=== PATIENT | male | born 1940 | race Caucasian/White ===

== ENCOUNTER → 2019-09-07 | Outpatient (CLI) | payer MEDICARE, MEDICAID ==
[~2019-09-07] MED LIST: ACET-683 PO; ACET1TAB55 PO; ALBU83IN INH; BISA10SU27 PR; COLA100C5 PO; ENEMENE PR; EUCECRE8 TOP; FAMO20TA4 PO; FEVE650S3 PR; HEPARIN 1,000 UNITS/ML 10ML VIAL (FOR RADIOLOGY& DIALYSIS ONLY)(J1644-10) As Ordered ONE; ISOVUE-300 61% 50ML VIAL (Q9967) As Ordered ONE; LIDO3CRE14 TOP; LIDOCAINE 1% MDV 20ML VIAL As Ordered ONE; MIDAZOLAM INJ 2 MG/2 ML VIAL (J2250) As Ordered ONE; MILKSUS3 PO; MIRA1POW3 PO; MORP20SO3 SL; NITROGLYCERIN IN D5W 25MG/250ML (100MCG/ML) As Ordered ONE; PLAV1TAB2 PO; SENN-23 PO; SERT-138 PO; SERT50TA29 PO; TRAZ-186 PO; VICKCRE2 TOP; diphenhydrAMINE INJ 50MG/ML VIAL (J1200) As Ordered ONE; fentaNYL 100 MCG/2 ML INJECTION (J3010) As Ordered ONE
--- NOTE | 2019-09-07 15:59 | REP ---
Brachial peak systole: --Hg Dorsalis pedis peak systole : -- mmHg TELEMETRY MONITOR peak systole: Occluded VIOLETTA peak systole -- Velocity Phasicity MAILING JOGGER 45 triphasic Profunda 34 triphasic SFA prox 44 triphasic SFA mid 22 triphasic SFA dist 11/occluded monophasic Pop occluded -- TOM prox 2 monophasic Tib/P tr occluded -- TELEMETRY MONITOR pr occluded -- TELEMETRY MONITOR dst occluded -- TOM dst for monophasic Impression: There is a severe atheromatous plaque from the distal SFA to the foot. Occluded are the distal SFA, popliteal, tibial/peroneal trunk and proximal and distal TELEMETRY MONITOR. The proximal and distal AT A demonstrate non pulsatile monophasic wave forms. Electronically Signed by Xavier Pennington MD 09/07/2019 03:50 P
== END ==
LOC: M RAD 14:17
PROVIDERS: ATTEND Internal Medicine
DX: I70.90 Unspecified atherosclerosis (principal)

== ENCOUNTER 2019-09-08 11:19 | Inpatient (IN) | payer MEDICARE, MEDICAID ==
[~2019-09-08] VITALS: Ht 177.8 cm; Wt 79.5 kg
[2019-09-08] VITALS (10 sets, daily range): BP systolic 116–192; BP diastolic 57–87
[2019-09-08] MEDS ORDERED: MIRA1POW3 PO (11:57)
[2019-09-08] MEDS ORDERED: EUCECRE8 TOP (11:57)
[2019-09-08] MEDS ORDERED: FEVE650S3 PR (11:57)
[2019-09-08] MEDS ORDERED: LIDO3CRE14 TOP (11:57)
[2019-09-08] MEDS ORDERED: BISA10SU27 PR (11:57)
[2019-09-08] MEDS ORDERED: ALBU83IN INH (11:57)
[2019-09-08] MEDS ORDERED: MORP20SO3 SL (11:57)
[2019-09-08] MEDS ORDERED: MILKSUS3 PO (11:57)
[2019-09-08] MEDS ORDERED: ACET-683 PO (11:57)
[2019-09-08] MEDS ORDERED: COLA100C5 PO (11:57)
[2019-09-08] MEDS ORDERED: TRAZ-186 PO (11:57)
[2019-09-08] MEDS ORDERED: SENN-23 PO (11:57)
[2019-09-08] MEDS ORDERED: PLAV1TAB2 PO (11:57)
[2019-09-08] MEDS ORDERED: ACET1TAB55 PO (11:57)
[2019-09-08] MEDS ORDERED: FAMO20TA4 PO (11:57)
[2019-09-08] MEDS ORDERED: ENEMENE PR (11:57)
[2019-09-08] MEDS ORDERED: SERT-138 PO (11:57)
[2019-09-08] MEDS ORDERED: SERT50TA29 PO (11:57)
[2019-09-08] MEDS ORDERED: VICKCRE2 TOP (11:59)
[2019-09-08 12:14] LABS: BASO # 0.1 10^3/uL (0.0-0.2); BASO % 0.7 % (0.0-1.0); EOS # 0.1 10^3/uL (0.0-0.5); EOS % 0.7 % (0.0-3.0); HEMATOCRIT 54.5 % (42.0-52.0); HEMOGLOBIN 17.4 g/dl (13.5-17.5); LYMPH # 1.1 10^3/uL (1.5-5.0); LYMPH % 10.2 % (24.0-44.0); MEAN CORPUSCULAR HEMOGLOBIN 27.9 pg (27.0-33.0); MEAN CORPUSCULAR HGB CONC 31.9 g/dl (32.0-36.5); MEAN CORPUSCULAR VOLUME 87.3 fl (80.0-96.0); NEUTROPHILS # 8.7 10^3/uL (1.5-8.5); NEUTROPHILS % 78.7 % (36.0-66.0); PLATELET COUNT, AUTOMATED 346 10^3/uL (150-450); RED BLOOD COUNT 6.24 10^6/uL (4.30-6.10); WHITE BLOOD COUNT 11.1 10^3/uL (4.0-10.0)
[2019-09-08 12:31] LABS: INR 1.13; PROTHROMBIN TIME 14.2 SECONDS (11.8-14.0)
[2019-09-08 12:32] LABS: PARTIAL THROMBOPLASTIN TIME 35.4 SECONDS (25.0-38.4)
[2019-09-08 12:33] LABS: BLOOD UREA NITROGEN 22 MG/DL (7-18); CALCIUM LEVEL 9.7 MG/DL (8.8-10.2); CARBON DIOXIDE LEVEL 27 MEQ/L (21-32); CHLORIDE LEVEL 108 MEQ/L (98-107); CREATININE FOR GFR 1.24 MG/DL (0.70-1.30); GLOMERULAR FILTRATION RATE > 60.0 (>42); GLUCOSE, FASTING 125 MG/DL (70-100); POTASSIUM SERUM 4.6 MEQ/L (3.5-5.1); SODIUM LEVEL 142 MEQ/L (136-145)
[2019-09-08] MEDS ORDERED: MORPHINE 2 MG/ML 1ML VIAL (J2270) IV ONE (12:45)
[2019-09-08] MEDS ORDERED: HEPARIN DRIP 25,000 UNITS in IV 1 EA IV SCH (12:59)
[2019-09-08] MEDS ORDERED: HEPARIN SOD (PORCINE) 5000 UNITS/ML VIAL (J1644 PER 1000UNITS) IV PRN (13:30)
[2019-09-08] MEDS ORDERED: hydrALAZINE INJ 20 MG/ML VIAL IV PRN (13:45)
[2019-09-08] MEDS ORDERED: BISACODYL 10 MG SUPP PR PRN (13:45)
[2019-09-08] MEDS ORDERED: MOM 30ML SUSPENSION UDC PO PRN (13:45)
[2019-09-08] MEDS ORDERED: ALBUTEROL SULFATE 2.5 MG/0.5 ML INH NEB SOLN INH PRN (13:45)
[2019-09-08] MEDS ORDERED: ACETAMINOPHEN TAB 650MG DOSE (2X325MG) PO PRN (13:45)
[2019-09-08] MEDS ORDERED: FLEET ENEMA PR PRN (13:45)
[2019-09-08] MEDS: HEPARIN DRIP 25,000 UNITS in IV 1 EA IV SCH (14:00)
[2019-09-08 14:41] LABS: HEMOGLOBIN A1c 5.4 %
[2019-09-08 14:59] LABS: CHOLESTEROL RISK RATIO 6.4 (<5)
[2019-09-08] MEDS ORDERED: MIDAZOLAM INJ 2 MG/2 ML VIAL (J2250) As Ordered ONE (15:04)
[2019-09-08] MEDS ORDERED: fentaNYL 100 MCG/2 ML INJECTION (J3010) As Ordered ONE (15:04)
[2019-09-08] MEDS ORDERED: diphenhydrAMINE INJ 50MG/ML VIAL (J1200) As Ordered ONE (15:04)
[2019-09-08] MEDS ORDERED: LIDOCAINE 1% MDV 20ML VIAL As Ordered ONE (15:05)
[2019-09-08] MEDS ORDERED: ISOVUE-300 61% 50ML VIAL (Q9967) As Ordered ONE (15:05)
--- NOTE | 2019-09-08 15:08 | IRCOV ---
[facility] IR Consult Office Visit IR Consult Office Visit DATE: Sep 08, 2019 REASON FOR CONSULTATION/CHIEF COMPLAINT: Right lower some pain. HISTORY OF PRESENT ILLNESS: 79-year-old male presents from [facility] with right lower extremity pain from last night. He intermittently gets pain in bilateral lower extremities and what sounds like rest pain. He is not ambulatory and denies intermittent claudication. No prior history of cold leg. No prior history of gangrene, lower extremity ulcers or amputations. He is an ex-smoker. Prior stroke greater than 2 years ago. No recent major surgery, trauma or bleed. No prior history of intracranial hemorrhage, aneurysm or AVM. Denies chest pain, shortness of breath, orthopnea or paroxysmal nocturnal dyspnea. ALLERGIES: Please see below. HOME MEDICATIONS: Please see below. PAST MEDICAL HISTORY: Prior stroke PAST SURGICAL HISTORY: No prior arterial intervention in the right leg FAMILY HISTORY: Noncontributory. SOCIAL HISTORY: Ex-smoker. No alcohol or drugs. REVIEW OF SYSTEMS: Otherwise negative PHYSICAL EXAMINATION: VITAL SIGNS: Please see below. GENERAL APPEARANCE: Left-sided weakness from prior stroke. Patient's leans to the left. HEENT: No scleral icterus. RESPIRATORY: Normal breathing at rest. CARDIOVASCULAR: Normal rate. ABDOMEN: Non-distended. EXTREMITIES: Left lower extremity: weak from prior stroke. Patchy sensory loss. Femoral pulse 2+ popliteal pulse 2+ DP PT nonpalpable. warm compared to right leg. Patchy sensory loss. Right lower extremity bluish discoloration. Cool to touch. Femoral pulse 2+ popliteal pulse nonpalpable DP PT nonpalpable. Motor 4 out of 5. Sensation intact. No ulcers. No gangrenous changes. NEUROLOGICAL: Alert and oriented. PSYCHIATRIC: Appropriate to circumstance. LABORATORY DATA: 09/08/2019 hemoglobin 17.4 hematocrit 54.5 WBC 11.1 platelets 346 sodium 142 potassium 4.6 BUN 22 creatinine 1.24 Imaging: I personally reviewed the arterial ultrasound performed 09/07/2019. There is occlusion of the distal SFA and popliteal artery. ASSESSMENT/PLAN: 79-year-old male with acute on chronic right leg critical limb ischemia. Patient has indication for right leg angiogram and intervention. We discussed the risks and benefits of the procedure. Patient would like to proceed. We will proceed with right leg angiogram and intervention. I spent 30 minutes in consultation with the patient. Thank you for this referral. Allergies Coded Allergies: No Known Allergies (Unverified , 09/08/19) Home Medications Scheduled Acetaminophen (Acetaminophen), 1,000 MG PO QHS, (Reported) Clopidogrel Bisulfate (Plavix), 75 MG PO QPM, (Reported) Docusate Sodium (Colace), 200 MG PO DAILY, (Reported) Euc Oil/Aloe/Lav,Rosem Oils/Wp (Vicks Babyrub Soothing Oint), 1 DOSE TOP BID, (Reported) Famotidine (Famotidine), 20 MG PO QHS, (Reported) Lanolin Alcohol/Mo/W.pet/Lee (Eucerin Creme), 1 DOSE TOP QHS, (Reported) Lidocaine HCl (Lidocaine HCl), 1 APLCT TOP BID, (Reported) Polyethylene Glycol 3350 (Miralax), 17 GM PO DAILY, (Reported) Sennosides/Docusate Sodium (Senna-S Tablet), 2 TAB PO QHS, (Reported) Sertraline HCl (Sertraline HCl), 100 MG PO QHS, (Reported) Sertraline HCl (Sertraline HCl), 50 MG PO QHS, (Reported) Trazodone HCl (Trazodone HCl), 50 MG PO QHS, (Reported) Scheduled PRN Acetaminophen (Acetaminophen), 650 MG PO Q4H PRN for PAIN OR FEVER, (Reported) Acetaminophen (Feverall), 650 MG MD Q4H PRN for PAIN OR FEVER, (Reported) Albuterol Sulf (Albuterol Sulfate), 1 UNIT INH Q4H PRN for SHORTNESS OF BREATH, (Reported) Bisacodyl (Bisacodyl), 10 MG MD DAILY PRN for CONSTIPATION, (Reported) Magnesium Hydroxide (Milk of Magnesia), 30 ML PO DAILY PRN for CONSTIPATION, (Reported) Morphine Sulfate (Morphine Sulfate), 0.25 ML SL Q1H PRN for PAIN, (Reported) Sodium Phosphate,[place]-Dibasic (Enema), 1 LARRY MD DAILY PRN for CONSTIPATION, (Reported) VS, I&O, 24H, Fishbone Vital Signs/I&O Vital Signs Date Time Temp Pulse Resp B/P (MAP) Pulse Ox O2 Delivery O2 Flow Rate FiO2 09/08/19 14:15 122/66 (84) 09/08/19 14:15 97.5 98 17 97 Room Air Laboratory Data 24H LABS Laboratory Tests 2 09/08/19 11:54: Immature Granulocyte % (Auto) 0.7, Neutrophils (%) (Auto) 78.7H, Lymphocytes (%) (Auto) 10.2L, Monocytes (%) (Auto) 9.0H, Eosinophils (%) (Auto) 0.7, Basophils (%) (Auto) 0.7, Neutrophils # (Auto) 8.7H, Lymphocytes # (Auto) 1.1L, Monocytes # (Auto) 1.0H, Eosinophils # (Auto) 0.1, Basophils # (Auto) 0.1, Nucleated Red Blood Cells % (auto) 0.0, Prothrombin Time 14.2H, Prothromb Time International Ratio 1.13, Activated Partial Thromboplast Time 35.4, Anion Gap 7L, Glomerular Filtration Rate > 60.0, Calcium Level 9.7 09/08/19 14:04: Activated Partial Thromboplast Time 36.4, Estimated Mean Plasma Glucose 108, Hemoglobin A1c 5.4 CBC/BMP Laboratory Tests 09/08/19 11:54 KAILA URBINA MD Sep 08, 2019 15:08
[2019-09-08] MEDS ORDERED: HEPARIN 1,000 UNITS/ML 10ML VIAL (FOR RADIOLOGY& DIALYSIS ONLY)(J1644-10) As Ordered ONE (15:34)
[2019-09-08] MEDS ORDERED: HEPARIN 25,000 UNITS/250 ML D5W BAG (100 UNITS/ML) (J1644 PER 1000UNITS) As Ordered ONE (15:58)
[2019-09-08] MEDS ORDERED: ALTEPLASE 2 MG/2 ML VIAL (J2997 PER 1MG) As Ordered ONE (16:10)
--- NOTE | 2019-09-08 16:32 | POST-OPPD ---
Postoperative Procedure Note Date Of Procedure: Sep 08, 2019 Time Of Procedure: 16:30 PREOPERATIVE DIAGNOSIS: ALI POSTOPERATIVE DIAGNOSIS: same FINDINGS: right SFA and poplitea artery thrombosis. One vessel run off to the foot. PROCEDURE: right SFA and popliteal artery infusion catheter placement for 24 hours thrombolysis. SURGEON: nolberto ANESTHESIA: mod sed ESTIMATED BLOOD LOSS: < 5 ml COMPLICATIONS: none POSTOPERATIVE CONDITION: stable KAILA URBINA MD Sep 08, 2019 16:32
[2019-09-08] MEDS: HEPARIN DRIP 25,000 UNITS in IV 1 EA XX SCH (17:00)
[2019-09-08] MEDS: ALTEPLASE RECOMBINANT 10 MG in NS 1,000 ML XX SCH (17:30)
[2019-09-08] MEDS: D5W/LR 1,000 ML IV SCH (19:09)
[2019-09-08] MEDS: MIRALAX *UNIT DOSE* 17GM PACKET PO SCH (19:10)
[2019-09-08] MEDS: MORPHINE 10MG/0.5ML ORAL CONCENTRATE SOLUTION U/D SL PRN ×2 (19:17→23:25)
[2019-09-08 19:20] LABS: HEMATOCRIT 55.8 % (42.0-52.0); HEMOGLOBIN 18.2 g/dl (13.5-17.5)
[2019-09-08 19:33] LABS: INR 1.21
[2019-09-08] MEDS: SERTRALINE 100 MG TAB PO SCH (20:18)
[2019-09-08] MEDS: CLOPIDOGREL 75 MG TAB PO SCH ×2 (20:18→21:00)
[2019-09-08] MEDS: traZODone 50 MG TAB PO SCH (20:18)
[2019-09-08] MEDS: SERTRALINE HCL 50 MG TAB PO SCH (20:19)
[2019-09-08] MEDS: FAMOTIDINE 20 MG TAB PO SCH (20:19)
[2019-09-08] MEDS: SENOKOT S TAB PO SCH (20:19)
--- NOTE | 2019-09-08 22:03 | HPE ---
DATE OF ADMISSION: 09/08/2019 TIME: 1:00 p.m. CHIEF COMPLAINT: Right leg pain. HISTORY OF PRESENT ILLNESS: Mr. Cavazos is a 79-year-old gentleman who has multiple medical comorbidities, which include an acute stroke in 2018, which left him with left sided hemiplegia. He has a history of paroxysmal atrial fibrillation, chronic diastolic congestive heart failure (CHF). He is an ex smoker with a history of chronic obstructive pulmonary disease (COPD), along with hypertension, hyperlipidemia, and diet controlled diabetes. The patient had recently been interned at [facility]. Yesterday, he started complaining of pain in his right leg. A right lower extremity arterial Doppler was obtained, which showed that he had SFA popliteal tibial/perineal and proximal and distal CAREER LAW CLERK arterial occlusion. He was subsequently sent to the emergency room for evaluation. In the emergency department, he was started on heparin drip. Interventional radiology has been consulted and he is in the process of going for a lower extremity angiogram. At this point, the patient is able to dorsiflex his right lower extremity. He has no evidence of any gangrene or any pallor of his limb. Sensation is intact. He is resting otherwise quite comfortably. His laboratories are essentially stable. Based on his Medical Orders for Life Sustaining Treatment (MOLST) form, he would care to address his pain. ALLERGIES: No known drug allergies. HOME MEDICATIONS: - Tylenol 1000 mg at bedtime - acetaminophen 650 mg every four hours as needed for fever - albuterol nebulizer - bisacodyl 10 mg daily - Plavix 75 mg in the evening - Pepcid 20 mg at bedtime - Lidoderm cream applied to left wrist, elbow and shoulders - morphine sulfate every 1 hour as needed for pain - MiraLAX 17 grams daily - Senna S tablet two tablets at bedtime - sertraline 150 mg at bedtime - trazodone 50 mg at bedtime PAST MEDICAL HISTORY: Notable for: 1. CVA in 2018 with residual left sided hemiplegia. 2. History of diet controlled diabetes. 3. Hypertension. 4. Hyperlipidemia. 5. Paroxysmal atrial fibrillation. He is currently not on anticoagulation aside from Plavix. 6. History of non oxygen or steroid dependent chronic obstructive pulmonary disease (COPD). 7. History of kidney stones. 8. Chronic diastolic congestive heart failure (CHF). 9. Coronary artery disease without any percutaneous intervention. 10. History of chronic low back pain. 11. History of severe constipation, as well as depression. SURGICAL HISTORY: Notable for: 1. Bilateral inguinal hernia repair. 2. Left total hip arthroplasty. 3. Right knee arthroplasty. 4. Tonsillectomy. 5. Kidney stone removed. SOCIAL HISTORY: The patient is a resident of [facility]. His daughter, Adenike, is his surrogate medical decision maker. Per his MOLST form, the patient is DO NOT RESUSCITATE, DO NOT INTUBATE. He does not drink alcohol. He quit tobacco 2 years ago. FAMILY HISTORY: Asked but noncontributory. REVIEW OF SYSTEMS: 12-system was reviewed with the patient and otherwise negative. PHYSICAL EXAMINATION: VITAL SIGNS: The patient's temperature is 98.4, pulse 104 and regular, respirations 19, blood pressure 173/115, oxygen saturation 96% on room air. GENERAL: The patient is alert and oriented times three. He is an elderly gentleman who appears to be chronically ill. He has left sided hemiplegia. His speech appears to be fluent. HEENT: Head is atraumatic. Pupils are symmetric and reactive to light. He has no scleral icterus, conjunctival pallor. Oropharynx is clear. Oral mucosa is dry. Neck is supple. No palpable lymphadenopathy. Trachea is midline. LUNGS: Lung sounds are heard bilaterally without rales, wheezes or rhonchi. Lung sounds are distant. HEART: S1, S2. No murmurs, rubs or gallops. ABDOMEN: Soft, nontender, nondistended. EXTREMITIES: Without any significant cyanosis, clubbing or edema. His right lower extremity has no palpable pulses, not discolored. He is able to dorsiflex his right foot. NEUROLOGIC: Cranial nerves II through XII are grossly intact without any focal neurologic deficits with the exception of the patient's chronic left sided hemiplegia with contractures of his left upper extremity. LABORATORIES: Relevant laboratories: White blood cell count is 11.1, hemoglobin 17.4, hematocrit 54.5, platelet count 346,000. PT is 14.2, INR 1.13. Sodium 142, potassium 4.6, chloride 108, bicarbonate 27, anion gap 7, BUN 22, creatinine 1.2, glucose 125, calcium 9.7. PTT is 35.4. Arterial study of the right lower extremity -- please reference report, but this shows severe plaque from the distal SFA to the popliteal, tibial, peroneal, proximal and distal CAREER LAW CLERK, proximal and distal TOM demonstrated nonpulsatile monophasic waveforms. IMPRESSION: 1. Right lower extremity pain with abnormal arterial Doppler suggesting severe peripheral arterial disease. The patient will be admitted to the hospitalist service as an inpatient. Dr. Thurman of interventional radiology has been consulted and the patient will be started on heparin drip for now, although this does not appear to be acute. We will check a fasting lipid profile. He will be continued on his Plavix. Further recommendations to follow based on the results of the arteriogram. 2. Accelerated hypertension. The patient will be started on Norvasc, as well as intravenous hydralazine for any accelerated blood pressure in excess of 170 mmHg. 3. Diet controlled diabetes mellitus type 2. We will check a hemoglobin A1/c. When the blood sugars are consistently over 200, then we can start him on a sliding scale. 4. Chronic constipation. He will be resumed on his home medication. 5. Paroxysmal atrial fibrillation with history of CVA with left hemiplegia. The patient is currently on Plavix, but he does have a [id number] score of 7. I will review his halfway documentation to parse out why he is not on an anticoagulant, but it appears that he might just be comfort measures only at this time. 6. Chronic diastolic congestive heart failure (CHF), which is compensated. We will control his blood pressure to further enhance control of this. 7. Chronic obstructive pulmonary disease (COPD). He will be continued on his nebulizer. This is otherwise stable. 8. Chronic pain syndrome. The patient will be continued on his Roxanol as needed. The patient will be a DO NOT RESUSCITATE, DO NOT INTUBATE. He is on heparin drip for deep vein thrombosis (DVT) prophylaxis.
[2019-09-09] VITALS (17 sets, daily range): BP systolic 97–199; BP diastolic 55–77
[2019-09-09 00:24] LABS: HEMATOCRIT 51.3 % (42.0-52.0); HEMOGLOBIN 16.7 g/dl (13.5-17.5)
[2019-09-09 00:38] LABS: INR 1.18; PROTHROMBIN TIME 14.8 SECONDS (11.8-14.0)
[2019-09-09 00:40] LABS: PARTIAL THROMBOPLASTIN TIME 97.9 SECONDS (25.0-38.4)
[2019-09-09] MEDS: MORPHINE 10MG/0.5ML ORAL CONCENTRATE SOLUTION U/D SL PRN ×5 (01:57→23:39)
[2019-09-09] MEDS: D5W/LR 1,000 ML IV SCH ×2 (02:50→08:07)
[2019-09-09 06:32] LABS: HEMATOCRIT 50.7 % (42.0-52.0); MEAN CORPUSCULAR HEMOGLOBIN 27.7 pg (27.0-33.0); MEAN CORPUSCULAR HGB CONC 31.6 g/dl (32.0-36.5); MEAN CORPUSCULAR VOLUME 87.7 fl (80.0-96.0); PLATELET COUNT, AUTOMATED 284 10^3/uL (150-450); RED BLOOD COUNT 5.78 10^6/uL (4.30-6.10); WHITE BLOOD COUNT 9.4 10^3/uL (4.0-10.0)
[2019-09-09 06:36] LABS: INR 1.22; PROTHROMBIN TIME 15.2 SECONDS (11.8-14.0)
[2019-09-09 07:01] LABS: PARTIAL THROMBOPLASTIN TIME 136.8 SECONDS (25.0-38.4)
[2019-09-09 07:04] LABS: ALBUMIN 2.9 GM/DL (3.2-5.2); ALT/SGPT 12 U/L (12-78); BILIRUBIN,TOTAL 0.7 MG/DL (0.2-1.0); BLOOD UREA NITROGEN 19 MG/DL (7-18); CALCIUM LEVEL 9.5 MG/DL (8.8-10.2); CARBON DIOXIDE LEVEL 25 MEQ/L (21-32); CHLORIDE LEVEL 108 MEQ/L (98-107); CREATININE FOR GFR 1.05 MG/DL (0.70-1.30); GLOMERULAR FILTRATION RATE > 60.0 (>42); GLUCOSE, FASTING 114 MG/DL (70-100); POTASSIUM SERUM 4.2 MEQ/L (3.5-5.1); SODIUM LEVEL 140 MEQ/L (136-145)
[2019-09-09] MEDS: DOCUSATE SODIUM 100 MG CAP PO SCH (09:48)
[2019-09-09] MEDS: MIRALAX *UNIT DOSE* 17GM PACKET PO SCH (09:48)
[2019-09-09] MEDS: IBUPROFEN 600 MG TAB PO PRN (09:49)
--- NOTE | 2019-09-09 11:53 | IPNPDOC ---
Subjective Date Seen The patient was seen on 09/09/19. Subjective Chief Complaint/HPI Doing well this am, no reports of bleeding with heparin gtt and TPA. PTT high this morning, hep gtt being held per protocol. BP controlled. Not c/o right leg pain. Objective Physical Examination General Exam: Positive: Alert, No Acute Distress Eye Exam: Negative: Sclera icteric ENT Exam: Positive: Mucous membr. moist/pink Neck Exam: Positive: Supple Chest Exam: Positive: Clear to auscultation Heart Exam: Positive: Rate Normal, Normal S1, Normal S2 Abdomen Exam: Positive: Normal bowel sounds Extremity Exam: Positive: Normal pulses (right foot with PT pulse by doppler ), Other (capillary refill clinically improved with TPA c/w yesterday exam (< 5 sec), able to dorsiflex foot); Negative: Clubbing, Cyanosis, Edema Skin Exam: Positive: Nl turgor and temperature Neuro Exam: Positive: Normal Speech Psych Exam: Positive: Mental status NL, Mood NL; Negative: Anxiety Assessment /Plan Assessment # Acute Right SFA + Popliteal thrombosis - s/p angiogram 09/08 - tolerating TPA + hep gtt - back to IR this evening for reimaging - will transition to [facility] prior to discharge - transfer out of ICU when off TPA # HTN - controlled with home meds # Hx of Stroke - holding plavix, will stop indefinitely once OAC started # Chronic Constipation - on home meds # Chronic diastolic CHF - compensated, HTN controlled Dispo: Back to SNF on wednesday/wednesday - Plan/VTE VTE Prophylaxis Ordered?: No (receiving hep gtt and TPA) VS, I&O, 24H, Fishbone Vital Signs/I&O Vital Signs Date Time Temp Pulse Resp B/P (MAP) Pulse Ox O2 Delivery O2 Flow Rate FiO2 09/09/19 10:00 66 16 102/55 (71) 99 Room Air 09/09/19 08:00 97.7 09/08/19 15:40 3 I&O- Last 24 Hours up to 6 AM 09/09/19 06:00 Intake Total 2301 ml Output Total 100 ml Balance 2201 ml Laboratory Data 24H LABS Laboratory Tests 2 09/08/19 11:54: Immature Granulocyte % (Auto) 0.7, Neutrophils (%) (Auto) 78.7H, Lymphocytes (%) (Auto) 10.2L, Monocytes (%) (Auto) 9.0H, Eosinophils (%) (Auto) 0.7, Basophils (%) (Auto) 0.7, Neutrophils # (Auto) 8.7H, Lymphocytes # (Auto) 1.1L, Monocytes # (Auto) 1.0H, Eosinophils # (Auto) 0.1, Basophils # (Auto) 0.1, Nucleated Red Blood Cells % (auto) 0.0, Prothrombin Time 14.2H, Prothromb Time International Ratio 1.13, Activated Partial Thromboplast Time 35.4, Anion Gap 7L, Glomerular Filtration Rate > 60.0, Calcium Level 9.7 09/08/19 14:04: Activated Partial Thromboplast Time 36.4, Estimated Mean Plasma Glucose 108, He moglobin A1c 5.4, Triglycerides Level 212H, Total Cholesterol 160, LDL Cholesterol 93, Non-HDL Cholesterol (LDL + VLDL) 135, Total HDL Cholesterol 25L, Cholesterol/HDL Ratio 6.400H 09/08/19 19:10: Prothrombin Time 15.0H, Prothromb Time International Ratio 1.21, Activated Partial Thromboplast Time 62.8H, Fibrinogen 362 09/08/19 20:28: Bedside Glucose (Misc Panel) 135H 09/09/19 00:09: Prothrombin Time 14.8H, Prothromb Time International Ratio 1.18, Activated Partial Thromboplast Time 97.9H, Fibrinogen 315 09/09/19 06:11: Prothrombin Time 15.2H, Prothromb Time International Ratio 1.22, Activated Partial Thromboplast Time 136.8*H, Fibrinogen 317, Nucleated Red Blood Cells % (auto) 0.0, Anion Gap 7L, Glomerular Filtration Rate > 60.0, Calcium Level 9.5, Total Bilirubin 0.7, Aspartate Amino Transf (AST/SGOT) 23, Alanine Aminotransferase (ALT/SGPT) 12, Alkaline Phosphatase 87, Total Protein 6.0L, Albumin 2.9L, Albumin/Globulin Ratio 0.94L CBC/BMP Laboratory Tests 09/08/19 11:54 09/08/19 19:10 09/09/19 00:09 09/09/19 06:11 JACQUELINE STEIN MD Sep 09, 2019 11:53
[2019-09-09 12:02] LABS: HEMATOCRIT 49.4 % (42.0-52.0); HEMOGLOBIN 15.8 g/dl (13.5-17.5)
[2019-09-09] MEDS: ALTEPLASE RECOMBINANT 10 MG in NS 1,000 ML XX SCH (12:13)
[2019-09-09 12:14] LABS: INR 1.2
[2019-09-09] MEDS: HEPARIN DRIP 25,000 UNITS in IV 1 EA IV SCH (14:00)
[2019-09-09] MEDS: HEPARIN DRIP 25,000 UNITS in IV 1 EA XX SCH (17:00)
--- NOTE | 2019-09-09 17:50 | ECGEPIP ---
[facility] - ED Test Date: 2019-09-08 Pat Name: FABI DUMONT Department: Room: [place] [address] Gender: Male [place]: ERIC : [id number] Requested By: NIK Katz PA-C Order Number: [id number] Reading MD: Betzy Dinh Measurements Intervals [place] Rate: 97 P: 234 [place]: 274 QRS: -37 QRSD: 83 T: 46 QT: 341 QTc: 433 Interpretive Statements ECTOPIC ATRIAL RHYTHM WITH FIRST DEGREE AV BLOCK LOW QRS VOLTAGE ANTERIOR MYOCARDIAL INFARCTION, OF INDETERMINATE AGE INFERIOR MYOCARDIAL INFARCTION, OF INDETERMINATE AGE NO PRIOR Electronically Signed on 09-09-2019 17:50:37 EST by Betzy Dinh
[2019-09-09 17:53] LABS: HEMATOCRIT 49.3 % (42.0-52.0); HEMOGLOBIN 15.7 g/dl (13.5-17.5)
[2019-09-09 18:11] LABS: INR 1.21
[2019-09-09] MEDS ORDERED: ALTEPLASE 2 MG/2 ML VIAL (J2997 PER 1MG) As Ordered ONE ×2 (20:29→21:58)
[2019-09-09] MEDS ORDERED: HEPARIN 25,000 UNITS/250 ML D5W BAG (100 UNITS/ML) (J1644 PER 1000UNITS) As Ordered ONE (22:03)
[2019-09-09] MEDS: FAMOTIDINE 20 MG TAB PO SCH (23:38)
[2019-09-09] MEDS: SENOKOT S TAB PO SCH (23:38)
[2019-09-09] MEDS: SERTRALINE 100 MG TAB PO SCH (23:38)
[2019-09-09] MEDS: traZODone 50 MG TAB PO SCH (23:38)
[2019-09-09] MEDS: SERTRALINE HCL 50 MG TAB PO SCH (23:38)
[2019-09-10] VITALS (36 sets, daily range): BP systolic 81–174; BP diastolic 50–100
[2019-09-10] MEDS: CLOPIDOGREL 75 MG TAB PO SCH (00:43)
[2019-09-10 01:18] LABS: HEMATOCRIT 49.3 % (42.0-52.0); HEMOGLOBIN 15.4 g/dl (13.5-17.5); MEAN CORPUSCULAR HEMOGLOBIN 27.6 pg (27.0-33.0); MEAN CORPUSCULAR HGB CONC 31.2 g/dl (32.0-36.5); MEAN CORPUSCULAR VOLUME 88.4 fl (80.0-96.0); PLATELET COUNT, AUTOMATED 272 10^3/uL (150-450); RED BLOOD COUNT 5.58 10^6/uL (4.30-6.10); WHITE BLOOD COUNT 10.7 10^3/uL (4.0-10.0)
[2019-09-10 01:28] LABS: INR 1.23; PROTHROMBIN TIME 15.2 SECONDS (11.8-14.0)
[2019-09-10 01:29] LABS: PARTIAL THROMBOPLASTIN TIME 60.7 SECONDS (25.0-38.4)
[2019-09-10] MEDS: MORPHINE 10MG/0.5ML ORAL CONCENTRATE SOLUTION U/D SL PRN ×3 (01:38→16:25)
[2019-09-10] MEDS: HEPARIN DRIP 25,000 UNITS in IV 1 EA IV SCH (01:48)
[2019-09-10] MEDS: ALTEPLASE RECOMBINANT 10 MG in NS 1,000 ML XX SCH ×2 (04:49→18:00)
[2019-09-10] MEDS: IBUPROFEN 600 MG TAB PO PRN (04:49)
[2019-09-10] MEDS: D5W/LR 1,000 ML IV SCH (04:52)
[2019-09-10] MEDS ORDERED: IBUPROFEN 600 MG TAB PO SCH (06:00)
[2019-09-10 06:57] LABS: HEMATOCRIT 40.7 % (42.0-52.0); MEAN CORPUSCULAR HEMOGLOBIN 28.5 pg (27.0-33.0); MEAN CORPUSCULAR HGB CONC 32.2 g/dl (32.0-36.5); MEAN CORPUSCULAR VOLUME 88.5 fl (80.0-96.0); PLATELET COUNT, AUTOMATED 227 10^3/uL (150-450)
[2019-09-10 07:13] LABS: HEMOGLOBIN 13.1 g/dl (13.5-17.5)
[2019-09-10 07:14] LABS: INR 1.3
[2019-09-10 07:36] LABS: BLOOD UREA NITROGEN 14 MG/DL (7-18); CALCIUM LEVEL 7.7 MG/DL (8.8-10.2); CARBON DIOXIDE LEVEL 23 MEQ/L (21-32); CHLORIDE LEVEL 115 MEQ/L (98-107); GLOMERULAR FILTRATION RATE > 60.0 (>42); GLUCOSE, FASTING 102 MG/DL (70-100); POTASSIUM SERUM 4.3 MEQ/L (3.5-5.1); SODIUM LEVEL 143 MEQ/L (136-145)
[2019-09-10 07:48] LABS: PARTIAL THROMBOPLASTIN TIME 201.3 SECONDS (25.0-38.4)
[2019-09-10] MEDS: DOCUSATE SODIUM 100 MG CAP PO SCH (09:00)
[2019-09-10] MEDS: MIRALAX *UNIT DOSE* 17GM PACKET PO SCH (09:00)
--- NOTE | 2019-09-10 11:52 | IPNPDOC ---
Subjective Date Seen The patient was seen on 09/10/19. Subjective Chief Complaint/HPI Keene is c/o back and left arm soreness this am. He continues on TPA and Heparin gtt. Hep gtt presently held due to supertherapeutic PTT. Objective Physical Examination General Exam: Positive: Alert, Cooperative, No Acute Distress Eye Exam: Positive: Conjunctiva & lids normal; Negative: Sclera icteric ENT Exam: Positive: Atraumatic, Mucous membr. moist/pink Neck Exam: Positive: Supple Chest Exam: Positive: Clear to auscultation Heart Exam: Positive: Rate Normal, Normal S1, Normal S2 Abdomen Exam: Positive: Normal bowel sounds Extremity Exam: Positive: Normal pulses (right foot with PT pulse by doppler ), Other (Right foot pink in color with normal cap refil. ); Negative: Clubbing, Cyanosis, Edema Skin Exam: Positive: Nl turgor and temperature, Other skin issue (no bruising); Negative: Rash, Lesion Neuro Exam: Positive: Normal Speech Psych Exam: Positive: Mental status NL, Mood NL; Negative: Anxiety Assessment /Plan Assessment # Acute Right SFA + Popliteal thrombosis - s/p angiogram 09/08, - tolerating TPA + hep gtt - back to IR today - will transition to [facility] prior to discharge - transfer out of ICU when off TPA - stop IVFs # Mild anemia - h/h q6 # HTN - controlled with home meds # Hx of Stroke - holding plavix, will stop indefinitely once OAC started # Chronic Constipation - on home meds # Chronic diastolic CHF - compensated, HTN controlled Dispo: Back to SNF once cleared by IR - Plan/VTE VTE Prophylaxis Ordered?: No (receiving hep gtt and TPA) VS, I&O, 24H, Fishbone Vital Signs/I&O Vital Signs Date Time Temp Pulse Resp B/P (MAP) Pulse Ox O2 Delivery O2 Flow Rate FiO2 09/10/19 11:00 67 16 102/53 (69) 99 Room Air 09/10/19 08:00 97.7 09/09/19 22:15 2 I&O- Last 24 Hours up to 6 AM 09/10/19 06:00 Intake Total 3417.2 ml Output Total 100 ml Balance 3317.2 ml Laboratory Data 24H LABS Laboratory Tests 2 09/09/19 11:48: Prothrombin Time 15.0H, Prothromb Time International Ratio 1.20, Activated Partial Thromboplast Time 76.0H, Fibrinogen 315 09/09/19 17:42: Prothrombin Time 15.0H, Prothromb Time International Ratio 1.21, Activated Partial Thromboplast Time 78.3H, Fibrinogen 353 09/10/19 01:02: Prothrombin Time 15.2H, Prothromb Time International Ratio 1.23, Activated Partial Thromboplast Time 60.7H, Fibrinogen 313, Nucleated Red Blood Cells % (auto) 0.0 09/10/19 06:47: Prothrombin Time 16.0H, Prothromb Time International Ratio 1.30, Activated Partial Thromboplast Time 201.3*H, Fibrinogen 271, Nucleated Red Blood Cells % (auto) 0.0, Anion Gap 5L, Glomerular Filtration Rate > 60.0, Calcium Level 7.7#L CBC/BMP Laboratory Tests 09/09/19 11:48 09/09/19 17:42 09/10/19 01:02 09/10/19 06:47 JACQUELINE STEIN MD Sep 10, 2019 11:52
[2019-09-10 14:11] LABS: HEMOGLOBIN 13.6 g/dl (13.5-17.5)
[2019-09-10] MEDS: HEPARIN DRIP 25,000 UNITS in IV 1 EA XX SCH (17:00)
[2019-09-10 19:33] LABS: HEMATOCRIT 38.8 % (42.0-52.0); HEMOGLOBIN 12.1 g/dl (13.5-17.5)
--- NOTE | 2019-09-10 19:55 | IRMSE ---
[facility] IR Moderate Sedation Eval. Date and Time Date: Sep 10, 2019 Time: 17:27 ASA Classification ASA Classification: III-Severe systemic dis. Mallampati Score: II NPO: Yes Obstructive Sleep Apnea: No Interval Plan: moderate sedation KAILA URBINA MD Sep 10, 2019 19:55
--- NOTE | 2019-09-10 19:57 | POST-OPPD ---
Postoperative Procedure Note Date Of Procedure: Sep 10, 2019 Time Of Procedure: 19:55 PREOPERATIVE DIAGNOSIS: ALI POSTOPERATIVE DIAGNOSIS: same FINDINGS: successful thrombolysis. patent SFA, popliteal artery and patent one vessel run off to foot. PROCEDURE: angiogram. SURGEON: nolberto ANESTHESIA: mod sed ESTIMATED BLOOD LOSS: < 5 ml COMPLICATIONS: none POSTOPERATIVE CONDITION: stable KAILA URBINA MD Sep 10, 2019 19:57
[2019-09-10] MEDS: FAMOTIDINE 20 MG TAB PO SCH (22:07)
[2019-09-10] MEDS: SERTRALINE 100 MG TAB PO SCH (22:07)
[2019-09-10] MEDS: SERTRALINE HCL 50 MG TAB PO SCH (22:07)
[2019-09-10] MEDS: traZODone 50 MG TAB PO SCH (22:07)
[2019-09-10] MEDS: SENOKOT S TAB PO SCH (22:07)
[2019-09-10] MEDS: PERCOCET 5MG/325MG TAB PO PRN (22:09)
[2019-09-10 23:09] LABS: HEMATOCRIT 33.8 % (42.0-52.0); HEMOGLOBIN 10.5 g/dl (13.5-17.5); MEAN CORPUSCULAR HEMOGLOBIN 28.1 pg (27.0-33.0); MEAN CORPUSCULAR HGB CONC 31.1 g/dl (32.0-36.5); MEAN CORPUSCULAR VOLUME 90.4 fl (80.0-96.0); RED BLOOD COUNT 3.74 10^6/uL (4.30-6.10); WHITE BLOOD COUNT 26.5 10^3/uL (4.0-10.0)
[2019-09-10 23:18] LABS: PLATELET COUNT, AUTOMATED 476 10^3/uL (150-450)
[2019-09-11] VITALS (37 sets, daily range): BP systolic 73–145; BP diastolic 45–81
[2019-09-11] MEDS: PERCOCET 5MG/325MG TAB PO PRN ×3 (04:26→16:19)
[2019-09-11] MEDS: D5W/LR 1,000 ML IV SCH ×4 (04:26→16:18)
[2019-09-11 07:45] LABS: HEMATOCRIT 30.7 % (42.0-52.0); HEMOGLOBIN 9.8 g/dl (13.5-17.5); MEAN CORPUSCULAR HEMOGLOBIN 28.9 pg (27.0-33.0); MEAN CORPUSCULAR HGB CONC 31.9 g/dl (32.0-36.5); MEAN CORPUSCULAR VOLUME 90.6 fl (80.0-96.0); RED BLOOD COUNT 3.39 10^6/uL (4.30-6.10)
[2019-09-11 07:56] LABS: PLATELET COUNT, AUTOMATED 239 10^3/uL (150-450)
[2019-09-11] MEDS ORDERED: ONDANSETRON 4MG/2ML VIAL (J2405) IV PRN (08:00)
[2019-09-11 08:11] LABS: ALBUMIN 1.7 GM/DL (3.2-5.2); ALT/SGPT 9 U/L (12-78); BILIRUBIN,TOTAL 0.6 MG/DL (0.2-1.0); BLOOD UREA NITROGEN 14 MG/DL (7-18); CALCIUM LEVEL 7.9 MG/DL (8.8-10.2); CARBON DIOXIDE LEVEL 21 MEQ/L (21-32); CHLORIDE LEVEL 116 MEQ/L (98-107); CREATININE FOR GFR 1.04 MG/DL (0.70-1.30); GLOMERULAR FILTRATION RATE > 60.0 (>42); GLUCOSE, FASTING 198 MG/DL (70-100); POTASSIUM SERUM 4.2 MEQ/L (3.5-5.1); SODIUM LEVEL 141 MEQ/L (136-145); TOTAL PROTEIN 3.9 GM/DL (6.4-8.2)
[2019-09-11 08:15] LABS: INR 1.41
[2019-09-11 08:16] LABS: PARTIAL THROMBOPLASTIN TIME 38.7 SECONDS (25.0-38.4)
--- NOTE | 2019-09-11 08:24 | IRPN ---
[facility] IR Progress Note IR Progress Note DATE: Sep 11, 2019 FOLLOW-UP: Day 4 status post right lower extremity thrombolysis for acute limb ischemia, complicated by right groin hematoma yesterday. Patient laying in bed. Right groin site now soft to palpation. No bruising over the right flank. No tenderness in the right flank. Medial thigh and testicular bruising appears stable. ON EXAMINATION: Blood pressure ranging 90-105/60-70 heart rate 96 alert and oriented. Right lower extremity: : Improved color. Warm to touch. Popliteal pulse 2+ dorsalis pedis present. mild right lower extremity edema secondary to reperfusion. Motor 3 out of 5 unchanged. No gangrene. IMPRESSION: 1. Status post right lower extremity limb reperfusion with complete thrombolysis of right SFA and popliteal clot. Patient's baseline arterial runoff to the right lower extremity is poor. 2. Right groin hematoma status post intervention and TPA treatment. Transfuse 2 units PRBC and 1 unit of FFP. If hematocrit continues to fall and/or blood pressure falls, will do CTA, angiogram and embolization if required. Hold off on blood thinners. Keep pelvic binder in place. Allergies Coded Allergies: No Known Allergies (Unverified , 09/08/19) Current Medications Current Medications Medications (Trade) Dose Ordered Sig/Alyse Route PRN Reason Start Time Stop Time Status Last Admin Dose Admin Acetaminophen (Tylenol Tab) 650 mg Q4H PRN PO PAIN OR FEVER 09/08/19 13:45 Albuterol Sulfate (Proventil Neb) 2.5 mg RQ4H PRN INH SHORTNESS OF BREATH 09/08/19 13:45 Alteplase, Recombinant 10 mg/ Sodium Chloride 1,010 ml @ 50 mls/hr [id number] XX 09/08/19 17:30 09/09/19 12:13 Bisacodyl (Dulcolax Suppository) 10 mg DAILY PRN [place] CONSTIPATION 09/08/19 13:45 Clopidogrel Bisulfate (PLAVix) 75 mg QPM PO 09/08/19 21:00 09/10/19 11:54 DC Dextrose/Lactated Ringer's 1,000 ml @ 75 mls/hr [id number] IV 09/08/19 13:30 09/10/19 11:52 DC 09/10/19 04:52 Dextrose/Lactated Ringer's 1,000 ml @ 200 mls/hr Q5H IV 09/11/19 01:00 09/11/19 04:26 Docusate Sodium (Colace) 200 mg DAILY PO 09/09/19 09:00 09/09/19 09:48 Famotidine (Pepcid) 20 mg QHS PO 09/08/19 21:00 09/10/19 22:07 Heparin Sodium (Porcine) (Heparin) ASDIRECTED PRN IV SEE LABEL COMMENTS 09/08/19 13:30 09/10/19 01:49 Heparin Sodium (Porcine) 06193 units/IV Miscellaneous Supplies 250 ml @ 8.2 mls/hr Q24H IV 09/08/19 12:59 09/08/19 16:19 DC 09/08/19 13:32 Heparin Sodium (Porcine) 12822 units/IV Miscellaneous Supplies 250 ml @ 1 mls/hr Q24H IV 09/08/19 14:00 09/10/19 01:48 Heparin Sodium (Porcine) 15616 units/IV Miscellaneous Supplies 250 ml @ 4 mls/hr Q24H XX 09/08/19 17:00 Home Med (Med Rec Complete!) ASDIRECTED XX 09/08/19 12:15 09/08/19 12:17 DC Hydralazine HCl (Apresoline) 10 mg Q6HP PRN IV for SBP > 170 mm Hg 09/08/19 13:45 09/08/19 20:18 Ibuprofen (Advil) 600 mg Q6H PO 09/10/19 06:00 Cancel Ibuprofen (Advil) 600 mg Q6HP PRN PO MODERATE PAIN (PS 5-7) 09/09/19 09:15 09/10/19 21:10 DC 09/10/19 04:49 Magnesium Hydroxide (Milk Of Magnesia) 30 ml DAILY PRN PO CONSTIPATION 09/08/19 13:45 Morphine Sulfate (Roxanol) 5 mg Q1H PRN SL PAIN 09/08/19 13:45 09/10/19 16:25 Non-Formulary Medication (Heparin Iv Rate Change Documentation ml/ Hr) ASDIRECTED XX 09/08/19 13:30 09/13/19 13:29 09/10/19 08:50 Ondansetron HCl (ZOFRAN INJection) 4 mg Q8HP PRN IV NAUSEA OR VOMITING 09/11/19 08:00 Oxycodone/ Acetaminophen (Percocet 5mg/ 325mg Tablet) 1 tab Q4HP PRN PO MILD/MODERATE PAIN (PS 1-7) 09/10/19 21:15 09/11/19 04:26 Polyethylene Glycol (Miralax) 1 pkt DAILY PO 09/08/19 09:00 09/09/19 09:48 Senna/Docusate Sodium (Senokot S) 2 tab QHS PO 09/08/19 21:00 09/10/19 22:07 Sertraline HCl (Zoloft) 50 mg QHS PO 09/08/19 21:00 09/10/19 22:07 Sertraline HCl (Zoloft) 100 mg QHS PO 09/08/19 21:00 09/10/19 22:07 Sodium Biphosphate/ Sodium Phosphate (Fleet Enema) 1 ea DAILY PRN [place] CONSTIPATION 09/08/19 13:45 Trazodone HCl (Desyrel) 50 mg QHS PO 09/08/19 21:00 09/10/19 22:07 VS,Fishbone, I+O VS, Fishbone, I+O Laboratory Tests 09/10/19 13:59 09/10/19 19:26 09/10/19 23:03 09/11/19 07:17 Vital Signs Date Time Temp Pulse Resp B/P (MAP) Pulse Ox O2 Delivery O2 Flow Rate FiO2 09/11/19 05:00 81 18 104/57 (73) 96 Room Air 09/11/19 04:00 98.2 09/10/19 19:50 2 I&O- Last 24 Hours up to 6 AM 09/11/19 05:59 Intake Total 2680 ml Output Total 100 ml Balance 2580 ml KAILA URBINA MD Sep 11, 2019 08:24
--- NOTE | 2019-09-11 09:02 | REP ---
IR right leg angiogram. IR catheter directed thrombolysis check. IR moderate sedation. Clinical Information: Acute right lower extremity ischemia. New right groin hematoma. Reportedly started during transfer of the patient for this session. Physician: Dr Thurman.Procedure: The patient was advised of the benefits, risks, and alternatives of the procedure and informed consent was obtained.A time out was performed with verification of the patient's name, MRN, site of procedure, and type of procedure to be performed. The patient was positioned in the supine position on the angiographic table. The site was prepped and draped in the usual sterile fashion.Moderate sedation was performed by the physician including the presence of an independent trained observer who assisted in monitoring the patient's level of consciousness and physiological status. Following the administration of Fentanyl and Versed, the physician spent 60 minutes of continuous [id number] time with the patient. A accreditation coordinator radiograph reveals infusion catheter in expected location. The inner stylet of the infusion catheter was removed. An 035 wire was advanced through the catheter under fluoroscopy guidance into the peroneal artery. The catheter was removed over the wire. A right lower extremity angiogram was performed and this demonstrates there is now flow through the superficial femoral artery and popliteal artery. There is flow in the proximal, mid and distal popliteal artery. Patent proximal third of the anterior tibial artery with collateral filling of the mid peroneal artery. Occluded posterior tibial artery. Runoff angiogram to the right foot demonstrates anterior tibial and peroneal artery runoff to the foot but poor baseline right foot vascularity. No pedal loop. Extensive right lower extremity runoff angioplasty including anterior tibial, peroneal and posterior tibial artery was performed yesterday. Wire and sheath were removed, pressure held and hemostasis achieved. A pressure dressing was applied to the right groin. A pelvic binder was applied. Heparin and t-PA was stopped. Patient tolerated the procedure well and was transferred to PRU in stable condition. Complications: Right groin hematoma status post catheter directed t-PA thrombolysis. Estimated blood loss: Less than 15 ml. Impression: 1. Right leg angiogram demonstrates successful thrombolysis of right SFA and popliteal occlusions. Patent proximal third right anterior tibial artery with collateral filling of distal two third of the peroneal artery. 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 Poor baseline right foot vascularity with one dedicated runoff vessel into the foot. 2. Right groin hematoma status post intervention and thrombolysis. Keep pressure dressing and pelvic binder on. Will monitor blood pressure, H+ H and re intervene if necessary. Electronically Signed by Luzma Thurman MD 09/11/2019 09:01 A
--- NOTE | 2019-09-11 09:41 | REP ---
IR right leg angiogram. IR right superficial femoral artery catheterization and angioplasty. IR right popliteal artery catheterization and angioplasty. IR selective right anterior tibial artery catheterization. IR right anterior tibial artery angioplasty. IR selective right posterior tibial artery catheterization. IR right posterior tibial artery angioplasty. IR selective below-knee infusion catheter placement. IR moderate sedation. Clinical Information: Right lower extremity acute limb ischemia. Physician: Dr Thurman.Procedure: The patient was advised of the benefits, risks, and alternatives of the procedure and informed consent was obtained.A time out was performed with verification of the patient's name, MRN, site of procedure, and type of procedure to be performed. The patient was positioned in the supine position on the angiographic table. The site was prepped and draped in the usual sterile fashion.Moderate sedation was performed by the physician including the presence of an independent trained observer who assisted in monitoring the patient's level of consciousness and physiological status. Following the administration of Fentanyl and Versed, the physician spent 240 minutes of continuous cgkl-az-[id number] time with the patient. A out patient therapist radiograph reveals an infusion catheter in the thigh. The patient remained systemically heparinized throughout the procedure. The inner stylet of the infusion catheter was removed. An 035 wire was advanced through the catheter under fluoroscopy guidance into the peroneal artery. Right lower extremity angiogram was performed and this demonstrates flow within the superficial femoral artery with irregularity of the hansen. Angiogram further down the leg demonstrates flow in the proximal mid and distal popliteal artery with some irregularity of the hansen. There is filling of geniculate collaterals. Runoff angiogram to the right foot demonstrates proximal anterior tibial artery occlusion. Occluded posterior tibial artery and proximal peroneal artery. Collateral reconstitution of the mid peroneal artery. A run off arteriogram to the right foot demonstrates mid and distal anterior tibial artery occlusion with distal reconstitution of flow into the right foot. Occluded posterior tibial artery. Peroneal artery collateralization and flow into the right foot. A 6 x 200 mm [place] balloon was advanced over the wire into the right SFA and right superficial femoral artery angioplasty was performed. The balloon was deflated and repositioned over the distal superficial femoral artery and popliteal artery. Angioplasty of the popliteal artery was then performed. The balloon was deflated and removed over the wire. A Glidewire in conjunction with a glide catheter was advanced under fluoroscopy guidance and used to catheterize the anterior tibial artery. An arteriogram was performed and this demonstrates multilevel occlusive disease in the right anterior tibial artery. A runoff to the right foot was performed and this demonstrates majority of the supply, from the anterior tibial artery branches coursing into the foot supplying dorsalis pedis. The catheter was retracted and in conjunction with a wire was used to catheterize the posterior tibial artery. After successful catheterization of the distal right posterior tibial artery, an arteriogram was performed and this demonstrates complete posterior tibial artery occlusion. A 3 x 200 mm [place] balloon was advanced over the wire into the proximal and mid right posterior tibial artery. Prolonged angioplasty of the proximal and mid posterior tibial artery was performed. The balloon was deflated and repositioned to the distal right posterior tibial artery. Prolonged angioplasty of the distal posterior tibial artery was performed. The balloon was retracted. In conjunction with a wire the catheter was used to catheterize the anterior tibial artery. The balloon was advanced into the proximal right anterior tibial artery. Angioplasty of the proximal and mid right anterior tibial artery was performed. The balloon was deflated and repositioned over the wire into the distal right anterior tibial artery. Angioplasty of the distal right anterior tibial artery was performed. The balloon was deflated. A follow-up arteriogram was performed and this demonstrates persistent occlusion of the posterior tibial artery. No improved flow in the anterior tibial artery and preserved distal reconstitution of the peroneal artery. The wire and catheter were re-advanced and used under fluoroscopy guidance to catheterize the distal right anterior tibial artery. A 2 x 120 mm angioplasty balloon was advanced over the wire under fluoroscopy guidance and used to angioplasty the dorsalis pedis. Balloon was deflated and repositioned in the distal anterior tibial artery. Further angioplasty of the distal right anterior tibial artery was performed. The 2 x 120 mm angioplasty balloon was deflated and repositioned in the proximal and mid anterior tibial artery. Further right anterior tibial artery angioplasty was performed. The catheter and wire was then used to catheterize the right posterior tibial artery. Repeat angioplasty of the right posterior tibial artery was performed. Proximal mid and distal posterior tibial artery angioplasty was again performed. The balloon was removed over the wire. A follow-up arteriogram was performed and this demonstrates ongoing occlusion of the posterior tibial artery. Poor flow in the proximal anterior tibial artery. Preserved reconstitution of the peroneal artery at the mid tibia. 250 mcg of nitroglycerin was administered at the trifurcation. 1 mg of TPA was then administered at the trifurcation. After 10 minutes, a follow-up arteriogram to the right foot was performed and this demonstrates anterior tibial and peroneal artery runoff to the right foot. However, there is persistent proximal peroneal artery occlusion and anterior tibial artery cutoff. Poor runoff to the right foot. The catheter was removed over the wire. The glide cath was advanced over the wire into the popliteal artery. The catheter was removed over the wire. An infusion catheter was advanced over the wire into the popliteal artery and peroneal artery for further thrombolysis. Patient tolerated the procedure well and was transferred to ICU in stable condition. Complications: None. Estimated blood loss: Less than 5 ml. Impression: 1. Right leg angiogram demonstrates flow in the right superficial femoral artery and popliteal artery with atherosclerotic disease and wall irregularity. 2. Poor vascularity below the knee with proximal cutoff of the anterior tibial artery. Occluded proximal peroneal artery with distal reconstitution. Occluded posterior tibial artery. 3. Successful superficial femoral artery and popliteal artery angioplasty. 4. Poor result status post right anterior tibial artery and posterior tibial artery angioplasty. 5. Successful popliteal and below-knee infusion catheter placement for further thrombolysis. Electronically Signed by Luzma Thurman MD 09/11/2019 09:40 A
[2019-09-11] MEDS: MIRALAX *UNIT DOSE* 17GM PACKET PO SCH (09:55)
[2019-09-11] MEDS: DOCUSATE SODIUM 100 MG CAP PO SCH (09:56)
--- NOTE | 2019-09-11 10:23 | REP ---
IR right leg angiogram. IR selective right superficial femoral artery catheterization. IR selective right popliteal artery catheterization. IR selective right peroneal artery catheterization. IR moderate sedation. Clinical Information: Acute right lower extremity ischemia. Physician: Dr Thurman.Procedure: The patient was advised of the benefits, risks, and alternatives of the procedure and informed consent was obtained.A time out was performed with verification of the patient's name, MRN, site of procedure, and type of procedure to be performed. The patient was positioned in the supine position on the angiographic table. The site was prepped and draped in the usual sterile fashion.Moderate sedation was performed by the physician including the presence of an independent trained observer who assisted in monitoring the patient's level of consciousness and physiological status. Following the administration of Fentanyl and Versed, the physician spent 60 minutes of continuous fayt-[id number] time with the patient. A automation software engineer radiograph reveals no gross abnormality. The right femoral artery was accessed antegrade with a micropuncture kit. A [employer] wire was advanced into the superficial femoral artery. The micropuncture sheath was exchanged over the wire for a a 6-[place] vascular sheath. The wire was advanced under fluoroscopy guidance into the popliteal artery and below the knee without difficulty. A right leg angiogram was performed and this demonstrates complete occlusion of the right superficial femoral artery. Angiography further down the leg was performed and this demonstrates complete occlusion of the mid and distal superficial femoral artery and popliteal artery. A below-knee runoff was performed and this demonstrates occluded anterior tibial artery. Patent peroneal artery. Runoff arteriography to the right foot was performed and this demonstrates reconstitution of the distal anterior tibial artery and dorsalis pedis from the peroneal artery. Calcaneal branches arising from the peroneal artery. Occluded posterior tibial artery. No pedal loop. An infusion catheter was advanced over the wire under fluoroscopy guidance and positioned in the thigh for overnight thrombolysis. The wire was removed and the inner stylet was secured in place. The sheath and catheter was secured to the groin. Infusion catheter was connected to TPA to run at 0.5 mg per hour. The side arm of the groin sheath was connected to heparin at 400 units per hour. Patient tolerated the procedure well and was transferred to ICU in stable condition. Complications: None. Estimated blood loss: Less than 5 ml. Impression: 1. Right leg angiogram demonstrates complete occlusion of the right superficial femoral artery and popliteal artery. 2. Occluded proximal anterior tibial artery and complete occlusion of the posterior tibial artery. Peroneal artery runoff to the right foot with distal reconstitution of the dorsalis pedis. 3. Successful infusion catheter placement for overnight thrombolysis. Electronically Signed by Luzma Thurman MD 09/11/2019 10:21 A
[2019-09-11 12:08] LABS: HEMATOCRIT 30.1 % (42.0-52.0); HEMOGLOBIN 9.9 g/dl (13.5-17.5); MEAN CORPUSCULAR HEMOGLOBIN 29.4 pg (27.0-33.0); MEAN CORPUSCULAR HGB CONC 32.9 g/dl (32.0-36.5); MEAN CORPUSCULAR VOLUME 89.3 fl (80.0-96.0); PLATELET COUNT, AUTOMATED 264 10^3/uL (150-450); RED BLOOD COUNT 3.37 10^6/uL (4.30-6.10)
--- NOTE | 2019-09-11 13:54 | IPNPDOC ---
Subjective Date Seen The patient was seen on 09/11/19. Subjective Chief Complaint/HPI Developed right groin pain due to hematoma during transport to IR lab yesterday. Hypotensive overnight. Tx 2 units of PRBC and 1 unit FFP. TPA and Hep gtt stopped. Objective Physical Examination General Exam: Positive: Alert, Cooperative, No Acute Distress Eye Exam: Positive: Conjunctiva & lids normal; Negative: Sclera icteric ENT Exam: Positive: Atraumatic, Mucous membr. moist/pink Neck Exam: Positive: Supple Chest Exam: Positive: Clear to auscultation Heart Exam: Positive: Rate Normal, Normal S1, Normal S2 Abdomen Exam: Positive: Normal bowel sounds Extremity Exam: Positive: Normal pulses (right foot with PT pulse by doppler ), Other (Right foot pink in color with normal cap refil. Large right groin hematoma, unchanged from yesterday evening); Negative: Clubbing, Cyanosis, Edema Skin Exam: Positive: Nl turgor and temperature, Other skin issue (no bruising); Negative: Rash, Lesion Neuro Exam: Positive: Normal Speech Psych Exam: Positive: Mental status NL, Mood NL; Negative: Anxiety Assessment /Plan Assessment # Acute Right SFA + Popliteal thrombosis complicated by hemorrhagic shock - s/p angiogram 09/08, , and 09/09 - discontinued TPA + hep gtt on 09/09, due to large right groin hematoma - s/p 2 units PRBC, and FFP - hoping to transition to [facility] prior to discharge for arterial thrombosis therapy - transfer out of ICU when hgb and SBP stable - decrease LR to 100 ml/hr - D/w Dr. Thurman, will consider embolization if hgb continues to drop # Acute blood loss anemia due to soft tissue hematoma - CBC q6 x 24-48 hours # Poor venous access - PICC line requested # HTN - not on any meds as outpatient # Hx of Stroke - holding plavix, will stop indefinitely once OAC started # Chronic Constipation - on home meds # Chronic diastolic CHF - compensated Dispo: Back to SNF once hgb stable Plan/VTE VTE Prophylaxis Ordered?: No (s/p hep gtt and TPA now with hematoma) VS, I&O, 24H, Fishbone Vital Signs/I&O Vital Signs Date Time Temp Pulse Resp B/P (MAP) Pulse Ox O2 Delivery O2 Flow Rate FiO2 09/11/19 12:38 98.0 77 16 119/63 97 Room Air 09/10/19 19:50 2 I&O- Last 24 Hours up to 6 AM 09/11/19 06:00 Intake Total 3764 ml Output Total 400 ml Balance 3364 ml Laboratory Data 24H LABS Laboratory Tests 2 09/10/19 13:59: Activated Partial Thromboplast Time 91.6H 09/10/19 23:03: Nucleated Red Blood Cells % (auto) 0.0 09/11/19 07:17: Activated Partial Thromboplast Time 38.7H, Nucleated Red Blood Cells % (auto) 0.0, Prothrombin Time 17.0H, Prothromb Time International Ratio 1.41, Anion Gap 4L, Glomerular Filtration Rate > 60.0, Calcium Level 7.9L, Total Bilirubin 0.6, Aspartate Amino Transf (AST/SGOT) 20, Alanine Aminotransferase (ALT/SGPT) 9L, Alkaline Phosphatase 51, Total Protein 3.9#L, Albumin 1.7#L, Albumin/Globulin Ratio 0.77L 09/11/19 11:56: Nucleated Red Blood Cells % (auto) 0.0 CBC/BMP Laboratory Tests 09/10/19 13:59 09/10/19 19:26 09/10/19 23:03 09/11/19 07:17 09/11/19 11:56 JACQUELINE STEIN MD Sep 11, 2019 13:54
[2019-09-11] MEDS ORDERED: LIDOCAINE 1% MDV 20ML VIAL As Ordered ONE ×2 (15:10→16:54)
[2019-09-11] MEDS ORDERED: ceFAZolin 1GM INJ (J0690 PER 500MG) As Ordered ONE (16:48)
[2019-09-11] MEDS ORDERED: ceFAZolin 2 GM/D5W 50 ML IV BAG (J0690 PER 500MG) As Ordered ONE (16:50)
[2019-09-11] MEDS ORDERED: fentaNYL 100 MCG/2 ML INJECTION (J3010) As Ordered ONE (17:05)
[2019-09-11] MEDS ORDERED: SODIUM CHLORIDE 0.9% INJ 10 ML SYR IV PRN (18:30)
[2019-09-11] MEDS: SODIUM CHLORIDE 0.9% INJ 10 ML SYR IV SCH (18:39)
[2019-09-11] MEDS: SENOKOT S TAB PO SCH (21:00)
[2019-09-11] MEDS: SERTRALINE HCL 50 MG TAB PO SCH (21:38)
[2019-09-11] MEDS: SERTRALINE 100 MG TAB PO SCH (21:38)
[2019-09-11] MEDS: FAMOTIDINE 20 MG TAB PO SCH (21:38)
[2019-09-11] MEDS: traZODone 50 MG TAB PO SCH (21:38)
[2019-09-11 23:16] LABS: HEMATOCRIT 24.9 % (42.0-52.0); HEMOGLOBIN 8.2 g/dl (13.5-17.5); MEAN CORPUSCULAR HGB CONC 32.9 g/dl (32.0-36.5); PLATELET COUNT, AUTOMATED 223 10^3/uL (150-450); RED BLOOD COUNT 2.83 10^6/uL (4.30-6.10)
[2019-09-12] VITALS (25 sets, daily range): BP systolic 97–146; BP diastolic 53–77
[2019-09-12] MEDS: PERCOCET 5MG/325MG TAB PO PRN ×3 (04:22→19:19)
[2019-09-12] MEDS: D5W/LR 1,000 ML IV SCH (04:26)
[2019-09-12 05:15] LABS: HEMATOCRIT 24.1 % (42.0-52.0); MEAN CORPUSCULAR HEMOGLOBIN 29.3 pg (27.0-33.0); MEAN CORPUSCULAR HGB CONC 33.2 g/dl (32.0-36.5); MEAN CORPUSCULAR VOLUME 88.3 fl (80.0-96.0); PLATELET COUNT, AUTOMATED 205 10^3/uL (150-450); RED BLOOD COUNT 2.73 10^6/uL (4.30-6.10); WHITE BLOOD COUNT 5.6 10^3/uL (4.0-10.0)
[2019-09-12 05:44] LABS: BLOOD UREA NITROGEN 10 MG/DL (7-18); CALCIUM LEVEL 7.4 MG/DL (8.8-10.2); CARBON DIOXIDE LEVEL 24 MEQ/L (21-32); CHLORIDE LEVEL 117 MEQ/L (98-107); CREATININE FOR GFR 0.82 MG/DL (0.70-1.30); GLOMERULAR FILTRATION RATE > 60.0 (>42); GLUCOSE, FASTING 116 MG/DL (70-100); POTASSIUM SERUM 3.8 MEQ/L (3.5-5.1); SODIUM LEVEL 145 MEQ/L (136-145)
[2019-09-12] MEDS: DOCUSATE SODIUM 100 MG CAP PO SCH (10:00)
[2019-09-12] MEDS: MIRALAX *UNIT DOSE* 17GM PACKET PO SCH (10:00)
[2019-09-12] MEDS: SODIUM CHLORIDE 0.9% INJ 10 ML SYR IV SCH (10:01)
[2019-09-12 11:16] LABS: HEMATOCRIT 26.3 % (42.0-52.0); HEMOGLOBIN 8.7 g/dl (13.5-17.5); MEAN CORPUSCULAR HEMOGLOBIN 29.2 pg (27.0-33.0); MEAN CORPUSCULAR HGB CONC 33.1 g/dl (32.0-36.5); MEAN CORPUSCULAR VOLUME 88.3 fl (80.0-96.0); PLATELET COUNT, AUTOMATED 213 10^3/uL (150-450); RED BLOOD COUNT 2.98 10^6/uL (4.30-6.10); WHITE BLOOD COUNT 6.2 10^3/uL (4.0-10.0)
[2019-09-12] MEDS ORDERED: FUROSEMIDE 20 MG/2 ML VIAL (J1940) IV ONE ×3 (12:00→19:30)
--- NOTE | 2019-09-12 14:10 | REP ---
IR Weldon catheter insertion under fluoroscopy and ultrasound guidance. Ultrasound of the right neck. Clinical information: Poor peripheral vein access. Failed PICC line. Multiple medical issues. PAD. Physician: Dr. Thurman. Procedure: The patient was advised of the benefits, risks and alternatives of the procedure and informed consent was obtained. The time-out was performed with verification of the patient's name, MRN, site of procedure and type of procedure to be performed. The patient was positioned in the supine position on the angiographic table. The site was prepped and draped in the usual sterile fashion. Moderate sedation was not performed but Fentanyl was administered for analgesia. The physician spent 45 minutes of continuous face to face time with the patient. Ultrasound of the neck reveals a patent and compressible right internal jugular vein. A copy camera operator radiograph reveals no significant abnormality. The neck and anterior chest wall were anesthetized with lidocaine. The right internal jugular vein was accessed using a micro introducer needle under ultrasound guidance, via a lateral approach. The 018 cope wire was advanced into the superior vena cava. The needle was removed and a micro introducer sheath was placed. An Amplatz wire was then passed into the inferior vena cava. Incision at the internal jugular access site and anterior chest wall were made using a scalpel. A dual-lumen Weldon catheter was inserted through the subcutaneous tissues of the chest wall with a tunneling device. The micro introducer sheath was removed and internal jugular puncture site was upsized with dilator. A peel-away sheath was placed over the wire and into the superior vena cava. The wire and stiffener were removed. The catheter was passed through the internal jugular vein via the sheath. The peel-away sheath was then removed. The catheter tip was positioned in the cavo atrial junction. The puncture site was closed. The catheter was secured in place using 2-0 Prolene. Both sites were cleansed and sterile dressing was applied. At the conclusion of the procedure, the ports of the catheter aspirate and flush freely. The patient tolerated the procedure well and was returned to PRU in stable condition. EBL: Less than 5 ml. Complications: None. Conclusion: Successful placement of a dual-lumen Weldon catheter. The catheter is ready for immediate use. Thank you this referral. Electronically Signed by Luzma Thurman MD 09/12/2019 02:09 P
[2019-09-12] MEDS: MORPHINE 10MG/0.5ML ORAL CONCENTRATE SOLUTION U/D SL PRN ×2 (14:35→21:16)
--- NOTE | 2019-09-12 15:55 | IPN ---
DATE: 09/12/2019 SUBJECTIVE: The patient complains of 9 out of 10 point scale on the right lower extremity and the back this morning. Hemoglobin and hematocrit remain stable at 8 and hematocrit of 24. Blood pressure is well maintained with a MAP greater than 70 with a blood pressure of 104/53 at bedside. Per nursing, the patient has been asking a lot of questions. The patient has had no other issues overnight. Temperature 98.9, pulse 89, respiratory rate 18, blood pressure 104/53, 97% on room air. GENERAL: The patient is awake, alert, oriented times three. Answering questions appropriately. Face is symmetric. Tongue is midline. The patient has significant ecchymoses on the right lower extremity covering the entire right groin and anterior thigh. Diminished pulses in the right foot. Dorsalis pedis and posterior tibialis. SKIN: Warm, dry, pink in color, well perfused. ABDOMEN: Soft, nontender, nondistended. Positive bowel sounds. HEART: S1, S2. Sinus rhythm. LUNGS: Clear to auscultation. No wheezing, rales or rhonchi. SKIN: Hematoma in the right groin and right anterior thigh. LABORATORY DATA: White count 5.6, hemoglobin 8, hematocrit 24, platelet count 205. Sodium 145, potassium 3.8, chloride 117, bicarbonate 24, BUN 6, creatinine 0.82, glucose 116. ASSESSMENT AND PLAN: This is a 79-year-old male status post blood loss anemia due to hemorrhagic shock and is status post anticoagulation for acute SFA and popliteal thrombosis. CURRENT ISSUES: 1. Acute blood loss anemia with hemorrhagic shock, status post 2 units of red blood cell transfusion and fresh frozen plasma. The patient's heparin drip has been discontinued. 2. Right SFA and popliteal thrombosis, status post angiogram on 09/08/2019, managed by interventional radiology, Dr. Thurman. The patient's heparin drip was discontinued on 09/10/2019 due to acute blood loss leading to a right groin hematoma. Dr. Thurman currently following. 3. Poor IV access. Currently with a peripherally inserted central catheter (PICC) line requested. 4. Hypertension. On no medications. 5. History of stroke. Holding Plavix and all anticoagulants and antiplatelet therapy due to acute hemorrhagic shock requiring 2 units of red blood cell transfusion. 6. Chronic diastolic congestive heart failure (CHF). Appears to be euvolemic. Strict input and output, daily weights. 7. Constipation. On no bowel regimen. 8. Deep vein thrombosis (DVT) prophylaxis. Currently off of anticoagulation due to hemorrhagic shock. 9. Insomnia. On chronic Desyrel. 10. Depression. On Zoloft. 11. Pain control. Currently on Tylenol. DISPOSITION: Transfer to progressive care unit (PCU). [facility]
[2019-09-12 20:48] LABS: HEMATOCRIT 33.1 % (42.0-52.0); MEAN CORPUSCULAR HEMOGLOBIN 29.3 pg (27.0-33.0); MEAN CORPUSCULAR HGB CONC 33.5 g/dl (32.0-36.5); MEAN CORPUSCULAR VOLUME 87.3 fl (80.0-96.0); PLATELET COUNT, AUTOMATED 235 10^3/uL (150-450); RED BLOOD COUNT 3.79 10^6/uL (4.30-6.10); WHITE BLOOD COUNT 7.3 10^3/uL (4.0-10.0)
[2019-09-12 21:05] LABS: HEMOGLOBIN 11.1 g/dl (13.5-17.5)
[2019-09-12] MEDS: SENOKOT S TAB PO SCH (21:17)
[2019-09-12] MEDS: traZODone 50 MG TAB PO SCH (21:17)
[2019-09-12] MEDS: FAMOTIDINE 20 MG TAB PO SCH (21:17)
[2019-09-12] MEDS: SERTRALINE HCL 50 MG TAB PO SCH (21:17)
[2019-09-12] MEDS: SERTRALINE 100 MG TAB PO SCH (21:17)
[2019-09-13] MEDS: MORPHINE 10MG/0.5ML ORAL CONCENTRATE SOLUTION U/D SL PRN ×4 (02:03→21:44)
[2019-09-13 04:00] VITALS: BP 121/73
[2019-09-13 06:13] LABS: BLOOD UREA NITROGEN 10 MG/DL (7-18); CARBON DIOXIDE LEVEL 28 MEQ/L (21-32); CHLORIDE LEVEL 108 MEQ/L (98-107); GLOMERULAR FILTRATION RATE > 60.0 (>42); GLUCOSE, FASTING 88 MG/DL (70-100); POTASSIUM SERUM 3.3 MEQ/L (3.5-5.1); SODIUM LEVEL 139 MEQ/L (136-145)
[2019-09-13] MEDS ORDERED: POTASSIUM CHLORIDE 10 MEQ SR TABLET PO ONE ×2 (07:45→08:00)
[2019-09-13 08:00] VITALS: BP 118/63
[2019-09-13] MEDS ORDERED: PERCOCET 5MG/325MG TAB PO ONE (08:15)
[2019-09-13] MEDS: DOCUSATE SODIUM 100 MG CAP PO SCH (08:20)
[2019-09-13] MEDS: SODIUM CHLORIDE 0.9% INJ 10 ML SYR IV SCH (08:22)
[2019-09-13] MEDS: MIRALAX *UNIT DOSE* 17GM PACKET PO SCH (08:26)
--- NOTE | 2019-09-13 09:30 | REP ---
CHEST, SINGLE VIEW: Single view of the chest is performed. There are no comparison studies. There appears to be consolidative atelectasis/infiltrate in the left lung base. There are mild atelectatic changes of the right lung base. There is left ventricular prominence. There is calcification and tortuosity of the thoracic aorta. There is a right central venous catheter with the tip in the superior vena cava. Electronically Signed by Xavier Hill MD 09/13/2019 03:54 P
--- NOTE | 2019-09-13 09:32 | REP ---
KUB ABDOMEN AND PELVIS: Two portable KUB films of the abdomen and pelvis performed. There is no evidence of small bowel obstruction. Air is scattered throughout the GI tracts without significant small bowel distention. Scattered vascular calcifications are present. There is a right ureteral stent, which appears to be in good position. There is an oval calculus in the region of the right renal pelvis, which has a maximum diameter, 1.7 cm. An oval calcification is seen overlying the distal end of the stent measuring 3.1 cm in maximum diameter. There are degenerative changes of the spine. There are metallic screws in the region of the left acetabulum. There are a couple of metallic clips in the right inferior pelvis. Electronically Signed by Xavier Hill MD 09/13/2019 03:54 P
--- NOTE | 2019-09-13 11:40 | IRPN ---
[facility] IR Progress Note IR Progress Note DATE: Sep 13, 2019 FOLLOW-UP: 6 days status post right lower extremity arterial thrombolysis for acute cold leg. ON EXAMINATION: No longer hypotensive. Right lower extremity warm to touch. Sensation and motor intact. Dorsalis pedis present on Doppler. No ulcers or gangrene. Right groin hematoma improving. Right groin soft and less tender. No pulsatile mass. Labs: Hemoglobin now up to 11.1 hematocrit 33.1 IMPRESSION: Resolved acute right lower extremity ischemia status post catheter directed thrombolysis. Improving right groin hematoma. Rest of management per primary. Patient to restart Plavix in 5 days. Thank you for this referral Allergies Coded Allergies: No Known Allergies (Unverified , 09/08/19) Current Medications Current Medications Medications (Trade) Dose Ordered Sig/Alyse Route PRN Reason Start Time Stop Time Status Last Admin Dose Admin Acetaminophen (Tylenol Tab) 650 mg Q4H PRN PO PAIN OR FEVER 09/08/19 13:45 Albuterol Sulfate (Proventil Neb) 2.5 mg RQ4H PRN INH SHORTNESS OF BREATH 09/08/19 13:45 Alteplase, Recombinant 10 mg/ Sodium Chloride 1,010 ml @ 50 mls/hr [id number] XX 09/08/19 17:30 09/11/19 11:28 DC 09/09/19 12:13 Bisacodyl (Dulcolax Suppository) 10 mg DAILY PRN MO CONSTIPATION 09/08/19 13:45 Clopidogrel Bisulfate (PLAVix) 75 mg QPM PO 09/08/19 21:00 09/10/19 11:54 DC Dextrose/Lactated Ringer's 1,000 ml @ 75 mls/hr [id number] IV 09/08/19 13:30 09/10/19 11:52 DC 09/10/19 04:52 Dextrose/Lactated Ringer's 1,000 ml @ 100 mls/hr Q10H IV 09/11/19 01:00 09/12/19 15:25 DC 09/12/19 04:26 Docusate Sodium (Colace) 200 mg DAILY PO 09/09/19 09:00 09/13/19 08:20 Famotidine (Pepcid) 20 mg QHS PO 09/08/19 21:00 09/12/19 21:17 Heparin Sodium (Heparin Lock Flush 10units/ml) 30 units ASDIRECTED PRN IV SEE LABEL COMMENTS 09/11/19 18:30 Heparin Sodium (Heparin Lock Flush 10units/ml) 30 units DAILY IV 09/11/19 09:00 09/13/19 08:21 Heparin Sodium (Porcine) (Heparin) ASDIRECTED PRN IV SEE LABEL COMMENTS 09/08/19 13:30 09/11/19 11:29 DC 09/10/19 01:49 Heparin Sodium (Porcine) 20913 units/IV Miscellaneous Supplies 250 ml @ 8.2 mls/hr Q24H IV 09/08/19 12:59 09/08/19 16:19 DC 09/08/19 13:32 Heparin Sodium (Porcine) 21789 units/IV Miscellaneous Supplies 250 ml @ 1 mls/hr Q24H IV 09/08/19 14:00 09/11/19 11:28 DC 09/10/19 01:48 Heparin Sodium (Porcine) 11131 units/IV Miscellaneous Supplies 250 ml @ 4 mls/hr Q24H XX 09/08/19 17:00 09/11/19 11:28 DC Home Med (Med Rec Complete!) ASDIRECTED XX 09/08/19 12:15 09/08/19 12:17 DC Hydralazine HCl (Apresoline) 10 mg Q6HP PRN IV for SBP > 170 mm Hg 09/08/19 13:45 09/08/19 20:18 Ibuprofen (Advil) 600 mg Q6H PO 09/10/19 06:00 Cancel Ibuprofen (Advil) 600 mg Q6HP PRN PO MODERATE PAIN (PS 5-7) 09/09/19 09:15 09/10/19 21:10 DC 09/10/19 04:49 Magnesium Hydroxide (Milk Of Magnesia) 30 ml DAILY PRN PO CONSTIPATION 09/08/19 13:45 Morphine Sulfate (Roxanol) 5 mg Q1H PRN SL PAIN 09/08/19 13:45 09/13/19 03:41 Non-Formulary Medication (Heparin Iv Rate Change Documentation ml/ Hr) ASDIRECTED XX 09/08/19 13:30 09/11/19 11:29 DC 09/10/19 08:50 Ondansetron HCl (ZOFRAN INJection) 4 mg Q8HP PRN IV NAUSEA OR VOMITING 09/11/19 08:00 Oxycodone/ Acetaminophen (Percocet 5mg/ 325mg Tablet) 1 tab Q4HP PRN PO MILD/MODERATE PAIN (PS 1-7) 09/10/19 21:15 09/12/19 19:19 Polyethylene Glycol (Miralax) 1 pkt DAILY PO 09/08/19 09:00 09/13/19 08:26 Senna/Docusate Sodium (Senokot S) 2 tab QHS PO 09/08/19 21:00 09/12/19 21:17 Sertraline HCl (Zoloft) 50 mg QHS PO 09/08/19 21:00 09/12/19 21:17 Sertraline HCl (Zoloft) 100 mg QHS PO 09/08/19 21:00 09/12/19 21:17 Sodium Biphosphate/ Sodium Phosphate (Fleet Enema) 1 ea DAILY PRN MO CONSTIPATION 09/08/19 13:45 Sodium Chloride (Saline Lock Flush) 10 ml ASDIRECTED PRN IV SEE LABEL COMMENTS 09/11/19 18:30 Sodium Chloride (Saline Lock Flush) 10 ml DAILY IV 09/11/19 09:00 09/13/19 08:22 Trazodone HCl (Desyrel) 50 mg QHS PO 09/08/19 21:00 09/12/19 21:17 VS,Fishbone, I+O VS, Fishbone, I+O Laboratory Tests 09/12/19 20:22 09/13/19 05:19 Vital Signs Date Time Temp Pulse Resp B/P (MAP) Pulse Ox O2 Delivery O2 Flow Rate FiO2 09/13/19 08:21 20 Room Air 09/13/19 08:00 97.4 88 118/63 (81) 99 09/11/19 17:47 2 I&O- Last 24 Hours up to 6 AM 09/13/19 05:59 Intake Total 3300 ml Output Total 1850 ml Balance 1450 ml KAILA URBINA MD Sep 13, 2019 11:40
[2019-09-13 12:00] VITALS: BP 104/60
[2019-09-13] MEDS: NS 1,000 ML IV SCH ×2 (12:10→22:00)
[2019-09-13] MEDS: PERCOCET 5MG/325MG TAB PO PRN ×2 (15:09→20:17)
[2019-09-13] MEDS: LevoFLOXacin 750 MG TABLET PO SCH (15:12)
[2019-09-13 16:00] VITALS: BP 129/70
[2019-09-13 17:56] VITALS: BP 126/88
--- NOTE | 2019-09-13 19:07 | IPN ---
DATE: 09/13/2019 Complains of back pain, rated 8/10, abdominal pain, and right groin pain, rated at 9/10, worse when he tries to move. He has been on bedrest per Dr. Thurman. Afebrile. No chills. Still with a slight cough. Some shortness of breath. Hemoglobin and hematocrit improved after 2 units packed red blood cells (PRBC) and one fresh frozen plasma (FFP). PHYSICAL EXAMINATION: Temperature 97.4, pulse 88, respiratory rate 18, blood pressure 118/63, 99% on room air. GENERAL: Awake, alert, oriented to person. Answering questions appropriately. No jugular venous distention (JVD). No thyromegaly. LUNGS: Diminished but clear to auscultation. No wheezing or rales. HEART: S1, S2, sinus rhythm. ABDOMEN: Obese, soft, tender, in an abdominal binder. Significant hematoma, bilateral lower quadrants, as well as a right groin covering as well as the anterior thigh. Positive pitting edema, bilateral lower extremities. LABORATORY DATA: White count 7.3, hemoglobin 11, hematocrit 33, platelet count 235. Sodium 139, potassium 3.3, chloride 108, bicarbonate 28, BUN 10, creatinine 0.9, glucose 88. IMAGING STUDY: Left lung base atelectasis or infiltrate. Right central venous catheter with tip in the superior vena cava. Abdominal film: No bowel obstruction. Right ureteral stent in good position. Metallic screws in the left acetabulum and right inferior pelvis. ASSESSMENT AND PLAN: A 29-year-old male, status post acute blood loss anemia due to hemorrhagic shock, for thrombolytic therapy and anticoagulation for acute superficial femoral artery (SFA) and popliteal thrombosis. ACUTE ISSUES: 1. Acute blood loss anemia with hemorrhagic shock status post 4 units red blood cell (RBC) transfusion and FFP. Patient's heparin drip and tPA were discontinued. Patient has been transfused a total of 4 units RBC and 2 units of FFP since admission. Patient has significant hematoma and severe pain. 2. Right groin hematoma, anterior thigh and bilateral lower abdominal hematoma. Currently off anticoagulation. Monitoring for worsening hemoglobin and hematocrit. Bedrest per Dr. Thurman. 3. Vital signs appear to be stable. 4. Right SFA and popliteal thrombosis, status post angiogram September 08. Heparin drip discontinued on September 09 due to acute blood loss leading to hemorrhagic shock and right groin and abdominal hematoma. Poor intravenous (IV) access. Patient has a central line currently. 5. History of cerebrovascular accident (CVA), holding Plavix and all anticoagulants due to acute blood loss and hemorrhagic shock, requiring 4 units RBC transfusion. 6. Hypertension. Currently on IV hydrazine as needed. 7. Chronic diastolic heart failure. Appears to be euvolemic. 8. Constipation, on bowel regimen. 9. Deep vein thrombosis (DVT) prophylaxis. Compression stockings. Off anticoagulation due to recent acute hemorrhagic shock. 10. Insomnia, on chronic Desyrel. 11. Depression, on Zoloft. 12. Pain control, on Tylenol.
[2019-09-13] MEDS: SENOKOT S TAB PO SCH (20:17)
[2019-09-13] MEDS: FAMOTIDINE 20 MG TAB PO SCH (20:17)
[2019-09-13] MEDS: SERTRALINE 100 MG TAB PO SCH (20:17)
[2019-09-13] MEDS: SERTRALINE HCL 50 MG TAB PO SCH (20:17)
[2019-09-13 22:00] VITALS: BP 155/95
[2019-09-14] MEDS: LevoFLOXacin 750 MG TABLET PO SCH (05:07)
[2019-09-14] MEDS: PERCOCET 5MG/325MG TAB PO PRN ×2 (05:07→09:35)
[2019-09-14 05:13] VITALS: BP 145/91
[2019-09-14] MEDS ORDERED: PERCOCET PO (07:00)
[2019-09-14 07:51] LABS: HEMATOCRIT 37.4 % (42.0-52.0); HEMOGLOBIN 12.1 g/dl (13.5-17.5); MEAN CORPUSCULAR HEMOGLOBIN 29.1 pg (27.0-33.0); MEAN CORPUSCULAR HGB CONC 32.4 g/dl (32.0-36.5); MEAN CORPUSCULAR VOLUME 89.9 fl (80.0-96.0); PLATELET COUNT, AUTOMATED 226 10^3/uL (150-450); RED BLOOD COUNT 4.16 10^6/uL (4.30-6.10)
[2019-09-14 08:16] LABS: BLOOD UREA NITROGEN 11 MG/DL (7-18); CALCIUM LEVEL 8.3 MG/DL (8.8-10.2); CARBON DIOXIDE LEVEL 28 MEQ/L (21-32); CHLORIDE LEVEL 108 MEQ/L (98-107); CREATININE FOR GFR 0.89 MG/DL (0.70-1.30); GLOMERULAR FILTRATION RATE > 60.0 (>42); GLUCOSE, FASTING 70 MG/DL (70-100); POTASSIUM SERUM 4.1 MEQ/L (3.5-5.1); SODIUM LEVEL 140 MEQ/L (136-145)
[2019-09-14] MEDS: NS 1,000 ML IV SCH (09:33)
[2019-09-14] MEDS: DOCUSATE SODIUM 100 MG CAP PO SCH (09:34)
[2019-09-14] MEDS: MIRALAX *UNIT DOSE* 17GM PACKET PO SCH (09:34)
[2019-09-14] MEDS: SODIUM CHLORIDE 0.9% INJ 10 ML SYR IV SCH (09:35)
[2019-09-14] MEDS ORDERED: LEVA750T7 PO (10:09)
--- NOTE | 2019-09-15 20:34 | DSES ---
DATE OF ADMISSION: 09/08/2019 DATE OF DISCHARGE: 09/14/2019 The patient is discharged to [facility]. CONSULTANTS: Interventional radiologist, Dr. Thurman. PROCEDURES DURING ADMISSION: Right SFA and popliteal artery infusion catheter placement for thrombolysis on 09/08/2019, angiogram of the lower extremity of the right leg on 09/09/2019, angiogram of the lower extremity and thrombolysis on 09/10/2019, angiogram of the lower extremity with thrombolysis on 09/11/2019, central venous catheter placement. PRIMARY DISCHARGE DIAGNOSES: 1. Chronic right leg critical limb ischemia with occlusion of the distal SFA and popliteal artery, status post right SFA and popliteal artery infusion catheter placement and thrombolysis with successful thrombolysis on 09/10/2019 with a patent SFA and popliteal artery and patent one vessel run off of the foot. 2. Hemorrhagic shock secondary to thrombolysis and heparinization with systolic pressure dropping to 77, status post 4 units of red blood cell transfusion and 2 fresh frozen plasma. 3. Acute blood loss anemia due to soft tissue hematoma. 4. Right groin and abdominal hematoma. 5. Poor venous access, status post central line placement. 6. Hypertension. 7. History of stroke, off of Plavix due to recent acute blood loss and hematoma. 8. Chronic diastolic heart failure. 9. Urinary tract infection (UTI). 10. Electrolyte abnormalities -- hypokalemia. DISCHARGE MEDICATIONS: - Levaquin 750 mg daily for 6 days - Percocet one tablet every 4 hours as needed for pain - acetaminophen 1 gram at night, 650 every 4 hours as needed - albuterol one puff every 4 hours as needed - Bisacodyl 10 mg per rectum daily as needed - Colace 200 mg daily - Vicks Vapo Rub topically twice a day - famotidine 20 mg at night - Eucerin cream topically at night - Lidocaine topically twice a day - milk of magnesia 30 mL daily - morphine 0.25 mL every 1 hour as needed for pain - MiraLAX 17 grams daily - Senokot two tablets at night - sertraline 150 mg at night - trazodone 50 mg at night The patient's Plavix has been discontinued. Per Dr. Thurman, Plavix may be resumed on 09/18/2019. DISCHARGE INSTRUCTIONS: Return to the emergency room with recurrent bleeding. Followup with Dr. Cuca within 7 days of hospital discharge. No Plavix for a total of 4 days as an outpatient, 5 days post transfusion. HOSPITAL COURSE: This is a 79-year-old male with chronic lower extremity ischemia, history of CVA in 2018 with chronic left sided hemiplegia, Fiorella lift at baseline, lives at [facility], paroxysmal atrial fibrillation, congestive heart failure (CHF), ex smoker with chronic obstructive pulmonary disease (COPD), hypertension, hyperlipidemia, diet controlled diabetes. The patient was evaluated in the emergency room due to complaints of a right lower extremity pain. Arterial Doppler showed SFA and popliteal, tibial, peroneal, proximal and distal [employer] arterial occlusion. Started on intravenous heparin drip and interventional radiology consulted for thrombolysis. Central catheter was placed for thrombolysis. The patient underwent thrombolytic therapy and was admitted to intensive care unit (ICU) under the hospitalist service. He subsequently became hypotensive with ongoing bleeding causing a right groin hematoma, systolic pressure dropping to 73/55 on 09/11/2019, at which point all antiplatelet and anticoagulation were discontinued. Right groin hematoma was found on interventional radiology fluoro guidance on 09/10/2019. There was successful thrombolysis of the right SFA and popliteal occlusions and patent proximal third right anterior tibial artery with collateral filling of the distal two-thirds of peroneal artery. There remains chronically occlusive calcified posterior tibial artery despite extensive catheterization and angioplasty with poor baseline right foot vascularity with one dedicated run off going to the foot. The patient had a right groin hematoma, status post intervention and thrombolysis. Pressure dressing and pelvic binder were placed on 09/10/2019. He was resuscitated with fresh frozen plasma and 2 units of red blood cell transfusion with subsequent increased hemoglobin from 8 to 11. The patient received a total of 5 liters of intravenous fluids on 09/11/2019, another 3 liters on 09/12/2019. The patient remained in the intensive care unit (ICU) and monitored for ongoing bleeding after heparin drip had been discontinued. On 09/12/2019 he remained with hemoglobin of 8.7, hematocrit of 26, and was transfused another 2 units of red blood cell and 1 fresh frozen plasma with subsequent increase to 12 and 37, hemoglobin and hematocrit, INR was 1.4 on 09/11/2019. The patient complained of pain with urination. UA on 09/13/2019 had 3+ leukocyte esterase, too numerous to count WBC, and 1+ bacteria, sent for culture and sensitivity. He was afebrile with no white count. He was given Levaquin to continue as an outpatient for a complete course. Due to persistent complaints of abdominal pain, cough, chest x-ray and abdominal film were obtained. Abdominal film shows right ureteral stent, no evidence of bowel obstruction, degenerative disease of the spine, calculus in the right renal pelvis diameter of 1.7 cm. Chest x-ray on 09/13/2019 shows atelectasis or infiltrate in left lung base, mild atelectasis of the right base. Right central venous catheter in the tip of the superior vena cava. PHYSICAL EXAMINATION: On discharge: Temperature 98.7, pulse 78, respiratory rate 16, blood pressure 145/91, 95% on room air. GENERAL: The patient is awake, alert, oriented to person and place. Disoriented to date. No jugular venous distention (JVD). No thyromegaly. Poor dentition. Dry mucous membranes. LUNGS: Clear to auscultation. HEART: S1, S2. Sinus rhythm. ABDOMEN: Significant ecchymoses in bilateral lower quadrants, hematoma noticed in the right groin and extending into the right thigh and lower extremity. LABORATORY DATA: White count 7, hemoglobin 12, hematocrit 37, platelet count 226. Sodium 140, potassium 4.0, chloride 108, bicarbonate 28, BUN 11, creatinine 0.89, glucose of 70, calcium of 8.3. Sputum culture on 09/13/2019 showed many gram-positive cocci in pairs and chains. Many WBCs. Urine culture pending. Urinalysis -- cloudy, 2+ blood, 3+ leukocyte esterase, too numerous to count WBCs, 9 RBCs, 1+ bacteria. IMAGING STUDIES: 09/08/2019 arterial Doppler showed complete occlusion of right superficial femoral artery and popliteal artery, occluded proximal anterior superficial artery and complete occlusion of the posterior tibial artery, peroneal artery run off to the right foot with distal reconstitution of the dorsalis pedis, successful infusion catheter placement for overnight thrombolysis. Time spent on discharge: 30 minutes. [facility]
== END 2019-09-14 13:15 | DRG 252 ==
LOC: M ED 11:19 → EDBD 11:19 → M ED INP 13:25 → ENRESERV 15:56 → M ICU 17:17 → M PCU 09-12 23:25 → M MS5PR 09-13 17:50
PROVIDERS: ADMIT Internal Medicine; ATTEND General Practice
PROC: 3E05317 Introduction of Other Thrombolytic into Peripheral Artery, Percutaneous Approach (ICD-10-PCS; 2019-09-08)
PROC: 047P3ZZ Dilation of Right Anterior Tibial Artery, Percutaneous Approach (ICD-10-PCS; 2019-09-09)
PROC: 047R3ZZ Dilation of Right Posterior Tibial Artery, Percutaneous Approach (ICD-10-PCS; 2019-09-09)
PROC: 047V3ZZ Dilation of Right Foot Artery, Percutaneous Approach (ICD-10-PCS; 2019-09-09)
PROC: B41F1ZZ Fluoroscopy of Right Lower Extremity Arteries using Low Osmolar Contrast (ICD-10-PCS; 2019-09-09)
PROC: 3E05317 Introduction of Other Thrombolytic into Peripheral Artery, Percutaneous Approach (ICD-10-PCS; 2019-09-09)
PROC: 047M3ZZ Dilation of Right Popliteal Artery, Percutaneous Approach (ICD-10-PCS; principal; 2019-09-09 16:58)
PROC: B41F1ZZ Fluoroscopy of Right Lower Extremity Arteries using Low Osmolar Contrast (ICD-10-PCS; 2019-09-10)
PROC: 30233N1 Transfusion of Nonautologous Red Blood Cells into Peripheral Vein, Percutaneous Approach (ICD-10-PCS; 2019-09-11)
PROC: 30233K1 Transfusion of Nonautologous Frozen Plasma into Peripheral Vein, Percutaneous Approach (ICD-10-PCS; 2019-09-11)
PROC: 02HV33Z Insertion of Infusion Device into Superior Vena Cava, Percutaneous Approach (ICD-10-PCS; 2019-09-11)
PROC: B5181ZA Fluoroscopy of Superior Vena Cava using Low Osmolar Contrast, Guidance (ICD-10-PCS; 2019-09-11)
DX: I77.1 Stricture of artery (principal); T81.19XA Other postprocedural shock, initial encounter; I50.32 Chronic diastolic (congestive) heart failure; I97.638 Postprocedural hematoma of a circulatory system organ or structure following other circulatory system procedure; D62 Acute posthemorrhagic anemia; N39.0 Urinary tract infection, site not specified; I69.354 Hemiplegia and hemiparesis following cerebral infarction affecting left non-dominant side; J98.11 Atelectasis; I74.3 Embolism and thrombosis of arteries of the lower extremities; I11.0 Hypertensive heart disease with heart failure; E87.6 Hypokalemia; Z79.899 Other long term (current) drug therapy; I48.0 Paroxysmal atrial fibrillation; J44.9 Chronic obstructive pulmonary disease, unspecified; Z87.891 Personal history of nicotine dependence; E78.5 Hyperlipidemia, unspecified; E11.9 Type 2 diabetes mellitus without complications; N20.0 Calculus of kidney; I25.10 Atherosclerotic heart disease of native coronary artery without angina pectoris; M54.5 Low back pain; Z96.642 Presence of left artificial hip joint; Z96.651 Presence of right artificial knee joint; Z66 Do not resuscitate; G89.29 Other chronic pain; K59.00 Constipation, unspecified; G47.00 Insomnia, unspecified; F32.9 Major depressive disorder, single episode, unspecified; I70.92 Chronic total occlusion of artery of the extremities

== ENCOUNTER → 2019-09-18 | Outpatient (REF) ==
[~2019-09-18] MED LIST changes: -HEPARIN 1,000 UNITS/ML 10ML VIAL (FOR RADIOLOGY& DIALYSIS ONLY)(J1644-10) As Ordered ONE; -ISOVUE-300 61% 50ML VIAL (Q9967) As Ordered ONE; +LEVA750T7 PO; -LIDOCAINE 1% MDV 20ML VIAL As Ordered ONE; -MIDAZOLAM INJ 2 MG/2 ML VIAL (J2250) As Ordered ONE; -NITROGLYCERIN IN D5W 25MG/250ML (100MCG/ML) As Ordered ONE; +PERCOCET PO; -diphenhydrAMINE INJ 50MG/ML VIAL (J1200) As Ordered ONE; -fentaNYL 100 MCG/2 ML INJECTION (J3010) As Ordered ONE
[2019-09-18 10:58] LABS: HEMATOCRIT 41.9 % (42.0-52.0); HEMOGLOBIN 13.2 g/dl (13.5-17.5); MEAN CORPUSCULAR HEMOGLOBIN 28.8 pg (27.0-33.0); MEAN CORPUSCULAR HGB CONC 31.5 g/dl (32.0-36.5); MEAN CORPUSCULAR VOLUME 91.5 fl (80.0-96.0); PLATELET COUNT, AUTOMATED 191 10^3/uL (150-450); RED BLOOD COUNT 4.58 10^6/uL (4.30-6.10); WHITE BLOOD COUNT 8.4 10^3/uL (4.0-10.0)
[2019-09-18 11:29] LABS: BLOOD UREA NITROGEN 20 MG/DL (7-18); CALCIUM LEVEL 8.9 MG/DL (8.8-10.2); CARBON DIOXIDE LEVEL 25 MEQ/L (21-32); CHLORIDE LEVEL 108 MEQ/L (98-107); CREATININE FOR GFR 1.05 MG/DL (0.70-1.30); GLOMERULAR FILTRATION RATE > 60.0 (>42); GLUCOSE, FASTING 109 MG/DL (70-100); POTASSIUM SERUM 3.8 MEQ/L (3.5-5.1); SODIUM LEVEL 140 MEQ/L (136-145)
== END ==
PROVIDERS: ATTEND Internal Medicine
DX: I10 Essential (primary) hypertension (principal)

== ENCOUNTER → 2019-11-07 | Outpatient (POV) | payer MEDICARE, MEDICAID ==
--- NOTE | 2019-11-08 13:40 | IRPN ---
[facility] IR Progress Note IR Progress Note DATE: Nov 07, 2019 Teleconsult with nurses in shelter FOLLOW-UP: 79 male with HTN, HF, prior stroke, HL and DM, presents for right leg rest pain. He had prior cold right leg end of August, treated with thrombolysis and angioplasty by myself. No ulcers or gangrene. Nurses report he complains of intermittent pain or numbness in his right leg for several weeks. However, they have not noticed any dusky changes or cold leg as previously in August. Patient is not very active. No video available on patient end. Imaging: I personally reviewed the angiogram from aug 2019. There is atherosclerotic disease in the SFA and popliteal artery with slow flow. There is one vessel run off to the foot. IMPRESSION: 79 male with known chronic critical limb ischemia complaining of rest pain. He would benefit from right leg angiogram and attempt to improve below knee run off. We will schedule him for the procedure. Patient should start aspirin and continue plavix. Thank you for this referral Allergies Coded Allergies: No Known Allergies (Unverified , 09/08/19) KAILA URBINA MD Nov 08, 2019 13:40
== END ==
LOC: M TMIRPOV 07:54
PROVIDERS: ATTEND Radiology Diagnostic Radiology
DX: I70.221 Atherosclerosis of native arteries of extremities with rest pain, right leg (principal); I11.9 Hypertensive heart disease without heart failure; I50.9 Heart failure, unspecified; E78.5 Hyperlipidemia, unspecified; E11.9 Type 2 diabetes mellitus without complications; Z86.73 Personal history of transient ischemic attack (TIA), and cerebral infarction without residual deficits

== ENCOUNTER → 2019-11-15 | Outpatient (REF) | PROVIDERS: ATTEND Internal Medicine | DX: Z11.59 Encounter for screening for other viral diseases (principal) ==

== ENCOUNTER → 2019-11-16 | Outpatient (CLI) | payer MEDICARE, MEDICAID ==
[~2019-11-16] MED LIST changes: +ISOVUE-300 61% 50ML VIAL As Ordered ONE; +LIDOCAINE 1% MDV 20ML VIAL As Ordered ONE; +MIDAZOLAM INJ 2MG/2ML VIAL (J2250 PER 1MG) As Ordered ONE; +PROMETHAZINE INJ 25 MG/ML VIAL (J2550) As Ordered ONE; +diphenhydrAMINE 50MG/ML VIAL (J1200) As Ordered ONE; +fentaNYL 100 MCG/2 ML INJECTION (J3010) As Ordered ONE
[2019-11-16 08:31] LABS: HEMATOCRIT 47.9 % (42.0-52.0); HEMOGLOBIN 15.5 g/dl (13.5-17.5); MEAN CORPUSCULAR HEMOGLOBIN 28.5 pg (27.0-33.0); MEAN CORPUSCULAR HGB CONC 32.4 g/dl (32.0-36.5); MEAN CORPUSCULAR VOLUME 88.2 fl (80.0-96.0); PLATELET COUNT, AUTOMATED 474 10^3/uL (150-450); RED BLOOD COUNT 5.43 10^6/uL (4.30-6.10); WHITE BLOOD COUNT 11.4 10^3/uL (4.0-10.0)
[2019-11-16 08:43] LABS: INR 1.15; PROTHROMBIN TIME 14.5 SECONDS (11.8-14.0)
[2019-11-16 08:48] LABS: BLOOD UREA NITROGEN 36 MG/DL (7-18); CALCIUM LEVEL 9.2 MG/DL (8.8-10.2); CARBON DIOXIDE LEVEL 27 MEQ/L (21-32); CHLORIDE LEVEL 103 MEQ/L (98-107); CREATININE FOR GFR 1.08 MG/DL (0.70-1.30); GLOMERULAR FILTRATION RATE > 60.0 (>42); GLUCOSE, FASTING 111 MG/DL (70-100); POTASSIUM SERUM 4.6 MEQ/L (3.5-5.1); SODIUM LEVEL 136 MEQ/L (136-145)
--- NOTE | 2019-11-16 11:42 | POST-OPPD ---
Postoperative Procedure Note Date Of Procedure: November 16, 2019 Time Of Procedure: 11:39 PREOPERATIVE DIAGNOSIS: right leg critical limb ischemia POSTOPERATIVE DIAGNOSIS: same FINDINGS: complete distal SFA dn apolitelal occlusion. Poor below knee run off PROCEDURE: distal SFA and popliteal angioplasty. Posterior tibial and anterior tibial artery angioplasty. Marginally improved flow through the sfa and popliteal and slow flow in posterior tibial and anterior tibial arteries. Patient remains at high probability for amputaion. SURGEON: Cuca ANESTHESIA: mod sed ESTIMATED BLOOD LOSS: < 5 ml COMPLICATIONS: none POSTOPERATIVE CONDITION: stable KAILA URBINA MD November 16, 2019 11:42
[2019-11-16 15:10] VITALS: BP 126/83
--- NOTE | 2019-11-20 13:55 | REP ---
IR Right leg angiogram. IR Selective right iliac artery catheterization. IR Selective right common femoral artery catheterization. IR moderate sedation. Clinical Information: Right lower extremity rest pain. Chronic critical limb ischemia. Physician: Dr Thurman.Procedure: The patient was advised of the benefits, risks, and alternatives of the procedure and informed consent was obtained.A time out was performed with verification of the patient's name, MRN, site of procedure, and type of procedure to be performed. The patient was positioned in the supine position on the angiographic table. The site was prepped and draped in the usual sterile fashion.Moderate sedation was performed by the physician including the presence of an independent trained observer who assisted in monitoring the patient's level of consciousness and physiological status. Following the administration of Fentanyl and Versed, the physician spent 120 minutes of continuous [id number] time with the patient. A drive in theater attendant radiograph reveals hardware in the left tyron pelvis. The left femoral artery was accessed with a micropuncture kit. A SeeToo wire was advanced into the aorta. The micropuncture sheath was exchanged over the wire for a a 6-[place] vascular sheath. A flush catheter was advanced over the wire and used to catheterize the abdominal aorta. A pelvic arteriogram was performed. This demonstrates patent right common iliac, external iliac, internal iliac and common femoral artery. A Glidewire was advanced through the flush catheter and under fluoroscopy guidance was used to gain up and over access into the right common iliac artery. The flush catheter was exchanged over the wire for a glide cath. The glide cath in conjunction with a Glidewire was used to catheterize the right common femoral artery. A right leg angiogram was performed. This demonstrates patent right proximal and mid superficial femoral artery and profunda femoris. Angiogram further down the leg was performed and this demonstrates occlusion of the distal SFA and complete occlusion of the proximal, mid and distal popliteal artery with filling of geniculate collaterals. A below-knee runoff arteriogram was performed and this demonstrates complete occlusion of the anterior tibial, peroneal and posterior tibial artery. There are collaterals with faint reconstitution of a distal tibial artery. A glide cath and glide wire were used under fluoroscopy guidance to catheterize the distal popliteal artery. Contrast injected injection confirmed intraluminal location. A 6 x 200 mm [place] balloon was then advanced over the wire under fluoroscopy guidance and used to angioplasty the popliteal artery. Heparin was administered. After prolonged angioplasty, the balloon was deflated and used to angioplasty the proximal popliteal artery and distal superficial femoral artery. The balloon was deflated. A post angioplasty arteriogram was performed and this demonstrates there is now flow in the distal SFA and in the popliteal artery although, it remains. irregular. The 6 x 200 mm [place] balloon was used to reangioplasty the distal SFA and popliteal artery. After prolonged angioplasty, the balloon was deflated. A follow-up arteriogram was performed and this demonstrates improved flow in the distal SFA and popliteal artery. Still no below-knee runoff. The balloon was removed over the wire. A Alma catheter was advanced over the wire under fluoroscopy guidance and used to sub selectively catheterize the proximal posterior tibial artery. Injection of contrast confirmed intraluminal location. The catheter in conjunction with a wire was then used to sub selectively catheterize the distal posterior tibial artery. Injection of contrast confirmed intraluminal location. An arteriogram of the right foot was performed from this location and this demonstrates vascularity in the right foot including calcaneal and plantar branches. There are collaterals filling the anterior tibial artery and dorsalis pedis. Focal severe stenosis in the dorsalis pedis. There is early venous filling from the posterior tibial artery. Faint appearance of peroneal artery terminating at the ankle. A 3 x 200 mm [place] balloon was advanced over the wire under fluoroscopy guidance and used to angioplasty the proximal, mid and distal posterior tibial artery. The balloon was deflated. A pullback arteriogram of the right lower extremity was performed and this demonstrates below-knee flow in the posterior tibial artery, proximal and distal. A final arteriogram of the right lower extremity was performed and this demonstrates there is now flow in the distal SFA, proximal, mid and distal popliteal artery and one vessel runoff to the right foot. The catheter was removed. A 6-[place] Mynx device was used to close the groin arteriotomy and the sheath was removed. Hemostasis achieved. A sterile dressing was applied to the site. Patient tolerated the procedure well and was transferred to PRU in stable condition. Complications: None. Estimated blood loss: Less than 5 ml. Impression: 1. Right leg angiogram demonstrates complete occlusion of the distal SFA, proximal mid and distal popliteal artery with no runoff below the knee. 2. Successful angioplasty of distal SFA and popliteal artery with muslim of flow. 3. Successful catheterization and angioplasty of the posterior tibial artery with one vessel runoff below the knee to the foot. The patient remains at risk of toe amputation. The patient will start aspirin and continue Plavix. Patient to follow up in IR and with podiatry. Thank you for this referral Cc Dr. Samuel . Electronically Signed by Luzma Thurman MD 11/20/2019 01:54 P
== END ==
LOC: M IRPRO 07:31
PROVIDERS: ATTEND Radiology Diagnostic Radiology
DX: I70.212 Atherosclerosis of native arteries of extremities with intermittent claudication, left leg (principal); I70.92 Chronic total occlusion of artery of the extremities
CPT/HCPCS: 37224; 37228; 75710; 75774; 80048; 85027; 85610; 99152; 99153; C1725; C1760; C1769; C1887; C1894; J1200; J1644; J2250; J3010; Q9967

== ENCOUNTER → 2019-11-21 | Outpatient (POV) | payer MEDICARE, MEDICAID ==
[~2019-11-21] MED LIST changes: -ISOVUE-300 61% 50ML VIAL As Ordered ONE; -LIDOCAINE 1% MDV 20ML VIAL As Ordered ONE; -MIDAZOLAM INJ 2MG/2ML VIAL (J2250 PER 1MG) As Ordered ONE; -PROMETHAZINE INJ 25 MG/ML VIAL (J2550) As Ordered ONE; -diphenhydrAMINE 50MG/ML VIAL (J1200) As Ordered ONE; -fentaNYL 100 MCG/2 ML INJECTION (J3010) As Ordered ONE
--- NOTE | 2019-11-22 09:30 | IRPN ---
[facility] IR Progress Note IR Progress Note DATE: November 21, 2019 Telemedicine FOLLOW-UP: 79 male with history of prior cold leg, and chronic popliteal occlusion with zero dedicated below knee run off. Now 1 weeks status post popliteal angioplasty and posterior tibial artery recanalization and angioplasty. Patient's prognosis remains grave given area of occlusion is not suitable for stenting and tenuous 1 vessel run off to the foot. No fevers or chills. ON EXAMINATION: Video conference: right foot: Dry gangrene 3rd toe. Discolored adjacent toes. Left groin access site. No swelling, appears soft on palpation demonstrated by nurse. IMPRESSION: 79 male with popliteal occlusion and poor run off right lower extremity dependent solely on intermittent angioplasty and collateral vasculature . Prognosis for limb salvage remains grave. Patient has follow up appointment with podiatry regarding gangrenous toe. May need future above knee amputation. Continue aspirin and plavix. Patient is bed bound. Thank you for this referral CC Dr. Samuel Allergies Coded Allergies: No Known Allergies (Unverified , 09/08/19) KAILA URBINA MD November 22, 2019 09:30
== END ==
LOC: M TMIRPOV 08:48
PROVIDERS: ATTEND Radiology Diagnostic Radiology
DX: I70.92 Chronic total occlusion of artery of the extremities (principal); I96 Gangrene, not elsewhere classified; Z79.01 Long term (current) use of anticoagulants; Z79.82 Long term (current) use of aspirin

== ENCOUNTER → 2019-11-28 | Outpatient (REF) | PROVIDERS: ATTEND Internal Medicine | DX: Z03.818 Encounter for observation for suspected exposure to other biological agents ruled out (principal) ==

== ENCOUNTER → 2019-12-12 | Outpatient (REF) | payer MEDICARE, MEDICAID ==
[~2019-12-12] MED LIST changes: +ASPI81TA85 PO; +CAPS0.022 TOP; +CAPS42.53 EX; +CYMB1CAP5 PO; +DIOV40TA PO; +OXYC-1 PO; +THERTAB52 PO
== END ==
PROVIDERS: ATTEND Internal Medicine
DX: Z03.818 Encounter for observation for suspected exposure to other biological agents ruled out (principal)

== ENCOUNTER → 2019-12-13 | Outpatient (REF) | payer MEDICARE, MEDICAID ==
[~2019-12-13] MED LIST changes: +LEVO500T3 PO
[2019-12-13 17:42] LABS: HEMATOCRIT 43.2 % (42.0-52.0); HEMOGLOBIN 13.7 g/dl (13.5-17.5); MEAN CORPUSCULAR HEMOGLOBIN 27.9 pg (27.0-33.0); MEAN CORPUSCULAR HGB CONC 31.7 g/dl (32.0-36.5); PLATELET COUNT, AUTOMATED 404 10^3/uL (150-450); RED BLOOD COUNT 4.91 10^6/uL (4.30-6.10); WHITE BLOOD COUNT 11.7 10^3/uL (4.0-10.0)
[2019-12-13 17:52] LABS: BLOOD UREA NITROGEN 31 MG/DL (7-18); CALCIUM LEVEL 9.2 MG/DL (8.8-10.2); CARBON DIOXIDE LEVEL 26 MEQ/L (21-32); CHLORIDE LEVEL 102 MEQ/L (98-107); CREATININE FOR GFR 0.98 MG/DL (0.70-1.30); GLOMERULAR FILTRATION RATE > 60.0 (>42); GLUCOSE, FASTING 112 MG/DL (70-100); POTASSIUM SERUM 4.6 MEQ/L (3.5-5.1); SODIUM LEVEL 137 MEQ/L (136-145)
== END ==
PROVIDERS: ATTEND Internal Medicine
DX: Z01.818 Encounter for other preprocedural examination (principal); Z79.899 Other long term (current) drug therapy

== ENCOUNTER → 2019-12-14 | Outpatient (REF) | payer MEDICARE, MEDICAID ==
[2019-12-14 13:05] LABS: APPEARANCE, URINE CLOUDY (CLEAR); BACTERIA, URINE AUTO 1+ (NEGATIVE); BILIRUBIN, URINE AUTO NEGATIVE (NEGATIVE); BLOOD, URINE BLOOD 2+ (NEGATIVE); COLOR, URINE YELLOW (YELLOW); GLUCOSE, URINE (UA) AUTO NEGATIVE (NEGATIVE); KETONE, URINE AUTO NEGATIVE (NEGATIVE); LEUKOCYTE ESTERASE, URINE AUTO 3+ (NEGATIVE); MUCUS, URINE SMALL (NEGATIVE); NITRITE, URINE AUTO POSITIVE (NEGATIVE); PROTEIN, URINE AUTO 1+ mg/dL (NEGATIVE); RBC, URINE AUTO 33 /HPF (0-3); SPECIFIC GRAVITY URINE AUTO 1.016 (1.002-1.035); SQUAMOUS EPITHELIAL CELL UR AU 2 /HPF (0-6); UROBILINOGEN, URINE AUTO 0.2 mg/dL (0.0-2.0); WBC, URINE AUTO TNTC /HPF (0-3)
== END ==
PROVIDERS: ATTEND Internal Medicine
DX: Z01.818 Encounter for other preprocedural examination (principal)

== ENCOUNTER 2019-12-15 06:32 | Inpatient (IN) | payer MEDICARE, MEDICAID ==
--- NOTE | 2019-12-14 11:00 | CR ---
PREOPERATIVE CLEARANCE Date of Service: 12/13/2019 I was notified today on 12/13/2019 that this patient was going to be undergoing a total amputation above the knee on the right leg on Wednesday, that would be 12/15/2019, by Dr. Leonardo and asked to see him for a preoperative clearance. The patient was seeing the [employer] nurse practitioner and is aware that the patient would be undergoing this surgery. He was seen in consultation by Dr. Henderson for gangrene of the 3rd, 4th and 5th toes for amputation but the patient underwent angiogram on 11/16/2019 which revealed complete occlusion of the distal SFA, proximal mid and distal popliteal artery and no runoff below the knee. Angioplasty was completed on the distal SFA and popliteal artery with sikhism of flow. However, he has since then developed severe gangrene of the first, part of the great toe, medial aspect of the great toe, the 2nd toe, 3rd toe, 4th toe and 5th toe, all involved with the gangrene. Because of that, he is a very high risk for continued gangrene, also loss of his foot. The recommendation is to undergo complete above-knee amputation of the right leg and I am in agreement with that. The patient is a high risk for this surgery because he has had a prior myocardial infarction seen on EKG in the anterior wall of the heart and also inferior wall of the heart seen on EKG. There is no records from [facility] indicating that patient ever had a cardiac catheterization performed for this. He was seeing Dr. Josie Tompkins over there at the [facility], has been here since just the end of August 2019. He was initially here as comfort measures only and then that was reversed and now he is DO NOT RESUSCITATE, DO NOT INTUBATE. He is unable to walk. He had not been able to walk for over a year, hence the reason why he has not had any stress test performed. 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 He has chronic hypoxic respiratory failure, which he is on oxygen as needed, chronic pain, generalized anxiety disorder, chronic kidney disease with stent placed in the kidneys, looks like a right stent placed. He also has paroxysmal atrial fibrillation. He had one episode of atrial fibrillation and he has not had any recurrence of that. He is not on any other anticoagulant therapy other than aspirin. He is on Plavix because of the severe PVD. Again, the patient is a very high risk for this surgery, this surgery is indicated and needs to be done despite that. We will do everything we can to keep him at as low risk as possible but he is a very high risk due to his multiple medical problems including his prior myocardial infarction. The patient has not had any chest pain or increasing shortness of breath since his arrival here to [facility] and his last EKG which will suffice for this surgery was in August 2019 which again showed an old anterior wall [place] and old inferior wall [place]. He also had ectopic atrial rhythm with a first-degree AV block. PAST MEDICAL HISTORY: Significant for CVA with left hemiparesis, has not been able walk for a year, chronic respiratory failure, not on oxygen chronically, chronic pain, generalized anxiety, chronic kidney disease stage III, episode of paroxysmal atrial fibrillation, COPD, coronary artery disease without any stent placement, bypass surgery, history of old anterior and inferior wall [place] seen on EKG. Angioplasty in 11/2019 to the right leg with sikhism of blood flow but since then development of gangrene of the first toe, part of the great toe, medial aspect of the great toe, the 2nd toe, 3rd toe, 4th toe and 5th toe, all involved with the gangrene. SOCIAL HISTORY: Was living at [facility], just came here in 09/06/2019, prior to that he was at [facility] attended by Josie Tompkins MD. MEDICATIONS: - Diovan 40 mg once a day - lidocaine for pain, lidocaine cream - multivitamin a day - trazodone 50 mg at bedtime - famotidine 20 mg a day - senna one tablet once a day for constipation - sertraline 100 mg daily - Cymbalta 30 mg twice a day - oxycodone 15 mg every 6 hours - aspirin 81 mg a day - Plavix 75 mg a day - albuterol nebulizer treatments as needed - Tylenol 325 two tablets as needed for pain or fever and that is every 4 hours ALLERGIES: No known drug allergies. REVIEW OF SYSTEMS: The patient is able to answer questions appropriately for me. He said his right foot is very painful, his right leg is very painful from the knee down. He denies any chest pain, chest pressure, palpitations. He has not had any increased shortness of breath or productive cough. He has not noticed any fever or chills but has had some burning with urination. He has not noticed any dizziness or lightheadedness and has not had any increased numbness of the upper or lower extremities from his baseline. PHYSICAL EXAMINATION: Reveals a 79-year-old male. Vital signs I will indicate afterwards. Head is normocephalic, atraumatic. Sclerae is nonicteric. Extraocular muscle movements are intact. Throat is without any erythema or exudate. Uvula elevates midline. Neck is without any jugular venous distension, adenopathy or carotid bruits. Heart S1, S2, I do not appreciate any irregularity, no heaves or thrills or rubs or gallops. Lungs sounds are diminished at the bases but no adventitious sounds noted. No dullness to percussion. No use of accessory muscles. Abdomen is soft, nontender. Bowel sounds present in all four quadrants. Femoral pulses are 1+ bilaterally. I can feel a popliteal pulse behind the right knee. There is no dorsalis pedis or posterior tibialis pulse present and he has gangrene of the 1st, 2nd, 3rd, 4th and 5th toe on the right foot. The left is without any abnormality. The left arm is contracted, left hand is contracted, he is unable to extend his left arm and unable to open his left hand. 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 He is unable to lift his left leg or move his left foot. Neurologic: He is alert and oriented to person, place and time. He is able to answer questions appropriately. Again, he has got hemiparesis of the left side. No resting tremor noted. IMPRESSION: This patient is a 79-year-old male with severe peripheral vascular disease with complete occlusion angioplasty 11/16/2019 on the right leg. The patient however has developed gangrene of the 1st, 2nd, 3rd, 4th, and 5th toes. The patient will undergo completes above-knee amputation of the right leg. The patient is at increased surgical risk, moderate surgical risk, due to previous history of myocardial infarction in the anterior and inferior wall seen on EKG. The patient denies any chest pain but he is not ambulating, he does not get up and ambulate and has not done so for over a year. So stress on the heart is not able to be determined due to that. He will continue on his aspirin. He needs to stop his Plavix 3 days prior to his surgery, severe peripheral vascular disease. CVA with left hemiplegia. Anxiety disorder on sertraline. All his medications that he takes he takes in the evening. He can take his sertraline the evening before his surgery. He will not take his valsartan the morning of his surgery for his hypertension. He can take his trazodone the night before for his insomnia. He is on Cymbalta twice a day for chronic pain. He can take his evening dose of Cymbalta, hold his morning dose. Take his oxycodone as prescribed for his chronic pain. Nebulizer treatments as needed for shortness of breath or wheezing. He has been symptom free with that and he has not had any recent COPD exacerbations or been on any oral steroids. Again, the patient is at moderate risk for this surgery. The patient is not a candidate for a stress test or cardiac catheterization due to his coronary artery disease and evidence of anterior and inferior wall [place], age undetermined on EKG August 2019. He is having a stat nasal swab for Coronavirus prior to surgery. He will have a BMP, CBC and UA with C and S. He has had some dysuria. I believe there is no evidence of any infection.
[~2019-12-15] VITALS: Ht 182.9 cm; Wt 68.3 kg
[~2019-12-15 06:32] MED LIST changes: -LEVO500T3 PO
[2019-12-15] MEDS ORDERED: ceFAZolin SOD 2 GM in IV 1 EA IV ONE (07:00)
[2019-12-15] MEDS ORDERED: LR 1,000 ML IV ONE (07:00)
[2019-12-15] MEDS ORDERED: ONDANSETRON 4MG/2ML VIAL As Ordered ONE (07:05)
[2019-12-15] MEDS ORDERED: LIDOCAINE 2% 100MG/5ML SDV (FOR ANES.) As Ordered ONE (07:05)
[2019-12-15] MEDS ORDERED: propofoL 200 MG/20 ML VIAL As Ordered ONE (07:05)
[2019-12-15] MEDS ORDERED: ROCURONIUM BROMIDE 50 MG/5 ML VIAL As Ordered ONE (07:05)
[2019-12-15] MEDS ORDERED: MIDAZOLAM INJ 2MG/2ML VIAL (J2250 PER 1MG) As Ordered ONE (07:06)
[2019-12-15] MEDS ORDERED: fentaNYL 250 MCG/5 ML INJECTION (J3010) As Ordered ONE (07:06)
[2019-12-15 07:31] LABS: MEAN CORPUSCULAR HEMOGLOBIN 27.9 pg (27.0-33.0); MEAN CORPUSCULAR HGB CONC 31.8 g/dl (32.0-36.5); MEAN CORPUSCULAR VOLUME 87.6 fl (80.0-96.0); PLATELET COUNT, AUTOMATED 377 10^3/uL (150-450); RED BLOOD COUNT 5.02 10^6/uL (4.30-6.10); WHITE BLOOD COUNT 10.8 10^3/uL (4.0-10.0)
[2019-12-15] MEDS ORDERED: BUPIVACAINE/EPIN 0.5% 30 ML VIAL As Ordered ONE (07:37)
[2019-12-15 07:41] LABS: INR 1.14; PROTHROMBIN TIME 14.3 SECONDS (11.8-14.0)
[2019-12-15 07:42] LABS: BLOOD UREA NITROGEN 28 MG/DL (7-18); CALCIUM LEVEL 9.4 MG/DL (8.8-10.2); CARBON DIOXIDE LEVEL 26 MEQ/L (21-32); CHLORIDE LEVEL 104 MEQ/L (98-107); GLOMERULAR FILTRATION RATE > 60.0 (>42); GLUCOSE, FASTING 89 MG/DL (70-100); PARTIAL THROMBOPLASTIN TIME 40.9 SECONDS (25.0-38.4); POTASSIUM SERUM 4.4 MEQ/L (3.5-5.1); SODIUM LEVEL 134 MEQ/L (136-145)
[2019-12-15] MEDS ORDERED: PHENYLephrine HCL 500 MCG/5 ML (100MCG/ML) SYRINGE (J2370) As Ordered ONE ×2 (07:48→08:59)
[2019-12-15] MEDS ORDERED: VASOPRESSIN INJ 20 UNITS/ML VIAL As Ordered ONE (08:02)
[2019-12-15] MEDS ORDERED: ACETAMINOPHEN 1000MG 100ML IV BTL (OFIRMEV) (J0131 PER 10MG) As Ordered ONE (08:05)
[2019-12-15] MEDS ORDERED: ESMOLOL INJ 100MG/10ML VIAL As Ordered ONE (08:28)
[2019-12-15] MEDS ORDERED: SUGAMMADEX SODIUM 500 MG/5 ML VIAL (BRIDION) As Ordered ONE (08:29)
[2019-12-15] MEDS ORDERED: PHENYLEPHRINE 10MG/ML 1ML VIAL (J2370 PER 1) As Ordered ONE (08:54)
--- NOTE | 2019-12-15 09:59 | ROOPDOC ---
[facility] Report Of Operation Report of Operation DATE OF PROCEDURE: 12/15/19 PREPROCEDURE DIAGNOSES: Atherosclerosis of the [place] arteries with gangrene right 1-5th toes and severe pain POSTPROCEDURE DIAGNOSES: Same PROCEDURE: Right above knee amputation SURGEON: Juan Miguel Leonardo MD ANESTHESIA: General anesthesia and local anesthesia INDICATION FOR PROCEDURE: This is a very pleasant 79yo gentleman with severe PVD and new onset right foot gangrene and severe foot pain in the last 2 weeks. He does not ambulate due to past history of CVA with left sided weakness, and he was referred to our team to discuss amputation. The patient has limited right lower extremity perfusion despite attempts at revascularization with Dr Thurman recently. He has faint monophasic DP/PT signals, and faint popliteal artery signal. I do not think he has enough flow for a below knee amputation, and since he does not ambulate, we recommend above knee amputation. Risks benefits and alternatives were explained and the patient is agreeable to proceed. Informed consent was obtained. I also spoke at length with the patient's daughter and and they are also in agreement. REPORT OF OPERATION: The patient was brought to the operating room in stable condition and placed supine on the OR table. General anesthesia and antibiotics were administered without complication. His right lower extremity was prepped and draped in a sterile fashion. A timeout was performed. An Esmarch was used to exsanguinate the leg and a tourniquet was inflated on the upper thigh at 300 mmHg. A fishmouth incision was fashioned on the distal right lower extremity at the knee with a longer posterior flap. This was carried down to the subcutaneous tissues with Bovie cautery. Dissection continued through the fascia and the muscle circumferentially. The femur was skeletonized proximally to allow for high transection in a tension-free closure. The popliteal artery and vein were identified suture ligated and divided. There was no flow noted in the popliteal artery. The popliteal vein was patent with flow. The sciatic nerve was high ligated and divided and the perineural tissues were injected with local anesthesia. The femur was transected high with a slight anterior bevel. The rest of the posterior muscle and soft tissue was transected and the leg/foot were sent for pathology. Visible vessels were suture ligated. The tourniquet was released. Bovie cautery was used for hemostasis. The stump was thoroughly irrigated. Soft tissue was closed over the high ligated nerve to prevent neuroma. The deep tissues were approximated with [id number] Vicryl sutures. The posterior flap skin edge was cut for a tension-free closure. The fascia was closed with [id number] Vicryl sutures across the entire incision leaving no gaps. We irrigated again, and local anesthesia was administered to the skin and subcutaneous tissue around the distal incision. Nylon mattress sutures were used to approximate the skin edge. Reginald were used to close the skin between the sutures. The incision was cleaned and dried and Xeroform, fluffs, 4 x 4's, Kerlix and Coban were used as a final dressing. The patient was allowed to awaken from anesthesia and was taken to recovery in stable condition. He tolerated the procedure and anesthesia well. ESTIMATED BLOOD LOSS: Approximately 40 mL. SPECIMEN: Right leg and foot sent for pathology COMPLICATIONS: None. PLAN: Admit to hospitalist for medical management and we will continue to provide postop care and analgesia. Patient had a urinalysis at his long term that was positive for urinary tract infection, so we will continue treatment for that during admission. PT/OT as tolerated, although chronic left upper extremity contracture and non-functional left lower extremity due to past history of CVA may limit the amount of activity that the patient can participate in with therapy. We anticipate he may be ready for discharge back to the long term in 2-3 days. We appreciate the opportunity to participate in the care of this patient. JUAN MIGUEL LEONARDO MD Dec 15, 2019 09:59
[2019-12-15] MEDS ORDERED: fentaNYL 100 MCG/2 ML INJECTION (J3010) IV PRN (10:15)
[2019-12-15] MEDS ORDERED: ONDANSETRON 4MG/2ML VIAL IV PRN ×2 (10:15→11:45)
[2019-12-15] MEDS ORDERED: LR 1,000 ML IV SCH (10:15)
[2019-12-15] MEDS ORDERED: oxyCODONE 5MG TAB PO PRN (10:15)
[2019-12-15 11:05] VITALS: BP 101/59
[2019-12-15 11:35] VITALS: BP 100/59
[2019-12-15] MEDS ORDERED: LevoFLOXacin 250 MG TABLET PO SCH (12:00)
[2019-12-15] MEDS ORDERED: LEVO500T3 PO (12:30)
[2019-12-15 12:35] VITALS: BP 130/60
[2019-12-15] MEDS: cefTRIAXone SOD 1 GM in D5W MINI-BAG PLUS 50 ML IV SCH (13:16)
--- NOTE | 2019-12-15 13:40 | HPEPDOC ---
[facility] Medical History & Physical Date of Admission Dec 15, 2019 Date of Service: Dec 15, 2019 Attending Physician: SOFY UNDERWOOD MD History and Physical CHIEF COMPLAINT: Acute on Chronic Limb Ischemia Requiring Right Above the Knee Amputation HISTORY OF PRESENT ILLNESS: Patient is a 79 year old male with a past medical history significant for CVA with left hemiparesis, chronic hypoxic respiratory failure, CKD, paroxysmal atrial fibrillation, COPD, ASCVD, and peripheral vascular disease with history of limb ischemia and gangrene requiring angioplasty and amputation of 2nd, 3rd, 4th, and 5th toe on the right. The patient had an arteriogram completed on 7019 which revealed complete occlusion of his distal SFA and proximal mid and distal popliteal artery. Additionally, he was found to have no runoff below the knee. He recently had angioplasty completed on his distal SFA Artery with [employer] Flow. However, despite these efforts, the patient had developed severe gangrene of the medial aspect of the great toe, second toe, third toe, fourth toe and fifth toe on the right. Recommendations were made for a below the knee amputation. The patient taken this morning for a right above the knee amputation with Vascular Surgery. There were no adverse events during the procedure. Patient was noted to be on high doses of narcotic pain medications as an outpatient. Hospitalist service was consulted for further medical management of the patient during his hospital course Patient is seen this morning following his surgery. He is currently tired likely secondary to anesthesia. He is arousable. He states that at this time he has no pain. He does state that he has some burning with urination. It appears the patient was diagnosed with a UTI as and outpatient and started on Levaquin. There is no culture data available currently. Patient otherwise denies any shortness of breath or chest pain. PAST MEDICAL HISTORY: 1. CVA with left hemiparesis 2. Chronic hypoxic Respiratory failure with history of COPD 3. CKD Stage III 4. Paroxysmal Atrial Fibrillation 5. CAD 6. History of Anterior and Inferior Wall LA 7. Peripheral Vascular Disease with history of angioplasty and multiple amputations 8. Generalized Anxiety PAST SURGICAL HISTORY: 1. Bilateral Inguinal Hernia Repair 2. Left Total Hip Arthroplasty 3. Right Knee Arthroplasty 4. Tonsillectomy 5. Kidney Stone Removal 6. Multiple Toe Amputations 2/2 gangrene from limb ischemia SOCIAL HISTORY: Patient is a resident at [facility] ALLERGIES: Please see below. REVIEW OF SYSTEMS: CONSTITUTIONAL: Denies fevers or chills. Denies night sweats HEENT: Denies dysphagia. Denies pain on swallowing or sore throat CARDIOVASCULAR: Denies chest pain RESPIRATORY: Denies shortness of breath worse then his baseline. Denies wheezing. Denies cough GASTROINTESTINAL: Denies abdominal pain. Denies diarrhea or constipation GENITOURINARY: Admits to discomfort with urination. SKIN: Denies rashes or lesions NEUROLOGICAL: Denies changes in speech or gait from his baseline PSYCHIATRIC: Admits to anxiety ENDOCRINE: Denies heat intolerance or cold intolerance HEMATOLOGIC/LYMPHATIC: Denies easy bruising or bleeding HOME MEDICATIONS: Please see below. PHYSICAL EXAMINATION: VITAL SIGNS: Temperature 98.3, pulse 91, respiratory rate 18, blood pressure 111/58, pulse oximetry 99% on 3L NC GENERAL APPEARANCE: Patient is tired appearing. He is arousable and alert. He is oriented. He does not appear in any acute distress HEENT: Atraumatic, normocephalic. Eyes are nonicteric. Trachea is midline CARDIOVASCULAR: Irregularly irregular rhythm. Normal rate. No clicks, rubs, or murmurs LUNGS: Clear vesicular breath sounds bilaterally. No wheezes, rhonchi, or rales. Diminished breath sounds throughout ABDOMEN: Soft. Nondistended. Nontender. Normoactive bowel sounds. No rebound tenderness or guarding EXTREMITIES: No edema. Right above the knee amputation. Right stump is bandaged. Left lower extremity in plantar flexion. Palpable left DP and PT pulses NEUROLOGICAL: No focal neurological deficits PSYCHIATRIC: Mood and affect appear appropriate LABORATORY DATA: See below. IMAGING: NONE MICROBIOLOGY: Please see below. ASSESSMENT: Patient is a 79 year old male with multiple comorbidities including vascular disease who is s/p right above the knee amputation. . PLAN: 1. Peripheral Vascular Disease resulting in above the knee amputation -Patient is s/p above the knee amputation per vascular surgery today. There were no adverse events during the patient procedure. -Patient was on high doses of Narcotic Medications as an outpatient. He will likely not need such high doses now that he has had an amputation for his gangrenous areas. Will continue patients pain medications and titrate down as needed -Patient will resume Plavix on 12/17/2019 as recommended by Vascular Surgery -Faridafran for Nausea 2. Chronic Obstructive Pulmonary Disease -Currently stable and not in exacerbation -Patient has received anesthesia. He has a history of chronic hypoxic respiratory failure. Will place patient on MALATHI protocol. -Continue Albuterol Neb prn shortness of breath -Oxygen therapy orders for O2 sat 88-92% 3. Urinary Tract Infection -Patient presented from outside facility with UTI. -Will give Rocephin 1g q24h -Will transition once culture data is available 4. Hypertension -Currently normotensive. Likely 2/2 to anesthesia. Will hold patients Losartan. If he becomes hypertensive will resume his home dose of PO losartan 5. Paroxysmal Atrial Fibrillation -Patient is currently rate controlled. He is not on any anticoagulation at home. Will ascertain reason as to why patient is not anticoagulated 6. DVT Prophylaxis -Mechanical for now. Will start Heparin SQ tomorrow Attending attestation: I evaluated and examined the patient in person; I discussed the care with Resident in detail and agree with the plan above. Vital Signs Vital Signs Date Time Temp Pulse Resp B/P (MAP) Pulse Ox O2 Delivery O2 Flow Rate FiO2 12/15/19 11:30 3.0 12/15/19 10:50 107 18 111/58 (75) 99 Nasal Cannula 12/15/19 10:33 98.3 Laboratory Data Labs 24H Laboratory Tests 2 12/15/19 07:09: Prothrombin Time 14.3H, Prothromb Time International Ratio 1.14, Activated Parti al Thromboplast Time 40.9H, Anion Gap 4L, Glomerular Filtration Rate > 60.0, Calcium Level 9.4 12/15/19 07:10: Nucleated Red Blood Cells % (auto) 0.0 CBC/BMP Laboratory Tests 12/15/19 07:09 12/15/19 07:10 Home Medications Scheduled Aspirin (Aspir 81) 81 Mg Tablet.dr, 81 MG PO DAILY Capsaicin (Capsaicin) 0.025% Cream..g., 1 APLCT TOP BID APPLY TO BILATERAL FEET Clopidogrel Bisulfate (Plavix) 75 Mg Tablet, 75 MG PO QPM Duloxetine Hcl (Cymbalta) 30 Mg Capsule.dr, 30 MG PO BID Famotidine (Famotidine) 20 Mg Tablet, 20 MG PO QHS Lanolin Alcohol/Mo/W.pet/Early (Eucerin Creme) 454 Gm Cream..g., 1 APLCT TOP QPM Levofloxacin (Levofloxacin) 500 Mg Tablet, 500 MG PO ONCE Lidocaine HCl (Lidocaine HCl) 28.35 Gm Cream..g., 1 APLCT TOP BID APPLY TO LEFT WRIST, ELBOW AND SHOULDER Multivitamin,Therapeutic (Thera-Tabs) 1 Each Tablet, 1 TAB PO DAILY Oxycodone Hcl (Oxycodone HCl) 15 Mg Tablet, 15 MG PO Q6H Polyethylene Glycol 3350 (Miralax) 17 Gm Powd.pack, 17 GM PO DAILY Sennosides/Docusate Sodium (Senna-S Tablet) 1 Each Tablet, 1 TAB PO DAILY Sertraline HCl (Sertraline HCl) 100 Mg Tablet, 100 MG PO QHS Trazodone HCl (Trazodone HCl) 50 Mg Tablet, 50 MG PO QHS Valsartan (Diovan) 40 Mg Tablet, 40 MG PO DAILY Scheduled PRN Acetaminophen (Acetaminophen) 325 Mg Tablet, 650 MG PO Q4H PRN for PAIN OR FEVER Albuterol Sulf (Albuterol Sulfate) 2.5 Mg/3 Ml Vial.neb, 1 VIAL INH Q4H PRN for SHORTNESS OF BREATH Bisacodyl (Bisacodyl) 10 Mg Supp.rect, 10 MG [place] DAILY PRN for CONSTIPATION Magnesium Hydroxide (Milk of Magnesia) 400 Mg/5 Ml Oral.susp, 30 ML PO DAILY PRN for CONSTIPATION Sodium Phosphate,Inyo-Dibasic (Enema) 133 Ml Enema, 1 LARRY [place] DAILY PRN for CONSTIPATION Allergies Coded Allergies: No Known Allergies (Unverified , 09/08/19) A-FIB/CHADSVASC A-FIB History Current/History of A-Fib/PAF?: Yes Current PO Anticoag Therapy: No (Patient not on anticoag from outpatient setting ) BETO MCBRIDE DO Dec 15, 2019 12:13 SOFY UNDERWOOD MD Dec 18, 2019 08:16
[2019-12-15] MEDS ORDERED: BISACODYL 10 MG SUPP PR PRN (13:45)
[2019-12-15] MEDS ORDERED: MOM 30ML SUSPENSION UDC PO PRN (13:45)
[2019-12-15] MEDS ORDERED: ALBUTEROL SULFATE 2.5 MG/0.5 ML INH NEB SOLN NEB PRN (13:45)
[2019-12-15] MEDS ORDERED: ACETAMINOPHEN 325 MG TAB PO PRN (13:45)
[2019-12-15] MEDS: DULoxetine 30 MG CAP (CYMBALTA) PO SCH ×2 (13:53→21:18)
[2019-12-15] MEDS: SENOKOT S TAB PO SCH (13:53)
[2019-12-15] MEDS: oxyCODONE 5MG TAB PO SCH ×2 (13:54→21:19)
[2019-12-15] MEDS: SERTRALINE 100 MG TAB PO SCH (21:18)
[2019-12-15] MEDS: traZODone 50 MG TAB PO SCH (21:18)
[2019-12-15] MEDS: FAMOTIDINE 20 MG TAB PO SCH (21:18)
[2019-12-15 22:00] VITALS: BP 129/74
[2019-12-15 22:06] VITALS: O2SAT 98
[2019-12-16] MEDS: oxyCODONE 5MG TAB PO PRN ×2 (00:05→10:01)
[2019-12-16 02:00] VITALS: BP 106/70
[2019-12-16] MEDS: oxyCODONE 5MG TAB PO SCH ×3 (05:52→22:00)
[2019-12-16 06:00] VITALS: BP 110/70
[2019-12-16 07:07] LABS: HEMATOCRIT 41.8 % (42.0-52.0); HEMOGLOBIN 13.2 g/dl (13.5-17.5); MEAN CORPUSCULAR HGB CONC 31.6 g/dl (32.0-36.5); MEAN CORPUSCULAR VOLUME 88.7 fl (80.0-96.0); PLATELET COUNT, AUTOMATED 392 10^3/uL (150-450); RED BLOOD COUNT 4.71 10^6/uL (4.30-6.10); WHITE BLOOD COUNT 10.5 10^3/uL (4.0-10.0)
[2019-12-16 07:30] LABS: BLOOD UREA NITROGEN 23 MG/DL (7-18); CARBON DIOXIDE LEVEL 26 MEQ/L (21-32); CHLORIDE LEVEL 105 MEQ/L (98-107); CREATININE FOR GFR 0.87 MG/DL (0.70-1.30); GLOMERULAR FILTRATION RATE > 60.0 (>42); GLUCOSE, FASTING 116 MG/DL (70-100); SODIUM LEVEL 138 MEQ/L (136-145)
[2019-12-16] MEDS: SENOKOT S TAB PO SCH (08:56)
[2019-12-16] MEDS: DULoxetine 30 MG CAP (CYMBALTA) PO SCH ×2 (08:56→22:01)
[2019-12-16 10:00] VITALS: BP 119/74
--- NOTE | 2019-12-16 12:30 | IPNPDOC ---
Date Seen The patient was seen on 12/16/19. Progress Note SUBJECTIVE: Patient was seen and examined this morning. He currently has no new complaints. He states that he has continued pain in his left foot. Additionally, he does state that he has some pain in his right stump. He does mention that his pain is controlled with the pain medications. He denies any nausea or vomiting. He denies any shortness of breath. Denies any chest pain. Denies any diarrhea or constipation. There have been no adverse respiratory overnight OBJECTIVE PHYSICAL EXAMINATION: VITAL SIGNS: Please see below. GENERAL: Awake Alert, oriented, does not appear in any acute distress lying comfortably in bed HEENT: Atraumatic normocephalic. Eyes are nonicteric. Trachea is midline CARDIOVASCULAR: Irregularly irregular rhythm, normal rate. No clicks, rubs or murmurs. RESPIRATORY:. Clear vesicular breath sounds bilaterally. Good respiratory effort. No wheezes, rhonchi or rales. There are somewhat diminished breath sounds throughout., No significant change from previous examination ABDOMINAL:. Soft, nondistended, nontender, normoactive bowel sounds, no rebound tenderness or guarding EXTREMITIES: No edema. Right [id number] amputation stump is bandaged on the right. Left lower extremity and plantar flexion. There is palpable left DP and PT pulses. NEUROLOGICAL: No focal neurological deficits PSYCHOLOGICAL:. Mood and Affect appear appropriate for situation LABORATORY DATA, IMAGING STUDIES, MICROBIOLOGY: Please see below. ASSESSMENT AND PLAN: Patient is a 79 year old male with multiple comorbidities including vascular disease who is s/p right above the knee amputation. . PLAN: 1. Peripheral Vascular Disease resulting in above the knee amputation -Patient is s/p above the knee amputation per vascular surgery yesterday. -Patient reports pain, however, states that his control with his current regimen of pain medications -Patient will resume Plavix on 12/17/2019 as recommended by Vascular Surgery -Faridafran for Nausea 2. Chronic Obstructive Pulmonary Disease -Currently stable and not in exacerbation -Patient has received anesthesia. He has a history of chronic hypoxic respiratory failure. Continue MALATHI protocol -Continue Albuterol Neb prn shortness of breath -Oxygen therapy orders for O2 sat 88-92% 3. Urinary Tract Infection -Patient presented from outside facility with UTI. Cultures are currently pending. Review of the patient's medical records show that he had a urinary tract infection on 09/13/2019 which resulted in 2 different organisms, Klebsiella, which was pansensitive and Morganella morganii which had resistance to several antibiotics including Levofloxacin. His Morganella species is likely a communal however, it did have resistance to levofloxacin which he was started on outpatient. Given the patient's current continued urinary symptoms and previous culture data I will continue on Rocephin 1 g every 24 hours. Once urine culture data from 12/14/2019 results I will taper antibiotic therapy as appropriate. -Will continue Rocephin 1g q24h -Will transition once culture data is available 4. Hypertension -Continues to be normotensive. Will hold Antihypertensives 5. Paroxysmal Atrial Fibrillation -Patient is currently rate controlled. He is not on any anticoagulation at home. Will ascertain reason as to why patient is not anticoagulated 6. DVT Prophylaxis -Heparin subcutaneous Attending attestation: I evaluated and examined the patient in person; I discussed the care with Resident in detail and agree with the plan above. VS, I&O, 24H, Fishbone Vital Signs/I&O Vital Signs Date Time Temp Pulse Resp B/P (MAP) Pulse Ox O2 Delivery O2 Flow Rate FiO2 12/16/19 10:40 16 12/16/19 10:00 98.0 94 119/74 (89) 94 Nasal Cannula 2.0 I&O- Last 24 Hours up to 6 AM 12/16/19 06:00 Intake Total 2470 ml Output Total 40 ml Balance 2430 ml Laboratory Data 24H LABS Laboratory Tests 2 12/16/19 06:41: Nucleated Red Blood Cells % (auto) 0.0, Anion Gap 7L, Glomerular Filtration Rate > 60.0, Calcium Level 9.0 CBC/BMP Laboratory Tests 12/16/19 06:41 BETO MCBRIDE DO Dec 16, 2019 12:30 SOFY UNDERWOOD MD Dec 18, 2019 08:26
[2019-12-16] MEDS: cefTRIAXone SOD 1 GM in D5W MINI-BAG PLUS 50 ML IV SCH (13:36)
[2019-12-16 14:00] VITALS: BP 119/74
[2019-12-16] MEDS: ACETAMINOPHEN TAB 650MG DOSE (2X325MG) PO PRN (16:05)
[2019-12-16 18:00] VITALS: BP 119/75
[2019-12-16 19:49] VITALS: BP 113/75
--- NOTE | 2019-12-16 21:02 | IPNPDOC ---
Date Seen The patient was seen on 12/16/19. Progress Note Patient seen and examined. Doing well POD #1 s/p R AKA. Pain controlled. Tolerating diet. On exam, R AKA incision is c/d/i with scant serosanguinous drainage, no erythema, no induration. Reginald and sutures intact. Incision cleaned, redressed with xeroform, fluffs, kerlex, mu wrap. Patient tolerated dressing change well. Continue to encourage high protein diet to help with healing. Analgesia prn. Likely will be ready for discharge back to [place] in a day or two. We appreciate hospitalist management of this patient. VS, I&O, 24H, Fishbone Vital Signs/I&O Vital Signs Date Time Temp Pulse Resp B/P (MAP) Pulse Ox O2 Delivery O2 Flow Rate FiO2 12/16/19 19:49 98.6 113 18 113/75 (88) 98 Nasal Cannula 2.0 I&O- Last 24 Hours up to 6 AM 12/16/19 09:00 Intake Total 2470 ml Output Total 40 ml Balance 2430 ml Laboratory Data 24H LABS Laboratory Tests 2 12/16/19 06:41: Nucleated Red Blood Cells % (auto) 0.0, Anion Gap 7L, Glomerular Filtration Rate > 60.0, Calcium Level 9.0 CBC/BMP Laboratory Tests 12/16/19 06:41 JUAN MIGUEL MURILLO MD Dec 16, 2019 21:02
[2019-12-16] MEDS: FAMOTIDINE 20 MG TAB PO SCH (22:00)
[2019-12-16] MEDS: SERTRALINE 100 MG TAB PO SCH (22:01)
[2019-12-16] MEDS: traZODone 50 MG TAB PO SCH (22:01)
[2019-12-16] MEDS: HEPARIN SOD (PORCINE) 5000UNITS/ML VIAL (J1644 PER 1000UNITS) SQ SCH (22:02)
[2019-12-17] MEDS: ACETAMINOPHEN TAB 650MG DOSE (2X325MG) PO PRN ×2 (03:32→07:40)
[2019-12-17] MEDS: HEPARIN SOD (PORCINE) 5000UNITS/ML VIAL (J1644 PER 1000UNITS) SQ SCH ×3 (05:53→23:04)
[2019-12-17] MEDS: oxyCODONE 5MG TAB PO SCH ×3 (05:54→23:04)
[2019-12-17 06:00] VITALS: BP 113/73
[2019-12-17 06:59] LABS: HEMATOCRIT 42.6 % (42.0-52.0); HEMOGLOBIN 13.5 g/dl (13.5-17.5); MEAN CORPUSCULAR HGB CONC 31.7 g/dl (32.0-36.5); MEAN CORPUSCULAR VOLUME 88.2 fl (80.0-96.0); PLATELET COUNT, AUTOMATED 392 10^3/uL (150-450); RED BLOOD COUNT 4.83 10^6/uL (4.30-6.10); WHITE BLOOD COUNT 9.9 10^3/uL (4.0-10.0)
[2019-12-17 07:26] LABS: BLOOD UREA NITROGEN 18 MG/DL (7-18); CALCIUM LEVEL 9.3 MG/DL (8.8-10.2); CARBON DIOXIDE LEVEL 25 MEQ/L (21-32); CHLORIDE LEVEL 104 MEQ/L (98-107); CREATININE FOR GFR 0.75 MG/DL (0.70-1.30); GLOMERULAR FILTRATION RATE > 60.0 (>42); GLUCOSE, FASTING 135 MG/DL (70-100); POTASSIUM SERUM 4.3 MEQ/L (3.5-5.1); SODIUM LEVEL 134 MEQ/L (136-145)
[2019-12-17] MEDS: DULoxetine 30 MG CAP (CYMBALTA) PO SCH ×2 (08:12→23:05)
[2019-12-17] MEDS: SENOKOT S TAB PO SCH (08:12)
[2019-12-17] MEDS: CLOPIDOGREL 75 MG TAB PO SCH (08:12)
--- NOTE | 2019-12-17 09:13 | IPNPDOC ---
Date Seen The patient was seen on 12/17/19. Progress Note SUBJECTIVE: 79-year-old male with past medical history of severe peripheral vascular disease and COPD, was admitted after right above-knee amputation. Patient has been doing well postop, continues to have pain at the stump today, well-controlled, no other complaints. He denies any shortness of breath, chest pain, nausea, vomiting, diarrhea or constipation. 10 point review of systems negative except for above PHYSICAL EXAMINATION: VITAL SIGNS: Please see below. GENERAL: No distress HEENT: Normocephalic, atraumatic, moist mucous membranes NECK: Supple CARDIOVASCULAR EXAMINATION: S1, S2, no murmurs RESPIRATORY EXAMINATION: Scattered rhonchi, no wheezing ABDOMINAL EXAMINATION: Soft, nontender, nondistended, positive bowel sounds EXTREMITIES: Status post right AKA, dressing clean, dry and intact SKIN: No rash NEUROLOGICAL EXAMINATION: Alert and oriented 3, no focal deficits PSYCHIATRIC EXAMINATION: Calm and cooperative LABORATORY DATA, IMAGING STUDIES, MICROBIOLOGY: Please see below. ASSESSMENT AND PLAN: 79-year-old male with past medical history of peripheral artery disease and COPD is admitted after right above-knee amputation. PROBLEMS: 1. Status post right above-knee amputation: Doing well postop, pain well- controlled, further management as per vascular surgery.. 2. Peripheral artery disease: Continue aspirin, Plavix and statin. 3. COPD: Stable, continue when necessary inhalers. 4. UTI: Continue ceftriaxone DVT prophylaxis: Heparin subcutaneous GI prophylaxis: Pepcid Disposition: Plan for discharge back to [facility] tomorrow. VS, I&O, 24H, Fishbone Vital Signs/I&O Vital Signs Date Time Temp Pulse Resp B/P (MAP) Pulse Ox O2 Delivery O2 Flow Rate FiO2 12/17/19 06:24 16 12/17/19 06:00 98.8 97 113/73 (86) 95 Nasal Cannula 2.0 I&O- Last 24 Hours up to 6 AM 12/17/19 05:59 Intake Total 600 ml Output Total 0 ml Balance 600 ml Laboratory Data 24H LABS Laboratory Tests 2 12/17/19 06:24: Nucleated Red Blood Cells % (auto) 0.0, Anion Gap 5L, Glomerular Filtration Rate > 60.0, Calcium Level 9.3 CBC/BMP Laboratory Tests 12/17/19 06:24 SOFY UNDERWOOD MD Dec 17, 2019 09:13
[2019-12-17] MEDS: cefTRIAXone SOD 1 GM in D5W MINI-BAG PLUS 50 ML IV SCH (13:29)
[2019-12-17 14:00] VITALS: BP 118/70
[2019-12-17] MEDS: oxyCODONE 5MG TAB PO PRN (17:29)
--- NOTE | 2019-12-17 17:32 | IPNPDOC ---
Date Seen The patient was seen on 12/17/19. Progress Note Patient seen and examined. Doing well POD #2 s/p R AKA. Pain controlled. Appetite poor. On exam, R AKA incision is c/d/i with scant serosanguinous drainage, no erythema, no induration. Mild bruising noticed along mid inferior incision. Viola and sutures intact. Incision cleaned, redressed with xeroform, fluffs, kerlex, mu wrap. Patient tolerated dressing change well. Continue to encourage high protein diet to help with healing. Analgesia prn. Likely will be ready for discharge back to [place] tomorrow. We appreciate hospitalist management of this patient. VS, I&O, 24H, Fishbone Vital Signs/I&O Vital Signs Date Time Temp Pulse Resp B/P (MAP) Pulse Ox O2 Delivery O2 Flow Rate FiO2 12/17/19 17:29 16 12/17/19 14:00 98.6 62 118/70 (86) 95 Room Air 12/17/19 06:00 2.0 I&O- Last 24 Hours up to 6 AM 12/17/19 05:59 Intake Total 600 ml Output Total 0 ml Balance 600 ml Laboratory Data 24H LABS Laboratory Tests 2 12/17/19 06:24: Nucleated Red Blood Cells % (auto) 0.0, Anion Gap 5L, Glomerular Filtration Rate > 60.0, Calcium Level 9.3 CBC/BMP Laboratory Tests 12/17/19 06:24 JUAN MIGUEL MURILLO MD Dec 17, 2019 17:32
[2019-12-17 20:20] VITALS: BP 112/73
[2019-12-17] MEDS: FAMOTIDINE 20 MG TAB PO SCH (23:04)
[2019-12-17] MEDS: traZODone 50 MG TAB PO SCH (23:05)
[2019-12-17] MEDS: SERTRALINE 100 MG TAB PO SCH (23:05)
[2019-12-18 05:56] VITALS: BP 114/94
[2019-12-18] MEDS: HEPARIN SOD (PORCINE) 5000UNITS/ML VIAL (J1644 PER 1000UNITS) SQ SCH (06:03)
[2019-12-18] MEDS: oxyCODONE 5MG TAB PO SCH ×2 (06:03→14:01)
[2019-12-18 06:28] LABS: HEMOGLOBIN 13.2 g/dl (13.5-17.5); MEAN CORPUSCULAR HEMOGLOBIN 28.1 pg (27.0-33.0); MEAN CORPUSCULAR HGB CONC 31.4 g/dl (32.0-36.5); MEAN CORPUSCULAR VOLUME 89.4 fl (80.0-96.0); PLATELET COUNT, AUTOMATED 430 10^3/uL (150-450); WHITE BLOOD COUNT 9.2 10^3/uL (4.0-10.0)
[2019-12-18 06:57] LABS: BLOOD UREA NITROGEN 20 MG/DL (7-18); CALCIUM LEVEL 9.1 MG/DL (8.8-10.2); CARBON DIOXIDE LEVEL 27 MEQ/L (21-32); CHLORIDE LEVEL 104 MEQ/L (98-107); CREATININE FOR GFR 0.89 MG/DL (0.70-1.30); GLOMERULAR FILTRATION RATE > 60.0 (>42); GLUCOSE, FASTING 146 MG/DL (70-100); POTASSIUM SERUM 4.3 MEQ/L (3.5-5.1); SODIUM LEVEL 136 MEQ/L (136-145)
[2019-12-18] MEDS: SENOKOT S TAB PO SCH (08:52)
[2019-12-18] MEDS: DULoxetine 30 MG CAP (CYMBALTA) PO SCH (08:52)
[2019-12-18] MEDS: CLOPIDOGREL 75 MG TAB PO SCH (08:52)
[2019-12-18] MEDS: ACETAMINOPHEN TAB 650MG DOSE (2X325MG) PO PRN (08:55)
--- NOTE | 2019-12-18 09:06 | IPNPDOC ---
Date Seen The patient was seen on 12/18/19. Progress Note Patient seen and examined postoperative day #3 status post right above-knee amputation. Seems to be in a much better mood today, and joking around with me, pain much better. He still has a pretty poor appetite, but we continue to encourage high-protein diet and ensure. Patient needs nutrition to help with healing of his amputation incision. We appreciate the hospitalist management of this patient. On exam, the incision is clean dry and intact with jesus and sutures intact. There is minimal bruising along the inferior edge, but this is not unexpected in a patient on Plavix. No skin necrosis or dehiscence noted. The incision was thoroughly cleaned, dressed with Xeroform fluffs kerlix and an Joe wrap. Okay for discharge to detention today from vascular standpoint. We would like to see the patient back in 2 weeks for staple removal, 3 weeks for suture removal. Right AKA incision care: Clean incision daily, dressed with 4 x 4, Kerlix, Joe wrap or Coban daily. Try to make sure dressing is not too tight. We appreciate the opportunity to participate in the care of this patient. VS, I&O, 24H, Fishbone Vital Signs/I&O Vital Signs Date Time Temp Pulse Resp B/P (MAP) Pulse Ox O2 Delivery O2 Flow Rate FiO2 12/18/19 06:33 16 12/18/19 05:56 98.9 93 114/94 (101) 96 Room Air 12/17/19 06:00 2.0 I&O- Last 24 Hours up to 6 AM 12/18/19 05:59 Intake Total 1360 ml Output Total 0 ml Balance 1360 ml Laboratory Data 24H LABS Laboratory Tests 2 12/18/19 05:59: Nucleated Red Blood Cells % (auto) 0.0, Anion Gap 5L, Glomerular Filtration Rate > 60.0, Calcium Level 9.1 CBC/BMP Laboratory Tests 12/18/19 05:59 JUAN MIGUEL MURILLO MD Dec 18, 2019 09:05
[2019-12-18] MEDS: oxyCODONE 5MG TAB PO PRN (11:20)
[2019-12-18] MEDS ORDERED: OXYC-517 PO ×3 (11:40→11:46)
[2019-12-18] MEDS ORDERED: CLOP75TA2 PO (11:40)
[2019-12-18] MEDS ORDERED: BACT800T5 PO (11:53)
--- NOTE | 2019-12-18 15:39 | DS.PDOC ---
Discharge Summary General Date of Admission Dec 15, 2019 at 06:32 Date of Discharge 12/18/19 Attending Physician: SOFY UNDERWOOD MD Specialist/Consultants Involve: JUAN MIGUEL MURILLO MD Discharge Summary PROCEDURES PERFORMED DURING STAY: Right lfyoc-buy-gyrc amputation ADMITTING DIAGNOSES: 1. Peripheral vascular disease resulting in chronic limb ischemia requiring ytbuq-gua-gryi amputation 2. Chronic obstructive pulmonary disease 3. Urinary tract infection present at outside facility 4. Hypertension 5. Paroxysmal atrial fibrillation DISCHARGE DIAGNOSES: 1. Peripheral vascular disease resulting in chronic limb ischemia requiring jfzce-log-irbb amputation 2. Chronic obstructive pulmonary disease 3. Urinary tract infection present at outside facility 4. Hypertension 5. Paroxysmal atrial fibrillation COMPLICATIONS/CHIEF COMPLAINT: Gangrene Right Foot, Non Ambulatory. HISTORY OF PRESENT ILLNESS: Patient is a 79 year old male with a past medical h istory significant for CVA with left hemiparesis, chronic hypoxic respiratory failure, CKD, paroxysmal atrial fibrillation, COPD, ASCVD, and peripheral vascular disease with history of limb ischemia and gangrene requiring angioplasty and amputation of 2nd, 3rd, 4th, and 5th toe on the right. The pat ient had an arteriogram completed on 11/16/2019 which revealed complete occlusion of his distal SFA and proximal mid and distal popliteal artery. Additionally, he was found to have no runoff below the knee. He recently had angioplasty completed on his distal SFA Artery with [employer]. However, despite these efforts, the patient had developed severe gangrene of the medial aspect of the great toe, second toe, third toe, fourth toe and fifth toe on the right. Recommendations were made for a below the knee amputation. The patient was taken for a right above the knee amputation with Vascular Surgery. There were no adverse events during the procedure. Patient was noted to be on high doses of narcotic pain medications as an outpatient. Hospitalist service was consulted for further medical management of the patient during his hospital course Patient's hospital course was rather uneventful. His narcotics were decreased. His pain was tolerable. He did present from outside facility with a urinary tract infection. Culture data obtained demonstrated Staphylococcus simulans with oxacillin resistance. Patient did complain of urinary discomfort. He had previously received levofloxacin outpatient and Rocephin inpatient. Given patient's dysuria and culture data he was discharged on Bactrim. DISCHARGE MEDICATIONS: Please see below. ALLERGIES: Please see below. PHYSICAL EXAMINATION ON DISCHARGE: VITAL SIGNS: Please see below. GENERAL: Awake Alert, oriented, does not appear in any acute distress lying comfortably in bed. Pleasant and conversive HEENT: Atraumatic normocephalic. Eyes are nonicteric. Trachea is midline CARDIOVASCULAR: Irregularly irregular rhythm, normal rate. No clicks, rubs or murmurs. RESPIRATORY:. Clear vesicular breath sounds bilaterally. Good respiratory eff ort. No wheezes, rhonchi or rales. There are somewhat diminished breath sounds throughout. ABDOMINAL:. Soft, nondistended, nontender, normoactive bowel sounds, no rebound tenderness or guarding EXTREMITIES: No edema. Right tvsoq-lzy-xurp amputation stump is bandaged on the right. Left lower extremity and plantar flexion. There is palpable left DP and PT pulses. NEUROLOGICAL: No focal neurological deficits PSYCHOLOGICAL:. Mood and Affect appear appropriate for situation LABORATORY DATA: Please see below. PROGNOSIS: Fair ACTIVITY: [As tolerated]. DIET: As tolerated. Ensure Supplements DISCHARGE PLAN: Patient is be discharged back to [facility]. He is to follow with vascular surgery in 2 weeks. He is to follow wound care instructions per vascular surgery. For pain management, he is to continue oxycodone 50 mg by mouth every 8 hours with oxycodone 50 mg by mouth every 4 ho urs when necessary for breakthrough pain. He is to stop his aspirin and take Plavix 75 mg by mouth daily. He is to take Bactrim double strength 1 tab by mouth twice a day for 10 days for urinary tract infection. Patient is to follow- up with primary care physician in 7-10 days for management of his chronic medical conditions. DISPOSITION: [facility]. DISCHARGE CONDITION: [Stable]. TIME SPENT ON DISCHARGE: Greater than 40 minutes. Vital Signs/I&Os Vital Signs Date Time Temp Pulse Resp B/P (MAP) Pulse Ox O2 Delivery O2 Flow Rate FiO2 12/18/19 14:01 20 Room Air 12/18/19 05:56 98.9 93 114/94 (101) 96 12/17/19 06:00 2.0 I&O- Last 24 Hours up to 6 AM 12/18/19 05:59 Intake Total 1360 ml Output Total 0 ml Balance 1360 ml Laboratory Data Labs 24H Laboratory Tests 2 12/18/19 05:59: Nucleated Red Blood Cells % (auto) 0.0, Anion Gap 5L, Glomerular Filtration Rate > 60.0, Calcium Level 9.1 CBC/BMP Laboratory Tests 12/18/19 05:59 Microbiology Microbiology 12/18/19 Respiratory Virus Panel (PCR) (ANNE) - Final, Complete Discharge Medications Scheduled Capsaicin (Capsaicin) 0.025% Cream..g., 1 APLCT TOP BID, (Reported) APPLY TO BILATERAL FEET Clopidogrel Bisulfate (Clopidogrel) 75 Mg Tablet, 75 MG PO DAILY Duloxetine Hcl (Cymbalta) 30 Mg Capsule.dr, 30 MG PO BID, (Reported) Famotidine (Famotidine) 20 Mg Tablet, 20 MG PO QHS, (Reported) Lanolin Alcohol/Mo/W.pet/[place] (Eucerin Creme) 454 Gm Cream..g., 1 APLCT TOP QPM, (Reported) Lidocaine HCl (Lidocaine HCl) 28.35 Gm Cream..g., 1 APLCT TOP BID, (Reported) APPLY TO LEFT WRIST, ELBOW AND SHOULDER Multivitamin,Therapeutic (Thera-Tabs) 1 Each Tablet, 1 TAB PO DAILY, (Reported) Oxycodone HCl (Oxycodone HCl) 5 Mg Tablet, 15 MG PO Q8H Polyethylene Glycol 3350 (Miralax) 17 Gm Powd.pack, 17 GM PO DAILY, (Reported) Sennosides/Docusate Sodium (Senna-S Tablet) 1 Each Tablet, 1 TAB PO DAILY, (Reported) Sertraline HCl (Sertraline HCl) 100 Mg Tablet, 100 MG PO QHS, (Reported) Sulfamethoxazole/Trimethoprim (Bactrim Ds Tablet) 1 Each Tablet, 1 TAB PO BID for urinary tract infection Trazodone HCl (Trazodone HCl) 50 Mg Tablet, 50 MG PO QHS, (Reported) Valsartan (Diovan) 40 Mg Tablet, 40 MG PO DAILY, (Reported) Scheduled PRN Acetaminophen (Acetaminophen) 325 Mg Tablet, 650 MG PO Q4H PRN for PAIN OR FEVER, (Reported) Albuterol Sulf (Albuterol Sulfate) 2.5 Mg/3 Ml Vial.neb, 1 VIAL INH Q4H PRN for SHORTNESS OF BREATH, (Reported) Bisacodyl (Bisacodyl) 10 Mg Supp.rect, 10 MG FL DAILY PRN for CONSTIPATION, (Reported) Magnesium Hydroxide (Milk of Magnesia) 400 Mg/5 Ml Oral.susp, 30 ML PO DAILY PRN for CONSTIPATION, (Reported) Oxycodone HCl (Oxycodone HCl) 5 Mg Tablet, 15 MG PO Q4HP PRN for SEVERE PAIN (PS 8-10) Sodium Phosphate,[place]-Dibasic (Enema) 133 Ml Enema, 1 LARRY FL DAILY PRN for C ONSTIPATION, (Reported) Allergies Coded Allergies: No Known Allergies (Unverified , 09/08/19) BETO MCBRIDE DO Dec 18, 2019 15:39
== END 2019-12-18 14:25 | DRG 240 ==
LOC: M OR 06:32 → M MS5PR 11:00
PROVIDERS: ADMIT Surgery Vascular Surgery; ATTEND Internal Medicine
PROC: 0Y6C0Z2 Detachment at Right Upper Leg, Mid, Open Approach (ICD-10-PCS; principal; 2019-12-15 07:30)
DX: I70.261 Atherosclerosis of native arteries of extremities with gangrene, right leg (principal); I69.354 Hemiplegia and hemiparesis following cerebral infarction affecting left non-dominant side; J96.11 Chronic respiratory failure with hypoxia; N39.0 Urinary tract infection, site not specified; I12.9 Hypertensive chronic kidney disease with stage 1 through stage 4 chronic kidney disease, or unspecified chronic kidney disease; N18.3 Chronic kidney disease, stage 3 (moderate); J44.9 Chronic obstructive pulmonary disease, unspecified; I48.0 Paroxysmal atrial fibrillation; Z79.899 Other long term (current) drug therapy; I25.10 Atherosclerotic heart disease of native coronary artery without angina pectoris; I25.2 Old myocardial infarction; F41.1 Generalized anxiety disorder; Z96.642 Presence of left artificial hip joint; Z96.651 Presence of right artificial knee joint; Z87.442 Personal history of urinary calculi

== ENCOUNTER → 2019-12-26 | Outpatient (REF) | payer MEDICARE, MEDICAID ==
[~2019-12-26] MED LIST changes: +BACT800T5 PO; +CLOP75TA2 PO; +LEVO500T3 PO; +OXYC-517 PO
[2019-12-26 13:10] LABS: BLOOD UREA NITROGEN 32 MG/DL (7-18); CALCIUM LEVEL 9.8 MG/DL (8.8-10.2); CARBON DIOXIDE LEVEL 25 MEQ/L (21-32); CHLORIDE LEVEL 101 MEQ/L (98-107); CREATININE FOR GFR 1.19 MG/DL (0.70-1.30); GLOMERULAR FILTRATION RATE > 60.0 (>42); GLUCOSE, FASTING 134 MG/DL (70-100); POTASSIUM SERUM 5.3 MEQ/L (3.5-5.1); SODIUM LEVEL 132 MEQ/L (136-145)
== END ==
PROVIDERS: ATTEND Nurse Practitioner Adult Health
DX: I50.9 Heart failure, unspecified (principal); I11.0 Hypertensive heart disease with heart failure

== ENCOUNTER → 2020-01-03 | Outpatient (REF) | payer MEDICARE, MEDICAID ==
[~2020-01-03] MED LIST changes: -ASPI81TA85 PO; +ASPI81TA86 PO; +ATIV1TAB10 PO; -CAPS42.53 EX; +CAPS42.54 EX; +CEFD300CAP PO; +DICL1GEL3 TOP; +ELIQ5TAB PO; +ENSU1LIQ36 PO; +HYOS125TA PO; +JUVEPOW4 PO; +KETO0.02 OU; +MIRA3350 PO; +MORP20SO3 PO; +SENN1TAB41 PO; +VENTAER INH; +VICKOIN5 TOP; +VOLT1GEL15 TOP
[2020-01-03 14:05] LABS: BLOOD UREA NITROGEN 26 MG/DL (7-18); CALCIUM LEVEL 9.6 MG/DL (8.8-10.2); CARBON DIOXIDE LEVEL 20 MEQ/L (21-32); CHLORIDE LEVEL 104 MEQ/L (98-107); CREATININE FOR GFR 0.91 MG/DL (0.70-1.30); GLOMERULAR FILTRATION RATE > 60.0 (>42); GLUCOSE, FASTING 136 MG/DL (70-100); POTASSIUM SERUM 4.8 MEQ/L (3.5-5.1); SODIUM LEVEL 135 MEQ/L (136-145)
== END ==
PROVIDERS: ATTEND Nurse Practitioner Adult Health
DX: I25.10 Atherosclerotic heart disease of native coronary artery without angina pectoris (principal)

== ENCOUNTER → 2020-01-23 | Outpatient (CLI) | payer MEDICARE, MEDICAID ==
[~2020-01-23] MED LIST changes: +ACETAMINOPHEN 325 MG TAB As Ordered ONE; +ACETAMINOPHEN TAB 650MG DOSE (2X325MG) PO PRN; +ASPI81TA85 PO; -ASPI81TA86 PO; -ATIV1TAB10 PO; +CAPS42.53 EX; -CAPS42.54 EX; -CEFD300CAP PO; +CLOPIDOGREL 75 MG TAB As Ordered ONE; +CLOPIDOGREL 75 MG TAB PO ONE; -DICL1GEL3 TOP; -ELIQ5TAB PO; -ENSU1LIQ36 PO; -HYOS125TA PO; +ISOVUE-300 61% 50ML VIAL As Ordered ONE; -JUVEPOW4 PO; -KETO0.02 OU; +LIDOCAINE 1% MDV 20ML VIAL As Ordered ONE; +MIDAZOLAM INJ 2MG/2ML VIAL (J2250 PER 1MG) As Ordered ONE; -MORP20SO3 PO; +NS 1,000 ML IV SCH; -SENN1TAB41 PO; -VENTAER INH; -VICKOIN5 TOP; -VOLT1GEL15 TOP; +fentaNYL 100 MCG/2 ML INJECTION (J3010) As Ordered ONE
[2020-01-23 09:27] LABS: HEMATOCRIT 48.9 % (42.0-52.0); HEMOGLOBIN 15.2 g/dl (13.5-17.5); MEAN CORPUSCULAR HEMOGLOBIN 28.3 pg (27.0-33.0); MEAN CORPUSCULAR HGB CONC 31.1 g/dl (32.0-36.5); MEAN CORPUSCULAR VOLUME 91.1 fl (80.0-96.0); PLATELET COUNT, AUTOMATED 380 10^3/uL (150-450); RED BLOOD COUNT 5.37 10^6/uL (4.30-6.10); WHITE BLOOD COUNT 10.2 10^3/uL (4.0-10.0)
[2020-01-23 09:49] LABS: BLOOD UREA NITROGEN 23 MG/DL (7-18); CALCIUM LEVEL 9.8 MG/DL (8.8-10.2); CARBON DIOXIDE LEVEL 26 MEQ/L (21-32); CHLORIDE LEVEL 104 MEQ/L (98-107); CREATININE FOR GFR 0.84 MG/DL (0.70-1.30); GLOMERULAR FILTRATION RATE > 60.0 (>42); GLUCOSE, FASTING 93 MG/DL (70-100); POTASSIUM SERUM 5.5 MEQ/L (3.5-5.1); SODIUM LEVEL 135 MEQ/L (136-145)
--- NOTE | 2020-01-23 12:25 | ROOPDOC ---
[facility] Report Of Operation Report of Operation DATE OF PROCEDURE: 01/23/20 PREPROCEDURE DIAGNOSES: Atherosclerosis in the [place] arteries with nonhealing wound left first and second toe POSTPROCEDURE DIAGNOSES: Same PROCEDURE: 1. Ultrasound-guided access right common femoral artery 2. Aortoiliofemoral arteriogram 3. Selection left common femoral artery and superficial femoral artery with left lower extremity runoff 4. Cross chronic total occlusion left tibioperoneal trunk and peroneal artery was selective distal peroneal artery arteriogram 5. Angioplasty left tibioperoneal trunk and peroneal artery with 2.5 x 220 Ye balloon 6. Cross chronic total occlusion left anterior tibial artery and selective arteriogram distal anterior tibial artery and dorsal pedis artery 7. Angioplasty left anterior tibial artery with 2.5 x 220 Ye balloon 8. Attempt to cross chronic total occlusion left posterior tibial artery, aborted 9. Angioplasty left popliteal artery and tibioperoneal trunk with 4 x 100 Ye balloon 10. Completion arteriograms 11. Mynx closure right common femoral artery SURGEON: Juan Miguel Leonardo MD ANESTHESIA: Local anesthesia 7 mL lidocaine. Moderate intravenous conscious sedation was supervised by Dr. Leonardo. The patient was independently monitored by registered nurse assigned to the Department of radiology using automated blood pressure, EKG, and pulse oximetry. The detail sedation record is permanently stored in the hospital information system. The following is a brief sedation record: Start time 10:32, stop time 11:44, Versed 2 mg IV, fentanyl 100 g IV, heparin 5000 units IV. CONTRAST: 58 mL Isovue-300 INDICATION FOR PROCEDURE: This is a very pleasant 79-year-old gentleman who underwent extensive right lower extremity procedures with a different provider and subsequently due to embolization to the foot and eventual gangrene of the foot, underwent a right above-knee amputation. The patient return to clinic for follow-up, and at that time reported a wound on his left second toe and what he believes is a nonviable left first toenail. He is concerned the toenail will need to come off, but that it will not heal. This is a valid concern. The patient has poor perfusion due to severe tibial disease with barely audible monophasic flow at the posterior tibial and anterior tibial artery. We do not have any arterial duplex images or arteriogram images of the left lower extremity, but based on exam, I suspect the patient has severe calcified left lower extremity tibial disease similar to what he had on the right. Risks benefits and alternatives to an arteriogram and intervention were explained to the patient and his family. They were all agreeable to proceed. Informed consent was obtained. INTERPRETATION: 1. The aortoiliofemoral segments are widely patent. Mild calcified plaque and ectasia is noted, but no flow-limiting stenoses are present. 2. The left common femoral artery has some mild plaque, but is widely patent overall. There is good flow into the profunda and the SFA. The SFA is heavily calcified, and appears mildly aneurysmal in the proximal to mid thigh, but not severely so. Despite heavy calcified plaque, no flow-limiting stenoses are noted. There is also good flow through the popliteal artery but distally heavier plaque is noted towards the origin of the anterior tibial artery and then extending into the tibioperoneal trunk. The tibioperoneal trunk has heavy calcified plaque and several areas of near occlusion. It is difficult to identify the origin of the posterior tibial or peroneal artery, and both have very ready noncontinuous flow to the foot. The anterior tibial artery also has an almost obscured origin due to heavy stenosis and limited inflow, and seems to occlude near its origin. There is some intermittent reconstitution through collaterals of all the tibial vessels in the calf. Limited outflow to the foot is noted, mostly through collaterals. 3. After crossing the occlusion in the peroneal artery and tibioperoneal trunk, arteriogram confirmed we were in the true lumen in the distal vessel. After angioplasty along the length of the vessel, there was a much improved flow with some residual stenosis in the tibioperoneal trunk that we addressed later with a different balloon. No extravasation dissection or embolization were noted post angioplasty. 4. After crossing the chronic total occlusion in the left anterior tibial artery, a distal arteriogram at the dorsal pedis artery confirmed we are in the true lumen. After angioplasty for three-minute inflations along the length of the vessel multiple times, we had widely patent flow through the anterior tibial artery as well. No dissection embolization or extravasation were noted after angioplasty. 5. After angioplasty of the distal popliteal artery and the tibioperoneal trunk with a 4 x 100 Ye balloon, we still had some residual stenosis in the second three-minute inflation was performed. Following this, there is widely patent flow through the distal popliteal artery into the anterior tibial artery with rapid flow to the dorsal pedis artery, and excellent flow through the tibioperoneal trunk into the peroneal artery which flowed freely to the distal ankle. There is still thready flow through the posterior tibial artery, but we were not able to revascularize this vessel. No dissection embolization or extravasation are noted after angioplasty. Final images show excellent two- vessel runoff. REPORT OF OPERATION: Patient was brought to the angiographic suite in stable condition. His bilateral groins were prepped and draped in a sterile fashion. I could palpate a swollen area in the inferior right groin. Under ultrasound I was able to save some images of what I think is a hematoma at the groin crease. On color duplex I did not see any color flow within the area, so I assume this is a resolving hematoma. The patient has had multiple procedures by another provider in the right lower extremity and this could be residual from those previous interventions. Please see ultrasound images. A timeout was performed. Sedation was administered without complication. Local anesthesia was a scout leaser to the skin and subcutaneous tissue in the right groin and a microneedle was used to access the common femoral artery under ultrasound guidance proximal to the hematoma, and we confirmed our access site was over the femoral head with fluoroscopy. A wire was advanced into the iliac system under fluoroscopic drew nce and the needle was exchanged for a 4 [place] sheath and flushed with saline. We then advanced a Glidewire and flushing catheter into the distal aorta and in aortoiliofemoral arteriogram was performed. Please see interpretation above. Next, we went up and over the bifurcation with the Glidewire and catheter and selected the left common femoral artery and superficial femoral artery. Left lower extremity arteriograms were performed. Please see interpretation above. We then advanced a Glidewire under fluoroscopic guidance into the distal popliteal artery and exchanged the sheath for 90 cm 6 [place] destination sheath. Sheath was flushed with saline. Additional tibial arteriograms were performed from this popliteal selection. We then exchange the wire for an O when a Glidewire advantage and navigated this into the tibioperoneal trunk. With the help of an O18 [place] catheter, we were eventually able to cross through the chronic total occlusion and the distal tibioperoneal trunk and access the left peroneal arter y. It took some time to cross through to the distal peroneal artery, but eventually we were successful and quick arteriogram confirmed we were in the true lumen. Next, we angioplasty the length of the left peroneal artery in the tibioperoneal trunk with a 2.5 x 220 Ey balloon for multiple three-minute inflations. Following this, there was widely patent flow through the vessel but still some residual stenosis in the tibioperoneal trunk which we will address later with a larger balloon. We then attempted for quite some time to access the left posterior tibial artery, but could not get into the origin. It is very thready and has only intermittent flow it was difficult to see the origin. After considerable efforts, we aborted that aspect of the case. Contrast confirmed there was no extravasation or dissection from our attempts to enter and cross the left posterior tibial artery. We then spent quite a bit of time trying to access the origin of the anterior tibial artery. After extensive efforts, we eventually were able to cross into the vessel. Then, it took a bit of time to cross through to the distal anterior tibial artery, but a quick contrast injection confirmed we were in the true lumen in the dorsal pedis artery is patent. We then angioplasty along the length of the vessel with 2.5 x 220 Ye balloon for multiple three-minute inflations. Following this there was two-vessel run off to the foot. We then exchange the balloon for a 4 x 100 Ye balloon and two three-minute inflations of the distal popliteal artery and the tibioperoneal trunk were performed. Arteriogram after angioplasty confirmed there was widely patent flow through the distal popliteal artery internal widely patent tibioperoneal trunk and two-vessel runoff to the foot that was very rapid. We're pleased with the outcome as the patient had no in- line flow to the foot to start. No extravasation embolization or dissections were noted. We then exchange the wire for an O35 Glidewire and exchange the sheath for short 6 [place] sheath and flushed the sheath with saline. A Mynx closure device was deployed in the right common femoral artery with good hemostasis. Pressure was held for 5 minutes and sterile dressings were applied. The patient was then taken to recovery in stable condition. He tolerated the procedure and the sedation well. ESTIMATED BLOOD LOSS: Approximately 5 mL. COMPLICATIONS: None PLAN: It is okay to resume the patient's home diet and medications. We will give him a dose of Plavix and recovery prior to discharge. We will see him back in a week to check his right groin access site. The patient has a residual hematoma, chronic, several centimeters inferior to our access site today in the right groin from a previous procedure with a different provider. This does not show any active flow and appears stable. Continue local wound care left foot per podiatry recommendations. We appreciate the opportunity to participate in the care of this patient. JUAN MIGUEL LEONARDO MD Jan 23, 2020 12:25
[2020-01-23 15:45] VITALS: BP 115/64
== END ==
LOC: M IRPRO 08:30
PROVIDERS: ATTEND Surgery Vascular Surgery
DX: I70.245 Atherosclerosis of native arteries of left leg with ulceration of other part of foot (principal); I70.92 Chronic total occlusion of artery of the extremities; L97.529 Non-pressure chronic ulcer of other part of left foot with unspecified severity; I10 Essential (primary) hypertension; Z89.611 Acquired absence of right leg above knee
CPT/HCPCS: 37224; 37228; 37232; 75710; 75774; 80048; 85027; 99152; 99153; C1725; C1760; C1769; C1887; C1894; J1644; J2250; J3010; Q9967

== ENCOUNTER → 2020-02-29 | Outpatient (CLI) | payer MEDICARE, MEDICAID ==
[~2020-02-29] MED LIST changes: -ACETAMINOPHEN 325 MG TAB As Ordered ONE; -ACETAMINOPHEN TAB 650MG DOSE (2X325MG) PO PRN; -ASPI81TA85 PO; +ASPI81TA86 PO; -CAPS42.53 EX; +CAPS42.54 EX; +CEFD300CAP PO; -CLOPIDOGREL 75 MG TAB As Ordered ONE; -CLOPIDOGREL 75 MG TAB PO ONE; +ELIQ5TAB PO; +ENSU1LIQ36 PO; -ISOVUE-300 61% 50ML VIAL As Ordered ONE; +KETO0.02 OU; -LIDOCAINE 1% MDV 20ML VIAL As Ordered ONE; -MIDAZOLAM INJ 2MG/2ML VIAL (J2250 PER 1MG) As Ordered ONE; -NS 1,000 ML IV SCH; +SENN1TAB41 PO; +VICKOIN5 TOP; +VOLT1GEL15 TOP; -fentaNYL 100 MCG/2 ML INJECTION (J3010) As Ordered ONE
--- NOTE | 2020-04-05 11:09 | REP ---
UNILATERAL LEFT LOWER EXTREMITY ARTERIAL DOPPLER ULTRASOUND HISTORY: Atherosclerosis. On 01/23/2020, the patient underwent angioplasty of the left tibioperoneal trunk and peroneal artery. Also angioplasty left anterior tibial artery and left popliteal artery. SONOGRAPHIC FINDINGS: Ankle brachial index on the left is normal at 1.1. Biphasic waveforms are noted throughout the left lower extremity. Moderate plaquing is seen. Reverse flow is seen in the distal posterior tibial artery on the left. No other finding. LEFT LOWER EXTREMITY ARTERIES VELOCITY PSV LEFT(cm/s) EMAIL MARKETING COORDINATOR 26 Profunda 24 Proximal SFA 71 Mid-SFA 28 Distal SFA 36 Popliteal 27 Proximal TOM 35 Tibioperoneal trunk 24 Proximal PMP PROJECT MANAGER 34 Distal PMP PROJECT MANAGER 30 reversed Distal TOM 31 MTDD
== END ==
LOC: M RAD 08:31
PROVIDERS: ATTEND Internal Medicine
DX: I70.245 Atherosclerosis of native arteries of left leg with ulceration of other part of foot (principal)

== ENCOUNTER → 2020-04-03 | Outpatient (REF) | payer MEDICARE, MEDICAID ==
[2020-04-03 12:07] LABS: HEMATOCRIT 51.8 % (42.0-52.0); HEMOGLOBIN 16.2 g/dl (13.5-17.5); MEAN CORPUSCULAR HEMOGLOBIN 28.7 pg (27.0-33.0); MEAN CORPUSCULAR HGB CONC 31.3 g/dl (32.0-36.5); MEAN CORPUSCULAR VOLUME 91.7 fl (80.0-96.0); PLATELET COUNT, AUTOMATED 350 10^3/uL (150-450); RED BLOOD COUNT 5.65 10^6/uL (4.30-6.10); WHITE BLOOD COUNT 7.4 10^3/uL (4.0-10.0)
[2020-04-03 12:33] LABS: BLOOD UREA NITROGEN 19 MG/DL (7-18); CALCIUM LEVEL 9.4 MG/DL (8.8-10.2); CARBON DIOXIDE LEVEL 27 MEQ/L (21-32); CHLORIDE LEVEL 104 MEQ/L (98-107); CREATININE FOR GFR 0.84 MG/DL (0.70-1.30); GLOMERULAR FILTRATION RATE > 60.0 (>42); GLUCOSE, FASTING 123 MG/DL (70-100); POTASSIUM SERUM 4.2 MEQ/L (3.5-5.1); SODIUM LEVEL 137 MEQ/L (136-145)
== END ==
PROVIDERS: ATTEND Nurse Practitioner Adult Health
DX: I73.9 Peripheral vascular disease, unspecified (principal); I10 Essential (primary) hypertension

== ENCOUNTER 2020-05-03 10:20 | Inpatient (IN) | payer MEDICARE, MEDICAID ==
[2020-05-03] VITALS (10 sets, daily range): BP systolic 97–161; BP diastolic 58–87
[~2020-05-03] VITALS: Ht 177.8 cm; Wt 64.2 kg
[~2020-05-03 10:20] MED LIST changes: -CEFD300CAP PO; -ELIQ5TAB PO; -ENSU1LIQ36 PO; -KETO0.02 OU; -SENN1TAB41 PO; -VICKOIN5 TOP; -VOLT1GEL15 TOP
[2020-05-03] MEDS ORDERED: fentaNYL 100 MCG/2 ML INJECTION (J3010) As Ordered ONE (10:42)
[2020-05-03] MEDS ORDERED: LIDOCAINE 1% MDV 20ML VIAL As Ordered ONE (10:42)
[2020-05-03] MEDS ORDERED: ISOVUE-300 61% 50ML VIAL As Ordered ONE (10:42)
--- NOTE | 2020-05-03 11:48 | REP ---
INDICATION: LET LEG PAIN/ PVD CLAUDICBACK BY CT COMPARISON: 02/29/2020 TECHNIQUE: Real time hill scale and Duplex Doppler evaluation of the bilateral lower extremity arterial vasculature using linear high frequency transducer. FINDINGS: Hill scale and duplex doppler images demonstrate triphasic flow in the right common femoral artery, which is patent. There is low velocity in the right profundus with monophasic waveform. There is trickle flow in the proximal right superficial femoral artery which is then occluded. There is no flow distal to that in the right lower extremity arterial system. Triphasic flow is seen in the left common femoral artery and performed a. minimal flow is seen in the proximal left superficial femoral artery which is then occluded. There is no flow in the more distal left lower extremity arterial structures, except for trickle flow in the mid to distal anterior tibial artery. 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 This is a new finding compared to the 02/29/2028 exam. No flow distally with duplex Doppler evaluation except for trickle flow in the left distal anterior tibial artery. Critical Findings: Bilateral occlusion of proximal superficial femoral arteries, with no flow distally bilaterally, except for trickle flow in the left distal anterior tibial artery. The critical information above was relayed directly by me by telephone to Josephine Sears on 05/03/2020 at approximately 11:40 am with readback verification. <Electronically signed by Xavier Hill > 05/03/20 [id number]
[2020-05-03] MEDS ORDERED: HEPARIN 25,000 UNITS/250 ML D5W BAG (100 UNITS/ML) (J1644 PER 1000UNITS) As Ordered ONE (12:11)
[2020-05-03] MEDS ORDERED: ALTEPLASE 2MG/2ML VIAL As Ordered ONE (12:12)
[2020-05-03] MEDS ORDERED: ONDANSETRON 4MG/2ML VIAL IV PRN (13:15)
[2020-05-03] MEDS ORDERED: PERCOCET 5MG/325MG TAB PO PRN ×2 (13:15)
--- NOTE | 2020-05-03 13:44 | ROOPDOC ---
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 Ultrasound-guided access right common femoral artery 2. Selection of the left common iliac artery and left iliac arteriogram 3. Selection of the left profunda artery with left lower extremity runoff 4. Selection of the popliteal artery with runoff 5. Selection of the peroneal artery with runoff 6. Placement of a 50 cm infusion length TPA catheter from the distal left common femoral artery to the distal popliteal artery SURGEON: Juan Miguel Leonardo MD ANESTHESIA: Local anesthesia 9 mL lidocaine. The patient 84 hours prior to procedure, dB sedation was not utilized. The patient did have analgesia only, 25 g of fentanyl IV for the procedure. He tolerated the procedure well without sedation. 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 Per the nursing staff, the patient's foot has been: The were not able to get pulses, it is unclear how long this has been going on but we estimate based on her description that it is been at least a few days to a week. There is a small dry ulcer on the dorsum of the left second toe, but otherwise no gangrene or wounds are noted. An arterial duplex was obtained and no flow was noted distal to the superficial femoral artery except for a small amount of trickle flow in the distal anterior tibial artery. Risks benefits and alternatives to an arteriogram, possible intervention, possible TPA thrombolysis catheter placement were explained to the patient and his daughter who is his power of summer clerk. They're both agreeable to proceed. We discussed with the kevin bush, his daughter, and the nursing staff whether the patient had any recent history of falls or head injury, brain aneurysms, strokes recently, surgeries recently, other traumas recently, hematuria, hemoptysis, hematemesis, hematochezia, nosebleeds, or other bleeding episodes and they deny any known history of bleeding recently within the last few months. Informed consent was obtained. INTERPRETATION: 1. The left common iliac artery, hypogastric, and external iliac artery are tortuous but patent. 2. The left common femoral artery is patent with runoff only through a thready profunda, but there is a flush occlusion at the origin of the superficial femoral artery and it does not reconstitute, nor does the popliteal artery reconstitute. However, there are collaterals from the distal profunda artery below the knee with the ready intermittent runoff through the anterior tibial artery and peroneal artery. Very limited flow is noted and no significant flow is noted in the foot. 3. After crossing through the popliteal artery, contrast injection confirmed we were in the true lumen. After crossing into the tibial vessels, we confirmed we were in the true lumen of the peroneal artery. 4. Successful placement of a 50 cm infusion length catheter, with the infusion placed from the distal left common femoral artery to the distal left popliteal artery. TPA infusion initiated. REPORT OF OPERATION: The patient was brought in stable condition and placed supine on the fluoroscopy table. His bilateral groins were prepped and draped in a sterile fashion. A timeout was performed. IV analgesia was administered without complication. Local anesthesia was administered to the skin and subcutaneous tissue over the right groin. A microneedle was used to access the right common femoral artery under ultrasound guidance and a wire was passed through this access and the needle was removed. A 4 Cook Islander sheath was placed and flushed with saline. A Glidewire and flushing catheter were advanced into the distal aorta. We went up and over the bifurcation with the wire in the catheter and selected the proximal left common iliac artery. Left iliac arteriogram was performed. Please interpretation above. We then selected the left profunda and a runoff was performed. Please interpretation above. We then navigated the catheter and the Glidewire towards the origin of the left superficial femoral artery. It was challenging, but we were able to access the left superficial femoral artery despite proximal flush occlusion. We then were able to traverse the thrombosed vessel to the popliteal artery below the knee. A glide cath was advanced over the wire and a quick arteriogram confirmed we were in the true lumen. We then advanced a Glidewire down through the peroneal artery infirmary were in the true lumen. We then removed the glide cath, and exchange the sheath for a 7 [place] Islander 45 cm destination sheath over the wire and flushed the sheath wit h saline. Through this new access, we advanced a 50 cm infusion length TPA infusion catheter. The proximal end of the infusion aspect of the catheter was placed at the distal left common femoral artery, and the distal end extended to the distal popliteal artery. 8 mg of TPA was given through the catheter, and then an infusion of 1 mg an hour was started through the catheter. A heparin drip was started through the sheath at 400 units an hour. The heparin drip will not be titrated based on PTT. Sterile dressings were applied. The patient was then taken to recovery in stable condition. He will be admitted to the ICU for TPA thrombolysis with the plan for return imaging tomorrow, possibly Wednesday as well. ESTIMATED BLOOD LOSS: Approximately 2 mL. COMPLICATIONS: None. PLAN: Admit to the hospitalist service, ICU, TPA thrombolysis left lower extremity for subacute thrombosis. Plan to return for arteriogram and potential discontinuation versus continuation of TPA thrombolysis, possible intervention tomorrow and then again if necessary on Wednesday. Bedrest with legs straight, logroll only, reverse Trendelenburg is okay. Full liquid diet until TPA thrombolysis is discontinued. Analgesia and anxiolytics when necessary. Hold Plavix. Follow fibrinogen and CBCs and parameters are in orders. Monitor closely for neurologic changes and for bleeding. Monitor neurovascular status of left lower extremity, which may wax and wane during thrombolysis treatment. We appreciate the opportunity to participate in care of this patient. JUAN MIGUEL LEONARDO MD May 03, 2020 13:44
[2020-05-03 14:42] LABS: HEMATOCRIT 45.4 % (42.0-52.0); HEMOGLOBIN 14.2 g/dl (13.5-17.5); MEAN CORPUSCULAR HEMOGLOBIN 27.7 pg (27.0-33.0); MEAN CORPUSCULAR HGB CONC 31.3 g/dl (32.0-36.5); MEAN CORPUSCULAR VOLUME 88.5 fl (80.0-96.0); PLATELET COUNT, AUTOMATED 413 10^3/uL (150-450); RED BLOOD COUNT 5.13 10^6/uL (4.30-6.10); WHITE BLOOD COUNT 9.8 10^3/uL (4.0-10.0)
[2020-05-03] MEDS: NS 1,000 ML IV SCH ×2 (14:44→22:34)
[2020-05-03] MEDS ORDERED: GLUCOSE 4GM CHEW TABLET PO PRN (15:00)
[2020-05-03] MEDS ORDERED: DEXTROSE 50% 50 ML SYRINGE IV PRN (15:00)
[2020-05-03] MEDS ORDERED: GLUCAGON INJ 1MG VIAL SC PRN (15:00)
[2020-05-03] MEDS ORDERED: MOM 30ML SUSPENSION UDC PO PRN (15:00)
[2020-05-03] MEDS ORDERED: IPRATROPIUM 0.5MG/ALBUTEROL 2.5MG INH SOL UD 3ML (DUONEB) NEB PRN (15:00)
[2020-05-03] MEDS ORDERED: diazePAM 5 MG TAB PO PRN (15:30)
[2020-05-03] MEDS ORDERED: MORPHINE 10MG/0.5ML ORAL CONCENTRATE SOLUTION U/D PO PRN (15:30)
[2020-05-03 16:03] LABS: ALBUMIN 2.7 GM/DL (3.2-5.2); ALT/SGPT 18 U/L (12-78); BILIRUBIN,TOTAL 0.6 MG/DL (0.2-1.0); BLOOD UREA NITROGEN 21 MG/DL (7-18); CALCIUM LEVEL 9.1 MG/DL (8.8-10.2); CARBON DIOXIDE LEVEL 23 MEQ/L (21-32); CHLORIDE LEVEL 109 MEQ/L (98-107); GLOMERULAR FILTRATION RATE > 60.0 (>42); GLUCOSE, FASTING 144 MG/DL (70-100); POTASSIUM SERUM 3.7 MEQ/L (3.5-5.1); SODIUM LEVEL 137 MEQ/L (136-145); TOTAL PROTEIN 6.5 GM/DL (6.4-8.2)
[2020-05-03] MEDS ORDERED: VOLT1GEL15 TOP (16:17)
[2020-05-03] MEDS ORDERED: OXYC-1 PO (16:17)
[2020-05-03] MEDS ORDERED: KETO0.02 OU (16:17)
[2020-05-03] MEDS ORDERED: ENSU1LIQ36 PO (16:17)
[2020-05-03] MEDS ORDERED: PLAV1TAB2 PO (16:17)
[2020-05-03] MEDS ORDERED: SENN1TAB41 PO (16:17)
[2020-05-03] MEDS ORDERED: SERT50TA29 PO (16:17)
[2020-05-03] MEDS ORDERED: VICKOIN5 TOP (16:17)
--- NOTE | 2020-05-03 16:17 | HPEPDOC ---
[facility] Medical History & Physical Date of Admission May 03, 2020 Date of Service: May 03, 2020 History and Physical CHIEF COMPLAINT: Leg pain HISTORY OF PRESENT ILLNESS: Alex bang is a 79 yr. old male who presents with lef t leg pain. This pain started 2 weeks ago. He was recently told by his doctor to go to the ED due to brown spots seen on his left foot. The pain is located on his left leg up to his left knee. He describes the pain as a pain similar to "if you bend your finger backward too far." He does not feel any warmth on the leg. He states there is swelling of the leg, numbness and tingling. Moving in his bed makes the pain worse, but nothing makes the pain better. He states the pain is a 10/10. PAST MEDICAL HISTORY: 1. CVA with L upper extremity weakness 2. Hypercholesterolemia 3. Hypertension 4. Peripheral vascular disease with R AKA 5. Atrial fibrillation 6. Respiratory disorders 7. COPD 8. GERD 9. CKD 10. Kidney Stone Extraction 11. Arthritis 12. Anxiety 13. Depression PAST SURGICAL HISTORY: 1. Hernia Surgery - 12/15/19 2. Hernia Repair - 05/03/20 3. Kidney Stent - 05/03/20 4. Left HECTOR, Right TKA, Shoulder Repair - 05/03/20 5. Right AKA - December 2019 SOCIAL HISTORY: Resides in: [place], [place] in [facility] Tobacco use: Previously smoked cigarettes for 30+ years 2 packs/day, quit 1.5 years ago ETOH: None Illicit drug use: None IV drug use: None FAMILY HISTORY: Reviewed and noncontributory ALLERGIES: Please see below. REVIEW OF SYSTEMS: CONSTITUTIONAL: Positive for night sweats, weakness, denies fever, chills HEENT: Denies lightheadedness, headaches, vision changes CARDIOVASCULAR: Positive for leg swelling,denies chest pain, palpitations RESPIRATORY: Positive for cough with green sputum, denies shortness of breath, wheezing GASTROINTESTINAL: Denies abdominal pain, nausea, vomiting, diarrhea, constipation GENITOURINARY: Positive for dysuria, denies hematuria, polyuria MUSCULOSKELETAL: Positive for numbness and tingling in lower left leg HOME MEDICATIONS: Please see below. PHYSICAL EXAMINATION: VITAL SIGNS: Temperature 97.6, pulse 85, respiratory rate 18, blood pressure 118/58 pulse oximetry 98% on room air. GENERAL APPEARANCE: Patient in mild acute distress, alert but is not oriented CARDIOVASCULAR: Distant hear sounds, RRR, no murmurs or gallops LUNGS: Lungs clear to auscultation bilaterally, no wheezing or crackles ABDOMEN: Soft, nontender, nondistended, normal bowel sounds x4, no hepatomegaly MUSCULOSKELETAL: Muscle strength 5/5 on right upper extremity, 0/5 on left upper extremity EXTREMITIES: Gangrenous, cold left foot with pain to light palptation extended up to left knee, right AKA, No pedal pulses heard on left leg, +1/4 popliteal pulse in left leg NEUROLOGICAL: Cranial nerves 2-12 intact, immobile left shoulder, arm, and hand, arm is in decorticate position LABORATORY DATA: See below. IMAGING: Duplex Doppler Ultrasound read by Dr. Hill reported bilateral occlusion of superficial femoral arteries proximally, no flow distally except for trickle flow in left distal anterior tibial artery MICROBIOLOGY: Please see below. ASSESSMENT: Alex Bang is a 79 yr old male w/ PMH of CVA, Hypercholesterolemia, Hypertension, Peripheral vascular disease, Atrial fibrillation, Respiratory disorders, COPD, GERD, CKD, Kidney Stone Extraction, Arthritis, Anxiety, Depression who presents with leg pain. Patient was found on Doppler Ultrasound to have bilateral occlusion of superficial femoral arteries proximally concerning for acute on chronic limb ischemia. . PLAN: 1. Acute on chronic limb ischemia of LLE -Patient was administered TPA -Ordered heparin -Ordered serial fibrinogen, UA, CBC, CMP, PT/INR -Will order echo -Discussed possibility of leg amputation with patient - Vascular surgery on consultation 2. Hypertension: -BP slightly elevated while in the room; likely 2/2 pain -Will control pain 3. Diabetes: -Administer insulin sliding scale CVA with L upper extremity weakness - Patient is not on statin therapy - Will likely resume Plavix within 24 hours (re: Currently on Heparin drip / tPA) DLP - Patient is not on statin therapy Peripheral vascular disease with R AKA - Will likely resume Plavix within 24 hours (re: Currently on Heparin drip / tPA) Atrial fibrillation - Will check EKG / ECHO - c/w Telemetry - Currently not on full anticoagulation COPD - No evidence of exacerbation - Continue with inhaled therapy as ordered Kidney Stone Extraction Arthritis - c/w adjusted pain control Anxiety / Depression - c/w Sertraline DVT prophylaxis - c/w full anticoagulation Code Status: - DNR / DNI - Patient had indicated DOCTOR OF CHIROPRACTIC on his MOLST form Dispo: - Patient will need blood cultures and Doppler confirms ischemic leg, will reevaluate leg after TPA administration Vital Signs Vital Signs Date Time Temp Pulse Resp B/P (MAP) Pulse Ox O2 Delivery O2 Flow Rate FiO2 05/03/20 14:44 18 05/03/20 14:30 85 118/58 98 Room Air 05/03/20 13:30 97.6 05/03/20 12:50 2 Laboratory Data Labs 24H Laboratory Tests 2 05/03/20 14:09: Nucleated Red Blood Cells % (auto) 0.0 CBC/BMP Laboratory Tests 05/03/20 14:09 Home Medications Scheduled Clopidogrel Bisulfate (Plavix) 75 Mg Tablet, 75 MG PO QPM @ 1900 Duloxetine Hcl (Cymbalta) 30 Mg Capsule.dr, 30 MG PO BID Eucalyptus Oil/Menthol/Camphor (Vicks Vaporub Ointment) 50 Gm Oint...g., 1 APPLIC TOP BID APPLY TOT LEFT FOOT Ketotifen Fumarate (Ketotifen Fumarate) 5 Ml Drops, 1 DROP OU BID Lactose-Reduced Food (Ensure Enlive) 237 Ml Liquid, 237 ML PO BID Lanolin Alcohol/Mo/W.pet/Jackson (Eucerin Creme) 454 Gm Cream..g., 1 APLCT TOP QPM Lidocaine HCl (Lidocaine HCl) 28.35 Gm Cream..g., 1 APLCT TOP BID APPLY TO LEFT WRIST, ELBOW AND SHOULDER Multivitamin,Therapeutic (Thera-Tabs) 1 Each Tablet, 1 TAB PO DAILY Oxycodone Hcl (Oxycodone HCl) 15 Mg Tablet, 15 MG PO TID Polyethylene Glycol 3350 (Miralax) 17 Gm Powd.pack, 17 GM PO BID Sennosides/Docusate Sodium (Senna-S Tablet) 1 Each Tablet, 1 TAB PO DAILY Sertraline HCl (Sertraline HCl) 50 Mg Tablet, 75 MG PO QHS Trazodone HCl (Trazodone HCl) 50 Mg Tablet, 50 MG PO QHS Scheduled PRN Acetaminophen (Acetaminophen) 325 Mg Tablet, 650 MG PO Q4H PRN for PAIN OR FEVER Albuterol Sulf (Albuterol Sulfate) 2.5 Mg/3 Ml Vial.neb, 1 VIAL INH Q4H PRN for SHORTNESS OF BREATH Diclofenac Sodium (Voltaren) 100 Gm Gel..gram., 1 APPLIC TOP TID PRN for PAIN APPLY TO AFFECTED AREAS Sodium Phosphate,[place]-Dibasic (Enema) 133 Ml Enema, 1 LARRY MI DAILY PRN for CONSTIPATION Allergies Coded Allergies: No Known Allergies (Unverified , 09/08/19) A-FIB/CHADSVASC A-FIB History Current/History of A-Fib/PAF?: No GME ATTESTATION GME ATTESTATION My faculty preceptor for this patient encounter was physically present during the encounter and was fully available. All aspects of the patient interview, examination, medical decision making process, and medical care plan development were reviewed and approved by the faculty preceptor. The faculty preceptor is aware and concurs with the plan as stated in the body of this note and will attest to such by his/her cosignature. ATTENDING NOTE I, Ava Laguerre, have independently examined this patient and performed my own physical exam, as well as reviewed the documentation and edited where necessary. I have discussed in detail with the resident / student the findings and plan of treatment as documented by the resident / student and edited their note. I agree with their findings and treatment plan and have edited their documentation. I will continue to follow the patient during this hospital stay. EMILY GRACE OMS-IV May 03, 2020 16:17 AVA LAGUERRE MD May 03, 2020 18:17
[2020-05-03] MEDS ORDERED: MORPHINE 2 MG/ML 1ML VIAL (J2270) IV PRN (16:30)
[2020-05-03] MEDS: HumaLOG INSULIN (NovoLOG) PER UNIT SC SCH ×2 (17:30→20:59)
[2020-05-03] MEDS ORDERED: cefTRIAXone SOD 1 GM in D5W MINI-BAG PLUS 50 ML IV ONE (18:00)
[2020-05-03] MEDS: ALTEPLASE RECOMBINANT 25 MG in NS 225 ML IV SCH (18:05)
[2020-05-03] MEDS: HEPARIN DRIP 25,000 UNITS in IV 1 EA IV SCH (18:06)
[2020-05-03] MEDS ORDERED: FLEET ENEMA PR PRN (18:15)
[2020-05-03] MEDS: MORPHINE 4 MG/ML 1ML VIAL/SYRINGE (J2270) IV PRN ×2 (19:01→22:33)
--- NOTE | 2020-05-03 19:04 | REP ---
INDICATION: Evaluate for cardiomegaly COMPARISON: None. TECHNIQUE: Portable semi upright AP view of the chest FINDINGS: The mediastinum and cardiac silhouette are stable and within normal limits for portable technique. There is no evidence for cardiomegaly. The lung olguin demonstrate chronic appearing changes without acute consolidation, effusion, or pneumothorax. Mild left basilar atelectasis cannot be excluded. Skeletal structures are intact. IMPRESSION: No cardiomegaly. Chronic appearing interstitial changes. <Electronically signed by Gaudencio Ansari > 05/03/20 [id number]
[2020-05-03] MEDS: IPRATROPIUM 0.5MG/ALBUTEROL 2.5MG INH SOL UD 3ML (DUONEB) NEB SCH (19:39)
[2020-05-03] MEDS: diazePAM 5 MG TAB PO PRN (19:51)
[2020-05-03 20:34] LABS: HEMATOCRIT 45.2 % (42.0-52.0); HEMOGLOBIN 14.2 g/dl (13.5-17.5); MEAN CORPUSCULAR HEMOGLOBIN 27.7 pg (27.0-33.0); MEAN CORPUSCULAR HGB CONC 31.4 g/dl (32.0-36.5); MEAN CORPUSCULAR VOLUME 88.3 fl (80.0-96.0); PLATELET COUNT, AUTOMATED 371 10^3/uL (150-450); RED BLOOD COUNT 5.12 10^6/uL (4.30-6.10); WHITE BLOOD COUNT 11.4 10^3/uL (4.0-10.0)
[2020-05-03] MEDS: DOCUSATE SODIUM 100 MG CAP PO SCH (20:59)
[2020-05-03] MEDS: SERTRALINE HCL 25 MG TABLET PO SCH (20:59)
[2020-05-03] MEDS: DULoxetine 30 MG CAP (CYMBALTA) PO SCH (20:59)
[2020-05-03] MEDS: MIRALAX *UNIT DOSE* 17GM PACKET PO SCH (20:59)
[2020-05-03] MEDS: traZODone 50 MG TAB PO SCH (20:59)
[2020-05-04] VITALS (17 sets, daily range): BP systolic 75–122; BP diastolic 48–75
[2020-05-04 01:06] LABS: MEAN CORPUSCULAR HEMOGLOBIN 28.2 pg (27.0-33.0); MEAN CORPUSCULAR HGB CONC 31.8 g/dl (32.0-36.5); MEAN CORPUSCULAR VOLUME 88.5 fl (80.0-96.0); PLATELET COUNT, AUTOMATED 365 10^3/uL (150-450); RED BLOOD COUNT 4.97 10^6/uL (4.30-6.10); WHITE BLOOD COUNT 10.4 10^3/uL (4.0-10.0)
[2020-05-04] MEDS: IPRATROPIUM 0.5MG/ALBUTEROL 2.5MG INH SOL UD 3ML (DUONEB) NEB SCH ×4 (01:59→20:27)
[2020-05-04] MEDS: MORPHINE 4 MG/ML 1ML VIAL/SYRINGE (J2270) IV PRN ×2 (05:30→12:25)
[2020-05-04] MEDS: diazePAM 5 MG TAB PO PRN (05:30)
[2020-05-04 06:19] LABS: HEMATOCRIT 42.2 % (42.0-52.0); HEMOGLOBIN 13.4 g/dl (13.5-17.5); MEAN CORPUSCULAR HEMOGLOBIN 28.2 pg (27.0-33.0); MEAN CORPUSCULAR HGB CONC 31.8 g/dl (32.0-36.5); MEAN CORPUSCULAR VOLUME 88.8 fl (80.0-96.0); PLATELET COUNT, AUTOMATED 362 10^3/uL (150-450); RED BLOOD COUNT 4.75 10^6/uL (4.30-6.10)
[2020-05-04 06:42] LABS: BLOOD UREA NITROGEN 18 MG/DL (7-18); CALCIUM LEVEL 8.4 MG/DL (8.8-10.2); CARBON DIOXIDE LEVEL 23 MEQ/L (21-32); CHLORIDE LEVEL 109 MEQ/L (98-107); CREATININE FOR GFR 0.75 MG/DL (0.70-1.30); GLOMERULAR FILTRATION RATE > 60.0 (>42); GLUCOSE, FASTING 114 MG/DL (70-100); MAGNESIUM LEVEL 1.8 MG/DL (1.8-2.4); SODIUM LEVEL 138 MEQ/L (136-145)
[2020-05-04] MEDS: HumaLOG INSULIN (NovoLOG) PER UNIT SC SCH ×4 (07:30→21:00)
[2020-05-04] MEDS: DULoxetine 30 MG CAP (CYMBALTA) PO SCH ×2 (08:14→19:57)
[2020-05-04] MEDS: SENOKOT S TAB PO SCH (08:14)
[2020-05-04] MEDS: MULTIVITAMINS/MINERALS THERAP 1 TAB PO SCH (08:14)
[2020-05-04] MEDS: ALTEPLASE RECOMBINANT 25 MG in NS 225 ML IV SCH (08:14)
[2020-05-04] MEDS: MIRALAX *UNIT DOSE* 17GM PACKET PO SCH ×2 (08:14→20:10)
[2020-05-04] MEDS: DOCUSATE SODIUM 100 MG CAP PO SCH ×2 (08:14→19:58)
--- NOTE | 2020-05-04 11:59 | ECGEPIP ---
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
[2020-05-04] MEDS: cefTRIAXone SOD 1 GM in D5W MINI-BAG PLUS 50 ML IV SCH (12:24)
[2020-05-04 12:27] LABS: HEMATOCRIT 42.9 % (42.0-52.0); HEMOGLOBIN 13.6 g/dl (13.5-17.5); MEAN CORPUSCULAR HEMOGLOBIN 28.2 pg (27.0-33.0); MEAN CORPUSCULAR HGB CONC 31.7 g/dl (32.0-36.5); MEAN CORPUSCULAR VOLUME 88.8 fl (80.0-96.0); PLATELET COUNT, AUTOMATED 349 10^3/uL (150-450); RED BLOOD COUNT 4.83 10^6/uL (4.30-6.10); WHITE BLOOD COUNT 9.7 10^3/uL (4.0-10.0)
--- NOTE | 2020-05-04 13:37 | IPNPDOC ---
Date Seen The patient was seen on 05/04/20. Progress Note Patient seen and examined. Doing well s/p LLE arteriogram and initiation of tPa thrombolysis due to subacute thrombosis LLE prox SFA to tibials, in addition to chronic severe PVD, s/p prev h/o R AKA. LLE is warmer, with <1 sec capillary refill today. I can get a decent doppler signal at the left popliteal artery, but not much in the DP or PT. No bleeding at sheath site or elsewhere. No new me ntal status changes. Patient tolerating well. His fibrinogen, Hgb and platelets are stable, so I discussed with the patient and his daughter that I recommend continuing tPa overnight to get the maximal benefit before a planned repeat arteriogram tomorrow, with possible continuation vs discontinuation of tPa thrombolysis and possible angioplasty/stenting. Risks, benefits and alternatives explained and they are agreeable to proceed; informed consent obtained. Plan for IR tomorrow tentatively 8am. VS, I&O, 24H, Fishbone Vital Signs/I&O Vital Signs Date Time Temp Pulse Resp B/P (MAP) Pulse Ox O2 Delivery O2 Flow Rate FiO2 05/04/20 12:25 20 122/60 98 Room Air 05/04/20 06:00 96 05/04/20 04:00 98.6 05/03/20 12:50 2 I&O- Last 24 Hours up to 6 AM 05/04/20 06:00 Intake Total 1280 ml Output Total 105 ml Balance 1175 ml Laboratory Data 24H LABS Laboratory Tests 2 05/03/20 14:08: Fibrinogen 453H 05/03/20 14:09: Nucleated Red Blood Cells % (auto) 0.0 05/03/20 15:26: Anion Gap 5L, Glomerular Filtration Rate > 60.0, Calcium Level 9.1, Total Bilirubin 0.6, Aspartate Amino Transf (AST/SGOT) 17, Alanine Aminotransferase (ALT/SGPT) 18, Alkaline Phosphatase 104, Total Protein 6.5, Albumin 2.7L, Albumin/Globulin Ratio 0.7 05/03/20 16:32: Urine Color YENI, Urine Appearance TURBIDH, Urine pH 5.0, Urine Specific [place] 1.035, Urine Protein 2+H, Urine Glucose (UA) NEGATIVE, Urine Ketones NEGATIVE, Urine Blood 2+H, Urine Nitrite POSITIVEH, Urine Bilirubin NEGATIVE, Urine Urobilinogen 0.2, Urine Leukocyte Esterase 3+H, Urine WBC (Auto) TNTCH, U rine RBC (Auto) 58H, Urine Hyaline Casts (Auto) 0, Urine Bacteria (Auto) 1+H, Urine Squamous Epithelial Cells 2, Urine Calcium Oxalate Cryst (Auto) SMALL, Urine Amorphous Sediment SMALLH, Urine Sperm (Auto) 05/03/20 17:12: Bedside Glucose (Misc Panel) 114H 05/03/20 19:32: Nucleated Red Blood Cells % (auto) 0.0, Fibrinogen 367 05/03/20 20:43: Bedside Glucose (Misc Panel) 144H 05/04/20 00:49: Nucleated Red Blood Cells % (auto) 0.0, Fibrinogen 312 05/04/20 06:00: Nucleated Red Blood Cells % (auto) 0.0, Fibrinogen 291, Anion Gap 6L, Glomerular Filtration Rate > 60.0, Calcium Level 8.4L, Magnesium Level 1.8 05/04/20 12:00: Nucleated Red Blood Cells % (auto) 0.0, Fibrinogen 350 05/04/20 12:12: Bedside Glucose (Misc Panel) 114H CBC/BMP Laboratory Tests 05/03/20 14:09 05/03/20 15:26 05/03/20 19:32 05/04/20 00:49 05/04/20 06:00 05/04/20 12:00 Microbiology Microbiology 05/03/20 Urine Culture, Received Pending JUAN MIGUEL MURILLO MD May 04, 2020 13:37
--- NOTE | 2020-05-04 13:43 | IPNPDOC ---
Text Note Date of Service The patient was seen on 05/04/20. NOTE Subjective: Patient seen at bedside on 05/04/2020. He denies having any overnight acute events. He reports his pain in his left leg is same as yesterday. On touching the leg he wasn't as tender as yesterday. His leg is warm and noted good capillary refill. Bedside Doppler was done but couldn't appreciate flow. He was still complaining of burning urination sensation. Objective: General: Patient is awake, alert, oriented times three, laying in bed, no apparent distress. Cardiovascular: S1, S2, normal rhythm, no murmur, rub, or gallop. Pulses: posterior tibialis and left legs was appreciated but, not the pedal pulses. Respiratory: Chest is clear to auscultation bilaterally, No rhonchi, wheezes or rubs appreciated. Abdomen: Soft, bowel sounds positive, no bruits. No tenderness on palpation. Liver edge, spleen, kidney not felt, no masses. Extremities: Above-knee amputation of the right leg, warm left foot with tenderness on palpation. No pedal pulses on left leg, but popliteal pulses positive. Capillary refill was noted throughout the left leg. Noted a small ulcer on the dorsum of the left second toe. 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 Motor: Strength normal, noted in right upper extremity, left upper extremity is flaccid from his stroke and patient holds it in decorticate position. He reports having some pain when tried to extend his left arm. Assessment: Mr. Cavazos is a 79-year-old male is in Located [facility] patient with past medical history of CVA complicated with paralysis on the left upper extremity, dyslipidemia, PVD, atrial fibrillation, COPD, GERD, CKD, osteoarthritis, anxiety/depression who presented to the IR clinic with pain in his left leg. He has a small ulcer on the dorsum of the 2nd toe. He was admitted to the ICU, TPA thrombolysis catheter placed and had TPA heparin. Plan: 1. Acute limb ischemia (left lower extremity): Patient was started on tPA and heparin. His leg today is warm and able to palpate popliteal pulses, also noted capillary refill. Vascular surgeon Dr. Meadows is on board, and will be monitoring closely. He will be getting angiogram today. Will continue morphine and Valium and for his pain. 2. UTI: Patient reports having burning urination sensation, so UA was done yesterday. UA showed leukocyte esterase and nitrates positive. Also has urine RBC and TNTC WBC. Will continue ceftriaxone 1 g (Day #2) 3. Diabetes: He is on insulin sliding scale. Will monitor fingersticks, 4. CVA conjugated with left upper extremity weakness: Will resume Plavix after heparin drip/TPA. 5. COPD: Continue duoneb 6. Atrial fibrillation: Continue on full anticoagulation 7. Anxiety/depression: Continue sertraline, Trazodone. 8. DVT prophylaxis: Patient is on full anticoagulation. 9. GI prophylaxis: Protonix 40 MG IV. VS,Fishbone, I+O VS, Fishbone, I+O Laboratory Tests 05/03/20 14:09 05/03/20 15:26 05/03/20 19:32 05/04/20 00:49 05/04/20 06:00 Vital Signs Date Time Temp Pulse Resp B/P (MAP) Pulse Ox O2 Delivery O2 Flow Rate FiO2 05/04/20 06:00 96 96/56 (69) 95 Room Air 05/04/20 05:46 16 05/04/20 04:00 98.6 05/03/20 12:50 2 I&O- Last 24 Hours up to 6 AM 05/04/20 06:00 Intake Total 1280 ml Output Total 105 ml Balance 1175 ml GME ATTESTATION GME ATTESTATION My faculty preceptor for this patient encounter was physically present during the encounter and was fully available. All aspects of the patient interview, examination, medical decision making process, and medical care plan development were reviewed and approved by the faculty preceptor. The faculty preceptor is aware and concurs with the plan as stated in the body of this note and will attest to such by his/her cosignature. ATTENDING NOTE I, Ava Laguerre, have independently examined this patient and performed my own physical exam, as well as reviewed the documentation and edited where necessary. I have discussed in detail with the resident / student the findings and plan of treatment as documented by the resident / student and edited their note. I agree with their findings and treatment plan and have edited their documentation. I will continue to follow the patient during this hospital stay. Ofelia Murphy MD May 04, 2020 13:43 AVA LAGUERRE MD May 04, 2020 14:13
[2020-05-04] MEDS: PANTOPRAZOLE 40MG VIAL (C9113 PER 1) IV SCH (15:09)
[2020-05-04] MEDS: HEPARIN DRIP 25,000 UNITS in IV 1 EA IV SCH (15:22)
[2020-05-04] MEDS ORDERED: MORPHINE 2 MG/ML 1ML VIAL (J2270) IV PRN (15:30)
[2020-05-04] MEDS: PERCOCET 5MG/325MG TAB PO PRN ×2 (15:38→20:00)
[2020-05-04] MEDS: traZODone 50 MG TAB PO SCH (19:57)
[2020-05-04] MEDS: SERTRALINE HCL 25 MG TABLET PO SCH (19:58)
[2020-05-04] MEDS: NS 1,000 ML IV SCH (20:22)
[2020-05-04 20:40] LABS: HEMATOCRIT 40.2 % (42.0-52.0); HEMOGLOBIN 12.6 g/dl (13.5-17.5); MEAN CORPUSCULAR HEMOGLOBIN 27.9 pg (27.0-33.0); MEAN CORPUSCULAR HGB CONC 31.3 g/dl (32.0-36.5); MEAN CORPUSCULAR VOLUME 88.9 fl (80.0-96.0); PLATELET COUNT, AUTOMATED 327 10^3/uL (150-450); RED BLOOD COUNT 4.52 10^6/uL (4.30-6.10); WHITE BLOOD COUNT 9.7 10^3/uL (4.0-10.0)
[2020-05-05] VITALS (7 sets, daily range): BP systolic 94–142; BP diastolic 47–80
[2020-05-05] MEDS: PERCOCET 5MG/325MG TAB PO PRN ×4 (00:06→19:28)
[2020-05-05 01:21] LABS: HEMATOCRIT 38.3 % (42.0-52.0); MEAN CORPUSCULAR HEMOGLOBIN 27.9 pg (27.0-33.0); MEAN CORPUSCULAR HGB CONC 31.3 g/dl (32.0-36.5); MEAN CORPUSCULAR VOLUME 89.1 fl (80.0-96.0); PLATELET COUNT, AUTOMATED 320 10^3/uL (150-450); WHITE BLOOD COUNT 8.5 10^3/uL (4.0-10.0)
[2020-05-05] MEDS: IPRATROPIUM 0.5MG/ALBUTEROL 2.5MG INH SOL UD 3ML (DUONEB) NEB SCH ×4 (01:21→20:00)
[2020-05-05 05:45] LABS: HEMATOCRIT 39.6 % (42.0-52.0); HEMOGLOBIN 12.3 g/dl (13.5-17.5); MEAN CORPUSCULAR HEMOGLOBIN 27.6 pg (27.0-33.0); MEAN CORPUSCULAR HGB CONC 31.1 g/dl (32.0-36.5); PLATELET COUNT, AUTOMATED 315 10^3/uL (150-450); RED BLOOD COUNT 4.45 10^6/uL (4.30-6.10); WHITE BLOOD COUNT 8.4 10^3/uL (4.0-10.0)
[2020-05-05 06:17] LABS: BLOOD UREA NITROGEN 14 MG/DL (7-18); CALCIUM LEVEL 8.4 MG/DL (8.8-10.2); CARBON DIOXIDE LEVEL 22 MEQ/L (21-32); CHLORIDE LEVEL 112 MEQ/L (98-107); CREATININE FOR GFR 0.55 MG/DL (0.70-1.30); GLOMERULAR FILTRATION RATE > 60.0 (>42); GLUCOSE, FASTING 89 MG/DL (70-100); MAGNESIUM LEVEL 1.8 MG/DL (1.8-2.4); POTASSIUM SERUM 3.8 MEQ/L (3.5-5.1); SODIUM LEVEL 138 MEQ/L (136-145)
[2020-05-05] MEDS: HumaLOG INSULIN (NovoLOG) PER UNIT SC SCH ×4 (07:30→20:28)
[2020-05-05 07:41] LABS: HEMATOCRIT 35.6 % (42.0-52.0); HEMOGLOBIN 11.1 g/dl (13.5-17.5); MEAN CORPUSCULAR HGB CONC 31.2 g/dl (32.0-36.5); MEAN CORPUSCULAR VOLUME 89.9 fl (80.0-96.0); PLATELET COUNT, AUTOMATED 279 10^3/uL (150-450); RED BLOOD COUNT 3.96 10^6/uL (4.30-6.10); WHITE BLOOD COUNT 7.4 10^3/uL (4.0-10.0)
[2020-05-05] MEDS ORDERED: LIDOCAINE 1% MDV 20ML VIAL As Ordered ONE (07:50)
[2020-05-05] MEDS ORDERED: ISOVUE-300 61% 50ML VIAL As Ordered ONE ×2 (07:50→10:14)
[2020-05-05] MEDS: ALTEPLASE RECOMBINANT 25 MG in NS 225 ML IV SCH (07:52)
--- NOTE | 2020-05-05 08:33 | IPNPDOC ---
Text Note Date of Service The patient was seen on 05/05/20. NOTE Subjective: Patient is a 79 year old male with a PMHx of PVD (s/p R AKA), CVA (w/ L sided weakness), HTN, DLP, COPD, CKD3, Anxiety / Depression, Arthritis, GERD who presented to the ER with a cold and blue left foot. Patient was taken to IR with Dr. Leonardo for catheter directed tPA. Hospitalist service was contacted for medical management. Patient was seen and examined at the bedside. Currently he still reports some left leg pain, although there has been a notable improvement in circulation. He denies any CP, SOB, palpitations, cough, abdominal pain, C/D. Reports improvement of dysuria. Objective: Vitals (See below) General: Lying in bed, comfortable, AAOx3 HEENT: NC, AT CVS: RRR, +S1S2 Lungs: Fair air entry b/l, -w/r/r Abdomen: Soft, ND, NT Extremities: R AKA, Left extremity with trace edema, improvement in blood flow noted - Doppler pulses were noted this morning, - Calf tenderness Assessment and plan: Acute left foot ischemia - likely 2/2 PVD Clinically doing better; improvement of blood flow noted - c/w Heparin drip / tPA infusion - Will be taken for angiography today - Dr. Leonardo on consultation - c/w Morphine / Percocet / Valium for pain control UTI - UA with evidence of infectin; Cultures negative - c/w Ceftriaxone (Day #3) DM2 - c/w ISS PVD - s/p R AKA - Will resume Plavix post-heparin drip CVA - w/ L sided weakness - Will resume Plavix post-heparin drip HTN - BP well controlled - Currently not on any BP medications DLP - Currently not on medications COPD - No evidence of exacerbation - c/w inhaled therapy as ordered Anxiety / Depression - c/w Sertraline and Trazodone Arthritis GI prophylaxis - c/w Protonix DVT prophylaxis - c/w Heparin drip Disposition: - Awaiting clinical improvement VS,Don, I+O VS, Brisae, I+O Laboratory Tests 05/04/20 12:00 05/04/20 20:22 05/05/20 01:05 05/05/20 05:26 05/05/20 07:13 Vital Signs Date Time Temp Pulse Resp B/P (MAP) Pulse Ox O2 Delivery O2 Flow Rate FiO2 05/05/20 04:16 21 Room Air 05/05/20 04:00 98.7 78 115/66 (82) 97 05/03/20 12:50 2 I&O- Last 24 Hours up to 6 AM 05/05/20 05:59 Intake Total 2152.8 ml Output Total 425 ml Balance 1727.8 ml SAMIA RING MD May 05, 2020 08:33
[2020-05-05] MEDS ORDERED: fentaNYL 100 MCG/2 ML INJECTION (J3010) As Ordered ONE (08:47)
--- NOTE | 2020-05-05 11:24 | ROOPDOC ---
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 Planned repeat arteriogram left lower extremity from existing sheath 2. Selection distal anterior tibial artery and arteriogram 3. Selection distal peroneal artery and arteriogram 4. Selection distal posterior tibial artery and arteriogram 5. Angioplasty chronic total occlusion left anterior tibial artery with 2.5 x 220 Ye balloon 6. Angioplasty chronic total occlusion left peroneal artery with 2.5 x 220 Ye balloon 7. Angioplasty chronic total occlusion left posterior tibial artery with 2.5 x 220 Ye balloon 8. Angioplasty left superficial femoral artery with 6 x 200 [place] balloon 9. Stent proximal left superficial femoral artery with 7 x 100 Innova stent and post-dilation with 6 x 200 [place] balloon 10. Completion arteriogram left lower extremity 11. Mynx closure right common femoral artery SURGEON: Juan Miguel Leonardo MD ANESTHESIA: Local anesthesia 20 mL lidocaine. Since the patient had an existing sheath, pulse sedation was not necessary for this procedure and it was done with analgesia as needed only. He was given 75 g of fentanyl IV total for the procedure. He tolerated the procedure well without sedation. He also received 3000 units of heparin IV through the sheath, and 5 mg of TPA in the tibial vessels. 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 Per the nursing staff, the patient's foot has been called and they were not able to find pulses, it is unclear how long this has been going on but we estimate based on her description that it is been at least a few days to a week. There is a small dry ulcer on the dorsum of the left second toe, but otherwise no gangrene or wounds are noted. An arterial duplex was obtained and no flow was noted distal to the superficial femoral artery except for a small amount of trickle flow in the distal anterior tibial artery. 2 days ago he underwent a left lower extremity TPA thrombolysis catheter placement with a rteriogram. We now return to the angiography suite for a planned repeat arteriogram left lower extremity, possible removal versus reposition and continuation of TPA thrombolysis catheter, with potential angioplasty and stenting. Risks benefits and alternatives to an arteriogram, possible intervention, possible TPA thrombolysis catheter removal or reposition were explained to the patient and his daughter who is his power of real estate attorney. They're both agreeable to proceed. Informed consent was obtained. INTERPRETATION: 1. The left common femoral artery is widely patent with good runoff into the profunda and the superficial femoral artery which is now patent after TPA. There is stenosis in the proximal third of the vessel with bulky plaque near the origin, I estimate 50% stenosis in this area and 20-40% throughout the proximal third, with mild ectasia and dilation of the mid SFA and distal SFA, widely patent inflow through the popliteal artery. The tibial outflow is abysmal. There is thready flow noted through the peroneal artery, no flow through the anterior tibial or posterior tibial arteries except for maybe a centimeter at their origins and he do not reconstituted. There is very little collateral flow through the calf. 2. After crossing the chronic total occlusion in the peroneal artery, contrast confirmed we were in the jackson vessel. After angioplasty of the peroneal artery, there is good flow through the vessel to the ankle. No extravasation embolization or dissection noted, but it did take multiple angioplasties to improve flow. 3. After crossing the chronic total occlusion and anterior tibial artery, quit contrast injection confirmed we're in the true lumen. After multiple extensive angioplasty, we did have rapid widely patent flow through the anterior tibial artery to the foot. No extravasation embolization or dissection were noted. However, we did note there was sluggish flow through the peroneal artery after this, and we suspected either restenosis versus partial thrombosis. Additional angioplasty was performed and TPA was administered and flow improved, however the flow is not great through the peroneal artery despite all of her efforts. 4. 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 After extensive angioplasty, the vessel is patent to the ankle, some collateral circulation to the foot, but still multiple areas of stenosis noted. Repeat angioplasty was performed a few times, with some improvement. 5. After hours of work in the tibial vessels, there is flow through all 3 tibials, the best through the anterior tibial second best through the posterior tibial and thready flow through the peroneal. No embolization extravasation or dissections were noted. 6. After angioplasty the proximal superficial femoral artery there was still some residual stenosis in a flow-limiting dissection at the area of heavy plaque proximally, and a 7 x 100 Innova stent was placed and post dilated with a 6 x 200 [place] balloon with widely patent flow through the origin and no residual stenosis, no extravasation, no embolization. 7. Completion arteriogram after treatment of the superficial femoral artery on the left revealed that there was widely patent flow through the tibials to the foot, but still heavy tibial disease is noted although it is significantly and dramatically improved. REPORT OF OPERATION: The patient was brought in stable condition and placed supine on the fluoroscopy table. His bilateral groins including the right 7 [place] femoral sheath and the TPA thrombolysis catheter were prepped and draped in a sterile fashion. A timeout was performed. IV analgesia was administered through the sheath without complication. Local anesthesia was administered to the skin and subcutaneous tissue over the right groin around the sheath. A left lower extremity arteriogram and runoff were performed through the existing sheath, please see interpretation above. We advanced an O18 Glidewire through the sheath into the peroneal artery. We were able to cross through to the distal artery and a 2.5 x 220 Ye balloon was advanced over the wire to quit contrast injection confirmed we're in the true lumen. Multiple angioplasties were performed, along with completion arteriograms, please see interpretation above. We then spent quite a bit of time trying to access the anterior tibial artery origin. We utilized and angled a 18 catheter over the wire and eventually were able to navigate into the anterior tibial artery and a quit contrast injection after crossing through the artery towards the dorsal pedis artery was performed to ensure we were in the true lumen, and then extensive repeat angioplasties were performed, please see interpretation above. We then re-placed R wire in the peroneal artery and several repeated angioplasties were performed, and we also injected 5 mg of TPA into the vessel as well to make sure any small amount of residual thrombus was resolved. This definitely improved flow and we then had 2 vessel runoff, although the anterior tibial was much better than the peroneal. We then spent quite a bit of time trying to access the occluded left posterior tibial artery. This was extremely challenging, and crossing the vessel was also challenging, but eventually we were able to cross to the distal ankle and contrast injection confirmed we are in the true lumen, please see interpretation above. 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 Following this, and we advanced a 6 x 200 [place] balloon to cross the proximal superficial femoral artery to three- minute inflations was performed. We exchange the wire through the balloon for an O35 wire and following angioplasty we noted an improvement in flow, but there was still residual stenosis at the area of heavy is plaque and a repeat angioplasty was performed. When there was still residual stenosis following this, we deployed a 7 x 100 Innova stent from the origin of the SFA through the proximal third, and post dilated this with a 6 x 200 [place] balloon. Following this, there was widely patent flow through the SFA with no flow-limiting stenoses noted. No extravasation embolization or dissections were noted. Completion arteriogram showed good residual runoff through the tibial vessels despite heavy disease burden. So far, the patient has more than adequate outflow to maintain patency of the more proximal vessels. We then exchange the sheath of her wire for a short 7 [place] sheath and deployed a Mynx closure device with go od hemostasis. Pressure was held for 20 minutes and sterile dressings were applied. The patient was then taken to recovery in stable condition. He will return to the ICU for 5 hours of bedrest postprocedure. He tolerated the procedure well. ESTIMATED BLOOD LOSS: Approximately 2 mL. COMPLICATIONS: None. PLAN: Our plan is for the patient to have 5 hours of bedrest postprocedure and we would like to start full anticoagulation. I think his scientologist of blood flow is tenuous. I expressed to his daughter my concern for how long the tibial vessels will remain patent after extensive angioplasty due to history of chronic occlusion in all 3 vessels with heavy plaque and disease burden. Hopefully our efforts will continue to provide perfusion to the left lower extremity, but we will have to monitor closely. At some point, we are likely to hit the point of diminishing returns, and it may be left with no option but amputation. Our hope is to avoid this if possible. Okay to resume normal diet. Keep patient on flat b edrest for 5 hours. Reverse Trendelenburg is okay. 2 pound sandbag right groin to minimize chance of hematoma postprocedure with full anticoagulation. Remove after 5 hours bedrest. Since it is going to be later in the evening when the patient is done with bedrest, would recommend keeping him overnight and discharging him back to the [facility] in the morning. We appreciate the op portunity to participate in care of this patient. JUAN MIGUEL LEONARDO MD May 05, 2020 11:24
[2020-05-05] MEDS ORDERED: CLOPIDOGREL 75 MG TAB PO ONE (12:00)
[2020-05-05] MEDS: cefTRIAXone SOD 1 GM in D5W MINI-BAG PLUS 50 ML IV SCH (13:00)
[2020-05-05] MEDS: DOCUSATE SODIUM 100 MG CAP PO SCH ×2 (13:01→20:26)
[2020-05-05] MEDS: PANTOPRAZOLE 40MG VIAL (C9113 PER 1) IV SCH (13:01)
[2020-05-05] MEDS: DULoxetine 30 MG CAP (CYMBALTA) PO SCH ×2 (13:01→20:26)
[2020-05-05] MEDS: MIRALAX *UNIT DOSE* 17GM PACKET PO SCH ×2 (13:01→20:25)
[2020-05-05] MEDS: MULTIVITAMINS/MINERALS THERAP 1 TAB PO SCH (13:01)
[2020-05-05] MEDS: SENOKOT S TAB PO SCH (13:01)
[2020-05-05] MEDS: MORPHINE 4 MG/ML 1ML VIAL/SYRINGE (J2270) IV PRN ×2 (17:22→21:48)
[2020-05-05] MEDS: traZODone 50 MG TAB PO SCH (20:26)
[2020-05-05] MEDS: APIXABAN 5 MG TAB (ELIQUIS) PO SCH (20:26)
[2020-05-05] MEDS: SERTRALINE HCL 25 MG TABLET PO SCH (20:26)
[2020-05-06] VITALS: BP 96/51
[2020-05-06] MEDS: IPRATROPIUM 0.5MG/ALBUTEROL 2.5MG INH SOL UD 3ML (DUONEB) NEB SCH ×4 (02:00→20:12)
[2020-05-06] MEDS: PERCOCET 5MG/325MG TAB PO PRN ×5 (02:52→22:36)
[2020-05-06 04:00] VITALS: BP 120/64
[2020-05-06] MEDS: MORPHINE 4 MG/ML 1ML VIAL/SYRINGE (J2270) IV PRN (04:49)
[2020-05-06 05:17] LABS: HEMATOCRIT 40.3 % (42.0-52.0); HEMOGLOBIN 12.5 g/dl (13.5-17.5); MEAN CORPUSCULAR HEMOGLOBIN 27.8 pg (27.0-33.0); MEAN CORPUSCULAR VOLUME 89.6 fl (80.0-96.0); PLATELET COUNT, AUTOMATED 332 10^3/uL (150-450); WHITE BLOOD COUNT 9.1 10^3/uL (4.0-10.0)
[2020-05-06] MEDS: HumaLOG INSULIN (NovoLOG) PER UNIT SC SCH ×4 (07:30→20:32)
[2020-05-06 08:00] VITALS: BP 105/52
[2020-05-06] MEDS: DOCUSATE SODIUM 100 MG CAP PO SCH ×2 (09:03→20:24)
[2020-05-06] MEDS: SENOKOT S TAB PO SCH ×2 (09:03→20:24)
[2020-05-06] MEDS: DULoxetine 30 MG CAP (CYMBALTA) PO SCH ×2 (09:03→20:24)
[2020-05-06] MEDS: MULTIVITAMINS/MINERALS THERAP 1 TAB PO SCH (09:03)
[2020-05-06] MEDS: APIXABAN 5 MG TAB (ELIQUIS) PO SCH ×2 (09:03→20:24)
[2020-05-06] MEDS: PANTOPRAZOLE 40MG VIAL (C9113 PER 1) IV SCH (09:03)
[2020-05-06] MEDS: MIRALAX *UNIT DOSE* 17GM PACKET PO SCH ×2 (09:04→20:22)
[2020-05-06] MEDS ORDERED: ELIQ5TAB PO (09:51)
[2020-05-06] MEDS ORDERED: CEFD300CAP PO (09:51)
--- NOTE | 2020-05-06 09:57 | DS.PDOC ---
Discharge Summary General Date of Admission May 03, 2020 at 13:25 Date of Discharge 05/06/2020 Discharge Summary PROCEDURES PERFORMED DURING STAY: On 05/03/[address] Leonardo 1. Ultrasound-guided access right common femoral artery 2. Selection of the left common iliac artery and left iliac arteriogram 3. Selection of the left profunda artery with left lower extremity runoff 4. Selection of the popliteal artery with runoff 5. Selection of the peroneal artery with runoff 6. Placement of a 50 cm infusion length TPA catheter from the distal left common femoral artery to the distal popliteal artery On 05/05/[address] Leonardo 1. Planned repeat arteriogram left lower extremity from existing sheath 2. Selection distal anterior tibial artery and arteriogram 3. Selection distal peroneal artery and arteriogram 4. Selection distal posterior tibial artery and arteriogram 5. Angioplasty chronic total occlusion left anterior tibial artery with 2.5 x 220 Ye balloon 6. Angioplasty chronic total occlusion left peroneal artery with 2.5 x 220 Ye balloon 7. Angioplasty chronic total occlusion left posterior tibial artery with 2.5 x 220 Ye balloon 8. Angioplasty left superficial femoral artery with 6 x 200 [place] balloon 9. Stent proximal left superficial femoral artery with 7 x 100 Innova stent and post-dilation with 6 x 200 [place] balloon 10. Completion arteriogram left lower extremity 11. Mynx closure right common femoral artery ADMITTING DIAGNOSES / DISCHARGE DIAGNOSES: Acute left foot ischemia - likely 2/2 PVD UTI DM2 PVD CVA HTN DLP Chronic COPD Anxiety / Depression Arthritis GI prophylaxis DVT prophylaxis COMPLICATIONS/CHIEF COMPLAINT: Left foot pain / coldness / blue HISTORY OF PRESENT ILLNESS: Patient is a 79 year old male with a PMHx of PVD (s/p R AKA), CVA (w/ L sided weakness), HTN, DLP, COPD, CKD3, Anxiety / Depression, Arthritis, GERD who presented to the ER with a cold and blue left foot. Patient was taken to IR with Dr. Leonardo for catheter directed tPA. Hospitalist service was contacted for medical management. HOSPITAL COURSE: Acute left foot ischemia - likely 2/2 PVD Clinically doing better; improvement of blood flow noted - s/p Heparin drip / tPA infusion - c/w Eliquis and Plavix - Dr. Leonardo on consultation - Will de-escalate pain control to home regimen; s/p Morphine / Percocet / Valium for pain control UTI - UA with evidence of infection; Cultures negative - c/w Ceftriaxone (Day #4); will transition to Cefdinir for remainder of antibiotic course DM2 - c/w ISS PVD - s/p R AKA - c/w Plavix; s/p heparin drip CVA - w/ Reported L sided weakness - c/w Plavix; s/p heparin drip HTN - BP well controlled - Currently not on any BP medications DLP - Currently not on medications Chronic COPD - No evidence of exacerbation - c/w inhaled therapy as ordered Anxiety / Depression - c/w Sertraline and Trazodone Arthritis GI prophylaxis - c/w Protonix DVT prophylaxis - s/p Heparin drip; c/w Eliquis DISCHARGE MEDICATIONS: Please see below. ALLERGIES: Please see below. PHYSICAL EXAMINATION ON DISCHARGE: Vitals (See below) General: Lying in bed, appears comfortable, AAOx3 HEENT: NC, AT CVS: Regular rate and rhythm, +S1S2 Lungs: Fair air entry b/l, no appreciable wheezing, rhonchi or rales Abdomen: Soft, nondistended and nontender Extremities: R AKA, left foot is warm. Mild edema, pulses were noted on Doppler, - Calf tenderness LABORATORY DATA: Please see below. ACTIVITY: [As tolerated]. DISCHARGE PLAN: Follow-up with primary care provider and Dr. Leonardo within the next 7 days Remain compliant with treatment plan and medications Return to the ER if you experience any problems DISPOSITION: [facility] DISCHARGE CONDITION: [Stable]. TIME SPENT ON DISCHARGE: 35 minutes. Vital Signs/I&Os Vital Signs Date Time Temp Pulse Resp B/P (MAP) Pulse Ox O2 Delivery O2 Flow Rate FiO2 05/06/20 09:04 17 05/06/20 04:00 98.5 82 120/64 (82) 97 Room Air 05/05/20 10:45 2 I&O- Last 24 Hours up to 6 AM 05/06/20 05:59 Intake Total 966 ml Output Total 630 ml Balance 336 ml Laboratory Data Labs 24H Laboratory Tests 2 05/05/20 11:47: Bedside Glucose (Misc Panel) 90 05/05/20 13:32: Urine Color YELLOW, Urine Appearance TURBIDH, Urine pH 5.0, Urine Specific [place] 1.038, Urine Protein 1+H, Urine Glucose (UA) NEGATIVE, Urine Ketones TRACEH, Urine Blood 1+H, Urine Nitrite NEGATIVE, Urine Bilirubin NEGATIVE, Urine Urobilinogen 0.2, Urine Leukocyte Esterase 3+H, Urine WBC (Auto) TNTCH, Urine RBC (Auto) 17H, Urine Hyaline Casts (Auto) 0, Urine Bacteria (Auto) 1+H, Urine Squamous Epithelial Cells 1, Urine Mucus (Auto) SMALL, Urine Sperm (Auto) 05/05/20 17:03: Bedside Glucose (Misc Panel) 106 05/05/20 20:28: Bedside Glucose (Misc Panel) 147H 05/06/20 04:46: Nucleated Red Blood Cells % (auto) 0.0, Magnesium Level 1.9 05/06/20 08:13: Bedside Glucose (Misc Panel) 92 CBC/BMP Laboratory Tests 05/06/20 04:46 FSBS Laboratory Tests Test 05/05/20 11:47 05/05/20 17:03 05/05/20 20:28 05/06/20 08:13 Range/Units Bedside Glucose (Misc Panel) 90 106 147 92 83-110 MG/DL Microbiology Microbiology 05/05/20 Urine Culture, Received Pending 05/03/20 Urine Culture - Final, Complete Discharge Medications Scheduled Apixaban (Eliquis) 5 Mg Tablet, 5 MG PO BID Cefdinir (Cefdinir) 300 Mg Capsule, 300 MG PO BID Clopidogrel Bisulfate (Plavix) 75 Mg Tablet, 75 MG PO QPM, (Reported) @ 1900 Duloxetine Hcl (Cymbalta) 30 Mg Capsule.dr, 30 MG PO BID, (Reported) Eucalyptus Oil/Menthol/Camphor (Vicks Vaporub Ointment) 50 Gm Oint...g., 1 APPLIC TOP BID, (Reported) APPLY TOT LEFT FOOT Ketotifen Fumarate (Ketotifen Fumarate) 5 Ml Drops, 1 DROP OU BID, (Reported) Lactose-Reduced Food (Ensure Enlive) 237 Ml Liquid, 237 ML PO BID, (Reported) Lanolin Alcohol/Mo/W.pet/[place]adin (Eucerin Creme) 454 Gm Cream..g., 1 APLCT TOP QPM, (Reported) Lidocaine HCl (Lidocaine HCl) 28.35 Gm Cream..g., 1 APLCT TOP BID, (Reported) APPLY TO LEFT WRIST, ELBOW AND SHOULDER Multivitamin,Therapeutic (Thera-Tabs) 1 Each Tablet, 1 TAB PO DAILY, (Reported) Oxycodone Hcl (Oxycodone HCl) 15 Mg Tablet, 15 MG PO TID, (Reported) Polyethylene Glycol 3350 (Miralax) 17 Gm Powd.pack, 17 GM PO BID, (Reported) Sennosides/Docusate Sodium (Senna-S Tablet) 1 Each Tablet, 1 TAB PO DAILY, (Reported) Sertraline HCl (Sertraline HCl) 50 Mg Tablet, 75 MG PO QHS, (Reported) Trazodone HCl (Trazodone HCl) 50 Mg Tablet, 50 MG PO QHS, (Reported) Scheduled PRN Acetaminophen (Acetaminophen) 325 Mg Tablet, 650 MG PO Q4H PRN for PAIN OR FEVER, (Reported) Albuterol Sulf (Albuterol Sulfate) 2.5 Mg/3 Ml Vial.neb, 1 VIAL INH Q4H PRN for SHORTNESS OF BREATH, (Reported) Diclofenac Sodium (Voltaren) 100 Gm Gel..gram., 1 APPLIC TOP TID PRN for PAIN, (Reported) APPLY TO AFFECTED AREAS Sodium Phosphate,[place]-Dibasic (Enema) 133 Ml Enema, 1 LARRY ND DAILY PRN for CONSTIPATION, (Reported) Allergies Coded Allergies: No Known Allergies (Unverified , 09/08/19) SAMIA RING MD May 06, 2020 09:57
[2020-05-06] MEDS ORDERED: FLEET ENEMA PR ONE (11:00)
[2020-05-06] MEDS ORDERED: FLUBLOK(EGG FREE)(QUAD)INFLUENZA VACC 0.5ML SYRINGE 18YRS & OLDER IM SCH (11:15)
[2020-05-06] MEDS: CEFDINIR 300 MG CAP (OMNICEF) PO SCH ×2 (11:27→20:23)
[2020-05-06] MEDS: MOM 30ML SUSPENSION UDC PO SCH ×2 (11:30→20:22)
--- NOTE | 2020-05-06 12:02 | IPNPDOC ---
Text Note Date of Service The patient was seen on 05/06/20. NOTE Subjective: Patient is a 79 year old male with a PMHx of PVD (s/p R AKA), CVA (w/ L sided weakness), HTN, DLP, COPD, CKD3, Anxiety / Depression, Arthritis, GERD who presented to the ER with a cold and blue left foot. Patient was taken to IR with Dr. Leonardo for catheter directed tPA. Hospitalist service was contacted for medical management. Patient was seen and examined at the bedside. Patient has had an uneventful evening. Still reports some discomfort of his left leg. Denies any nausea, vomiting, chest pain, shortness of breath, palpitations. Patient reports some constipation. Objective: Vitals (See below) General: Lying in bed, appears comfortable, AAOx3 HEENT: NC, AT CVS: Regular rate and rhythm, +S1S2 Lungs: Fair air entry b/l, no appreciable wheezing, rhonchi or rales Abdomen: Soft, nondistended and nontender Extremities: R AKA, left foot is warm. Mild edema, pulses were noted on Doppler, - Calf tenderness Assessment and plan: Acute left foot ischemia - likely 2/2 PVD Clinically doing better; improvement of blood flow noted - s/p Heparin drip / tPA infusion - c/w Eliquis and Plavix - Dr. Leonardo on consultation - Will de-escalate pain control to home regimen; s/p Morphine / Percocet / Valium for pain control Constipation - Will adjust bowel regimen today UTI - UA with evidence of infection; Cultures negative - c/w Ceftriaxone (Day #4); will transition to Cefdinir for remainder of antibiotic course DM2 - c/w ISS PVD - s/p R AKA - c/w Plavix; s/p heparin drip CVA - w/ Reported L sided weakness - c/w Plavix; s/p heparin drip HTN - BP well controlled - Currently not on any BP medications DLP - Currently not on medications Chronic COPD - No evidence of exacerbation - c/w inhaled therapy as ordered Anxiety / Depression - c/w Sertraline and Trazodone Arthritis GI prophylaxis - c/w Protonix DVT prophylaxis - s/p Heparin drip; c/w Eliquis Disposition: - Awaiting clinical improvement VS,Fishbone, I+O VS, Don, I+O Laboratory Tests 05/06/20 04:46 Vital Signs Date Time Temp Pulse Resp B/P (MAP) Pulse Ox O2 Delivery O2 Flow Rate FiO2 05/06/20 09:34 16 05/06/20 08:00 98.7 90 105/52 (69) 96 Room Air 05/05/20 10:45 2 I&O- Last 24 Hours up to 6 AM 05/06/20 06:00 Intake Total 966 ml Output Total 630 ml Balance 336 ml SAMIA RING MD May 06, 2020 12:02
--- NOTE | 2020-05-06 13:18 | IPNPDOC ---
Text Note Date of Service The patient was seen on 05/06/20. NOTE Vascular surgery. Dr. Leonardo Patient seen and examined. Doing well s/p LLE arteriogram and S/P tPa thrombolysis due to subacute thrombosis LLE prox SFA to tibials, in addition to chronic severe PVD, s/p prev h/o R AKA. LLE is warm, with <1 sec capillary refill today. 1+ edema is noted of the left foot and left pretibial area. I am able to doppler signal at the left DP and PT. no bleeding at access site. Hemoglobin 12.5. Plan to continue with Eliquis anticoagulation. Continue Plavix. Plan for outpatient follow-up. Continue to closely monitor. VS,Fishbone, I+O VS, Fishbone, I+O Laboratory Tests 05/06/20 04:46 Vital Signs Date Time Temp Pulse Resp B/P (MAP) Pulse Ox O2 Delivery O2 Flow Rate FiO2 05/06/20 09:34 16 05/06/20 08:00 98.7 90 105/52 (69) 96 Room Air 05/05/20 10:45 2 I&O- Last 24 Hours up to 6 AM 05/06/20 05:59 Intake Total 966 ml Output Total 630 ml Balance 336 ml Josephine Sears May 06, 2020 13:18
[2020-05-06 16:25] VITALS: BP 97/55
[2020-05-06] MEDS: diazePAM 5 MG TAB PO PRN (20:22)
[2020-05-06] MEDS: SERTRALINE HCL 25 MG TABLET PO SCH (20:23)
[2020-05-06] MEDS: traZODone 50 MG TAB PO SCH (20:24)
[2020-05-06 22:00] VITALS: BP 99/58
[2020-05-07] MEDS: PERCOCET 5MG/325MG TAB PO PRN ×5 (02:57→20:46)
[2020-05-07 06:00] VITALS: BP 99/61
[2020-05-07] MEDS: IPRATROPIUM 0.5MG/ALBUTEROL 2.5MG INH SOL UD 3ML (DUONEB) NEB SCH ×3 (06:40→19:45)
[2020-05-07 06:59] LABS: HEMATOCRIT 39.1 % (42.0-52.0); HEMOGLOBIN 12.2 g/dl (13.5-17.5); MEAN CORPUSCULAR HEMOGLOBIN 27.9 pg (27.0-33.0); MEAN CORPUSCULAR HGB CONC 31.2 g/dl (32.0-36.5); MEAN CORPUSCULAR VOLUME 89.5 fl (80.0-96.0); PLATELET COUNT, AUTOMATED 335 10^3/uL (150-450); RED BLOOD COUNT 4.37 10^6/uL (4.30-6.10); WHITE BLOOD COUNT 8.1 10^3/uL (4.0-10.0)
[2020-05-07] MEDS: HumaLOG INSULIN (NovoLOG) PER UNIT SC SCH ×4 (07:30→20:47)
--- NOTE | 2020-05-07 07:38 | IPNPDOC ---
Date Seen The patient was seen on 05/07/20. Progress Note Patient seen and examined status post TPA thrombolysis and extensive lower extremity angioplasty and stenting for left lower extremity thrombosis due to severe atherosclerosis of the [place] arteries with end-stage occlusions in the tibial vessels, now with a hyperemic warm foot and good Doppler signals. The patient has chronic pain, but overall says he is doing very well. He is asking when he will be discharged, and I assume this will be today. We like to see him back for repeat arterial duplex of the left lower extremity in 1 month for surveillance, or sooner if any new left lower extremity deterioration occurs. We appreciate the hospitalist excellent care of this patient. VS, I&O, 24H, Fishbone Vital Signs/I&O Vital Signs Date Time Temp Pulse Resp B/P (MAP) Pulse Ox O2 Delivery O2 Flow Rate FiO2 05/07/20 03:27 14 05/06/20 22:00 98.1 56 99/58 (72) 97 Room Air 05/05/20 10:45 2 I&O- Last 24 Hours up to 6 AM 05/07/20 06:00 Intake Total 1720 ml Output Total 0 ml Balance 1720 ml Laboratory Data 24H LABS Laboratory Tests 2 05/06/20 08:13: Bedside Glucose (Misc Panel) 92 05/06/20 10:01: Coronavirus (COVID-19)(PCR) NEGATIVE 05/06/20 12:00: Bedside Glucose (Misc Panel) 107 05/06/20 18:08: Bedside Glucose (Misc Panel) 117H 05/06/20 20:32: Bedside Glucose (Misc Panel) 126H 05/07/20 06:06: Nucleated Red Blood Cells % (auto) 0.0 05/07/20 06:11: Bedside Glucose (Misc Panel) 89 CBC/BMP Laboratory Tests 05/07/20 06:06 Microbiology Microbiology 05/05/20 Urine Culture - Final, Complete 05/03/20 Urine Culture - Final, Complete JUAN MIGUEL MURILLO MD May 07, 2020 07:38
[2020-05-07 07:44] LABS: MAGNESIUM LEVEL 2.1 MG/DL (1.8-2.4)
[2020-05-07 08:06] LABS: BLOOD UREA NITROGEN 15 MG/DL (7-18); CALCIUM LEVEL 8.5 MG/DL (8.8-10.2); CARBON DIOXIDE LEVEL 23 MEQ/L (21-32); CHLORIDE LEVEL 110 MEQ/L (98-107); CREATININE FOR GFR 0.68 MG/DL (0.70-1.30); GLOMERULAR FILTRATION RATE > 60.0 (>42); GLUCOSE, FASTING 88 MG/DL (70-100); POTASSIUM SERUM 3.9 MEQ/L (3.5-5.1); SODIUM LEVEL 138 MEQ/L (136-145)
[2020-05-07] MEDS: MOM 30ML SUSPENSION UDC PO SCH ×3 (09:17→21:00)
[2020-05-07] MEDS: PANTOPRAZOLE 40MG VIAL (C9113 PER 1) IV SCH (09:17)
[2020-05-07] MEDS: MULTIVITAMINS/MINERALS THERAP 1 TAB PO SCH (09:17)
[2020-05-07] MEDS: DULoxetine 30 MG CAP (CYMBALTA) PO SCH ×2 (09:17→20:46)
[2020-05-07] MEDS: SENOKOT S TAB PO SCH ×2 (09:17→20:46)
[2020-05-07] MEDS: MIRALAX *UNIT DOSE* 17GM PACKET PO SCH ×2 (09:17→20:47)
[2020-05-07] MEDS: APIXABAN 5 MG TAB (ELIQUIS) PO SCH ×2 (09:17→20:47)
[2020-05-07] MEDS: CLOPIDOGREL 75 MG TAB PO SCH (09:17)
[2020-05-07] MEDS: DOCUSATE SODIUM 100 MG CAP PO SCH ×2 (09:17→20:47)
[2020-05-07] MEDS: CEFDINIR 300 MG CAP (OMNICEF) PO SCH ×2 (09:17→20:43)
--- NOTE | 2020-05-07 10:01 | IPNPDOC ---
Text Note Date of Service The patient was seen on 05/07/20. NOTE Subjective: Patient is a 79 year old male with a PMHx of PVD (s/p R AKA), CVA (w/ L sided weakness), HTN, DLP, COPD, CKD3, Anxiety / Depression, Arthritis, GERD who presented to the ER with a cold and blue left foot. Patient was taken to IR with Dr. Leonardo for catheter directed tPA. Hospitalist service was contacted for medical management. Patient was seen and examined at the bedside. Patient was seen sitting up eating breakfast. He denied any nausea, vomiting, chest pain, shortness breath or palpitations. Has not experience any abdominal pain consultation, diarrhea, or urinary discomfort. Reports that his left leg is feeling tender, but better than yesterday. Patient remains in the hospital awaiting transportation to [facility] tomorrow. Objective: Vitals (See below) General: Lying in bed, remains comfortable, AAOx3 HEENT: NC, AT CVS: +S1S2 Lungs: Fair air entry b/l, there does not appear to be any auscultated rhonchi, crackles or wheezing Abdomen: Abdomen is soft without any distention or tenderness Extremities: Right AKA, left leg with capillary refill noted. Trace edema improvement of tenderness, - Calf tenderness Assessment and plan: Acute left foot ischemia - likely 2/2 PVD Clinically doing better; improvement of blood flow noted - s/p Heparin drip / tPA infusion - c/w Eliquis and Plavix - Dr. Leonardo on consultation - c/w Percocet for pain control; s/p Morphine / Valium s/p Constipation - He has a larger bowel movement yesterday UTI - UA with evidence of infection; Cultures negative - c/w Cefdinir; s/p Ceftriaxone (Antibiotic day #5) DM2 - c/w ISS PVD - s/p R AKA - c/w Plavix; s/p heparin drip CVA - w/ Reported L sided weakness - c/w Plavix; s/p heparin drip HTN - BP well controlled - Currently not on any BP medications DLP - Currently not on medications Chronic COPD - No evidence of exacerbation - c/w inhaled therapy as ordered Anxiety / Depression - c/w Sertraline and Trazodone Arthritis GI prophylaxis - c/w Protonix DVT prophylaxis - s/p Heparin drip; c/w Eliquis Disposition: - Patient is medically cleared - Is only waiting for transportation back to [facility] Don LE, I+O Don LE I+O Laboratory Tests 05/07/20 06:06 Vital Signs Date Time Temp Pulse Resp B/P (MAP) Pulse Ox O2 Delivery O2 Flow Rate FiO2 05/07/20 09:23 16 Room Air 05/07/20 06:00 98.2 83 99/61 (74) 95 05/05/20 10:45 2 I&O- Last 24 Hours up to 6 AM 05/07/20 06:00 Intake Total 1720 ml Output Total 0 ml Balance 1720 ml SAMIA RING MD May 07, 2020 10:01
[2020-05-07 14:00] VITALS: BP 98/62
[2020-05-07] MEDS: SERTRALINE HCL 25 MG TABLET PO SCH (20:44)
[2020-05-07] MEDS: traZODone 50 MG TAB PO SCH (20:46)
[2020-05-07 22:00] VITALS: BP 107/74
[2020-05-08] MEDS: PERCOCET 5MG/325MG TAB PO PRN ×3 (00:19→06:11)
[2020-05-08] MEDS: IPRATROPIUM 0.5MG/ALBUTEROL 2.5MG INH SOL UD 3ML (DUONEB) NEB SCH ×2 (02:49→07:57)
[2020-05-08 06:00] VITALS: BP 102/57
[2020-05-08 06:19] LABS: HEMATOCRIT 38.6 % (42.0-52.0); HEMOGLOBIN 12.4 g/dl (13.5-17.5); MEAN CORPUSCULAR HGB CONC 32.1 g/dl (32.0-36.5); MEAN CORPUSCULAR VOLUME 90.2 fl (80.0-96.0); PLATELET COUNT, AUTOMATED 340 10^3/uL (150-450); RED BLOOD COUNT 4.28 10^6/uL (4.30-6.10); WHITE BLOOD COUNT 7.8 10^3/uL (4.0-10.0)
[2020-05-08] MEDS: HumaLOG INSULIN (NovoLOG) PER UNIT SC SCH (07:30)
[2020-05-08] MEDS ORDERED: PANTOPRAZOLE 40MG TAB (PROTONIX) PO SCH (09:00)
--- NOTE | 2020-05-08 09:45 | DS.PDOC ---
Discharge Summary General Date of Admission May 03, 2020 at 13:25 Date of Discharge 05/08/2020 Discharge Summary PROCEDURES PERFORMED DURING STAY: On 05/03/[address] Leonardo 1. Ultrasound-guided access right common femoral artery 2. Selection of the left common iliac artery and left iliac arteriogram 3. Selection of the left profunda artery with left lower extremity runoff 4. Selection of the popliteal artery with runoff 5. Selection of the peroneal artery with runoff 6. Placement of a 50 cm infusion length TPA catheter from the distal left common femoral artery to the distal popliteal artery On 05/05/[address] Leonardo 1. Planned repeat arteriogram left lower extremity from existing sheath 2. Selection distal anterior tibial artery and arteriogram 3. Selection distal peroneal artery and arteriogram 4. Selection distal posterior tibial artery and arteriogram 5. Angioplasty chronic total occlusion left anterior tibial artery with 2.5 x 220 Ye balloon 6. Angioplasty chronic total occlusion left peroneal artery with 2.5 x 220 Ye balloon 7. Angioplasty chronic total occlusion left posterior tibial artery with 2.5 x 220 Ye balloon 8. Angioplasty left superficial femoral artery with 6 x 200 [place] balloon 9. Stent proximal left superficial femoral artery with 7 x 100 Innova stent and post-dilation with 6 x 200 [place] balloon 10. Completion arteriogram left lower extremity 11. Mynx closure right common femoral artery ADMITTING DIAGNOSES / DISCHARGE DIAGNOSES: Acute left foot ischemia - likely 2/2 PVD UTI DM2 PVD CVA HTN DLP Chronic COPD Anxiety / Depression Arthritis GI prophylaxis DVT prophylaxis COMPLICATIONS/CHIEF COMPLAINT: Left foot pain / coldness / blue HISTORY OF PRESENT ILLNESS: Patient is a 79 year old male with a PMHx of PVD (s/p R AKA), CVA (w/ L sided weakness), HTN, DLP, COPD, CKD3, Anxiety / Depression, Arthritis, GERD who presented to the ER with a cold and blue left foot. Patient was taken to IR with Dr. Leonardo for catheter directed tPA. Hospitalist service was contacted for medical management. HOSPITAL COURSE: Acute left foot ischemia - likely 2/2 PVD - s/p Heparin drip / tPA infusion - c/w Eliqujerry and Plavix - Dr. Leonardo on consultation - c/w Percocet for pain control; s/p Morphine / Valium s/p Constipation - Has had bowel movements with bowel regimen UTI - UA with evidence of infection; Cultures negative - c/w Cefdinir; s/p Ceftriaxone - will complete antibiotic course as an ou tpatient DM2 - c/w ISS PVD - s/p R AKA - c/w Plavix; s/p heparin drip CVA - w/ Reported L sided weakness - c/w Plavix; s/p heparin drip HTN - BP well controlled - Currently not on any BP medications DLP - Currently not on medications Chronic COPD - No evidence of exacerbation - c/w inhaled therapy as ordered Anxiety / Depression - c/w Sertraline and Trazodone Arthritis GI prophylaxis - c/w Protonix DVT prophylaxis - s/p Heparin drip; c/w Eliquis DISCHARGE MEDICATIONS: Please see below. ALLERGIES: Please see below. PHYSICAL EXAMINATION ON DISCHARGE: Vitals (See below) General: Lying in bed, appears comfortable, AAOx3 HEENT: NC, AT CVS: Regular rate and rhythm, +S1S2 Lungs: Fair air entry b/l, no appreciable wheezing, rhonchi or rales Abdomen: Soft, nondistended and nontender Extremities: R AKA, left foot is warm / mild edema, capillary refill noted, - Calf tenderness LABORATORY DATA: Please see below. ACTIVITY: [As tolerated]. DISCHARGE PLAN: Follow-up with primary care provider and Dr. Leonardo within the next 7 days Remain compliant with treatment plan and medications Return to the ER if you experience any problems DISPOSITION: [facility] DISCHARGE CONDITION: [Stable]. TIME SPENT ON DISCHARGE: 35 minutes. Vital Signs/I&Os Vital Signs Date Time Temp Pulse Resp B/P (MAP) Pulse Ox O2 Delivery O2 Flow Rate FiO2 05/08/20 06:51 14 05/08/20 06:00 97.9 79 102/57 (72) 94 Room Air 05/05/20 10:45 2 I&O- Last 24 Hours up to 6 AM 05/08/20 06:00 Intake Total 1910 ml Output Total 0 ml Balance 1910 ml Laboratory Data Labs 24H Laboratory Tests 2 05/07/20 11:27: Bedside Glucose (Misc Panel) 129H 05/07/20 16:44: Bedside Glucose (Misc Panel) 141H 05/07/20 20:45: Bedside Glucose (Misc Panel) 137H 05/08/20 05:29: Bedside Glucose (Misc Panel) 100 05/08/20 06:04: Nucleated Red Blood Cells % (auto) 0.0, Magnesium Level 2.1 CBC/BMP Laboratory Tests 05/08/20 06:04 FSBS Laboratory Tests Test 05/07/20 11:27 05/07/20 16:44 05/07/20 20:45 05/08/20 05:29 Range/Units Bedside Glucose (Misc Panel) 129 141 137 100 83-110 MG/DL Microbiology Microbiology 05/05/20 Urine Culture - Final, Complete 05/03/20 Urine Culture - Final, Complete Discharge Medications Scheduled Apixaban (Eliquis) 5 Mg Tablet, 5 MG PO BID Cefdinir (Cefdinir) 300 Mg Capsule, 300 MG PO BID Clopidogrel Bisulfate (Plavix) 75 Mg Tablet, 75 MG PO QPM, (Reported) @ 1900 Duloxetine Hcl (Cymbalta) 30 Mg Capsule.dr, 30 MG PO BID, (Reported) Eucalyptus Oil/Menthol/Camphor (Vicks Vaporub Ointment) 50 Gm Oint...g., 1 APPLIC TOP BID, (Reported) APPLY TOT LEFT FOOT Ketotifen Fumarate (Ketotifen Fumarate) 5 Ml Drops, 1 DROP OU BID, (Reported) Lactose-Reduced Food (Ensure Enlive) 237 Ml Liquid, 237 ML PO BID, (Reported) Lanolin Alcohol/Mo/W.pet/[place] (Eucerin Creme) 454 Gm Cream..g., 1 APLCT TOP QPM, (Reported) Lidocaine HCl (Lidocaine HCl) 28.35 Gm Cream..g., 1 APLCT TOP BID, (Reported) APPLY TO LEFT WRIST, ELBOW AND SHOULDER Multivitamin,Therapeutic (Thera-Tabs) 1 Each Tablet, 1 TAB PO DAILY, (Reported) Oxycodone Hcl (Oxycodone HCl) 15 Mg Tablet, 15 MG PO TID, (Reported) Polyethylene Glycol 3350 (Miralax) 17 Gm Powd.pack, 17 GM PO BID, (Reported) Sennosides/Docusate Sodium (Senna-S Tablet) 1 Each Tablet, 1 TAB PO DAILY, (Reported) Sertraline HCl (Sertraline HCl) 50 Mg Tablet, 75 MG PO QHS, (Reported) Trazodone HCl (Trazodone HCl) 50 Mg Tablet, 50 MG PO QHS, (Reported) Scheduled PRN Acetaminophen (Acetaminophen) 325 Mg Tablet, 650 MG PO Q4H PRN for PAIN OR FEVER, (Reported) Albuterol Sulf (Albuterol Sulfate) 2.5 Mg/3 Ml Vial.neb, 1 VIAL INH Q4H PRN for SHORTNESS OF BREATH, (Reported) Diclofenac Sodium (Voltaren) 100 Gm Gel..gram., 1 APPLIC TOP TID PRN for PAIN, (Reported) APPLY TO AFFECTED AREAS Sodium Phosphate,Bulloch-Dibasic (Enema) 133 Ml Enema, 1 LARRY UT DAILY PRN for CONSTIPATION, (Reported) Allergies Coded Allergies: No Known Allergies (Unverified , 09/08/19) SAMIA RING MD May 08, 2020 09:45
[2020-05-08] MEDS: DULoxetine 30 MG CAP (CYMBALTA) PO SCH (10:21)
[2020-05-08] MEDS: MOM 30ML SUSPENSION UDC PO SCH (10:21)
[2020-05-08] MEDS: APIXABAN 5 MG TAB (ELIQUIS) PO SCH (10:22)
[2020-05-08] MEDS: CLOPIDOGREL 75 MG TAB PO SCH (10:22)
[2020-05-08] MEDS: MULTIVITAMINS/MINERALS THERAP 1 TAB PO SCH (10:22)
[2020-05-08] MEDS: DOCUSATE SODIUM 100 MG CAP PO SCH (10:22)
[2020-05-08] MEDS: CEFDINIR 300 MG CAP (OMNICEF) PO SCH (10:22)
[2020-05-08] MEDS: SENOKOT S TAB PO SCH (10:22)
[2020-05-08] MEDS: MIRALAX *UNIT DOSE* 17GM PACKET PO SCH (10:22)
== END 2020-05-08 11:25 | DRG 253 ==
LOC: M RAD 10:20 → M ICU 13:25 → M MSPAV 05-06 16:15
PROVIDERS: ADMIT Surgery Vascular Surgery; ATTEND Internal Medicine
PROC: B41G1ZZ Fluoroscopy of Left Lower Extremity Arteries using Low Osmolar Contrast (ICD-10-PCS; 2020-05-03)
PROC: 3E05317 Introduction of Other Thrombolytic into Peripheral Artery, Percutaneous Approach (ICD-10-PCS; 2020-05-03)
PROC: 047U3ZZ Dilation of Left Peroneal Artery, Percutaneous Approach (ICD-10-PCS; 2020-05-05)
PROC: 047S3ZZ Dilation of Left Posterior Tibial Artery, Percutaneous Approach (ICD-10-PCS; 2020-05-05)
PROC: 047L34Z Dilation of Left Femoral Artery with Drug-eluting Intraluminal Device, Percutaneous Approach (ICD-10-PCS; 2020-05-05)
PROC: B41G1ZZ Fluoroscopy of Left Lower Extremity Arteries using Low Osmolar Contrast (ICD-10-PCS; 2020-05-05)
PROC: 3E05317 Introduction of Other Thrombolytic into Peripheral Artery, Percutaneous Approach (ICD-10-PCS; 2020-05-05)
PROC: 047Q3ZZ Dilation of Left Anterior Tibial Artery, Percutaneous Approach (ICD-10-PCS; principal; 2020-05-05 08:30)
DX: I74.3 Embolism and thrombosis of arteries of the lower extremities (principal); N39.0 Urinary tract infection, site not specified; I70.262 Atherosclerosis of native arteries of extremities with gangrene, left leg; I69.354 Hemiplegia and hemiparesis following cerebral infarction affecting left non-dominant side; I70.292 Other atherosclerosis of native arteries of extremities, left leg; I70.92 Chronic total occlusion of artery of the extremities; E11.9 Type 2 diabetes mellitus without complications; J44.9 Chronic obstructive pulmonary disease, unspecified; F41.9 Anxiety disorder, unspecified; F32.9 Major depressive disorder, single episode, unspecified; M19.90 Unspecified osteoarthritis, unspecified site; Z89.611 Acquired absence of right leg above knee; N18.30 Chronic kidney disease, stage 3 unspecified; K21.9 Gastro-esophageal reflux disease without esophagitis; K59.00 Constipation, unspecified; Z79.899 Other long term (current) drug therapy; I48.91 Unspecified atrial fibrillation; Z96.642 Presence of left artificial hip joint; Z87.891 Personal history of nicotine dependence; Z96.651 Presence of right artificial knee joint

== ENCOUNTER → 2020-05-23 | Outpatient (REF) ==
[~2020-05-23] MED LIST changes: +CEFD300CAP PO; +ELIQ5TAB PO; +ENSU1LIQ36 PO; +KETO0.02 OU; +SENN1TAB41 PO; +VICKOIN5 TOP; +VOLT1GEL15 TOP
== END ==
PROVIDERS: ATTEND Internal Medicine
DX: Z20.828 Contact with and (suspected) exposure to other viral communicable diseases (principal)

== ENCOUNTER → 2020-05-30 | Outpatient (REF) | payer MEDICARE, MEDICAID ==
[~2020-05-30] MED LIST changes: +ATIV1TAB10 PO; +DICL1GEL3 TOP; +HYOS125TA PO; +JUVEPOW4 PO; +MORP20SO3 PO; +VENTAER INH
== END ==
LOC: EDSTATUS 07-09 14:13
PROVIDERS: ATTEND Internal Medicine
DX: Z20.828 Contact with and (suspected) exposure to other viral communicable diseases (principal)

== ENCOUNTER → 2020-06-05 | Outpatient (REF) | payer MEDICARE, MEDICAID | PROVIDERS: ATTEND Internal Medicine | DX: Z20.828 Contact with and (suspected) exposure to other viral communicable diseases (principal) ==

== ENCOUNTER → 2020-06-12 | Outpatient (CLI) | payer MEDICARE, MEDICAID ==
[~2020-06-12] MED LIST changes: -ATIV1TAB10 PO; -DICL1GEL3 TOP; -HYOS125TA PO; -JUVEPOW4 PO; -MORP20SO3 PO; -VENTAER INH
--- NOTE | 2020-06-12 15:53 | REP ---
INDICATION: ACQ ABS RT LEG ABOVE KNEE, ATHSCL MYRA ART OF LEFT LEG W ULCE. Status post [id number] amputation on the right. Prior history of left superficial femoral artery occlusion with tPA and stenting. COMPARISON: Comparison study is from May 03, 2020.. TECHNIQUE: Bilateral lower extremity arterial Doppler ultrasound: FINDINGS: Noncompressible vessels are noted on the left precluding ankle brachial index. There is a right lower extremity above the knee amputation. Biphasic waveforms are noted in the common femoral artery and profunda femoral artery on the right. On the left a patent left superficial femoral artery stent is seen proximally with slow flow throughout it. The left posterior tibial artery is not definitely seen. This may be occluded. The anterior tibial artery is a seen "across the ankle on the left. Right lower extremity arterial Doppler velocity chart: Right SPECIAL WARF[employer] OPERATOR PSV 27 cm/S Profundal 32 Proximal SFA occluded Mid SFA occluded Distal SFA and beyond, amputation Left lower extremity arterial Doppler velocity chart: Left SPECIAL WARFARE OPERATOR PSV 25 cm/S Profundal 20 Proximal SFA stent 53-32 Mid SFA 27-44 Distal SFA 29 Popliteal 35 Proximal TOM 45 Tibial-peroneal trunk 27 Proximal ENTER[employer]ISE MOBILITY ARCHITECT not seen. Distal ENTERPRISE MOBILITY ARCHITECT not seen Distal TOM 32 IMPRESSION: Bilateral lower extremity arterial Doppler ultrasound findings as above. Slow flow in the left lower extremity. Status post above the knee amputation on the right. <Electronically signed by Crow Hernández > 06/12/20 [id number]
== END ==
LOC: M RAD 10:31
PROVIDERS: ATTEND Physician Assistant
DX: I70.245 Atherosclerosis of native arteries of left leg with ulceration of other part of foot (principal); Z89.611 Acquired absence of right leg above knee; Z95.820 Peripheral vascular angioplasty status with implants and grafts

== ENCOUNTER → 2020-06-23 | Outpatient (REF) | payer MEDICARE, MEDICAID | PROVIDERS: ATTEND Internal Medicine | DX: Z20.828 Contact with and (suspected) exposure to other viral communicable diseases (principal) ==

== ENCOUNTER → 2020-06-25 | Outpatient (REF) | payer MEDICARE, MEDICAID ==
[~2020-06-25] MED LIST changes: +ATIV1TAB10 PO; +DICL1GEL3 TOP; +HYOS125TA PO; +JUVEPOW4 PO; +MORP20SO3 PO; +VENTAER INH
[2020-06-25 11:24] LABS: HEMATOCRIT 51.4 % (42.0-52.0); HEMOGLOBIN 16.3 g/dl (13.5-17.5); MEAN CORPUSCULAR HEMOGLOBIN 28.6 pg (27.0-33.0); MEAN CORPUSCULAR HGB CONC 31.7 g/dl (32.0-36.5); MEAN CORPUSCULAR VOLUME 90.3 fl (80.0-96.0); PLATELET COUNT, AUTOMATED 403 10^3/uL (150-450); RED BLOOD COUNT 5.69 10^6/uL (4.30-6.10); WHITE BLOOD COUNT 9.5 10^3/uL (4.0-10.0)
[2020-06-25 12:05] LABS: BLOOD UREA NITROGEN 22 MG/DL (7-18); CALCIUM LEVEL 9.9 MG/DL (8.8-10.2); CARBON DIOXIDE LEVEL 25 MEQ/L (21-32); CHLORIDE LEVEL 109 MEQ/L (98-107); GLOMERULAR FILTRATION RATE > 60.0 (>42); GLUCOSE, FASTING 129 MG/DL (70-100); POTASSIUM SERUM 4.4 MEQ/L (3.5-5.1); SODIUM LEVEL 139 MEQ/L (136-145)
== END ==
PROVIDERS: ATTEND Nurse Practitioner Adult Health
DX: I10 Essential (primary) hypertension (principal)

== ENCOUNTER → 2020-06-27 | Outpatient (REF) | payer MEDICAID, MEDICARE | PROVIDERS: ATTEND Internal Medicine | DX: Z20.828 Contact with and (suspected) exposure to other viral communicable diseases (principal) ==

== ENCOUNTER → 2020-07-03 | Outpatient (REF) | payer MEDICAID, MEDICARE | PROVIDERS: ATTEND Internal Medicine | DX: Z20.828 Contact with and (suspected) exposure to other viral communicable diseases (principal) ==

== ENCOUNTER → 2020-07-09 | Outpatient (REF) | payer MEDICAID, MEDICARE | PROVIDERS: ATTEND Internal Medicine | DX: Z20.828 Contact with and (suspected) exposure to other viral communicable diseases (principal) ==

== ENCOUNTER → 2020-07-15 | Outpatient (REF) | payer MEDICAID, MEDICARE | PROVIDERS: ATTEND Internal Medicine | DX: Z20.822 Contact with and (suspected) exposure to COVID-19 (principal) ==

== ENCOUNTER → 2020-07-17 | Outpatient (CLI) | payer MEDICARE, MEDICAID ==
[~2020-07-17] MED LIST changes: -ATIV1TAB10 PO; -HYOS125TA PO; +ISOVUE-300 61% 50ML VIAL As Ordered ONE; +LIDOCAINE 1% MDV 20ML VIAL As Ordered ONE; +MIDAZOLAM INJ 2MG/2ML VIAL (J2250 PER 1MG) As Ordered ONE; -MORP20SO3 PO; -VENTAER INH; +fentaNYL 100 MCG/2 ML INJECTION (J3010) As Ordered ONE
--- NOTE | 2020-07-17 11:18 | ROOPDOC ---
[facility] Report Of Operation Report of Operation DATE OF PROCEDURE: 07/17/20 PREPROCEDURE DIAGNOSES: Atherosclerosis of the [place] arteries with recurrent worsening ischemic changes left lower extremity and nonhealing wounds left foot and heel POSTPROCEDURE DIAGNOSES: Same PROCEDURE: 1. Ultrasound-guided access right common femoral artery 2. Aortoiliofemoral arteriogram 3. Selection left common femoral artery and left lower extremity runoff 4. Mynx closure right common femoral artery SURGEON: Juan Miguel Leonardo MD ANESTHESIA: Local anesthesia 2 mL lidocaine. Moderate intravenous conscious sedation was supervised by Dr. Leonardo. The patient was independently monitored by registered nurse assigned to the Department of radiology using automated blood pressure, EKG, and pulse oximetry. The detailed sedation record is presently stored in the hospital information system. The following is a brief sedation record: Start time 10:38, stop time 10:53, Versed 0.5 mg IV, fentanyl 25 g IV. CONTRAST: 20 mL Isovue-300 INDICATION FOR PROCEDURE: Mr. Cavazos is a very pleasant 80-year-old gentleman with end-stage peripheral vascular disease, history of a right above-knee amputation, now with recurrent ischemic changes that have been progressively worsening in the left lower extremity, acutely in the last week. He has nonhealing wounds on the left foot and heel that are progressively getting worse. The foot is discolored and becoming more cool since his last arterial study. I suspect that he is again occluding all of the vessels that we have diligently worked to reopen from the left groin to the foot. We tried tPA thrombolysis and re- intervention and were able to restore flow, and started him on Plavix and full anticoagulation both, and if he has reoccluded, I do not feel there is likely an option for revascularization. He is not a candidate for TPA due to large tissue deficits and risk of severe bleeding. Nor do I think it is worthwhile to try tPA since we have done that recently and now it is failed again. At this point, even with revascularization, I'm not sure the patient has healthy enough tissue at the foot for the foot to survive. The ischemic changes are fairly profound today. I discussed all this with the patient who has mild dementia, and he still wants us to try the arteriogram and see if there is anything we can do. We went over the risks benefits and alternatives extensively in clinic and informed consent was obtained, and we discussed all of it again today, and he is still agreeable to proceed. Informed consent was obtained. INTERPRETATION: 1. Although calcified and mildly ectatic, no significant stenoses noted at the distal aorta, common iliac arteries, hypogastric arteries, external iliac arteries. They are tortuous. 2. The left common femoral arteries patent with good runoff into the profunda, but there is thrombosis of the left superficial femoral artery stents with no reconstitution at the popliteal or tibial arteries. There is trickle flow collateral perfusion through the thigh and barely any opacification occurs below the knee. There does appear to be some opacification in the peroneal artery, but very little. REPORT OF OPERATION: The patient was brought to the angiographic suite in stable condition. His bilateral groins were prepped and draped in sterile fashion. A timeout was performed. Sedation was administered without complication. Local analgesia was administered to the skin and subcutaneous tissue over the right common femoral artery. A microneedle was used to access the artery under ultrasound guidance. A wire was passed through this access and the needle was removed and a 4 Serbian sheath was placed and flushed with saline. A Glidewire and flushing catheter were advanced into the distal aorta and aortoiliofemoral arteriograms were performed, please see interpretation above. We then went up and over the bifurcation and selected the left common femoral artery and a left lower extremity runoff was performed, please see interpretation above. I did not feel he had an option for revascularization at this point. The sheath was exchanged for a 5 Serbian sheath over the wire and flushed with saline. Mynx deandra sure device was deployed at the right common femoral artery with good hemostasis. Pressure was held and sterile dressings were applied. The patient was taken to recovery in stable condition. ESTIMATED BLOOD LOSS: Approximately 5mL. COMPLICATIONS: None. PLAN: It is okay to resume preprocedure diet and medications. The patient will require left above-knee amputation. He is nonambulatory and does not have adequate perfusion for below knee amputation, thus an above-knee amputation is the safest option. He is not willing to discuss that at this time. I do not feel he is safe for TPA thrombolysis, nor do I think it will be efficacious as he recently had a TPA thrombolysis procedure to revascularize the left lower extremity and it has already failed despite Plavix and full anticoagulation postprocedure. He also has such significant ischemic changes today at the distal leg and foot, that even with revascularization of not sure the tissue was salvageable. Additionally, with his extensive wounds, he is at risk for gangrenous changes in the a.m. and at future. We explained all of this to the patient, but at this point he is not willing to have any discussion about amputation. I attempted to call his contact family member Adenike Mccoy, but was unable to reach her and left a message. We will see the patient back in clinic to check his access site and discuss options for an amputation. Would recommend Betadine dressings to the foot as it is not salvageable and this will hopefully stave off infection while the patient and his family decide about amputation. We appreciate the opportunity to participate in the care of this patient. JUAN MIGUEL LEONARDO MD Jul 17, 2020 11:18
[2020-07-17 14:45] VITALS: BP 149/78
== END ==
LOC: M IRPRO 09:25
PROVIDERS: ATTEND Surgery Vascular Surgery
DX: I70.245 Atherosclerosis of native arteries of left leg with ulceration of other part of foot (principal); L97.529 Non-pressure chronic ulcer of other part of left foot with unspecified severity; I10 Essential (primary) hypertension; F32.9 Major depressive disorder, single episode, unspecified; F41.9 Anxiety disorder, unspecified; J44.9 Chronic obstructive pulmonary disease, unspecified; I70.0 Atherosclerosis of aorta; Z79.01 Long term (current) use of anticoagulants; Z79.899 Other long term (current) drug therapy; Z89.611 Acquired absence of right leg above knee
CPT/HCPCS: 36246; 75710; 99152; C1760; C1769; C1887; C1894; G0269; J1644; J2250; J3010; Q9967

== ENCOUNTER → 2020-07-19 | Outpatient (REF) | payer MEDICAID, MEDICARE ==
[~2020-07-19] MED LIST changes: +ATIV1TAB10 PO; +HYOS125TA PO; -ISOVUE-300 61% 50ML VIAL As Ordered ONE; -LIDOCAINE 1% MDV 20ML VIAL As Ordered ONE; -MIDAZOLAM INJ 2MG/2ML VIAL (J2250 PER 1MG) As Ordered ONE; +MORP20SO3 PO; +VENTAER INH; -fentaNYL 100 MCG/2 ML INJECTION (J3010) As Ordered ONE
== END ==
PROVIDERS: ATTEND Internal Medicine
DX: Z20.822 Contact with and (suspected) exposure to COVID-19 (principal)

== ENCOUNTER → 2020-07-24 | Outpatient (REF) | payer MEDICAID, MEDICARE | PROVIDERS: ATTEND Internal Medicine | DX: Z11.52 Encounter for screening for COVID-19 (principal) ==

== ENCOUNTER → 2020-07-30 | Outpatient (REF) | payer MEDICARE, MEDICAID | PROVIDERS: ATTEND Internal Medicine | DX: Z01.812 Encounter for preprocedural laboratory examination (principal); Z11.52 Encounter for screening for COVID-19 ==

== ENCOUNTER 2020-07-31 13:38 | Inpatient (IN) | payer MEDICARE, MEDICAID ==
[~2020-07-31] VITALS: Ht 106.7 cm; Wt 49.8 kg
[~2020-07-31 13:38] MED LIST changes: -ATIV1TAB10 PO; -HYOS125TA PO; -MORP20SO3 PO; -VENTAER INH
--- OUTSIDE RECORDS SUMMARY | 2020-07-31 13:48 | CCD | Continuity of Care Document ---
Author Alex Caldwell DPMagaly Organization Unknown Address [address] [place] [address], [address] [place] [address] Phone [phone] Care Team Providers Care Hone Operator Name Role Phone Luzma Thurman MD. AUTM [phone] Problems Active Problems Provider Date Gangrenous disorder Aelx Henderson DPM Onset: 12/04/2019 Pain in limb Alex Henderson DPM Onset: 12/04/2019 Type 2 diabetes mellitus with diabetic polyneuropathy Alex Henderson DPM Onset: 12/04/2019 Onychomycosis Alex Henderson DPM Onset: 12/04/2019 Social History Type Date Description Comments Sex Unknown ETOH Use Denies alcohol use Tobacco Use Start: Unknown End: Unknown Patient is a former smoker Smoked for many years; quit in 2019; smoked a carton of cigarettes over 2 days. Allergies, Adverse Reactions, Alerts Description No Known Drug Allergies Medications Active Medications SIG Qnty Indications Ordering Provide r Date Aspirin Unknown Plavix Unknown Oxycodone HCL Unknown Sertraline HCL Unknown Cymbalta Unknown Eq Senna-S Unknown Eucerin Advanced Cleansing Unknown Trazodone HCL Unknown Famotidine Unknown Lidocaine Unknown Multivitamin Unknown Albuterol Sulfate Unknown 000 Bisacodyl Ec Unknown Tylenol Unknown Miralax Unknown Diovan Unknown Immunizations Description No Information Available Vital Signs Date Vital Result Comment 06/27/2020 2:14pm Height 72 inches 6'0" Weight 152.00 lb BP Systolic 104 mmHg BP Diastolic 60 mmHg Heart Rate 50 /min BMI (Body Mass Index) 20.6 kg/m2 11/28/2019 9:25am Height 72 inches 6'0" Weight 151.00 lb BP Systolic 90 mmHg BP Diastolic 60 mmHg Heart Rate 92 /min BMI (Body Mass Index) 20.5 kg/m2 Results Description No Information Available Procedures Description No Information Available Medical Devices Description No Information Available Encounters Description No Information Available Assessments Description No Information Available Plan of Treatment Future Appointment(s):* 07/15/2020 2:00 pm - Alex Henderson DPM at [facility] Functional Status Description No Information Available Mental Status Description No Information Available Referrals Description No Information Available
--- OUTSIDE RECORDS SUMMARY | 2020-07-31 13:48 | CCD | Continuity of Care Document ---
Author Author Alex CHAVIRA FELISA [place] Organization Unknown Address [address] [facility], [address] [place] [address] Phone [phone] Care Team Providers Care Cross Roller Name Role Phone Alex Henderson DPM AUTM [phone] Problems Active Problems Provider Date Essential hypertension Marlen Leonardo MD Onset: 0 Social History Type Date Description Comments Sex Unknown ETOH Use Denies alcohol use Tobacco Use Start: Unknown Denies Smoking Recreational Drug Use Denies Drug Use Smoking Status Reviewed: 06/26/20 Denies Smoking Allergies, Adverse Reactions, Alerts Description No Known Drug Allergies Medications Active Medications SIG Qnty Indications Ordering Provide r Date Jacob Packet 1 packet by mouth every day Unknown Eliquis 5mg Tablets 1 tab by mouth twice a day Unknown Alaway 0.025% Solution 1 GTT Both Eyes bid Unknown Diclofenac Sodium 3% Gel as Directed Topical tid Unknown Milk Of Magnesia 400mg/5ML Suspens ion take 30ml by mouth qd prn Unknown Polyethylene Glycol 3350 17GM/Scoop Powder mix 17 grams with eight ounces of water 1-2 times a day. avoid/stop if having diarrhea Unknown Tylenol 325mg Tablets 2 tab by mouth every 4-6 hours as needed for pain Unknown Bisacodyl 10mg Suppository insert into rectum as far as possible at 10:00pm night prn U nknown Albuterol Sulfate (2 .5mg/3ML) 0.083% Nebulizer 1 vial four times a day as needed Unknown Multivitamin Adult Tablets 1 by mouth every day Unknown Lidocaine 4% Cream apply twice per day as needed for pain Unknown Famotidine 20mg Tablets 1 tab by mouth a day Unknown Trazodone HCL 50mg Tablets 1 QHS Unknown Senna-S 8.6-50mg Tablets 1 qd Unknown Cymbalta 30mg Caps DR Part 1 cap by mouth 2 X every day Unknown Sertraline HCL 100mg Tablets 75mg qd Unknown Oxycodone HCL 15mg Tablets 1 tab by mouth every 8 hours as needed Unknown 00 Capsaicin 0.025% Cream bid Unknown Plavix 75mg Tablets 1 by mouth every day Unknown Immunizations Description No Information Available Vital Signs Date Vital Result Comment 06/26/2020 9:30am BP Systolic 107 mmHg BP Diastolic 75 mmHg Height 70 inches 5'10" Weight 132.25 lb BMI (Body Mass Index) 19.0 kg/m2 [place] Body Weight 166 lb Weight 59.989 kg BSA (Body Surface Area) 1.75 m2 05/13/2020 11:33am BP Systolic 115 mmHg BP Diastolic 79 mmHg Height 70 inches 5'10" Weight 141.19 lb BMI (Body Mass Index) 20.3 kg/m2 [place] Body Weight 166 lb Weight 64.043 kg BSA (Body Surface Area) 1.80 m2 Results Test Acquired Date Facility Test Result H/L Range Note Complete Blood Count 01/23/2020 [facility] enter Main Lab [address] [place], [place] [id number] [phone] White Blood Count 10.2 10 High 4.0-10.0 Red Blood Count 5.37 10 Normal 4.30-6.10 Hemoglobin 15.2 g/dL Normal 13.5-17.5 Hematocrit 48.9 % Normal 42.0-52.0 Mean Corpuscular Volume 91.1 fl Normal 80.0-96.0 Mean Corpuscular Hemoglobin 28.3 pg Normal 27.0-33.0 Mean Corpuscular HGB Conc 31.1 g/dL Low 32.0-36.5 Red Cell Distribution Width 17.7 % High 11.5-14.5 Platelet Count, Automated 380 10 Normal 150-450 Nucleated Red Blood Cell % 0.0 % Normal 0-0 Basic Metabolic Profile 01/23/2020 [facility] Main Lab [address] [place], [place] [id number] [phone] Glucose, Fasting 93 mg/dL Normal 70-100 Blood Urea Nitrogen 23 mg/dL High 7-18 Creatinine For GFR 0.84 mg/dL Normal 0.70-1.30 Glomerular Filtration Rate > 60.0 Normal >42 1 Sodium Level 135 mEq/L Low 136-145 Potassium Serum 5.5 mEq/L High 3.5-5.1 2 Chloride Level 104 mEq/L Normal 98-107 Carbon Dioxide Level 26 mEq/L Normal 21-32 Anion Gap 5 mEq/L Low 8-16 Calcium Level 9.8 mg/dL Normal 8.8-10.2 1 Units are mL/min/1.73 m2 Chronic Kidney Disease Staging per NKF: Stage I & II GFR >=60 Normal to Mildly Decreased Stage III GFR 30-59 Moderately Decreased Stage IV GFR 15-29 Severely Decreased Stage V GFR <15 Very Little GFR Left ESRD GFR <15 on [employer] C[employer]ET[employer] 2 Testing was performed on a h emolysed specimen. Suggest recollection of specimen for more accurate test results. Procedures Date Code Description Status 05/03/2020 85798 Angiography Extremity Unilateral Completed 05/03/2020 29455 Primary Percutaneous Translumina l Mechanical Thrombectomy Completed 01/23/2020 17391 Moderate Sedation Se rvices; Same Phys Intl 15 Mins; PT >= 5 Years Completed 01/23/2020 98841 Revascularization,Endovascular W / Transluminal Angioplasty Completed 01/23/2020 24697 Revascularization,Endovascular W / Transluminal Angioplasty Completed 01/23/2020 92034 Revascularization,Endovascular W /Transluminal Angioplasty Completed 01/23/2020 29430 Revascularization,Endovascular,T ransluminal Angioplasty Completed Medical Devices Description No Information Available Encounters Type Date Location Provider Dx Diagnosis Office Visit 05/13/2020 11:45a [facility] FLORA Rojas 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 I70.245 Athscl inup[place] arteries of le ft leg w ulceration oth prt foot Z74.09 Other reduced mobility Office Visit 05/03/2020 9:00a [facility] Practice FLORA Rojas 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 I70.245 Athscl [place] arteries of le ft leg w ulceration oth prt foot Z74.09 Other reduced mobility Office Visit 03/21/2020 9:30a [facility] FLORA Rojas 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 I70.245 Athscl in[place] arteries of le ft leg w ulceration oth prt foot Office Visit 01/31/2020 10:15a [facility] Practice FLORA Rojas 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 I70.245 Athscl in[place] arteries of le ft leg w ulceration oth prt foot Z47.81 Encounter for orthopedic aft ercare following surgical amp Office Visit 01/25/2020 1:00p [facility] Practice FLORA Rojas 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 I70.245 Athscl in[place] arteries of le ft leg w ulceration oth prt foot Z47.81 Encounter for orthopedic aft ercare following surgical amp Assessments Date Code Description Provider 06/26/2020 Z89.611 Acquired absence of right leg ab ove knee FLORA Moya 06/26/2020 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 FLORA Moya 06/26/2020 Z74.09 Other reduced mobility FLORA Rojas 06/26/2020 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 FLORA Moya 05/13/2020 Z89.611 Acquired absence of right leg ab ove knee FLORA Moya 05/13/2020 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 FLORA Moya 05/13/2020 Z74.09 Other reduced mobility FLORA Rojas 05/03/2020 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 Marlen Leonardo MD 05/03/2020 Z89.611 Acquired absence of right leg ab ove knee FLORA Moya 05/03/2020 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 FLORA Moya 05/03/2020 Z74.09 Other reduced mobility FLORA Rojas 03/21/2020 Z89.611 Acquired absence of right leg ab ove knee FLORA Moya 03/21/2020 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 FLORA Moya 01/31/2020 Z89.611 Acquired absence of right leg ab ove knee FLORA Moya 01/31/2020 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 FLORA Moya 01/31/2020 Z47.81 Encounter for orthop edic aftercare following surgical amputation FLORA Moya 01/25/2020 Z89.611 Acquired absence of right leg ab ove knee FLORA Moya 01/25/2020 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 FLORA Moya 01/25/2020 Z47.81 Encounter for orthop edic aftercare following surgical amputation FLORA Moya 01/23/2020 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
--- OUTSIDE RECORDS SUMMARY | 2020-07-31 13:48 | CCD | Continuity of Care Document ---
Author Alex Caldwell DPM Organization Unknown Address [address] [place] [address], [address] [place] [address] Phone [phone] Care Team Providers Care Fire Controlman Name Role Phone Renu HINES Josephine LAMINM [phone] Problems Active Problems Provider Date Type 2 diabetes mellitus with diabetic polyneuropathy Alex Henderson DPM Onset: 12/04/2019 Onychomycosis Alex Henderson DPM Onset: 12/04/2019 Hammer toe Alex Henderson DPM Onset: 07/06/2020 Type 2 diabetes mellitus with ulcer Alex Henderson DPM Ons et: 07/06/2020 Pressure ulcer of left heel, stage 2 Alex Henderson DPM On set: 07/06/2020 Social History Type Date Description Comments Sex [...] kg/m2 Results Description No Information Available Procedures Date Code Description Status 06/27/2020 86852 Debridement Skin/Tissue Complete d Medical Devices Description No Information Available Encounters Type Date Location Provider Dx Diagnosis Office Visit 06/27/2020 2:15p [facility] Alex Henderson DPM M20.42 Other hammer toe(s) (acquired), left foot E11.42 Type 2 diabetes mellitus wit h diabetic polyneuropathy E11.621 Type 2 diabetes mellitus wit h foot ulcer L89.622 Pressure ulcer of left heel, stage 2 Assessments Date Code Description Provider 06/27/2020 M20.42 Other hammer toe(s) (acquired), left foot Alex Henderson DPM 06/27/2020 E11.42 Type 2 diabetes mellitus with di abetic polyneuropathy Alex Henderson DPM 06/27/2020 E11.621 Type 2 diabetes mellitus with fo ot ulcer Alex Henderson DPM 06/27/2020 L89.622 Pressure ulcer of left heel, sta ge 2 Alex Henderson DPM Plan of Treatment Future Appointment(s):* 07/15/2020 2:00 pm - Alex Henderson DPM at [facility] Functional Status Description No Information Available Mental Status Description No Information Available Referrals Description No Information Available
--- OUTSIDE RECORDS SUMMARY | 2020-07-31 13:49 | CCD | Continuity of Care Document ---
Author Author Alex CHAVIRA FELISA [place] Organization Unknown Address [address] [facility], [address] [place] [address] Phone [phone] Care Team Providers Care Manager Nursing Home Name Role Phone Alex Henderson DPM AUTM [phone] Problems Active Problems Provider Date Essential hypertension Marlen Leonardo MD Onset: 0 Social History Type Date Description Comments Sex Unknown ETOH Use Denies alcohol use Tobacco Use Start: Unknown Denies Smoking Recreational Drug Use Denies Drug Use Smoking Status Reviewed: 05/13/20 Denies Smoking Allergies, Adverse Reactions, Alerts Description No Known Drug Allergies Medications Active Medications SIG Qnty Indications Ordering Provide r Date Eliquis 5mg Tablets 1 tab by mouth [...] Available Vital Signs Date Vital Result Comment 05/13/2020 11:33am BP Systolic 115 mmHg BP Diastolic 79 mmHg Height 70 inches 5'10" Weight 141.19 lb BMI (Body Mass Index) 20.3 kg/m2 [place] Body Weight 166 lb Weight 64.043 kg 05/03/2020 9:17am BP Systolic 106 mmHg BP Diastolic 73 mmHg Heart Rate 96 /min Height 70 inches 5'10" Weight 134.00 lb BMI (Body Mass Index) 19.2 kg/m2 [place] Body Weight 166 lb Weight 60.782 kg Results Test Acquired Date Facility Test Result H/L Range Note Complete Blood Count 01/23/2020 [facility] Main Lab [address] [place], [place] [id number] [phone] White Blood Count 10.2 10 High 4.0-10.0 [...] % Normal 0-0 Basic Metabolic Profile 01/23/2020 [facility] Main Lab [address] [place] [address] [phone] Glucose, Fasting 93 mg/dL Normal 70-100 Blood [...] Little GFR Left ESRD GFR <15 on KITCHEN PORTER 2 Testing was performed on a h emolysed specimen. Suggest recollection of specimen for more accurate test results. Procedures Date Code Description Status 01/23/2020 31312 Moderate Sedation Se rvices; Same Phys Intl 15 Mins; PT >= 5 Years Completed 01/23/2020 10707 Revascularization,Endovascular W / Transluminal Angioplasty Completed 01/23/2020 48552 Revascularization,Endovascular W / Transluminal Angioplasty Completed 01/23/2020 69912 Revascularization,Endovascular W /Transluminal Angioplasty Completed 01/23/2020 77663 Revascularization,Endovascular,T ransluminal Angioplasty Completed 12/15/2019 07698 Amputation Above Knee Completed Medical Devices Description No Information Available Encounters Type Date Location Provider Dx Diagnosis Office Visit 03/21/2020 9:30a [facility] Practice FLORA Rojas 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 I70.245 Athscl [place] arteries of le ft leg w ulceration oth prt foot Office Visit 01/31/2020 10:15a [facility] Practice FLORA Rojas 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 I70.245 Athscl [place] arteries of le ft leg w ulceration oth prt foot Z47.81 Encounter for orthopedic aft ercare following surgical amp Office Visit 01/25/2020 1:00p [facility] Practice FLORA Rojas 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 I70.245 Athscl [place] arteries of le ft leg w ulceration oth prt foot Z47.81 Encounter for orthopedic aft ercare following surgical amp Office Visit 12/25/2019 2:00p [facility] Marlen brownlee MD Z48.89 Encounter for other specified surgical a ftercare Office Visit 12/11/2019 4:30p [facility] Practice Marlen brownlee MD 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, right leg Assessments Date Code Description Provider 05/13/2020 Z89.611 Acquired absence of right leg ab ove knee FLORA Moya 05/13/2020 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 FLORA Moya 05/13/2020 Z74.09 Other reduced mobility FLORA Rojas 05/03/2020 Z89.611 Acquired absence of right leg [...] foot with unspecified severity Marlen Leonardo MD 12/25/2019 Z48.89 Encounter for other specified patton rgical aftercare Marlen Leonardo MD 12/15/2019 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
--- OUTSIDE RECORDS SUMMARY | 2020-07-31 13:49 | CCD | Continuity of Care Document ---
Author Author Alex CHAVIRA CO Organization Unknown Address [address] [facility] [address] [place] [address] Phone [phone] Care Team Providers Care Head Of Digital Advertising & Integration Name Role Phone Alex Henderson DPM AUTM [phone] Problems Active Problems Provider Date Essential hypertension Marlen Leonardo MD Onset: 0 Social History Type Date Description Comments Sex Unknown ETOH Use Denies alcohol use Tobacco Use Start: Unknown Denies Smoking Recreational Drug Use Denies Drug Use Smoking Status Reviewed: 05/03/20 Denies Smoking Allergies, Adverse Reactions, Alerts Description No Known Drug Allergies Medications Active Medications SIG Qnty Indications Ordering Provide r Date [place] 0.025% Solution 1 GTT Both Eyes [...] Available Vital Signs Date Vital Result Comment 05/03/2020 9:17am BP Systolic 106 mmHg BP Diastolic 73 mmHg Heart Rate 96 /min Height 70 inches 5'10" Weight 134.00 lb BMI (Body Mass Index) 19.2 kg/m2 [place] Body Weight 166 lb Weight 60.782 kg 03/21/2020 10:29am BP Systolic 111 mmHg BP Diastolic 77 mmHg Height 68 inches 5'8" Weight 141.00 lb BMI (Body Mass Index) 21.4 kg/m2 [place] Body Weight 154 lb Weight 63.958 kg Results Test Acquired Date Facility Test Result H/L Range Note Complete Blood Count 01/23/2020 [facility] Main Lab [address] [place] [address] [phone] White Blood Count 10.2 10 High 4.0-10.0 [...] % Normal 0-0 Basic Metabolic Profile 01/23/2020 [facility] Main Lab [address] [place], [place] [id number] [phone] Glucose, Fasting 93 mg/dL Normal 70-100 Blood [...] Little GFR Left ESRD GFR <15 on WAGON DRILLER 2 Testing was performed on a h emolysed specimen. Suggest recollection of specimen for more accurate test results. Procedures Date Code Description Status 01/23/2020 19518 Moderate Sedation Se rvices; Same Phys Intl 15 Mins; PT >= 5 Years Completed 01/23/2020 99189 Revascularization,Endovascular W / Transluminal Angioplasty Completed 01/23/2020 21463 Revascularization,Endovascular W / Transluminal Angioplasty Completed 01/23/2020 24411 Revascularization,Endovascular W /Transluminal Angioplasty Completed 01/23/2020 69824 Revascularization,Endovascular,T ransluminal Angioplasty Completed 12/15/2019 15453 Amputation Above Knee Completed Medical Devices Description No Information Available Encounters Type Date Location Provider Dx Diagnosis Office Visit 03/21/2020 9:30a [facility] Practice FLORA Rojas 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 I70.245 Athscl [place] arteries of le ft leg w ulceration oth prt foot Office Visit 01/31/2020 10:15a [facility] Practice FLORA Rojas 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 I70.245 Athscl [place] arteries of le ft leg w ulceration ot prt foot Z47.81 Encounter for orthopedic aft ercare following surgical amp Office Visit 01/25/2020 1:00p [facility] Practice FLORA Rojas 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 I70.245 Athscl [place] arteries of le ft leg w ulceration oth prt foot Z47.81 Encounter for orthopedic aft ercare following surgical amp Office Visit 12/25/2019 2:00p [facility] Practice Marlen brownlee MD Z48.89 Encounter for other specified surgical a ftercare Office Visit 12/11/2019 4:30p [facility] Surgery Practice Marlen brownlee MD I70.261 Athscl [place] arteries of extremities w gangrene, right leg Assessments Date Code Description Provider 05/03/2020 Z89.611 Acquired absence of right leg [...] leg Marlen Leonardo MD Plan of Treatment 05/03/2020 - FLORA Moya* 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 * I70.245 Atherosclerosis of [place] arteries of left leg with ulceration of other part of foot* New Xrays:* Duplex Arterial Lower Ext/Bypass Graft, Unilateral, Ordered: 05/03/20 * Z74.09 Other reduced mobility Functional Status Description No Information Available Mental Status Description No Information Available Referrals Refer to Dr Reason for Referral Status Appt Date Marlen Leonardo MD Created [address] [phone] Marlen Leonardo MD RT LEG PAIN, ISCHEIMA, BLACK TOES [facility] ed 12/07/[address] [place] [phone]
--- OUTSIDE RECORDS SUMMARY | 2020-07-31 13:49 | CCD ---
Author Author [facility] Organization [facility] Address Unknown Phone Unavailable Care Team Providers Care [employer] Name Role Phone Yoselin Leonardo MD Unavailable Unavailable HenrytranYoselin meredith MD Unavailable Unavailable АндрейerstrandYoselin MD Unavailable Unavailable CederstrandYoselin MD Unavailable Unavailable CederstrandYoselin MD Unavailable Unavailable HenrytranYoselin meredith MD Unavailable Unavailable CederstrandYoselin MD Unavailable Unavailable HenrytranYoselin meredith MD Unavailable Unavailable CedlisatrandYoselin MD Unavailable Unavailable Yoselin Leonardo MD Unavailable Unavailable Yoselin Leonardo MD Unavailable Unavailable CederstrandYoselin MD Unavailable Unavailable HenrytranYoselin meredith MD Unavailable Unavailable HenrytranYoselin meredith MD Unavailable Unavailable HenrytranYoselin meredith MD Unavailable Unavailable Dominic PUENTES DPM Unavailable Unavailable Dominic PUENTES DPM Unavailable Unavailable Dominic PUENTES DPM Unavailable Unavailable Dominic PUENTES DPM Unavailable Unavailable Dominic PUENTES DPM Unavailable Unavailable Dominic PUENTES DPM Unavailable Unavailable Dominic PUENTES DPM Unavailable Unavailable Dominic PUENTES DPM Unavailable Unavailable Dominic PUENTES DPM Unavailable Unavailable Dominic PUENTES DPM Unavailable Unavailable MAJAK, R EDDY DPM Unavailable Unavailable MAJAK, R EDDY DPM Unavailable Unavailable MAJAK, R EDDY DPM Unavailable Unavailable MAJAK, R EDDY DPM Unavailable Unavailable MAJAK, R EDDY DPM Unavailable Unavailable MAJAK, R EDDY DPM Unavailable Unavailable MAJAK, R EDDY DPM Unavailable Unavailable MAJAK, R EDDY DPM Unavailable Unavailable MAJAK, R EDDY DPM Unavailable Unavailable MAJAK, R EDDY DPM Unavailable Unavailable MAJAK, R EDDY DPM Unavailable Unavailable MAJAK, R EDDY DPM Unavailable Unavailable MAJAK, R EDDY DPM Unavailable Unavailable MAJAK, R EDDY DPM Unavailable Unavailable MAJAK, R EDDY DPM Unavailable Unavailable MAJAK, R EDDY DPM Unavailable Unavailable MAJAK, R EDDY DPM Unavailable Unavailable MAJAK, R EDDY DPM Unavailable Unavailable MAJAK, R EDDY DPM Unavailable Unavailable MAJAK, R EDDY DPM Unavailable Unavailable Sears, L Josephine RPA Unavailable Unavailable Sears, L Josephine RPA Unavailable Unavailable Sears, L Josephine RPA Unavailable Unavailable Sears, L Josephine RPA Unavailable Unavailable Sears, L Josephine RPA Unavailable Unavailable Sears, L Josephine RPA Unavailable Unavailable Sears, L Josephine RPA Unavailable Unavailable Sears, L Josephine RPA Unavailable Unavailable Sears, L Josephine RPA Unavailable Unavailable Sears, L Josephine RPA Unavailable Unavailable Sears, L Josephine RPA Unavailable Unavailable Sears, L Josephine RPA Unavailable Unavailable Sears, L Josephine RPA Unavailable Unavailable Sears, L Josephine RPA Unavailable Unavailable Sears, L Josephine RPA Unavailable Unavailable Sears, L Josephine RPA Unavailable Unavailable Sears, L Joesphine RPA Unavailable Unavailable Sears, L Josephine RPA Unavailable Unavailable Sears, L Josephine RPA Unavailable Unavailable Sears, L Josephine RPA Unavailable Unavailable Sears, L Josephine RPA Unavailable Unavailable Sears, L Josephine RPA Unavailable Unavailable Sears, L Josephine RPA Unavailable Unavailable Sears, L Josephine RPA Unavailable Unavailable Sears, L Josephine RPA Unavailable Unavailable Sears, L Josephine RPA Unavailable Unavailable Sears, L Josephine RPA Unavailable Unavailable Sears, L Josephine RPA Unavailable Unavailable Sears, L Josephine RPA Unavailable Unavailable Sears, L Josephine RPA Unavailable Unavailable Sears, L Josephine RPA Unavailable Unavailable Sears, L Josephine RPA Unavailable Unavailable Re-disclosure Warning The records that you are about to access may contain information from federally-assisted alcohol or drug abuse programs. If such information is present, then the following federally mandated warning applies: This information has been disclosed to you from records protected by federal confidentiality rules (42 CFR part 2). The federal rules prohibit you from making any further disclosure of this information unless further disclosure is expressly permitted by the written consent of the person to whom it pertains or as otherwise permitted by 42 CFR part 2. A general authorization for the release of medical or other information is NOT sufficient for this purpose. The Federal rules restrict any use of the information to criminally investigate or prosecute any alcohol or drug abuse patient.The records that you are about to access may contain highly sensitive health information, the redisclosure of which is protected by Article 27-F of the [facility] Public Health law. If you continue you may have access to information: Regarding HIV / AIDS; Provided by facilities licensed or operated by the [facility] Office of Mental Health; or Provided by the [facility] Office for People With Developmental Disabilities. If such information is present, then the following [facility] mandated warning applies: This information has been disclosed to you from confidential records which are protected by state law. State law prohibits you from making any further disclosure of this information without the specific written consent of the person to whom it pertains, or as otherwise permitted by law. Any unauthorized further disclosure in violation of state law may result in a fine or care home sentence or both. A general authorization for the release of medical or other information is NOT sufficient authorization for further disc losure. Encounters Encounter Providers Location Date Indications Data Source(s ) Outpatient Attender: EDDY PUENTES [facility] Office 06/11 01:15:00 PM EST [facility] ([facility] Outpatient Attender: Josephine Sears RPA [facility] 05/13/2020 10:45:00 AM EST [facility] ([facility] Outpatient Attender: Josephine Sears RPA [facility]R eindl 05/03/2020 09:00:00 AM EDT [facility] ([facility] Outpatient Attender: Josephine Sears RPA [facility]R eindl 03/21/2020 09:30:00 AM EDT [facility] Office Visit Attender: Josephine Sears RPA [facility]Dc/R eindl 01/31/2020 10:15:00 AM EDT [facility] ([facility] Office Visit Attender: Josephine Sears RPA [facility]Dc/R eindl 01/25/2020 01:00:00 PM EDT [facility] ([facility], ) Office Visit Attender: Marlen Mac/[facility]Dc/ Reindl 12/25/2019 02:00:00 PM EDT [facility] ([facility], ) Outpatient Attender: Marlen Mac/[facility]/ Reindl 12/11/2019 04:30:00 PM EDT [facility] ([facility], ) Outpatient Attender: EDDY PUENTES [facility] Office 11/09 09:15:00 AM EDT [facility] ([facility] Outpatient 09/18/2019 11:46:00 AM EDT [facility] Outpatient 09/14/2019 12:09:00 PM [facility] Out[facility] 09/11/2019 03:45:00 PM [facility] Medications Medication Brand Name Start Date Product Form Dose Route Admi nistrative Instructions Pharmacy Instructions Status Indications Reaction Description Data Source(s) 800-160 mg 12/18/2019 12:00:00 AM EDT tablet 14 TAKE ONE TABLET BY MOUTH TWICE A DAY FOR 7 DAYS TAKE ONE TABLET BY MOUTH TWICE A DAY FOR 7 DAYS SOLD: 12/19/2019 [facility] Albuterol 0.83 MG/ML Inhalation Solution 2.5 mg /3 mL (0.083 %) ALBUTEROL SULFATE 12/18/2019 12:00:00 AM EDT solution for nebulization 90 USE 1 VIAL BY NEBULIZER EVERY 4 HOURS NEEDED DYSPNEA USE 1 VIAL BY NEBULIZER EVERY 4 HOURS NEEDED DYSPNEA SOLD: 12/19/2019 [facility] EUCALYPTUS OIL/ALOE VERA XT/LAVENDER, EDI OILS/WHITEPET 10/15/2019 12:00:00 AM EDT ointment 50 APPLY TOPICALLY TO FEET, ELBOWS, AND SHOULDERS TWO TIMES A DAY AT 0700 AND 1900 FOR PAIN APPLY TOPICALLY TO FEET, ELBOWS, AND SHOULDERS TWO TIMES A DAY AT 0700 AND 1900 FOR PAIN SOLD: 10/15/2019 [facility] 40 mg 09/14/2019 12:00:00 AM EST tablet 5 TAKE ONE TABLET BY MOUTH DAILY FOR HYPERTENSION TAKE ONE TABLET BY MOUTH DAILY FOR HYPERTENSION SOLD: 09/14/2019 [facility] 500 mg 09/14/2019 12:00:00 AM EST tablet 5 TAKE ONE TABLET BY MOUTH DAILY FOR UTI FOR 5 DAYS TAKE ONE TABLET BY MOUTH DAILY FOR UTI FOR 5 DAYS SOLD : 09/14/2019 [facility] Insurance Providers Payer name Policy type / Coverage type Policy ID Covered republican ID Covered republican's relationship to umana Policy Umana Plan Information HUSSAINRENETTA [id number] SP [id number] MEDICARE [id number] SP [id number] [facility] [id number] SP [id number] MEDICARE COMPLETE-[facility] O [id number] S [id number] MEDICAID M [id number] S [id number] MEDICAID [id number] SP [id number] MEDICARE C [id number] S [id number] [facility] [id number] SP [id number] MEDICAID [id number] SP [id number] [place]ICAID [place] [id number] Self [id number] MEDICARE Med [id number] Self [id number] [facility] [id number] Patient [id number] MEDICARE PART A [id number] Patient [id number] [id number] SELF PAY UNAVAILABLE Patient UNAVAILA BLE Problems, Conditions, and Diagnoses Code Display Name Description Problem Type Effective Dates Data Source(s) Pressure ulcer of left heel, stage 2 Pressure ul cer of left heel, stage 2 Problem 07/06/2020 12:00:00 AM EST [facility] ([facility] [id number] 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 Problem 07/06/2020 12:00:00 AM EST [facility] ([facility] [id number] Hammer toe Hammer toe Problem 07/06/2020 12:00:00 AM ES T [facility] [id number] Essential hypertension Essential hypertension Problem 12/11/2019 12:00:00 AM EDT [facility] ([facility], ) [id number] Onychomycosis Onychomycosis Problem 12/04/2019 12:00:00 AM EDT [facility] Type 2 diabetes mellitus with diabetic p 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 Problem 12/04/2019 12:00:00 AM EDT [facility] NT ([facility] [id number] Pain in limb Pain in limb Problem 12/04/2019 12:00:00 A M EDT [facility] [id number] Gangrenous disorder Gangrenous disorder Problem 0 12/04/2019 12:00:00 AM EDT [facility] ([facility] Surgeries/Procedures Procedure Description Date Indications Data Source(s) DEBRIDEMENT SUBCUTANEOUS TISSUE 20 SQ CM/< 06/27/2020 12:00:00 AM EST [facility] PRIM PRQ TRLUML MCHNL THRMBC 1ST VSL 05/03/2020 12:00: 00 AM EDT [facility] ([facility], ) Angiography Extremity Unilateral 05/03/2020 12:00:00 A M EDT [facility] ([facility], ) Revascularization,Endovascular,Transluminal Angioplasty 01/23/2020 12:00:00 AM EDT [facility] ([facility], ) REVSC OPN/PRQ TIB/JEANINE W/ANGIOPLASTY UNI 01/23/2020 12 :00:00 AM EDT [facility] ([facility], ) REVSC OPN/PRQ TIB/JEANINE W/ANGIOPLASTY UNI EA VSL 2019 12:00:00 AM EDT [facility] ([facility], ) REVSC OPN/PRQ TIB/JEANINE W/ANGIOPLASTY UNI EA VSL 2019 12:00:00 AM EDT [facility] ([facility]) Moderate Sedation Services; Same Phys Intl 15 Mins; PT >= 5 Years 01/23/2020 12:00:00 AM EDT [facility] ([facility] AMPUTATION THIGH THROUGH FEMUR ANY LEVEL 12/15/2019 12 :00:00 AM EDT [facility] ([facility]) DEBRIDEMENT NAIL ANY METHOD /11/28/2019 12:00:00 AM EDT [facility] Results ID Date Data Source [id number] 07/24/2020 11:30:00 AM EST [facility] Name Value Range Interpretation Code Description Data Nancy rce(s) Supporting Document(s) SARS coronavirus 2 RNA Not Detected [facility] [place] This lab was ordered by [facility] and reported by [facility]. ID Date Data Source [id number] 07/19/2020 10:00:00 AM EST [facility] Name Value Range Interpretation Code Description Data Nancy rce(s) Supporting Document(s) SARS coronavirus 2 RNA Not Detected [facility] [place] This lab was ordered by [facility] and reported by [facility]. ID Date Data Source [id number] 07/15/2020 10:30:00 AM EST [facility] Name Value Range Interpretation Code Description Data Nancy rce(s) Supporting Document(s) SARS coronavirus 2 RNA Not Detected [facility] [place] This lab was ordered by [facility] and reported by [facility]. ID Date Data Source [id number] 07/09/2020 10:15:00 AM EST [facility] Name Value Range Interpretation Code Description Data Nancy rce(s) Supporting Document(s) SARS coronavirus 2 RNA [facility] This lab was ordered by [facility] and reported by [facility]. ID Date Data Source [id number] 07/03/2020 11:00:00 AM EST [facility] Name Value Range Interpretation Code Description Data Nancy rce(s) Supporting Document(s) SARS coronavirus 2 RNA [facility] This lab was ordered by [facility] and reported by [facility]. ID Date Data Source [id number] 06/27/2020 10:20:00 AM EST [facility] Name Value Range Interpretation Code Description Data Nancy rce(s) Supporting Document(s) SARS coronavirus 2 RNA [facility] This lab was ordered by [facility] and reported by [facility]. ID Date Data Source [id number] 06/23/2020 01:52:00 PM EST [facility] Name Value Range Interpretation Code Description Data Nancy rce(s) Supporting Document(s) SARS coronavirus 2 RNA [facility] This lab was ordered by [facility] and reported by [facility]. ID Date Data Source [id number] 06/05/2020 12:00:00 PM EST [facility] Name Value Range Interpretation Code Description Data Nancy rce(s) Supporting Document(s) SARS coronavirus 2 RNA [facility] This lab was ordered by [facility] and reported by [facility]. ID Date Data Source [id number] 05/30/2020 12:00:00 PM EST [facility] Name Value Range Interpretation Code Description Data Nancy rce(s) Supporting Document(s) SARS coronavirus 2 RNA [facility] This lab was ordered by [facility] and reported by [facility]. ID Date Data Source [id number] 05/23/2020 02:30:00 PM EST [facility] Name Value Range Interpretation Code Description Data Nancy rce(s) Supporting Document(s) SARS coronavirus 2 RNA [facility] This lab was ordered by [facility] and reported by [facility]. ID Date Data Source [id number] 01/23/2020 09:15:00 AM EDT [facility] ([facility], ) Name Value Range Interpretation Code Description Data Nancy rce(s) Supporting Document(s) Blood Urea Nitrogen 23 mg/dL 7-18 Above high normal [facility] ([facility], ) Glucose, Fasting 93 mg/dL 70-100 Normal (applies to non-numeric results) [facility] ([facility]) Creatinine For GFR 0.84 mg/dL 0.70-1.30 Normal (applies to non -numeric results) [facility] ([facility]) Glomerular Filtration Rate Laboratory test result Normal (applies to non- numeric results) [facility] ([facility]) <content>Units are mL/min/1.73 m2</content>
<content></content>
<content>Chronic Kidney Disease Staging per NKF:</content>
<content></content>
<content>Stage I & II GFR >=60 Normal to Mildly Decreased</content>
<content>Stage III GFR 30-59 Moderately Decreased</content>
<content>Stage IV GFR 15-29 Severely Decreased</content>
<content>Stage V GFR <15 Very Little GFR Left</content>
<content>ESRD GFR <15 on TORPEDOMAN'S MATE</content>
<content></content> Potassium Serum 5.5 meq/L 3.5-5.1 Above high normal [address] ([facility]) Testing was performed on a hemolysed spe cimen. Suggest recollection of specimen for more accurate test results. Sodium Level 135 meq/L 136-145 Below low normal [facility] ([facility]) Carbon Dioxide Level 26 meq/L 21-32 Normal (applies to non-num morelia results) [facility] ([facility]) Anion Gap 5 meq/L 8-16 Below low normal [facility] ( [facility]) Chloride Level 104 meq/L 98-107 Normal (applies to non-numeric r esults) [facility] ([facility]) Calcium Level 9.8 mg/dL 8.8-10.2 Normal (applies to non-numeric re sults) [facility] ([facility]) ID Date Data Source [id number] 01/23/2020 09:15:00 AM EDT [facility] ([facility]) Name Value Range Interpretation Code Description Data Nancy rce(s) Supporting Document(s) White Blood Count 10.2 10 4.0-10.0 Above high normal [facility] ([facility]) Red Blood Count 5.37 10 4.30-6.10 Normal (applies to non-numeric results) [facility] ([facility]) Hemoglobin 15.2 g/dL 13.5-17.5 Normal (applies to non-numeric resul ts) [facility] ([facility]) Hematocrit 48.9 % 42.0-52.0 Normal (applies to non-numeric resul ts) [facility] ([facility]) Mean Corpuscular Hemoglobin 28.3 pg 27.0-33.0 Norm al (applies to non-numeric results) [facility] ([facility]) Mean Corpuscular Volume 91.1 fl 80.0-96.0 Normal ( applies to non-numeric results) [facility] ([facility]) Platelet Count, Automated 380 10 150-450 Normal (applies to non-numeric results) [facility] ([facility]) Mean Corpuscular HGB Conc 31.1 g/dL 32.0-36.5 Below low normal [facility] ([facility]) Red Cell Distribution Width 17.7 % 11.5-14.5 Above high normal [facility] ([facility]) Nucleated Red Blood Cell % 0.0 % 0-0 Normal (applies to n on-numeric results) [facility] ([facility]) ID Date Data Source [id number] 12/12/2019 10:07:00 AM EDT [facility] Name Value Range Interpretation Code Description Data Nancy rce(s) Supporting Document(s) SARS CORONAVIRUS 2 RNA [facility] This lab was ordered by [facility] and reported by [facility]. ID Date Data Source [id number] 11/28/2019 03:10:00 PM EDT [facility] Name Value Range Interpretation Code Description Data Nancy rce(s) Supporting Document(s) SARS CORONAVIRUS 2 RNA [facility] This lab was ordered by [facility] and reported by [facility]. Procedure Vital Signs ID Date Data Source UNK Name Value Range Interpretation Code Description Data Source(s) Body mass index (BMI) [Ratio] 20.6 kg/m2 20.6 k g/m2 [facility] Heart rate 50 /min 50 /min [facility] ([facility] Diastolic blood pressure 60 mm[Hg] 60 mm[Hg] [facility] ([facility] Systolic blood pressure 104 mm[Hg] 104 mm[Hg] M [facility] ([facility] Body weight 152.00 [lb_av] 152.00 [lb_av] [facility] ([facility] Body height 72 [in_i] 72 [in_i] [facility] 6'0" Body surface area Derived from formula 1.75 m2 1.75 m2 [facility] ([facility]) Body weight 59.989 kg 59.989 kg [facility] ([facility]) [place] body weight 166 [lb_av] 166 [lb_av] [facility] T ([facility]) Body mass index (BMI) [Ratio] 19.0 kg/m2 19.0 k g/m2 [facility] ([facility]) Body weight 132.25 [lb_av] 132.25 [lb_av] [facility] T ([facility]) Body height 70 [in_i] 70 [in_i] [facility] ([facility]) 5'10" Diastolic blood pressure 75 mm[Hg] 75 mm[Hg] [facility] Systolic blood pressure 107 mm[Hg] 107 mm[Hg] M [facility] ([facility]) Body surface area Derived from formula 1.80 m2 1.80 m2 [facility] ([facility]) Body weight 64.043 kg 64.043 kg [facility] ([facility]) [place] body weight 166 [lb_av] 166 [lb_av] [facility] T ([facility]) Body mass index (BMI) [Ratio] 20.3 kg/m2 20.3 k g/m2 [facility] ([facility]) Body weight 141.19 [lb_av] 141.19 [lb_av] [facility] ([facility]) Body height 70 [in_i] 70 [in_i] [facility] ([facility]) 5'10" Diastolic blood pressure 79 mm[Hg] 79 mm[Hg] [facility] ([facility]) Systolic blood pressure 115 mm[Hg] 115 mm[Hg] [facility] ([facility]) Body weight 60.782 kg 60.782 kg [facility] ([facility]) [place] body weight 166 [lb_av] 166 [lb_av] [facility] T ([facility]) Body mass index (BMI) [Ratio] 19.2 kg/m2 19.2 k g/m2 [facility] ([facility]) Body weight 134.00 [lb_av] 134.00 [lb_av] [facility] ([facility]) Body height 70 [in_i] 70 [in_i] [facility] ([facility]) 5'10" Heart rate 96 /min 96 /min [facility] ([facility]) Diastolic blood pressure 73 mm[Hg] 73 mm[Hg] [facility] ([facility]) Systolic blood pressure 106 mm[Hg] 106 mm[Hg] [facility] ([facility]) Body weight 63.958 kg 63.958 kg [facility] ([facility]) [place] body weight 154 [lb_av] 154 [lb_av] [facility] T ([facility]) Body mass index (BMI) [Ratio] 21.4 kg/m2 21.4 k g/m2 [facility] ([facility]) Body weight 141.00 [lb_av] 141.00 [lb_av] [facility] ([facility]) Body height 68 [in_i] 68 [in_i] [facility] ([facility]) 5'8" Diastolic blood pressure 77 mm[Hg] 77 mm[Hg] [facility] ([facility]) Systolic blood pressure 111 mm[Hg] 111 mm[Hg] [facility] ([facility]) Body height 68 [in_i] 68 [in_i] [facility] ([facility]) 5'8" Heart rate 80 /min 80 /min [facility] ([facility]) Diastolic blood pressure 69 mm[Hg] 69 mm[Hg] [facility] ([facility]) Systolic blood pressure 101 mm[Hg] 101 mm[Hg] [facility] ([facility]) Body weight 64.071 kg 64.071 kg [facility] ([facility]) Body mass index (BMI) [Ratio] 21.5 kg/m2 21.5 k g/m2 [facility] ([facility]) Body weight 141.25 [lb_av] 141.25 [lb_av] [facility] T ([facility]) Body height 68 [in_i] 68 [in_i] [facility] ([facility]) 5'8" Diastolic blood pressure 60 mm[Hg] 60 mm[Hg] [facility] ([facility]) Systolic blood pressure 130 mm[Hg] 130 mm[Hg] [facility] ([facility]) Body weight 63.164 kg 63.164 kg [facility] ([facility]) Body mass index (BMI) [Ratio] 21.2 kg/m2 21.2 k g/m2 [facility] ([facility]) Body weight 139.25 [lb_av] 139.25 [lb_av] [facility] T ([facility]) Body height 68 [in_i] 68 [in_i] [facility] ([facility]) 5'8" Diastolic blood pressure 78 mm[Hg] 78 mm[Hg] [facility] ([facility]) Systolic blood pressure 105 mm[Hg] 105 mm[Hg] [facility] ([facility]) Body weight 67.643 kg 67.643 kg [facility] ([facility]) Body mass index (BMI) [Ratio] 22.7 kg/m2 22.7 k g/m2 [facility] ([facility]) Body weight 149.12 [lb_av] 149.12 [lb_av] [facility] ([facility]) Body height 68 [in_i] 68 [in_i] [facility] ([facility]) 5'8" Diastolic blood pressure 69 mm[Hg] 69 mm[Hg] [facility] ([facility]) Systolic blood pressure 103 mm[Hg] 103 mm[Hg] [facility] Body mass index (BMI) [Ratio] 20.5 kg/m2 20.5 k g/m2 [facility] ([facility] Heart rate 92 /min 92 /min [facility] Diastolic blood pressure 60 mm[Hg] 60 mm[Hg] [facility] Systolic blood pressure 90 mm[Hg] 90 mm[Hg] [facility] ([facility] Body weight 151.00 [lb_av] 151.00 [lb_av] [facility] ([facility] Body height 72 [in_i] 72 [in_i] [facility] ([facility] 6'0"
[2020-07-31] MEDS ORDERED: ceFAZolin 2 GM/D5W 50 ML IV BAG (J0690 PER 500MG) As Ordered ONE (14:23)
[2020-07-31] MEDS ORDERED: ceFAZolin SOD 2 GM in IV 1 EA IV ONE (14:30)
[2020-07-31] MEDS ORDERED: LR 1,000 ML IV ONE (15:15)
[2020-07-31 15:48] LABS: HEMATOCRIT 42.4 % (42.0-52.0); HEMOGLOBIN 13.8 g/dl (13.5-17.5); MEAN CORPUSCULAR HEMOGLOBIN 27.7 pg (27.0-33.0); MEAN CORPUSCULAR HGB CONC 32.5 g/dl (32.0-36.5); MEAN CORPUSCULAR VOLUME 85.1 fl (80.0-96.0); PLATELET COUNT, AUTOMATED 496 10^3/uL (150-450); RED BLOOD COUNT 4.98 10^6/uL (4.30-6.10); WHITE BLOOD COUNT 20.7 10^3/uL (4.0-10.0)
[2020-07-31 16:01] LABS: INR 1.23; PARTIAL THROMBOPLASTIN TIME 42.5 SECONDS (24.2-38.5); PROTHROMBIN TIME 15.8 SECONDS (12.5-14.3)
[2020-07-31 16:04] LABS: BLOOD UREA NITROGEN 30 MG/DL (7-18); CALCIUM LEVEL 11.3 MG/DL (8.8-10.2); CARBON DIOXIDE LEVEL 25 MEQ/L (21-32); CHLORIDE LEVEL 103 MEQ/L (98-107); CREATININE FOR GFR 0.81 MG/DL (0.70-1.30); GLOMERULAR FILTRATION RATE > 60.0 (>42); GLUCOSE, FASTING 88 MG/DL (70-100); POTASSIUM SERUM 3.8 MEQ/L (3.5-5.1); SODIUM LEVEL 133 MEQ/L (136-145)
[2020-07-31] MEDS ORDERED: ONDANSETRON 4MG/2ML VIAL As Ordered ONE (17:10)
[2020-07-31] MEDS ORDERED: propofoL 200 MG/20 ML VIAL As Ordered ONE (17:10)
[2020-07-31] MEDS ORDERED: LIDOCAINE 2% 100MG/5ML SDV (FOR ANES.) As Ordered ONE (17:10)
[2020-07-31] MEDS ORDERED: MIDAZOLAM INJ 2MG/2ML VIAL (J2250 PER 1MG) As Ordered ONE (17:10)
[2020-07-31] MEDS ORDERED: fentaNYL 100 MCG/2 ML INJECTION (J3010) As Ordered ONE (17:10)
[2020-07-31] MEDS ORDERED: dexameTHASONE 4 MG/ML 1ML VIAL (J1100 PER 1MG) As Ordered ONE (17:10)
[2020-07-31] MEDS ORDERED: SUGAMMADEX SODIUM 500 MG/5 ML VIAL (BRIDION) As Ordered ONE (17:10)
[2020-07-31] MEDS ORDERED: ROCURONIUM BROMIDE 50 MG/5 ML VIAL As Ordered ONE (17:10)
[2020-07-31] MEDS ORDERED: BUPIVACAINE/EPIN 0.25% 30 ML VIAL As Ordered ONE (20:22)
[2020-07-31] MEDS ORDERED: ESMOLOL INJ 100MG/10ML VIAL As Ordered ONE (21:26)
[2020-07-31] MEDS ORDERED: ACETAMINOPHEN 1000MG 100ML IV BTL (OFIRMEV) (J0131 PER 10MG) As Ordered ONE (22:17)
[2020-07-31] MEDS ORDERED: LR 1,000 ML IV SCH (22:30)
[2020-07-31] MEDS ORDERED: PERCOCET 5MG/325MG TAB PO PRN (22:30)
[2020-07-31] MEDS ORDERED: ONDANSETRON 4MG/2ML VIAL IV PRN ×2 (22:30)
[2020-07-31] MEDS ORDERED: METOCLOPRAMIDE INJ 10MG/2ML VIAL (J2765 PER 1) IV PRN (22:30)
[2020-07-31] MEDS ORDERED: fentaNYL 100 MCG/2 ML INJECTION (J3010) IV PRN (22:30)
--- NOTE | 2020-07-31 22:37 | ROOPDOC ---
[facility] Report Of Operation Report of Operation DATE OF PROCEDURE: 07/31/20 PREPROCEDURE DIAGNOSES: Atherosclerosis in the [place] arteries with gangrene left foot and heel POSTPROCEDURE DIAGNOSES: Same PROCEDURE: Left above-knee amputation SURGEON: Juan Miguel Leonardo MD ANESTHESIA: Gen. anesthesia and local INDICATION FOR PROCEDURE: This a very pleasant 80-year-old patient with severe atherosclerosis of the [place] artery status post a right above-knee amputation, now with gangrene and end-stage vascular disease of the left lower extremity without options for revascularization. Risks benefits and alternatives to a left above-knee amputation were explained to the patient and his family and they were agreeable to proceed. Informed consent was obtained. REPORT OF OPERATION: The patient was brought to the OR in stable condition and placed supine on the or table. General anesthesia and antibiotics were administered without complication. His left lower extremity was prepped and dr aped in sterile fashion. A timeout was performed. A tourniquet was placed on the mid thigh and the leg was exsanguinated and the tourniquet was inflated to 250 mmHg. A fishmouth incision was made at the knee and carried down through the subcutaneous tissue with Bovie cautery. We continued or dissection down to the femur through the fascia and muscle. We circumferentially mobilize the periosteum proximally and transected the femur. We continued our dissection down to the popliteal vessels which were suture ligated and divided. Both artery and vein were noted to be thrombosed. We then completed the posterior flap. The lower leg was then sent for pathology. The tourniquet was released and suture ligation was used for hemostasis. A rasp was used to smooth the bone edges. The soft tissue was copiously irrigated. Bovie cautery was used for additional hemostasis and once hemostasis was achieved, the deep tissues were approximated with [id number] Vicryl sutures to cover the femur. We then used [id number] Vicryl sutures to approximate the anterior and posterior muscle fascia. We then used [id number] Vicryl sutures to close the fascia at the wound edge. Nylon mattress sutures were used to approximate the skin edges and skin jesus were used between the mattress sutures as a final skin closure. The incision was clean and dry. Xeroform fluffs Kerlix and an Joe wrap were used to the final dressing. The patient was allowed to awaken from anesthesia and was taken to recovery in stable condition. ESTIMATED BLOOD LOSS: Approximately 50 mL. COMPLICATIONS: None. PLAN: We will admit the patient to our hospitalist team. Analgesia when n ecessary. Physical and occupational therapy and activity as tolerated. Regular diet with an sure and live for extra protein to help with healing. Patient has obvious protein malnutrition with muscle wasting, thin fascia, limited soft tissue. He tolerates ensure and live at the group home as well. Hopefully we will be able to encourage him to increase his protein intake while he is inpatient. We will continue with local wound care at the stump and elevation. We appreciate the opportunity to participate in the care of this patient. JUAN MIGUEL LEONARDO MD Jul 31, 2020 22:37
[2020-07-31] MEDS ORDERED: PILL CUTTER 1 EACH XX PRN (22:45)
[2020-07-31 23:30] VITALS: BP 107/67
--- NOTE | 2020-07-31 23:56 | HPEPDOC ---
[facility] Medical History & Physical Date of Admission Jul 31, 2020 Date of Service: Jul 31, 2020 Primary Care Physician: JULIAN CANSECO DO Attending Physician: SIN PRETTY MD History and Physical TIME OF SERVICE: 11:59 PM CC: Left lower extremity ischemia HISTORY OF PRESENT ILLNESS: This 80 old gentleman with a history of right AKA and severe bilateral PAD underwent left AKA to manage left foot and heel gangrene this evening. At the time of my evaluation, the patient reported having a bit of pain,but otherwise denied any acute complaints. 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 HOME MEDICATIONS: Please see below. PHYSICAL EXAMINATION: VITAL SIGNS: Please see below. GEN: well-nourished / well developed/ grimacing in pain INTEGUMENT: skin at right stump has healed well/ left stump wrapped in clean and dry dressings HEENT: lips acyanotic /mucus membranes moist and pink CVS: RRR/NMRG LUNGS: lungs are clear to auscultation bilaterally on room air ABDOMEN: Contour (flat ) / soft & not tender with palpation MSK/EXTREMITIES: NCAT NEURO: speech is not dysarthric PSYCH: alert and oriented to person / able to understand and follow simple commands LABORATORY DATA: See below. IMAGING: n/a MICROBIOLOGY: Please see below. ASSESSMENT: Mr. Cavazos is a 80-year-old male with a history of CVA with left upper extremity contracture, A. 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 PLAN: 1. Possible Sepsis 2/2 left foot and heel gangrene His WBC # was 20.7 and HR was as high as 109 Plan: Admit to medical floor/ telemetry / follow-up blood cultures and lactic acid / start Zosyn 2. PVD status post left AKA Plan: Per Dr. Leonardo's recs will ask the day time team to resume Plavix on Aug 02 / pain meds per 3. Long-standing persistent atrial fibrillation Plan: Per Dr. Leonardo's recs will ask the day time team to resume Eliquis on Aug 01 4. CVA with L upper extremity contracture / Hypercholesterolemia Plan: start statin / f/u lipid panel 5. COPD Plan: albuterol 7. Anxiety / Depression Plan: Duloxetine & Sertraline DVT PROPHYLAXIS: DOAC to be resumed on the DISPOSITION: home after more than 2 midnight's stay Vital Signs Vital Signs Date Time Temp Pulse Resp B/P (MAP) Pulse Ox O2 Delivery O2 Flow Rate FiO2 07/31/20 23:00 98.1 105 20 108/59 (75) 93 Nasal Cannula 3 Laboratory Data Labs 24H Laboratory Tests 2 07/31/20 15:29: Nucleated Red Blood Cells % (auto) 0.0, Prothrombin Time 15.8H, Prothromb Time International Ratio 1.23, Activated Partial Thromboplast Time 42.5H, Anion Gap 5L, Glomerular Filtration Rate > 60.0, Calcium Level 11.3H CBC/BMP Laboratory Tests 07/31/20 15:29 Home Medications Scheduled Apixaban (Eliquis) 5 Mg Tablet, 5 MG PO BID Arginine/Glutamine/Calcium Bmb (Jacob Packet) 1 Each Powd.pack, 1 POW PO BID Clopidogrel Bisulfate (Plavix) 75 Mg Tablet, 75 MG PO QPM @ 1900 Diclofenac Sodium (Diclofenac Sodium) 1% 100GM Gel..gram., 4 GM TOP TID for right stump [id number] Apply to area of pain Duloxetine Hcl (Cymbalta) 30 Mg Capsule.dr 30 MG PO BID Ketotifen Fumarate (Ketotifen Fumarate) 5 Ml Drops, 1 DROP OU BID Lactose-Reduced Food (Ensure Enlive) 237 Ml Liquid, 240 ML PO BID Lanolin Alcohol/Mo/W.pet/[place] (Eucerin Creme) 454 Gm Cream..g., 1 APLCT TOP QPM Oxycodone Hcl (Oxycodone HCl) 15 Mg Tablet, 15 MG PO TID Polyethylene Glycol 3350 (Miralax) 17 Gm Powd.pack, 17 GM PO BID Sennosides/Docusate Sodium (Senna-S Tablet) 1 Each Tablet, 1 TAB PO BID Sertraline HCl (Sertraline HCl) 50 Mg Tablet, 75 MG PO QHS Trazodone HCl (Trazodone HCl) 50 Mg Tablet, 50 MG PO QHS Scheduled PRN Acetaminophen (Acetaminophen) 325 Mg Tablet, 650 MG PO Q4H PRN for PAIN OR FEVER Albuterol Sulf (Albuterol Sulfate) 2.5 Mg/3 Ml Vial.neb, 1 VIAL INH Q4H PRN for SHORTNESS OF BREATH Diclofenac Sodium (Voltaren) 100 Gm Gel..gram., 1 APPLIC TOP TID PRN for PAIN APPLY TO AFFECTED AREAS Sodium Phosphate,Coffee-Dibasic (Enema) 133 Ml Enema, 1 LARRY PA DAILY PRN for CONSTIPATION Allergies Coded Allergies: No Known Allergies (Unverified , 07/31/20) A-FIB/CHADSVASC A-FIB History Current/History of A-Fib/PAF?: Yes Current PO Anticoag Therapy: No Treatment Reason Anticoagulant not given: Recent/upcomin procedure SIN PRETTY MD Jul 31, 2020 23:56
[2020-08-01] VITALS (12 sets, daily range): BP systolic 84–110; BP diastolic 54–69
[2020-08-01] MEDS ORDERED: FLEET ENEMA PR PRN
[2020-08-01] MEDS ORDERED: ALBUTEROL SULFATE 2.5 MG/0.5 ML INH NEB SOLN INH PRN
[2020-08-01] MEDS ORDERED: oxyCODONE 5MG TAB PO SCH
[2020-08-01] MEDS: traZODone 50 MG TAB PO SCH ×2 (00:09→21:10)
[2020-08-01] MEDS: SERTRALINE HCL 25 MG TABLET PO SCH ×2 (00:35→21:09)
[2020-08-01] MEDS: DULoxetine 30 MG CAP (CYMBALTA) PO SCH ×3 (00:35→21:10)
[2020-08-01] MEDS: PIPERACILLIN/TAZOBACTAM SOD 2.25 GM in D5W MINI-BAG PLUS 50 ML IV SCH ×3 (06:28→22:54)
[2020-08-01 06:50] LABS: MEAN CORPUSCULAR HEMOGLOBIN 28.2 pg (27.0-33.0); MEAN CORPUSCULAR HGB CONC 32.5 g/dl (32.0-36.5); MEAN CORPUSCULAR VOLUME 86.8 fl (80.0-96.0); PLATELET COUNT, AUTOMATED 472 10^3/uL (150-450); RED BLOOD COUNT 4.61 10^6/uL (4.30-6.10); WHITE BLOOD COUNT 18.3 10^3/uL (4.0-10.0)
[2020-08-01 07:28] LABS: BLOOD UREA NITROGEN 32 MG/DL (7-18); CALCIUM LEVEL 10.1 MG/DL (8.8-10.2); CARBON DIOXIDE LEVEL 25 MEQ/L (21-32); CHLORIDE LEVEL 104 MEQ/L (98-107); CHOLESTEROL LEVEL 111 MG/DL (<200); CHOLESTEROL RISK RATIO 6.937 (<5); CREATININE FOR GFR 0.73 MG/DL (0.70-1.30); GLOMERULAR FILTRATION RATE > 60.0 (>42); GLUCOSE, FASTING 105 MG/DL (70-100); HDL CHOLESTEROL 16 MG/DL (>40); LDL CHOLESTEROL 72 MG/DL (<100); NON-HDL-C 95 MG/DL; POTASSIUM SERUM 4.2 MEQ/L (3.5-5.1); SODIUM LEVEL 136 MEQ/L (136-145); TRIGLYCERIDES LEVEL 117 MG/DL (<150)
--- NOTE | 2020-08-01 08:01 | IPNPDOC ---
Date Seen The patient was seen on 08/01/20. Progress Note Patient seen and examined postoperative day one status post left above-knee amputation. Doing well this morning. Pain controlled with analgesia. He had some venous oozing from the incision overnight, but he is on extensive anticoagulation with eliquis and Plavix. This will be held. I don't think we need to restart the eliquis since that was mostly added for his peripheral vascular disease, but now that he is bilateral AKA's, it is not necessary. As far as Plavix, we will see how he does over the next day or 2 and restart that once he is having less surgical oozing. He had minimal blood loss Intra-Op, but I estimate about 25-30 mL of serosanguineous drainage was on his dressing today. We cleaned the incision thoroughly, redressed with Xeroform fluffs Kerlix and an Joe wrap. The patient tolerated this well. We continue to encourage by mouth diet, including an sure and life to help with healing. He has very little muscle and poor tissue quality, but hopefully with increased nutrition he will be able to heal this and a suitable fashion. We will continue to follow closely. We appreciate the hospitalist excellent care of this patient. VS, I&O, 24H, Fishbone Vital Signs/I&O Vital Signs Date Time Temp Pulse Resp B/P (MAP) Pulse Ox O2 Delivery O2 Flow Rate FiO2 08/01/20 06:00 97.5 94 18 101/62 (75) 97 Nasal Cannula 2.0 I&O- Last 24 Hours up to 6 AM 08/01/20 06:00 Intake Total 1750 ml Output Total 50 ml Balance 1700 ml Laboratory Data 24H LABS Laboratory Tests 2 07/31/20 15:29: Nucleated Red Blood Cells % (auto) 0.0, Prothrombin Time 15.8H, Prothromb Time International Ratio 1.23, Activated Partial Thromboplast Time 42.5H, Anion Gap 5L, Glomerular Filtration Rate > 60.0, Calcium Level 11.3H 08/01/20 06:05: Nucleated Red Blood Cells % (auto) 0.0, Anion Gap 7L, Glomerular Filtration Rate > 60.0, Calcium Level 10.1, Triglycerides Level 117, Total Cholesterol 111, LDL Cholesterol 72, Non-HDL Cholesterol (LDL + VLDL) 95, Total HDL Cholesterol 16L, Cholesterol/HDL Ratio 6.937H 08/01/20 06:10: Lactic Acid Level 0.9 CBC/BMP Laboratory Tests 07/31/20 15:29 08/01/20 06:05 Microbiology Microbiology 08/01/20 Blood Culture, Received Pending JUAN MIGUEL MURILLO MD Aug 01, 2020 08:01
[2020-08-01] MEDS: ATORVASTATIN 10 MG TAB PO SCH (08:15)
[2020-08-01] MEDS: MIRALAX *UNIT DOSE* 17GM PACKET PO SCH ×2 (08:15→21:09)
[2020-08-01] MEDS: PERCOCET 5MG/325MG TAB PO PRN ×2 (08:20→21:10)
--- NOTE | 2020-08-01 11:18 | IPNPDOC ---
Date Seen The patient was seen on 08/01/20. Progress Note SUBJECTIVE: c/o bleeding at left AKA surgical site soaking dressing, changed by vascular surgery and RN this morning. no c/o sob/cp/palpitations/ lightheadedness/dizziness. c/o pain 5/10 pain scale but received prn pain meds. Per RN, pt is confused OBJECTIVE PHYSICAL EXAMINATION: VITAL SIGNS: Please see below. GEN: aaox 1 person only arousable but lethargic HEENT: no pallor or jvd. dry mm lungs: CTAB heart: S1S2 no S3 abd: +bs soft nt nd ext: b/l AKA . left LE bandaged LABORATORY DATA, IMAGING STUDIES, MICROBIOLOGY: Please see below. ASSESSMENT AND PLAN: PROBLEMS: left foot/heel gangrene s/p left AKA w blood loss 25ml postop at the bedside acute encephalopathy/acute delirium postop CVA with L upper extremity contracture Hypercholesterolemia Hypertension Peripheral vascular disease with R AKA Atrial fibrillation COPD GERD CKD Arthritis Anxiety / Depression Dementia Hernia Repair - 05/03/20 Ureteral stent PLAN: Postop mgt per vascular surgery. monitor for ongoing blood loss. none since dressing was changed this morning. both eliquis and plavix have been discontinued. h/o cva and afib in the past. defer to vascular when oral anticoagulation can be resumed due to h/o embolic cva. ARU screen. supportive care. VS, I&O, 24H, Fishbone Vital Signs/I&O Vital Signs Date Time Temp Pulse Resp B/P (MAP) Pulse Ox O2 Delivery O2 Flow Rate FiO2 08/01/20 10:00 98.2 91 17 100/63 (75) 96 Nasal Cannula 2.0 I&O- Last 24 Hours up to 6 AM 08/01/20 06:00 Intake Total 1750 ml Output Total 50 ml Balance 1700 ml Laboratory Data 24H LABS Laboratory Tests 2 07/31/20 15:29: Nucleated Red Blood Cells % (auto) 0.0, Prothrombin Time 15.8H, Prothromb Time International Ratio 1.23, Activated Partial Thromboplast Time 42.5H, Anion Gap 5L, Glomerular Filtration Rate > 60.0, Calcium Level 11.3H 08/01/20 06:05: Nucleated Red Blood Cells % (auto) 0.0, Anion Gap 7L, Glomerular Filtration Rate > 60.0, Calcium Level 10.1, Triglycerides Level 117, Total Cholesterol 111, LDL Cholesterol 72, Non-HDL Cholesterol (LDL + VLDL) 95, Total HDL Cholesterol 16L, Cholesterol/HDL Ratio 6.937H 08/01/20 06:10: Lactic Acid Level 0.9 CBC/BMP Laboratory Tests 07/31/20 15:29 08/01/20 06:05 Microbiology Microbiology 08/01/20 Blood Culture, Received Pending RADHA JIMÉNEZ MD Aug 01, 2020 11:18
[2020-08-01] MEDS ORDERED: NALOXONE INJ 0.4MG/1ML VIAL (J2310 PER 1MG) IV STA ×2 (22:26→22:38)
[2020-08-01] MEDS ORDERED: NS 1,000 ML IV ONE (22:30)
[2020-08-01] MEDS ORDERED: NALOXONE INJ 0.4MG/1ML VIAL (J2310 PER 1MG) As Ordered ONE (22:31)
[2020-08-01 22:36] LABS: ABG BASE EXCESS -0.7 (-2.0-2.0); ABG HCO3 22.3 MEQ/L (22.0-26.0); ABG O2 SATURATION 95.4 % (95.0-99.0); ABG PARTIAL PRESSURE CO2 32.1 mmHg (35.0-45.0); ABG PARTIAL PRESSURE O2 67.9 mmHg (75.0-100.0); ABG STANDARD HCO3 23.8 MEQ/L (22.0-26.0); ABG TOTAL CO2 23.3 MEQ/L (23.0-31.0)
--- NOTE | 2020-08-01 23:20 | REPVR ---
PROCEDURE INFORMATION: Exam: XR Chest, 1 View Exam date and time: 08/01/2020 10:41 PM Age: 80 years old Clinical indication: Shortness of breath; Additional info: Per TECHNIQUE: Imaging protocol: XR of the chest Views: 1 view. COMPARISON: CR PORTABLE CHEST X-RAY 05/03/2020 6:45 PM FINDINGS: Tubes, catheters and devices: Left chest loop recorder. Lungs: Right upper lobe airspace disease. Left basilar atelectasis and/or infiltrate. Pleural space: No definite pneumothorax. Small left-sided pleural effusion. Heart/Mediastinum: A stable cardiac silhouette. Vasculature: Elongation of the thoracic aorta with calcification. Bones/joints: Unremarkable. Other findings: Apices are partially obscured by head position. IMPRESSION: 1. Right upper lobe airspace disease concerning for pneumonia. 2. Small left-sided pleural effusion with adjacent atelectasis and/or infiltrate. Electronically signed by: Paramjit Lindsay On 08/01/2020 23:19:56 PM
[2020-08-01 23:46] LABS: BASO % 0.2 % (0.0-1.0); EOS % 0.2 % (0.0-3.0); HEMATOCRIT 36.1 % (42.0-52.0); HEMOGLOBIN 11.3 g/dl (13.5-17.5); LYMPH # 0.6 10^3/uL (1.5-5.0); LYMPH % 3.2 % (24.0-44.0); MEAN CORPUSCULAR HEMOGLOBIN 27.5 pg (27.0-33.0); MEAN CORPUSCULAR HGB CONC 31.3 g/dl (32.0-36.5); MEAN CORPUSCULAR VOLUME 87.8 fl (80.0-96.0); MONO # 1.7 10^3/uL (0.0-0.8); MONO % 9.5 % (0.0-5.0); NEUTROPHILS # 14.9 10^3/uL (1.5-8.5); NEUTROPHILS % 84.6 % (36.0-66.0); PLATELET COUNT, AUTOMATED 475 10^3/uL (150-450); RED BLOOD COUNT 4.11 10^6/uL (4.30-6.10); WHITE BLOOD COUNT 17.6 10^3/uL (4.0-10.0)
[2020-08-02] VITALS (17 sets, daily range): BP systolic 89–133; BP diastolic 54–81; O2SAT 84–96
[2020-08-02] MEDS ORDERED: VANCOMYCIN HCL 1,000 MG, VIAL MATE ADAPTER 1 EACH in D5W 250 ML IV SCH ×3
[2020-08-02 00:14] LABS: ALBUMIN 1.5 GM/DL (3.2-5.2); ALT/SGPT 62 U/L (12-78); BILIRUBIN,DIRECT 0.4 MG/DL (0.0-0.2); BILIRUBIN,TOTAL 0.6 MG/DL (0.2-1.0); BLOOD UREA NITROGEN 26 MG/DL (7-18); C REACTIVE PROTEIN QUANTITATIV 8.47 MG/DL (0.00-0.30); CALCIUM LEVEL 8.9 MG/DL (8.8-10.2); CARBON DIOXIDE LEVEL 25 MEQ/L (21-32); CHLORIDE LEVEL 108 MEQ/L (98-107); CK-MB VALUE MASS < 1.0 NG/ML (<3.6); CPK CREATINE PHOSPHOKINASE 22 U/L (39-308); CREATININE FOR GFR 0.69 MG/DL (0.70-1.30); GLOMERULAR FILTRATION RATE > 60.0 (>42); GLUCOSE, FASTING 187 MG/DL (70-100); MB/CK RELATIVE INDEX 4.55 (< OR =4); POTASSIUM SERUM 3.5 MEQ/L (3.5-5.1); SODIUM LEVEL 140 MEQ/L (136-145); TOTAL PROTEIN 4.8 GM/DL (6.4-8.2); TROPONIN I < 0.02 NG/ML (< 0.10)
[2020-08-02] MEDS ORDERED: NS 1,000 ML IV ONE (00:15)
[2020-08-02] MEDS ORDERED: VANCOMYCIN HCL 500 MG in D5W MINI-BAG PLUS 100 ML IV SCH (04:00)
[2020-08-02] MEDS: PIPERACILLIN/TAZOBACTAM SOD 2.25 GM in D5W MINI-BAG PLUS 50 ML IV SCH ×3 (05:54→21:18)
[2020-08-02] MEDS: ACETAMINOPHEN TAB 650MG DOSE (2X325MG) PO PRN ×4 (06:15→23:03)
[2020-08-02] MEDS ORDERED: VANCOMYCIN HCL 500 MG in D5W MINI-BAG PLUS 100 ML IV ONE (08:00)
--- NOTE | 2020-08-02 08:12 | ECGEPIP ---
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
[2020-08-02] MEDS: DULoxetine 30 MG CAP (CYMBALTA) PO SCH ×2 (08:54→21:18)
[2020-08-02] MEDS: MIRALAX *UNIT DOSE* 17GM PACKET PO SCH ×2 (08:54→21:18)
[2020-08-02] MEDS: ATORVASTATIN 10 MG TAB PO SCH (08:54)
[2020-08-02 09:29] LABS: BASO # 0.1 10^3/uL (0.0-0.2); BASO % 0.3 % (0.0-1.0); EOS % 0.1 % (0.0-3.0); HEMATOCRIT 37.3 % (42.0-52.0); HEMOGLOBIN 11.9 g/dl (13.5-17.5); LYMPH # 0.8 10^3/uL (1.5-5.0); LYMPH % 3.5 % (24.0-44.0); MEAN CORPUSCULAR HEMOGLOBIN 27.8 pg (27.0-33.0); MEAN CORPUSCULAR HGB CONC 31.9 g/dl (32.0-36.5); MEAN CORPUSCULAR VOLUME 87.1 fl (80.0-96.0); MONO # 1.9 10^3/uL (0.0-0.8); MONO % 8.6 % (0.0-5.0); NEUTROPHILS % 83.7 % (36.0-66.0); PLATELET COUNT, AUTOMATED 540 10^3/uL (150-450); RED BLOOD COUNT 4.28 10^6/uL (4.30-6.10); WHITE BLOOD COUNT 21.5 10^3/uL (4.0-10.0)
[2020-08-02 09:57] LABS: ALBUMIN 1.7 GM/DL (3.2-5.2); ALT/SGPT 66 U/L (12-78); BILIRUBIN,TOTAL 0.7 MG/DL (0.2-1.0); BLOOD UREA NITROGEN 22 MG/DL (7-18); CALCIUM LEVEL 9.2 MG/DL (8.8-10.2); CARBON DIOXIDE LEVEL 24 MEQ/L (21-32); CHLORIDE LEVEL 108 MEQ/L (98-107); CREATININE FOR GFR 0.68 MG/DL (0.70-1.30); GLOMERULAR FILTRATION RATE > 60.0 (>42); GLUCOSE, FASTING 149 MG/DL (70-100); MAGNESIUM LEVEL 1.8 MG/DL (1.8-2.4); POTASSIUM SERUM 3.9 MEQ/L (3.5-5.1); SODIUM LEVEL 140 MEQ/L (136-145); TOTAL PROTEIN 5.2 GM/DL (6.4-8.2)
[2020-08-02 09:58] LABS: CK-MB VALUE MASS < 1.0 NG/ML (<3.6); CPK CREATINE PHOSPHOKINASE 35 U/L (39-308); MB/CK RELATIVE INDEX 2.86 (< OR =4); TROPONIN I 0.02 NG/ML (< 0.10)
[2020-08-02 10:07] LABS: ERYTHROCYTE SEDIMENTATION RATE 56 mm/hr (0-20)
--- NOTE | 2020-08-02 11:12 | IPNPDOC ---
Text Note Date of Service The patient was seen on 08/02/20. NOTE Vascular surgery Patient seen and examined postoperative day 2 status post left above-knee amputation. The patient had bleeding from the left stump and subsequently his dressing was reinforced with a second Joe and additional Kerlix on the outside. This appears to be all dried and I do not see any fresh blood on the dressings currently. Pain controlled with analgesia. His dressing was removed this morning, there was dried blood extending to the outer aspect of the dressing. There was clotted blood noted and a very small amount of oozing was noted from the medial aspect of the surgical incision, this was only a small amount at the time of his dressing change. The area was thoroughly cleaned, Xeroform applied, dry gauze, Kerlix and Joe wrap replaced. I advised nursing to notify us if he has recurrent bleeding again through his dressings. The patient tolerated dressing change well. Plavix and Eliquis remains on hold. At this time, we are not planning to restart Eliquis since that was mostly added for his peripheral vascular disease, but now that he is bilateral AKA's, it is not necessary. The patient is noted to have history of embolic CVA, so plan to hold Plavix for today and we will see how he does today and possibly consider restarting if he has less surgical oozing. We continue to encourage by mouth diet, including protein to help with healing. He has very little muscle and poor tissue quality, but hopefully with increased nutrition he will be able to heal this and a suitable fashion. We will continue to follow closely. Addendum. The patient is examined by Dr. Leonardo and myself at approximately 1320 p.m. after a call from the patient's nurse stating he was having bleeding through his dressing. The patient's dressing is removed. The patient is continuing to have oozing from a small area more medial on the incision. Reginald and sutures remain intact. The area is thoroughly cleaned, Xeroform is reapplied. 4 x 4's are applied and reinforced, Kerlix applied. The patient's stump is wrapped with Joe bandage x2. The patient tolerated well. The patient's stump is elevated on a pillow. Continue to closely monitor. Continue to hold Plavix today. VS,Fishbone, I+O VS, Fishbone, I+O Laboratory Tests 08/01/20 23:33 08/02/20 09:13 Vital Signs Date Time Temp Pulse Resp B/P (MAP) Pulse Ox O2 Delivery O2 Flow Rate FiO2 08/02/20 08:41 93 Nasal Cannula 3.0 08/02/20 08:00 98.2 89 18 124/61 (82) 08/02/20 04:00 50 I&O- Last 24 Hours up to 6 AM 08/02/20 06:00 Intake Total 2990 ml Balance 2990 ml Josephine Sears Aug 02, 2020 11:12
--- NOTE | 2020-08-02 12:03 | IPNPDOC ---
Date Seen The patient was seen on 08/02/20. Progress Note SUBJECTIVE: obtunded due to pain meds yesterday with rr8, given narcan. c/o 8/10 pain in the left aka this am. no fever no chills. no bloody drainag overnight at the left aka site. OBJECTIVE PHYSICAL EXAMINATION: VITAL SIGNS: Please see below. GEN:speaks in full sentences. no distress HEENT: no pallor or jvd. dry mm lungs: CTAB heart: S1S2 no S3 abd: +bs soft nt nd ext: b/l AKA . left LE bandaged LABORATORY DATA, IMAGING STUDIES, MICROBIOLOGY: Please see below. ASSESSMENT AND PLAN: PROBLEMS: left foot/heel gangrene s/p left AKA w blood loss 25ml postop at the bedside opioid-induced acute encephalopathy needing narcan opioid-induced Respiratory depression needing narcan CVA with L upper extremity contracture Hypercholesterolemia Hypertension Peripheral vascular disease with R AKA Atrial fibrillation COPD GERD CKD Arthritis Anxiety / Depression Dementia Hernia Repair - 05/03/20 Ureteral stent PLAN: reversed with narcan last night due to opioid-induced respiratory depression and encephalopathy. improved and back to baseline mentation this morning. vascular surgery for postop mgt including pain meds, dressing changes, activity, and dvt prophylaxis. ARU screen. VS, I&O, 24H, Don Vital Signs/I&O Vital Signs Date Time Temp Pulse Resp B/P (MAP) Pulse Ox O2 Delivery O2 Flow Rate FiO2 08/02/20 08:41 93 Nasal Cannula 3.0 08/02/20 08:00 98.2 89 18 124/61 (82) 08/02/20 04:00 50 I&O- Last 24 Hours up to 6 AM 08/02/20 06:00 Intake Total 2990 ml Balance 2990 ml Laboratory Data 24H LABS Laboratory Tests 2 08/01/20 22:30: Blood Gas Bicarbonate Standard 23.8, Arterial Blood pH 7.460H, Arterial Blood Partial Pressure CO2 32.1L, Arterial Blood Partial Pressure O2 67.9L, Arterial Blood Total CO2 23.3, Arterial Blood HCO3 22.3, Arterial Blood Base Excess -0.7, Arterial Blood Oxygen Saturation 95.4 08/01/20 23:33: Immature Granulocyte % (Auto) 2.3, Neutrophils (%) (Auto) 84.6H, Lymphocytes (%) (Auto) 3.2L, Monocytes (%) (Auto) 9.5H, Eosinophils (%) (Auto) 0.2, Basophils (%) (Auto) 0.2, Neutrophils # (Auto) 14.9H, Lymphocytes # (Auto) 0.6L, Monocytes # (Auto) 1.7H, Eosinophils # (Auto) 0.0, Basophils # (Auto) 0.0, Nucleated Red Blood Cells % (auto) 0.0, Anion Gap 7L, Glomerular Filtration Rate > 60.0, Lactic Acid Level 1.0, Calcium Level 8.9, Total Bilirubin 0.6, Direct Bilirubin 0.4H, Aspartate Amino Transf (AST/SGOT) 104H, Alanine Aminotransferase (ALT/SGPT) 62, Alkaline Phosphatase 159H, Total Creatine Kinase 22L, Creatine Kinase MB < 1.0, Creatine Kinase MB Relative Index 4.55H, Troponin I < 0.02, C- Reactive Protein, Quantitative 8.47H, Total Protein 4.8L, Albumin 1.5L, Albumin/Globulin Ratio 0.5 08/02/20 07:58: Random Vancomycin Level 8.4 08/02/20 09:13: Immature Granulocyte % (Auto) 3.8H, Neutrophils (%) (Auto) 83.7H, Lymphocytes (%) (Auto) 3.5L, Monocytes (%) (Auto) 8.6H, Eosinophils (%) (Auto) 0.1, Baso phils (%) (Auto) 0.3, Neutrophils # (Auto) 18.0H, Lymphocytes # (Auto) 0.8L, Monocytes # (Auto) 1.9H, Eosinophils # (Auto) 0.0, Basophils # (Auto) 0.1, Nucleated Red Blood Cells % (auto) 0.0, Anion Gap 8, Glomerular Filtration Rate > 60.0, Calcium Level 9.2, Total Bilirubin 0.7, Aspartate Amino Transf (AST/SGOT) 113H, Alanine Aminotransferase (ALT/SGPT) 66, Alkaline Phosphatase 162H, Total Creatine Kinase 35L, Creatine Kinase MB < 1.0, Creatine Kinase MB Relative Index 2.86, Troponin I 0.02, C-Reactive Protein, Quantitative 10.40H, Total Protein 5.2L, Albumin 1.7L, Albumin/Globulin Ratio 0.5, Erythrocyte Sedimentation Rate 56H, Magnesium Level 1.8, Ammonia 22, Procalcitonin 0.92 CBC/BMP Laboratory Tests 08/01/20 23:33 08/02/20 09:13 Microbiology Microbiology 08/02/20 Gram Stain - Final, Complete 08/02/20 Sputum Culture - Final, Complete 08/01/20 Blood Culture - Preliminary, Resulted No growth after 24 hours . All specim... RADHA JIMÉNEZ MD Aug 02, 2020 12:03
[2020-08-02] MEDS: SERTRALINE HCL 25 MG TABLET PO SCH (21:18)
[2020-08-02] MEDS: traZODone 50 MG TAB PO SCH (21:18)
[2020-08-03] VITALS (16 sets, daily range): BP systolic 110–131; BP diastolic 67–85; O2SAT 91–95
[2020-08-03] MEDS: PIPERACILLIN/TAZOBACTAM SOD 2.25 GM in D5W MINI-BAG PLUS 50 ML IV SCH ×3 (06:34→22:57)
[2020-08-03 07:09] LABS: HEMATOCRIT 40.4 % (42.0-52.0); HEMOGLOBIN 12.8 g/dl (13.5-17.5); MEAN CORPUSCULAR HEMOGLOBIN 27.5 pg (27.0-33.0); MEAN CORPUSCULAR HGB CONC 31.7 g/dl (32.0-36.5); MEAN CORPUSCULAR VOLUME 86.9 fl (80.0-96.0); RED BLOOD COUNT 4.65 10^6/uL (4.30-6.10); WHITE BLOOD COUNT 23.6 10^3/uL (4.0-10.0)
[2020-08-03 07:23] LABS: PLATELET COUNT, AUTOMATED 756 10^3/uL (150-450)
[2020-08-03 07:34] LABS: BLOOD UREA NITROGEN 17 MG/DL (7-18); CALCIUM LEVEL 9.8 MG/DL (8.8-10.2); CARBON DIOXIDE LEVEL 23 MEQ/L (21-32); CHLORIDE LEVEL 105 MEQ/L (98-107); CREATININE FOR GFR 0.63 MG/DL (0.70-1.30); GLOMERULAR FILTRATION RATE > 60.0 (>42); GLUCOSE, FASTING 92 MG/DL (70-100); POTASSIUM SERUM 3.3 MEQ/L (3.5-5.1); SODIUM LEVEL 137 MEQ/L (136-145); VANCOMYCIN RANDOM 7.3 UG/ML
[2020-08-03] MEDS ORDERED: VANCOMYCIN HCL 1,000 MG, VIAL MATE ADAPTER 1 EACH in D5W 250 ML IV SCH (08:00)
[2020-08-03] MEDS: DULoxetine 30 MG CAP (CYMBALTA) PO SCH ×2 (08:05→21:29)
[2020-08-03] MEDS: ATORVASTATIN 10 MG TAB PO SCH (08:05)
[2020-08-03] MEDS: MIRALAX *UNIT DOSE* 17GM PACKET PO SCH ×2 (08:05→21:28)
[2020-08-03] MEDS: ACETAMINOPHEN TAB 650MG DOSE (2X325MG) PO PRN ×2 (08:05→13:30)
[2020-08-03] MEDS ORDERED: POTASSIUM CHLORIDE 10 MEQ SR TABLET PO ONE (09:00)
--- NOTE | 2020-08-03 10:52 | IPNPDOC ---
Date Seen The patient was seen on 08/03/20. Progress Note SUBJECTIVE: cough on hcap iv vanco zosyn w increased wbc. no cp pressure tightness no fever or chills c/o pain left aka-no bloody drainage OBJECTIVE PHYSICAL EXAMINATION: VITAL SIGNS: Please see below. GEN:no distress no use of resp acc mm aao to person HEENT: no pallor or jvd. dry mm lungs: dimnished crackles at bases heart: S1S2 no S3 abd: +bs soft nt nd ext: b/l AKA . left LE bandaged LABORATORY DATA, IMAGING STUDIES, MICROBIOLOGY: Please see below. ASSESSMENT AND PLAN: PROBLEMS: left foot/heel gangrene s/p left AKA w blood loss 25ml postop at the bedside HCAP opioid-induced acute encephalopathy needing narcan opioid-induced Respiratory depression needing narcan CVA with L upper extremity contracture Hypercholesterolemia Hypertension Peripheral vascular disease with R AKA Atrial fibrillation COPD GERD CKD Arthritis Anxiety / Depression Dementia Hernia Repair - 05/03/20 Ureteral stent PLAN: had an episode of ams due to opioids 2days ago reversed with narcan increased wbc cxr: infiltrate on iv zosyn and vanco for hcap sputum cx oropharyngeal. urine legionella and strep pending postop mgt per vascular surgery no fever or c/o chills. procalcitonin 0.9. VS, I&O, 24H, Fishbone Vital Signs/I&O Vital Signs Date Time Temp Pulse Resp B/P (MAP) Pulse Ox O2 Delivery O2 Flow Rate FiO2 08/03/20 07:33 97.9 89 18 131/77 (95) 94 Room Air 08/02/20 16:00 3.0 08/02/20 07:00 50 I&O- Last 24 Hours up to 6 AM 08/03/20 06:00 Intake Total 1110 ml Output Total 0 ml Balance 1110 ml Laboratory Data 24H LABS Laboratory Tests 2 08/02/20 07:58: Random Vancomycin Level 8.4 08/02/20 09:13: Immature Granulocyte % (Auto) 3.8H, Neutrophils (%) (Auto) 83.7H, Lymphocytes (%) (Auto) 3.5L, Monocytes (%) (Auto) 8.6H, Eosinophils (%) (Auto) 0.1, Basophils (%) (Auto) 0.3, Neutrophils # (Auto) 18.0H, Lymphocytes # (Auto) 0.8L, Monocytes # (Auto) 1.9H, Eosinophils # (Auto) 0.0, Basophils # (Auto) 0.1, Nucleated Red Blood Cells % (auto) 0.0, Erythrocyte Sedimentation Rate 56H, Anion Gap 8, Glomerular Filtration Rate > 60.0, Calcium Level 9.2, Magnesium Level 1.8, Total Bilirubin 0.7, Aspartate Amino Transf (AST/SGOT) 113H, Alanine Aminotransferase (ALT/SGPT) 66, Alkaline Phosphatase 162H, Ammonia 22, Total Creatine Kinase 35L, Creatine Kinase MB < 1.0, Creatine Kinase MB Relative Index 2.86, Troponin I 0.02, C-Reactive Protein, Quantitative 10.40H, Total Protein 5.2L, Albumin 1.7L, Albumin/Globulin Ratio 0.5, Procalcitonin 0.92 08/03/20 06:44: Random Vancomycin Level 7.3, Nucleated Red Blood Cells % (auto) 0.0, Anion Gap 9, Glomerular Filtration Rate > 60.0, Calcium Level 9.8 CBC/BMP Laboratory Tests 08/02/20 09:13 08/03/20 06:44 Microbiology Microbiology 08/02/20 Gram Stain - Final, Complete 08/02/20 Sputum Culture - Final, Complete 08/01/20 Blood Culture - Preliminary, Resulted No Growth after 48 hours. All Specime... RADHA JIMÉNEZ MD Aug 03, 2020 07:55
--- NOTE | 2020-08-03 16:00 | IPNPDOC ---
Date Seen The patient was seen on 08/03/20. Progress Note Patient seen and examined POD #3 s/p L AKA for ischemia and gangrene. He says he is doing ok today. No c/o pain. His lunch tray is sitting on his table- mostly untouched. He has an ensure open, maybe a few sips have been taken. He says he has no appetite. He has severe protein malnutrition based on muscle wasting, cachexia, and intraop findings. He is becoming more contracted and contorted. It is hard to position him in bed. I am worried about him. He seems to have failure to thrive, and I have given him a lot of encouragement, but he is content now to have a little ice water only and does not want to try to eat anything. His L AKA stump continues to have a slow periodic ooze from the mid medial segment. No active bleeding during dressing changes, but shadowing on the dressing present daily. Likely occurs with repositioning. We have tried to make sure he has adequate compression with mu wraps, and continue to hold his plavix, but he is still having this ooze. Coagulopathy is possible, despite holding antiplatelets and discontinuing plavix. Today, there are some blisters around the distal incision. No induration or cellulitis, no s/o infection are present, but he is already so tenuous to heal that I am very concerned with the blisters. He needs compression to minimize oozing, but has such poor tissue quality that this is resulting in blistering. We have tried to make sure the mu wraps are no too tight, but he is so thin and fragile any compression is challenging for him to tolerate. Ultimately, if the oozing does not stop, he may need a return to OR to identify source and improve hemostasis, but we hope to avoid this if possible. Further recommendations to follow. VS, I&O, 24H, Fishbone Vital Signs/I&O Vital Signs Date Time Temp Pulse Resp B/P (MAP) Pulse Ox O2 Delivery O2 Flow Rate FiO2 08/03/20 12:00 97.5 93 18 128/78 (95) 94 Room Air 08/02/20 16:00 3.0 08/02/20 07:00 50 I&O- Last 24 Hours up to 6 AM 08/03/20 06:00 Intake Total 1110 ml Output Total 0 ml Balance 1110 ml Laboratory Data 24H LABS Laboratory Tests 2 08/03/20 06:44: Nucleated Red Blood Cells % (auto) 0.0, Anion Gap 9, Glomerular Filtration Rate > 60.0, Calcium Level 9.8, Random Vancomycin Level 7.3 CBC/BMP Laboratory Tests 08/03/20 06:44 Microbiology Microbiology 08/02/20 Gram Stain - Final, Complete 08/02/20 Sputum Culture - Final, Complete 08/01/20 Blood Culture - Preliminary, Resulted No Growth after 48 hours. All Specime... JUAN MIGUEL MURILLO MD Aug 03, 2020 16:00
[2020-08-03] MEDS: traZODone 50 MG TAB PO SCH (21:28)
[2020-08-03] MEDS: SERTRALINE HCL 25 MG TABLET PO SCH (21:28)
[2020-08-03] MEDS: VANCOMYCIN HCL 750 MG, VIAL MATE ADAPTER 1 EACH in D5W 250 ML IV SCH (21:29)
[2020-08-04] VITALS: BP 101/59
[2020-08-04 04:00] VITALS: BP 82/54
[2020-08-04] MEDS: PIPERACILLIN/TAZOBACTAM SOD 2.25 GM in D5W MINI-BAG PLUS 50 ML IV SCH ×3 (05:08→22:00)
[2020-08-04 06:06] LABS: HEMATOCRIT 34.5 % (42.0-52.0); HEMOGLOBIN 10.9 g/dl (13.5-17.5); MEAN CORPUSCULAR HEMOGLOBIN 27.8 pg (27.0-33.0); MEAN CORPUSCULAR HGB CONC 31.6 g/dl (32.0-36.5); PLATELET COUNT, AUTOMATED 662 10^3/uL (150-450); RED BLOOD COUNT 3.92 10^6/uL (4.30-6.10); WHITE BLOOD COUNT 22.6 10^3/uL (4.0-10.0)
[2020-08-04 06:25] LABS: BLOOD UREA NITROGEN 15 MG/DL (7-18); CALCIUM LEVEL 8.6 MG/DL (8.8-10.2); CARBON DIOXIDE LEVEL 24 MEQ/L (21-32); CHLORIDE LEVEL 105 MEQ/L (98-107); CREATININE FOR GFR 0.54 MG/DL (0.70-1.30); GLOMERULAR FILTRATION RATE > 60.0 (>42); GLUCOSE, FASTING 88 MG/DL (70-100); SODIUM LEVEL 138 MEQ/L (136-145)
[2020-08-04 07:48] VITALS: BP 116/66
[2020-08-04] MEDS: HYDROmorphone 2 MG TAB PO PRN ×2 (08:33→18:15)
--- NOTE | 2020-08-04 10:59 | IPNPDOC ---
Date Seen The patient was seen on 08/04/20. Progress Note SUBJECTIVE: bleeding improved with dressing changes. no fever or chills. despite increased wbc, pt had no clear diarrhea to suspect cdiff. brown stools not watery but on bowel regimen. still cough thick sputum sent to micro this am. no other c/o. not oozing from left aka site anymore after dressing packed by vascular yesterday. received pain pill this am, and sleepy. OBJECTIVE PHYSICAL EXAMINATION: VITAL SIGNS: Please see below. GEN:lethargic but arousable. not confused answered appropriately but went sleep quickly. HEENT: no pallor or jvd. dry mm lungs: dimnished crackles at bases heart: S1S2 no S3 abd: +bs soft nt nd ext: b/l AKA . left LE bandaged LABORATORY DATA, IMAGING STUDIES, MICROBIOLOGY: Please see below. ASSESSMENT AND PLAN: PROBLEMS: left foot/heel gangrene s/p left AKA w blood loss 25ml postop at the bedside HCAP opioid-induced acute encephalopathy needing narcan opioid-induced Respiratory depression needing narcan CVA with L upper extremity contracture Hypercholesterolemia Hypertension Peripheral vascular disease with R AKA Atrial fibrillation COPD GERD CKD Arthritis Anxiety / Depression Dementia Hernia Repair - 05/03/20 Ureteral stent PLAN: continue present mgt . on broad spectrum abx for hcap, but still increased wbc which may be reactive. will track procalcitonin and monitor for cdiff. onbowel regimen and no watery stools. wound care and postop mgt per vascular surgery. await sputum cx and deescalate abx. VS, I&O, 24H, Fishbone Vital Signs/I&O Vital Signs Date Time Temp Pulse Resp B/P (MAP) Pulse Ox O2 Delivery O2 Flow Rate FiO2 08/04/20 08:33 20 08/04/20 07:48 98.8 103 116/66 (83) 93 Room Air 08/02/20 16:00 3.0 08/02/20 07:00 50 I&O- Last 24 Hours up to 6 AM 08/04/20 06:00 Intake Total 970 ml Output Total 0 ml Balance 970 ml Laboratory Data 24H LABS Laboratory Tests 2 08/04/20 05:17: Nucleated Red Blood Cells % (auto) 0.0, Anion Gap 9, Glomerular Filtration Rate > 60.0, Calcium Level 8.6L 08/04/20 07:56: Vancomycin Level Trough 15.1 CBC/BMP Laboratory Tests 08/04/20 05:17 Microbiology Microbiology 08/02/20 Gram Stain - Final, Complete 08/02/20 Sputum Culture - Final, Complete 08/01/20 Blood Culture - Preliminary, Resulted No Growth after 72 hours. All specime... RADHA JIMÉNEZ MD Aug 04, 2020 10:52
[2020-08-04 12:00] VITALS: BP 117/59
[2020-08-04] MEDS: MIRALAX *UNIT DOSE* 17GM PACKET PO SCH ×2 (12:03→20:22)
[2020-08-04] MEDS: VANCOMYCIN HCL 750 MG, VIAL MATE ADAPTER 1 EACH in D5W 250 ML IV SCH ×2 (12:09→20:16)
[2020-08-04] MEDS: DULoxetine 30 MG CAP (CYMBALTA) PO SCH ×2 (12:09→20:17)
[2020-08-04] MEDS: ATORVASTATIN 10 MG TAB PO SCH (12:09)
[2020-08-04] MEDS: ACETAMINOPHEN TAB 650MG DOSE (2X325MG) PO PRN (14:19)
--- NOTE | 2020-08-04 14:20 | IPNPDOC ---
Date Seen The patient was seen on 08/04/20. Progress Note Patient seen and examined POD #5 s/p L AKA for ischemia and gangrene. He says he is doing pretty good today. No c/o pain. His lunch tray is sitting on his table- mostly untouched. The nurse has tried multiple times to feed him, but mostly he has consistently refused. He has an ensure open, maybe a few sips have been taken, but he would not drink any more for me. Only wants ice water. He says he has no appetite. He has severe protein malnutrition based on muscle wasting, cachexia, and intraop findings. He is becoming more contracted and contorted. It is hard to position him in bed. I am worried about him. He seems to have failure to thrive, and I continue to give him a lot of encouragement, but he is content now to have a little ice water only and does not want to try to eat anything. His L BILLA stump no longer has an ooze from the mid medial segment. No active bleeding during dressing change. Today, the small blisters at the distal stump are stable, but still concerning. No induration or cellulitis, no s/o infection are present, but he is already so tenuous to heal that I am very concerned with the blisters. He has such poor tissue quality that any small thing can set back healing. We thoroughly cleaned the stump, xeroform placed over the incision and blistered skin, 4x4s, kerlex, loose mu wrap to avoid pressure on the skin. The patient tolerated this well. We will continue to follow. We appreciate the opportunity to participate in the care of this patient. VS, I&O, 24H, Fishbone Vital Signs/I&O Vital Signs Date Time Temp Pulse Resp B/P (MAP) Pulse Ox O2 Delivery O2 Flow Rate FiO2 08/04/20 09:30 20 08/04/20 07:48 98.8 103 116/66 (83) 93 Room Air 08/02/20 16:00 3.0 08/02/20 07:00 50 I&O- Last 24 Hours up to 6 AM 08/04/20 06:00 Intake Total 970 ml Output Total 0 ml Balance 970 ml Laboratory Data 24H LABS Laboratory Tests 2 08/04/20 05:17: Nucleated Red Blood Cells % (auto) 0.0, Anion Gap 9, Glomerular Filtration Rate > 60.0, Calcium Level 8.6L 08/04/20 07:56: Vancomycin Level Trough 15.1 CBC/BMP Laboratory Tests 08/04/20 05:17 Microbiology Microbiology 08/02/20 Gram Stain - Final, Complete 08/02/20 Sputum Culture - Final, Complete 08/01/20 Blood Culture - Preliminary, Resulted No Growth after 72 hours. All specime... JUAN MIGUEL MURILLO MD Aug 04, 2020 14:20
[2020-08-04 16:00] VITALS: BP 108/57
[2020-08-04 20:00] VITALS: BP 90/50
[2020-08-04] MEDS: SERTRALINE HCL 25 MG TABLET PO SCH (20:16)
[2020-08-04] MEDS: traZODone 50 MG TAB PO SCH (20:17)
[2020-08-05] VITALS (8 sets, daily range): BP systolic 82–112; BP diastolic 50–68
[2020-08-05] MEDS: PIPERACILLIN/TAZOBACTAM SOD 2.25 GM in D5W MINI-BAG PLUS 50 ML IV SCH ×3 (05:22→20:25)
--- NOTE | 2020-08-05 07:41 | IPNPDOC ---
Date Seen The patient was seen on 08/05/20. Progress Note SUBJECTIVE: oozing at the left aka stump, but hgb stable. poor appetite and not drinking his ensure no c/o fever/chills/diarrhea. unable to obtain ua despite multiple attemps at catheterization. OBJECTIVE PHYSICAL EXAMINATION: VITAL SIGNS: Please see below. GEN:answers questions appropriately contracted left hand aaox [address] no use of resp acc mm. HEENT: no pallor or jvd. dry mm lungs: dimnished heart: S1S2 no S3 abd: +bs soft nt nd ext: b/l AKA . left LE bandaged-oozing w blister in medial aspect. LABORATORY DATA, IMAGING STUDIES, MICROBIOLOGY: Please see below. ASSESSMENT AND PLAN: PROBLEMS: left foot/heel gangrene s/p left AKA w blood loss 25ml postop at the bedside -continues to have venous oozing but hgb stable -managed by vascular surgery -continue to hold antiplatelet due to bleed HCAP -on iv vanco zosyn -afebrile but increased wbc -no diarrhea and on bowel regimen . unlikely cdiff -acapella -serial procalcitonin opioid-induced acute encephalopathy needing narcan -resolved opioid-induced Respiratory depression needing narcan -resolved CVA with L upper extremity contracture -aru screen Hypercholesterolemia -chronic Hypertension -controlled Peripheral vascular disease with R AKA -per vascular surgery Atrial fibrillation -oral ac held due to bloody discharge from left aka site -rate controlled COPD -compensated -prn nebs GERD -ppi CKD -at baseline -avoiding nephrotoxins, renally dosing meds -pharm d consulted for iv vanco dosing Arthritis -chronic Anxiety / Depression -chronic Dementia -complicating care VS, I&O, 24H, Fishbone Vital Signs/I&O Vital Signs Date Time Temp Pulse Resp B/P (MAP) Pulse Ox O2 Delivery O2 Flow Rate FiO2 08/05/20 04:00 0.5 08/05/20 04:00 97.9 85 18 110/68 (82) 96 Nasal Cannula 08/02/20 07:00 50 I&O- Last 24 Hours up to 6 AM 08/05/20 05:59 Intake Total 1295 ml Balance 1295 ml Laboratory Data 24H LABS Laboratory Tests 2 08/04/20 07:56: Vancomycin Level Trough 15.1 Microbiology Microbiology 08/04/20 Gram Stain, Received Pending 08/04/20 Sputum Culture, Received Pending 08/02/20 Gram Stain - Final, Complete 08/02/20 Sputum Culture - Final, Complete 08/01/20 Blood Culture - Preliminary, Resulted No Growth after 72 hours. All specime... RADHA JIMÉNEZ MD Aug 05, 2020 07:37
[2020-08-05 08:24] LABS: HEMATOCRIT 34.5 % (42.0-52.0); HEMOGLOBIN 10.8 g/dl (13.5-17.5); MEAN CORPUSCULAR HEMOGLOBIN 27.6 pg (27.0-33.0); MEAN CORPUSCULAR HGB CONC 31.3 g/dl (32.0-36.5); PLATELET COUNT, AUTOMATED 596 10^3/uL (150-450); RED BLOOD COUNT 3.92 10^6/uL (4.30-6.10); WHITE BLOOD COUNT 20.1 10^3/uL (4.0-10.0)
[2020-08-05 08:50] LABS: BLOOD UREA NITROGEN 11 MG/DL (7-18); CALCIUM LEVEL 8.7 MG/DL (8.8-10.2); CARBON DIOXIDE LEVEL 24 MEQ/L (21-32); CHLORIDE LEVEL 105 MEQ/L (98-107); CREATININE FOR GFR 0.56 MG/DL (0.70-1.30); GLOMERULAR FILTRATION RATE > 60.0 (>42); GLUCOSE, FASTING 78 MG/DL (70-100); POTASSIUM SERUM 3.7 MEQ/L (3.5-5.1); SODIUM LEVEL 138 MEQ/L (136-145); VANCOMYCIN LEVEL TROUGH 20.5 UG/ML (10.0-20.0)
[2020-08-05] MEDS: DULoxetine 30 MG CAP (CYMBALTA) PO SCH ×2 (08:55→20:24)
[2020-08-05] MEDS: ATORVASTATIN 10 MG TAB PO SCH (08:55)
[2020-08-05] MEDS: PERCOCET 5MG/325MG TAB PO PRN ×2 (08:56→22:31)
[2020-08-05] MEDS: MIRALAX *UNIT DOSE* 17GM PACKET PO SCH ×2 (08:56→20:24)
--- NOTE | 2020-08-05 09:42 | IPNPDOC ---
Date Seen The patient was seen on 08/05/20. Progress Note Patient seen and examined POD #6 s/p L CLAUDETTE for ischemia and gangrene. He says he tired today. No c/o pain. He says he has no appetite but would like a coke over ice. He has severe protein malnutrition based on muscle wasting, cachexia, and intraop findings. He is becoming more contracted and contorted. It is hard to position him in bed. I continue to be worried about him. He seems to have fail ure to thrive, and I continue to give him a lot of encouragement, but he is content now to have a little coke over ice and ice water, and does not want to try to eat anything. His daughter wants to bring him oreos and crackers and says he loves those, but unfortunately this is not going to help with overall nutrition. His L AKA stump no longer has an ooze from the mid medial segment. No active bl eeding during dressing change. I d/w hospitalist that it is ok to restart plavix tomorrow. We will not restart eliquis since this was only started for lower extremity arterial perfusion, and he is now s/p B AKA. Dressings changed and incision thoroughly cleaned. The small blisters at the distal stump are a little better today, but still concerning. No induration or cellulitis, no s/o infection are present, but he is already so tenuous to heal that I am very concerned with the blisters. He has such poor tissue quality that any small thing can set back healing. We thoroughly cleaned the stump, xeroform placed over the incision and blistered skin, 4x4s, kerlex, loose mu wrap to avoid pressure on the skin. The patient tolerated this well. We will continue to follow. We appreciate the opportunity to participate in the care of this patient. VS, I&O, 24H, Fishbone Vital Signs/I&O Vital Signs Date Time Temp Pulse Resp B/P (MAP) Pulse Ox O2 Delivery O2 Flow Rate FiO2 08/05/20 08:56 20 08/05/20 08:00 97.8 91 102/60 (74) 90 Nasal Cannula 1.0 08/02/20 07:00 50 I&O- Last 24 Hours up to 6 AM 08/05/20 05:59 Intake Total 1295 ml Balance 1295 ml Laboratory Data 24H LABS Laboratory Tests 2 08/05/20 07:57: Nucleated Red Blood Cells % (auto) 0.0, Anion Gap 9, Glomerular Filtration Rate > 60.0, Calcium Level 8.7L, Vancomycin Level Trough 20.5H CBC/BMP Laboratory Tests 08/05/20 07:57 Microbiology Microbiology 08/04/20 Gram Stain - Final, Resulted 08/04/20 Sputum Culture, Resulted Pending 08/02/20 Gram Stain - Final, Complete 08/02/20 Sputum Culture - Final, Complete 08/01/20 Blood Culture - Preliminary, Resulted No Growth after 72 hours. All specime... JUAN MIGUEL MURILLO MD Aug 05, 2020 09:42
[2020-08-05] MEDS: VANCOMYCIN HCL 750 MG, VIAL MATE ADAPTER 1 EACH in D5W 250 ML IV SCH (12:13)
[2020-08-05] MEDS ORDERED: NS 500 ML IV ONE (12:30)
[2020-08-05] MEDS: SERTRALINE HCL 25 MG TABLET PO SCH (20:24)
[2020-08-05] MEDS: traZODone 50 MG TAB PO SCH (20:24)
[2020-08-05] MEDS: ACETAMINOPHEN TAB 650MG DOSE (2X325MG) PO PRN (20:27)
[2020-08-06] VITALS: BP 100/60
[2020-08-06] MEDS: VANCOMYCIN HCL 750 MG, VIAL MATE ADAPTER 1 EACH in D5W 250 ML IV SCH ×3
[2020-08-06 04:00] VITALS: BP 100/62
[2020-08-06] MEDS: PERCOCET 5MG/325MG TAB PO PRN ×5 (04:10→20:42)
[2020-08-06] MEDS: PIPERACILLIN/TAZOBACTAM SOD 2.25 GM in D5W MINI-BAG PLUS 50 ML IV SCH ×3 (04:10→22:35)
[2020-08-06 06:16] LABS: HEMOGLOBIN 10.8 g/dl (13.5-17.5); MEAN CORPUSCULAR HEMOGLOBIN 28.1 pg (27.0-33.0); MEAN CORPUSCULAR HGB CONC 31.8 g/dl (32.0-36.5); MEAN CORPUSCULAR VOLUME 88.5 fl (80.0-96.0); PLATELET COUNT, AUTOMATED 499 10^3/uL (150-450); RED BLOOD COUNT 3.84 10^6/uL (4.30-6.10); WHITE BLOOD COUNT 16.9 10^3/uL (4.0-10.0)
[2020-08-06 06:45] LABS: BLOOD UREA NITROGEN 10 MG/DL (7-18); CALCIUM LEVEL 8.5 MG/DL (8.8-10.2); CARBON DIOXIDE LEVEL 26 MEQ/L (21-32); CHLORIDE LEVEL 105 MEQ/L (98-107); CREATININE FOR GFR 0.64 MG/DL (0.70-1.30); GLOMERULAR FILTRATION RATE > 60.0 (>42); GLUCOSE, FASTING 91 MG/DL (70-100); POTASSIUM SERUM 3.1 MEQ/L (3.5-5.1); SODIUM LEVEL 136 MEQ/L (136-145)
[2020-08-06] MEDS ORDERED: POTASSIUM CHLORIDE 10 MEQ SR TABLET PO ONE (07:15)
[2020-08-06 08:00] VITALS: BP 101/50
--- NOTE | 2020-08-06 09:33 | IPNPDOC ---
Date Seen The patient was seen on 08/06/20. Progress Note Patient seen and examined POD #7 s/p L AKA for ischemia and gangrene. He says he tired again today. Mild c/o pain left AKA stump. His nurse as he did eat a banana and part of his breakfast today, which is very encouraging. He has severe protein malnutrition based on muscle wasting, cachexia, and intraop findings. He is becoming more contracted and contorted. It is hard to position him in bed. I continue to be worried about him, but any nutrition is helpful. His L AKA stump no longer has an ooze from the mid medial segment. No active bleeding during dressing change today. I restarted the Plavix today. We will not restart eliquis since this was only started for lower extremity arterial pe rfusion, and he is now s/p B AKA. Dressings changed and incision thoroughly cleaned. The small blisters at the distal stump are a little better again today, but still concerning. No induration or cellulitis, no erythema, no s/o infection are present, but he is already so tenuous to heal that I am very concerned with the small blisters. He has such poor tissue quality that any small thing can set back healing. We thoroughly cleaned the stump, xeroform placed over the incision and blistered skin, 4x4s, kerlex, loose mu wrap to avoid pressure on the skin. The patient tolerated this well. We will continue to follow. We appreciate the opportunity to participate in the care of this patient. VS, I&O, 24H, Fishbone Vital Signs/I&O Vital Signs Date Time Temp Pulse Resp B/P (MAP) Pulse Ox O2 Delivery O2 Flow Rate FiO2 08/06/20 08:00 97.8 87 18 101/50 (67) 94 Nasal Cannula 1.0 08/02/20 07:00 50 I&O- Last 24 Hours up to 6 AM 08/06/20 05:59 Intake Total 1470 ml Output Total 0 ml Balance 1470 ml Laboratory Data 24H LABS Laboratory Tests 2 08/06/20 05:48: Nucleated Red Blood Cells % (auto) 0.0, Anion Gap 5L, Glomerular Filtration Rate > 60.0, Calcium Level 8.5L CBC/BMP Laboratory Tests 08/06/20 05:48 Microbiology Microbiology 08/04/20 Gram Stain - Final, Complete 08/04/20 Sputum Culture - Final, Complete Staph.aureus Methicillin Resis 08/02/20 Gram Stain - Final, Complete 08/02/20 Sputum Culture - Final, Complete 08/01/20 Blood Culture - Final, Complete NO GROWTH AFTER 5 DAYS JUAN MIGUEL MURILLO MD Aug 06, 2020 09:33
[2020-08-06] MEDS: DULoxetine 30 MG CAP (CYMBALTA) PO SCH ×2 (09:51→20:22)
[2020-08-06] MEDS: CLOPIDOGREL 75 MG TAB PO SCH (09:51)
[2020-08-06] MEDS: ATORVASTATIN 10 MG TAB PO SCH (09:54)
[2020-08-06] MEDS: MIRALAX *UNIT DOSE* 17GM PACKET PO SCH ×2 (09:54→20:23)
[2020-08-06 11:56] VITALS: BP 112/74
--- NOTE | 2020-08-06 12:20 | IPNPDOC ---
Text Note Date of Service The patient was seen on 08/06/20. NOTE SUBJECTIVE: Complains of feeling tired, suboptimal oral intake. No oozing from left AKA stump today as per Dr Kim. Failed catheterization before. Still has blisters at the stump. Complains of left shoulder pain. Noted patient tends to lean to the left always. PHYSICAL EXAMINATION: VITAL SIGNS: Please see below. GEN: answers questions appropriately contracted left upper extremity, alert and oriented. HEENT: Normocephalic, atraumatic, moist mucous membranes, anicteric eyes. Neck : No JVD, no thyromegaly Chest: Bilateral anteriorly clear to auscultation, Bilateral basal crackles and diminished at the bases. CVS:: Normal S1, S2 , normal rate, irregular heart rate, No rub or murmur or gallop, No JVD. ABD: Soft, nontender, no organomegaly appreciated, normal bowel sounds. Ext: b/l AKA . Left LE bandaged., No edema. LABORATORY DATA, IMAGING STUDIES, MICROBIOLOGY: ASSESSMENT AND PLAN: 80-year-old male with a history of CVA with left upper extremity contracture, A. 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 hospital course has been complicated by HCAP and acute metabolic encephalopathy due to medications. Left foot/heel gangrene s/p left AKA #7 s/p L AKA for ischemia and gangrene managed by vascular surgery restarted on Plavix HCAP Sputum: MRSA on iv vanco, zosyn Opioid-induced acute encephalopathy needing narcan resolved Opioid-induced Respiratory depression needing narcan resolved CVA with L upper extremity contracture chronic Hypercholesterolemia chronic Hypertension resolved. His Bp runs in low normal range which is probably normal for him at this time due to low muscle mass from b/l AKAs. Peripheral vascular disease with B/L AKA On plavix Atrial fibrillation oral ac held due to bloody discharge from left aka site rate controlled COPD compensated prn nebs GERD ppi CKD at baseline Arthritis chronic Anxiety / Depression chronic On sertraline and trazodone Dementia complicating care VS,Fishbone, I+O VS, Fishbone, I+O Laboratory Tests 08/06/20 05:48 Vital Signs Date Time Temp Pulse Resp B/P (MAP) Pulse Ox O2 Delivery O2 Flow Rate FiO2 08/06/20 09:52 16 08/06/20 08:00 97.8 87 101/50 (67) 94 Nasal Cannula 1.0 08/02/20 07:00 50 I&O- Last 24 Hours up to 6 AM 08/06/20 06:00 Intake Total 1470 ml Output Total 0 ml Balance 1470 ml RAMONA LAUGHLIN MD Aug 06, 2020 12:20
[2020-08-06] MEDS: traZODone 50 MG TAB PO SCH (20:22)
[2020-08-06] MEDS: VANCOMYCIN HCL 1,000 MG, VIAL MATE ADAPTER 1 EACH in D5W 250 ML IV SCH (20:22)
[2020-08-06] MEDS: SERTRALINE HCL 25 MG TABLET PO SCH (20:22)
[2020-08-06 22:00] VITALS: BP 125/58
[2020-08-07 02:00] VITALS: BP 108/61
[2020-08-07] MEDS: PERCOCET 5MG/325MG TAB PO PRN ×4 (02:20→20:35)
[2020-08-07 05:47] VITALS: BP 129/79
[2020-08-07] MEDS: PIPERACILLIN/TAZOBACTAM SOD 2.25 GM in D5W MINI-BAG PLUS 50 ML IV SCH ×3 (06:04→23:08)
--- NOTE | 2020-08-07 08:45 | IPNPDOC ---
Text Note Date of Service The patient was seen on 08/07/20. NOTE Vascular surgery Dr. Leonardo Patient seen and examined POD #8 s/p L AKA for ischemia and gangrene. Is sitting up eating breakfast. Mild c/o pain left AKA stump. His L AKA stump has no drainage or oozing on the dressing. No bleeding during dressing change today. The small blisters at the distal stump are unchanged. No induration or cellulitis, no erythema, no s/o infection are present. Surgical incision was thoroughly cleaned the stump, xeroform placed over the incision and blistered skin, 4x4s, kerlex, loose mu wrap to avoid pressure on the skin. The patient tolerated this well. Plavix has been restarted. We will not restart eliquis since this was only started for lower extremity arterial perfusion, and he is now s/p B AKA. We will continue to follow. We appreciate the opportunity to participate in the care of this patient. VS,Fishbone, I+O VS, Fishbone, I+O Vital Signs Date Time Temp Pulse Resp B/P (MAP) Pulse Ox O2 Delivery O2 Flow Rate FiO2 08/07/20 05:47 97.6 89 17 129/79 (96) 95 Room Air 08/06/20 11:56 1.0 08/02/20 07:00 50 I&O- Last 24 Hours up to 6 AM 08/07/20 05:59 Intake Total 520 ml Output Total 0 ml Balance 520 ml Josephine Sears Aug 07, 2020 08:45
[2020-08-07] MEDS: DULoxetine 30 MG CAP (CYMBALTA) PO SCH ×2 (08:53→20:35)
[2020-08-07] MEDS: CLOPIDOGREL 75 MG TAB PO SCH (08:53)
[2020-08-07] MEDS: ATORVASTATIN 10 MG TAB PO SCH (08:53)
[2020-08-07] MEDS: MIRALAX *UNIT DOSE* 17GM PACKET PO SCH ×2 (08:54→20:36)
[2020-08-07 09:25] LABS: HEMATOCRIT 37.4 % (42.0-52.0); HEMOGLOBIN 11.6 g/dl (13.5-17.5); MEAN CORPUSCULAR HEMOGLOBIN 27.5 pg (27.0-33.0); MEAN CORPUSCULAR VOLUME 88.6 fl (80.0-96.0); PLATELET COUNT, AUTOMATED 565 10^3/uL (150-450); RED BLOOD COUNT 4.22 10^6/uL (4.30-6.10); WHITE BLOOD COUNT 21.5 10^3/uL (4.0-10.0)
[2020-08-07 09:39] LABS: BLOOD UREA NITROGEN 11 MG/DL (7-18); CALCIUM LEVEL 8.5 MG/DL (8.8-10.2); CARBON DIOXIDE LEVEL 25 MEQ/L (21-32); CHLORIDE LEVEL 104 MEQ/L (98-107); CREATININE FOR GFR 0.85 MG/DL (0.70-1.30); GLOMERULAR FILTRATION RATE > 60.0 (>42); GLUCOSE, FASTING 128 MG/DL (70-100); POTASSIUM SERUM 3.6 MEQ/L (3.5-5.1); SODIUM LEVEL 138 MEQ/L (136-145)
--- NOTE | 2020-08-07 11:00 | IPNPDOC ---
Text Note Date of Service The patient was seen on 08/07/20. NOTE SUBJECTIVE: Complains of feeling tired, suboptimal oral intake. No oozing from left AKA stump any more. Failed catheterization before. Still has blisters at the stump. Complains of left stump pain. Noted patient tends to lean to the left always. WBC again going up PHYSICAL EXAMINATION: VITAL SIGNS: Please see below. GEN: answers questions appropriately contracted left upper extremity, alert and oriented. HEENT: Normocephalic, atraumatic, moist mucous membranes, anicteric eyes. Neck : No JVD, no thyromegaly Chest: Bilateral anteriorly clear to auscultation, Bilateral basal crackles and diminished at the bases. CVS:: Normal S1, S2 , normal rate, irregular heart rate, No rub or murmur or gallop, No JVD. ABD: Soft, nontender, no organomegaly appreciated, normal bowel sounds. Ext: b/l AKA . Left LE bandaged., No edema. LABORATORY DATA, IMAGING STUDIES, MICROBIOLOGY: ASSESSMENT AND PLAN: 80-year-old male with a history of CVA with left upper extremity contracture, A. 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 hospital course has been complicated by HCAP and acute metabolic encephalopathy due to medications. Leucocytosis WBC again upto 20K No fever, no diarrhea, skin at the back OK. No thrush noted. Remains on Vanco and Zosyn. will monitor if continues to be high will consult ID Left foot/heel gangrene s/p left AKA #7 s/p L AKA for ischemia and gangrene managed by vascular surgery restarted on Plavix HCAP present on admission Right upper lobe airspace disease on CXR Sputum: MRSA on iv vanco, zosyn Opioid-induced acute encephalopathy needing narcan resolved Opioid-induced Respiratory depression needing narcan resolved CVA with L upper extremity contracture chronic Hypercholesterolemia chronic Hypertension resolved. His Bp runs in low normal range which is probably normal for him at this time due to low muscle mass from b/l AKAs. Peripheral vascular disease with B/L AKA On plavix Atrial fibrillation oral ac held due to bloody discharge from left aka site rate controlled COPD compensated prn nebs GERD ppi CKD at baseline Arthritis chronic Anxiety / Depression chronic On sertraline and trazodone Dementia complicating care VS,Fishbone, I+O VS, Fishbone, I+O Laboratory Tests 08/07/20 08:40 Vital Signs Date Time Temp Pulse Resp B/P (MAP) Pulse Ox O2 Delivery O2 Flow Rate FiO2 08/07/20 09:28 16 Room Air 08/07/20 05:47 97.6 89 129/79 (96) 95 08/06/20 11:56 1.0 08/02/20 07:00 50 I&O- Last 24 Hours up to 6 AM 08/07/20 06:00 Intake Total 520 ml Output Total 0 ml Balance 520 ml RAMONA LAUGHLIN MD Aug 07, 2020 11:00
[2020-08-07 14:00] VITALS: BP 123/86
[2020-08-07] MEDS: VANCOMYCIN HCL 1,000 MG, VIAL MATE ADAPTER 1 EACH in D5W 250 ML IV SCH (20:34)
[2020-08-07] MEDS: traZODone 50 MG TAB PO SCH (20:35)
[2020-08-07] MEDS: SERTRALINE HCL 25 MG TABLET PO SCH (20:36)
[2020-08-07 22:00] VITALS: BP_SYST 113; BP_SYST 122; BP_DIAS 58; BP_DIAS 85
[2020-08-08] MEDS: PERCOCET 5MG/325MG TAB PO PRN ×4 (01:58→22:29)
[2020-08-08] MEDS: PIPERACILLIN/TAZOBACTAM SOD 2.25 GM in D5W MINI-BAG PLUS 50 ML IV SCH ×2 (05:16→14:26)
[2020-08-08 06:00] VITALS: BP 126/79
[2020-08-08] MEDS: CLOPIDOGREL 75 MG TAB PO SCH (08:19)
[2020-08-08] MEDS: DULoxetine 30 MG CAP (CYMBALTA) PO SCH ×2 (08:19→21:14)
[2020-08-08] MEDS: ATORVASTATIN 10 MG TAB PO SCH (08:19)
[2020-08-08] MEDS: MIRALAX *UNIT DOSE* 17GM PACKET PO SCH ×2 (08:27→21:15)
--- NOTE | 2020-08-08 08:45 | IPNPDOC ---
Date Seen The patient was seen on 08/08/20. Progress Note Patient seen and examined. He says he has minimal pain today. He has a full breakfast tray that has yet to be touched aside from opening the orange juice, and were hopeful they will have time to feed him today. Nutrition is essential for healing. His protein malnutrition is a large wrist fracture for per wound healing. Today, we removed the dressing from the left above-knee amputation stump and the incision is intact. The blistering has improved. There were 2 very small blisters, but the large blisters have all resolved and healed. Overall, the stump appears viable. There is still a little bit of purplish discoloration between some of the jesus at the skin edge, but no drainage erythema and induration or signs of infection are present. We thoroughly clean the incision, Xeroform and dry gauze and Kerlix were placed. The patient tolerated this well. We elevated the stump on a pillow. We will continue to follow. We appreciate the opportunity to participate in the care of this patient. VS, I&O, 24H, [place] Vital Signs/I&O Vital Signs Date Time Temp Pulse Resp B/P (MAP) Pulse Ox O2 Delivery O2 Flow Rate FiO2 08/08/20 08:19 18 08/08/20 06:00 98.0 70 126/79 (95) 93 Room Air 08/06/20 11:56 1.0 08/02/20 07:00 50 I&O- Last 24 Hours up to 6 AM 08/08/20 05:59 Intake Total 1170 ml Output Total 0 ml Balance 1170 ml Laboratory Data 24H LABS Laboratory Tests 2 08/07/20 19:59: Vancomycin Level Trough 19.6 Microbiology Microbiology 08/04/20 Gram Stain - Final, Complete 08/04/20 Sputum Culture - Final, Complete Staph.aureus Methicillin Resis 08/02/20 Gram Stain - Final, Complete 08/02/20 Sputum Culture - Final, Complete 08/01/20 Blood Culture - Final, Complete NO GROWTH AFTER 5 DAYS JUAN MIGUEL MURILLO MD Aug 08, 2020 08:45
[2020-08-08 09:08] LABS: HEMATOCRIT 35.8 % (42.0-52.0); HEMOGLOBIN 11.2 g/dl (13.5-17.5); MEAN CORPUSCULAR HEMOGLOBIN 27.3 pg (27.0-33.0); MEAN CORPUSCULAR HGB CONC 31.3 g/dl (32.0-36.5); MEAN CORPUSCULAR VOLUME 87.1 fl (80.0-96.0); PLATELET COUNT, AUTOMATED 526 10^3/uL (150-450); RED BLOOD COUNT 4.11 10^6/uL (4.30-6.10); WHITE BLOOD COUNT 21.1 10^3/uL (4.0-10.0)
[2020-08-08 09:23] LABS: BLOOD UREA NITROGEN 10 MG/DL (7-18); CALCIUM LEVEL 8.3 MG/DL (8.8-10.2); CARBON DIOXIDE LEVEL 23 MEQ/L (21-32); CHLORIDE LEVEL 105 MEQ/L (98-107); GLOMERULAR FILTRATION RATE > 60.0 (>42); GLUCOSE, FASTING 81 MG/DL (70-100); POTASSIUM SERUM 3.6 MEQ/L (3.5-5.1); SODIUM LEVEL 138 MEQ/L (136-145)
--- NOTE | 2020-08-08 11:11 | IPNPDOC ---
Text Note Date of Service The patient was seen on 08/08/20. NOTE SUBJECTIVE: No pain this morning. as per nurses finished almost 90% of his br eakfast. No Fever however has episodes of feeling very warm when he wants his blankets and gown off no temp during the episodes. No diarrhea, no abdominal pain, Skin at the back unbroken. As per Dr Kim left stump healing nicely with 2 small blisters no infection there. PHYSICAL EXAMINATION: VITAL SIGNS: Please see below. GEN: answers questions appropriately contracted left upper extremity, alert and oriented. HEENT: Normocephalic, atraumatic, moist mucous membranes, anicteric eyes. Neck : No JVD, no thyromegaly Chest: Bilateral anteriorly clear to auscultation, Bilateral basal crackles and diminished at the bases. CVS:: Normal S1, S2 , normal rate, irregular heart rate, No rub or murmur or gallop, No JVD. ABD: Soft, nontender, no organomegaly appreciated, normal bowel sounds. Ext: b/l AKA . Left LE bandaged., No edema. LABORATORY DATA, IMAGING STUDIES, MICROBIOLOGY: ASSESSMENT AND PLAN: 80-year-old male with a history of CVA with left upper extremity contracture, A. 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 hospital course has been complicated by HCAP and acute metabolic encephalopathy due to medications. Leucocytosis WBC remains at 21K No fever, no diarrhea, skin at the back OK. No thrush noted. Will repeat CXR. Remains on Vanco and Zosyn day 7 Will consult ID Left foot/heel gangrene s/p left AKA s/p L AKA for ischemia and gangrene managed by vascular surgery will start on eliquis for A fib so will stop plavix. HCAP present on admission Right upper lobe airspace disease on CXR Sputum: MRSA on iv vanco, zosyn Opioid-induced acute encephalopathy and resp depression needing narcan resolved CVA with L upper extremity contracture chronic CAD with Old AMI in EKG on Statin and eliquis. Hypercholesterolemia statin Hypertension resolved. His Bp runs in low normal range which is probably normal for him at this time due to low muscle mass from b/l AKAs. Peripheral vascular disease with B/L AKA will start on Eliquis , plavix stopped. Atrial fibrillation rate controlled will start on Eliquis. COPD compensated prn nebs GERD ppi CKD at baseline Arthritis chronic Anxiety / Depression chronic On sertraline and trazodone Dementia complicating care VS,Fishbone, I+O VS, Fishbone, I+O Laboratory Tests 08/08/20 08:28 Vital Signs Date Time Temp Pulse Resp B/P (MAP) Pulse Ox O2 Delivery O2 Flow Rate FiO2 08/08/20 08:49 16 08/08/20 06:00 98.0 70 126/79 (95) 93 Room Air 08/06/20 11:56 1.0 08/02/20 07:00 50 I&O- Last 24 Hours up to 6 AM 08/08/20 06:00 Intake Total 1170 ml Output Total 0 ml Balance 1170 ml RAMONA LAUGHLIN MD Aug 08, 2020 11:11
[2020-08-08] MEDS: APIXABAN 5 MG TAB (ELIQUIS) PO SCH ×2 (11:43→21:14)
--- NOTE | 2020-08-08 11:52 | REP ---
INDICATION: persistent leucocytosis.. COMPARISON: Comparison chest x-ray August 01, 2020. TECHNIQUE: Portable upright AP chest radiograph. FINDINGS: There is a dense parenchymal infiltrate in the right upper lobe. This is a little more opaque and slightly smaller than on the 01 August 2020 study. Increased pleural density is seen at the left base and there is blunting of the lateral pleural angles bilaterally, left greater than right. No new infiltrate is appreciated. A loop recorder is again seen.. There is mild left inferior perihilar platelike atelectasis. IMPRESSION: Persistent consolidation right upper lobe consistent with pneumonia. Small bilateral pleural effusions suspected left greater than right. No new infiltrate seen. Platelike atelectasis left inferior perihilar region.. <Electronically signed by Crow Hernández > 08/08/20 [id number]
[2020-08-08 14:00] VITALS: BP 98/64
[2020-08-08 20:32] VITALS: BP 132/89
[2020-08-08] MEDS: traZODone 50 MG TAB PO SCH (21:14)
[2020-08-08] MEDS: VANCOMYCIN HCL 1,000 MG, VIAL MATE ADAPTER 1 EACH in D5W 250 ML IV SCH (21:15)
[2020-08-08] MEDS: SERTRALINE HCL 25 MG TABLET PO SCH (21:15)
[2020-08-09] MEDS: PIPERACILLIN/TAZOBACTAM SOD 2.25 GM in D5W MINI-BAG PLUS 50 ML IV SCH ×3 (00:05→14:00)
[2020-08-09 05:46] VITALS: BP 130/80
[2020-08-09 07:01] LABS: HEMATOCRIT 37.1 % (42.0-52.0); MEAN CORPUSCULAR HEMOGLOBIN 27.8 pg (27.0-33.0); MEAN CORPUSCULAR HGB CONC 32.3 g/dl (32.0-36.5); MEAN CORPUSCULAR VOLUME 86.1 fl (80.0-96.0); PLATELET COUNT, AUTOMATED 483 10^3/uL (150-450); RED BLOOD COUNT 4.31 10^6/uL (4.30-6.10)
[2020-08-09 07:27] LABS: BLOOD UREA NITROGEN 11 MG/DL (7-18); CALCIUM LEVEL 8.4 MG/DL (8.8-10.2); CARBON DIOXIDE LEVEL 24 MEQ/L (21-32); CHLORIDE LEVEL 104 MEQ/L (98-107); CREATININE FOR GFR 0.71 MG/DL (0.70-1.30); GLOMERULAR FILTRATION RATE > 60.0 (>42); GLUCOSE, FASTING 110 MG/DL (70-100); POTASSIUM SERUM 3.6 MEQ/L (3.5-5.1); SODIUM LEVEL 136 MEQ/L (136-145)
--- NOTE | 2020-08-09 09:02 | IPNPDOC ---
Date Seen The patient was seen on 08/09/20. Progress Note Patient seen and examined over weeks status post left above-knee amputation for left lower extremity ischemia and gangrene. He says he doesn't feel well today. He looks a little worse for wear this morning. He still denies any appetite and has a full breakfast tray and 4 unopened Ensure drinks next to him. I opened and ensure imported over ice. He does not like an sure but he did drink about a quarter of a cup. He ate about 4 bites of eggs for me, and drink half of his orange juice. I spoke with his nurse and they said they would try to help feed him today. He cannot feed himself. His nutritional status is abysmal. He has failure to thrive, protein malnutrition, and all of this makes it nearly impossible to heal his AKA. We are struggling with his stump. It looked a little better yesterday and the day before, but now today it looks worse. There are no new blisters today, and the previous sites of blisters have resolved, but there are erythematous spots on both the anterior and posterior aspect of the distal stump. It does not look like cellulitis or infection, there is no drainage or fluctuance, there is no induration or warmth, but it is still concerning and certainly could turn into infection at some point. Without nutrition, he likely will have continued deterioration. He also has a new medial thigh superficial ulcer near his depends, and I cleaned this thoroughly. He will need a foam dressing over this to protect it. Its likely from mild pressure from his depends, which would normally not occur but his tissue quality is so poor and his malnutrition is fairly profound. He is cachectic, muscle wasted, and had almost no muscle noted in his left leg at the time of amputation. At this point, I do not think additional surgery is indicated. I think we will be in exactly the same place, just with a more proximal incision, because the baseline reason for poor healing is still present. Also, the patient is weak and debilitated, careful wound care is a better option as long as gross infection is not present. It may be time to discuss with the family a palliative care option, to make sure that he is comfortable. We appreciate the opportunity to participate in the care of this patient. VS, I&O, 24H, Fishbone Vital Signs/I&O Vital Signs Date Time Temp Pulse Resp B/P (MAP) Pulse Ox O2 Delivery O2 Flow Rate FiO2 08/09/20 05:46 97.7 87 18 130/80 (97) 94 Room Air 08/06/20 11:56 1.0 I&O- Last 24 Hours up to 6 AM 08/09/20 06:00 Intake Total 1215 ml Output Total 0 ml Balance 1215 ml Laboratory Data 24H LABS Laboratory Tests 2 08/08/20 19:52: Random Vancomycin Level 20.6 08/09/20 06:49: Nucleated Red Blood Cells % (auto) 0.0, Anion Gap 8, Glomerular Filtration Rate > 60.0, Calcium Level 8.4L CBC/BMP Laboratory Tests 08/09/20 06:49 Microbiology Microbiology 08/04/20 Gram Stain - Final, Complete 08/04/20 Sputum Culture - Final, Complete Staph.aureus Methicillin Resis 08/02/20 Gram Stain - Final, Complete 08/02/20 Sputum Culture - Final, Complete 08/01/20 Blood Culture - Final, Complete NO GROWTH AFTER 5 DAYS JUAN MIGUEL MURILLO MD Aug 09, 2020 09:02
[2020-08-09] MEDS: ATORVASTATIN 10 MG TAB PO SCH (09:31)
[2020-08-09] MEDS: APIXABAN 5 MG TAB (ELIQUIS) PO SCH ×2 (09:31→20:04)
[2020-08-09] MEDS: MIRALAX *UNIT DOSE* 17GM PACKET PO SCH ×2 (09:31→20:03)
[2020-08-09] MEDS: DULoxetine 30 MG CAP (CYMBALTA) PO SCH ×2 (09:31→20:03)
[2020-08-09] MEDS: PERCOCET 5MG/325MG TAB PO PRN ×3 (09:33→20:04)
[2020-08-09 10:14] LABS: C REACTIVE PROTEIN QUANTITATIV 1.82 MG/DL (0.00-0.30)
[2020-08-09 14:00] VITALS: BP 129/79
[2020-08-09] MEDS ORDERED: ISOVUE-370 76% 100ML VIAL As Ordered ONE (14:58)
--- NOTE | 2020-08-09 15:37 | IPNPDOC ---
Text Note Date of Service The patient was seen on 08/09/20. NOTE SUBJECTIVE: No pain this morning. No fever. Stump a little worse than yesterday. Some reddening next to the suture line, 1 blister popped on the medial side of the thigh. CXR unchanged from before. Will get Chest chest and a CT of the stump. Tried to catheterize failed with bleeding . Seems like there is a obstruction in the urethra. Patient complains of dysuria. WBC remains elevated. PHYSICAL EXAMINATION: VITAL SIGNS: Please see below. GEN: answers questions appropriately contracted left upper extremity, alert and oriented. HEENT: Normocephalic, atraumatic, moist mucous membranes, anicteric eyes. Neck : No JVD, no thyromegaly Chest: Bilateral anteriorly clear to auscultation, Bilateral basal crackles and diminished at the bases. CVS:: Normal S1, S2 , normal rate, irregular heart rate, No rub or murmur or gallop, No JVD. ABD: Soft, nontender, no organomegaly appreciated, normal bowel sounds. Ext: b/l AKA . Left LE bandaged., No edema. LABORATORY DATA, IMAGING STUDIES, MICROBIOLOGY: ASSESSMENT AND PLAN: 80-year-old male with a history of CVA with left upper extremity contracture, A. 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 hospital course has been complicated by HCAP and acute metabolic encephalopathy due to medications. Leucocytosis WBC remains at 21K No fever, no diarrhea, skin at the back OK. No thrush noted. He does have a ureteral stent and ? bladder stones in an abdominal xray from last year. Also has screws at the left hip. We failed to catheterize him. there was obstruction and bleeding. will get CT abd and pelvis , ct chest and Ct of the left stump. Seen by ID Remains on Vanco and Zosyn day 7 Left foot/heel gangrene s/p left AKA s/p L AKA for ischemia and gangrene managed by vascular surgery on eliquis for A fib so will stop plavix. HCAP present on admission Right upper lobe airspace disease on CXR Sputum: MRSA on iv vanco, zosyn Will get CT chest Opioid-induced acute encephalopathy and resp depression needing narcan resolved CVA with L upper extremity contracture chronic CAD with Old AMI in EKG on Statin and eliquis. Hypercholesterolemia statin Hypertension resolved. His Bp runs in low normal range which is probably normal for him at this time due to low muscle mass from b/l AKAs. Peripheral vascular disease with B/L AKA will start on Eliquis , plavix stopped. Atrial fibrillation rate controlled will start on Eliquis. COPD compensated prn nebs GERD ppi CKD at baseline Arthritis chronic Anxiety / Depression chronic On sertraline and trazodone Dementia complicating care VS,Fishbone, I+O VS, Fishbone, I+O Laboratory Tests 08/09/20 06:49 Vital Signs Date Time Temp Pulse Resp B/P (MAP) Pulse Ox O2 Delivery O2 Flow Rate FiO2 08/09/20 14:34 22 08/09/20 14:00 97.4 89 129/79 (96) 96 Room Air 08/06/20 11:56 1.0 I&O- Last 24 Hours up to 6 AM 08/09/20 06:00 Intake Total 1215 ml Output Total 0 ml Balance 1215 ml RAMONA LAUGHLIN MD Aug 09, 2020 15:36
--- NOTE | 2020-08-09 17:11 | REP ---
INDICATION: RUL infiltrate r/o abscess. COMPARISON: None TECHNIQUE: 100 cc Isovue 370 given intravenously FINDINGS: There is mediastinal and right hilar adenopathy. There are small bilateral pleural effusions and there is a small to moderate pericardial effusion. There is a 2.1 x 2.5 cm sized saccular aneurysm arising from the aortic arch on the left. There is pulmonary arterial enlargement. The imaged upper abdomen shows evidence of bilateral renal stents and at least a 3.6 cm sized infrarenal abdominal aortic aneurysm. The imaged osseous structures shows spinal degenerative changes and bony demineralization. There is a central venous catheter in place the tip of which is in the superior vena cava. Evaluation of the lung olguin shows a large Mixed density right upper lobe opacitywith multiple air densities and air bronchograms within it. This measures approximately 7.8 x 6.2 by 5.3 cm. There are numerable scattered asymmetric densities seen in conjunction with bibasilar areas of consolidation left greater than right possibly secondary to compressive subsegmental atelectatic change due to the effusions. IMPRESSION: 1. Multiple lung field abnormalities as described above which need to be correlated clinically with appropriate follow-up. Infectious versus neoplastic etiology. 1. Thoracic aortic aneurysm as described above. 2. Pulmonary arterial enlargement. 3. Other findings as described above. <Electronically signed by Juma Garcia > 08/09/20 [id number]
--- NOTE | 2020-08-09 17:55 | REP ---
INDICATION: r/o stump abscess, s/p new left AKA, has old right AKA. COMPARISON: None. TECHNIQUE: Helical scanning is acquired following the intravenous injection of 100 mL of intravenous Isovue 370. 3 mm axial images re-formatted. Coronal and sagittal MPR images are provided. FINDINGS: An above the knee amputation is been done on the patient's left side. There are skin jesus overlying the distal stump. Soft tissue images show no evidence to suggest abscess. There is fatty involution of the skeletal musculature, most notably the semimembranosus muscle. Vascular calcification is observed. There is a vascular stent in the superficial femoral artery which appears to be occluded. Profundal femoral artery is patent and calcific. There is a small left inguinal hernia trans Becerra abdominal fat. No abnormal fluid collection is appreciated. 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 There is no periosteal reaction or focal bony destructive lesion. Osteoarthritic changes are noted at the hip and there are 3 metallic orthopedic fixation screws in the acetabulum on the left. There is a large dense calcification surrounding the distal pigtail loop of a right ureteral stent, large bladder calculus incorporating the intravesical portion of the ureteral stent. IMPRESSION: No evidence of amputation stump abscess. Left superficial femoral artery and stent graft occlusion. Small left inguinal hernia trans Becerra abdominal fat. There is a very large bladder calculus incorporating the distal intravesical portion of a right ureteral stent. <Electronically signed by Crow Hernández > 08/09/20 [id number]
--- NOTE | 2020-08-09 18:05 | REP ---
INDICATION: bloody cath, elevated WBC. COMPARISON: Comparison [facility] September 13, 2019. No comparison CT studies.. TECHNIQUE: Helical scanning is acquired and 3 mm axial images re-formatted. Coronal and sagittal MPR images are generated. The CT contrast enhancement dose is 100 mL of intravenous Isovue 370. FINDINGS: Preliminary digital security business analyst radiograph demonstrates a right ureteral stent and a large calculus at the bladder loop of the stent. There are 3 metallic screws in the left acetabulum. There is evidence of left pleural effusion. Axials CT images confirm the presence of small bilateral pleural effusions, right larger than left. spleen is moderately enlarged with a craniocaudal span of 17 cm. No focal splenic lesion is seen. The liver is normal in size homogeneous in texture. No abnormality is observed in the gallbladder. There is a descending duodenal diverticulum. The pancreas is unremarkable. Normal adrenal glands are observed. There is marked right renal atrophy. There are parenchymal calcifications versus large collecting system calcifications in the lower pole of the right kidney. The largest of these calcifications measures 1.7 cm. There is a double pigtail ureteral stent in place on the right. Adjacent to the stent in the renal pelvis on the right there is a 1.6 cm proximal ureteral calculus. This is seen adjacent to the stent. There is a large posteriorly positioned bladder calculus which is seen incorporating the indwelling bladder loop of the pigtail catheter. This calculus is 3.6 cm in greatest diameter and appears to be slightly larger than on the [facility] from September of 2019. There are smaller staghorn calculi in the intrarenal collecting system of the left kidney. There is no left-sided hydronephrosis. There is an infrarenal abdominal aortic aneurysm which measures 3.6 cm in greatest anteroposterior dimension. No perianeurysmal hemorrhage is seen. Common iliac arteries are ectatic bilaterally but patent. There is a small left inguinal hernia trans Becerra a small quantity of abdominal fat. There is an occluded stent in the proximal superficial femoral artery. There is mild diverticulosis of the sigmoid colon without CT evidence of diverticulitis. No free fluid is seen in the abdomen. IMPRESSION: 1. Moderate splenomegaly. 2. Bilateral intrarenal nephrolithiasis with multiple staghorn calculi bilaterally. There is a 1.6 cm proximal ureteral calculus on the right at the ureteropelvic junction. There is marked cortical atrophy of the right kidney. 3. Indwelling double pigtail right ureteral stent. 4. There is a 3.6 cm bladder calculus which incorporates the distal pigtail loop of the intravesical portion of the right ureteral stent. 5. 3.6 cm infrarenal abdominal aortic aneurysm 6. Small bilateral pleural effusions, right greater than left. <Electronically signed by Crow Hernández > 08/09/20 [id number]
[2020-08-09] MEDS: traZODone 50 MG TAB PO SCH (20:03)
[2020-08-09] MEDS: SERTRALINE HCL 25 MG TABLET PO SCH (20:04)
[2020-08-09] MEDS ORDERED: LINEZOLID 600MG TABLET (ZYVOX) PO SCH (21:00)
[2020-08-09] MEDS: CEFTAROLINE FOSAMIL 600 MG in D5W MINI-BAG PLUS 50 ML IV SCH (21:36)
[2020-08-09 22:00] VITALS: BP 133/81
[2020-08-09 23:59] LABS: APPEARANCE, URINE HAZY (CLEAR); BACTERIA, URINE AUTO NEGATIVE (NEGATIVE); BILIRUBIN, URINE AUTO NEGATIVE (NEGATIVE); BLOOD, URINE BLOOD 3+ (NEGATIVE); COLOR, URINE YELLOW (YELLOW); GLUCOSE, URINE (UA) AUTO NEGATIVE (NEGATIVE); KETONE, URINE AUTO NEGATIVE (NEGATIVE); LEUKOCYTE ESTERASE, URINE AUTO 3+ (NEGATIVE); NITRITE, URINE AUTO NEGATIVE (NEGATIVE); PROTEIN, URINE AUTO 1+ mg/dL (NEGATIVE); RBC, URINE AUTO TNTC /HPF (0-3); SPECIFIC GRAVITY URINE AUTO 1.048 (1.002-1.035); SQUAMOUS EPITHELIAL CELL UR AU 2 /HPF (0-6); UROBILINOGEN, URINE AUTO 0.2 mg/dL (0.0-2.0); WBC, URINE AUTO 161 /HPF (0-3)
[2020-08-10] MEDS: PERCOCET 5MG/325MG TAB PO PRN ×3 (02:53→17:41)
[2020-08-10 06:00] VITALS: BP 130/80
[2020-08-10] MEDS: MIRALAX *UNIT DOSE* 17GM PACKET PO SCH ×2 (09:04→20:44)
[2020-08-10] MEDS: CEFTAROLINE FOSAMIL 600 MG in D5W MINI-BAG PLUS 50 ML IV SCH ×2 (09:04→20:44)
[2020-08-10] MEDS: DULoxetine 30 MG CAP (CYMBALTA) PO SCH ×2 (09:04→20:44)
[2020-08-10] MEDS: ATORVASTATIN 10 MG TAB PO SCH (09:04)
[2020-08-10] MEDS: APIXABAN 5 MG TAB (ELIQUIS) PO SCH ×2 (09:04→20:44)
--- NOTE | 2020-08-10 10:56 | IPNPDOC ---
Text Note Date of Service The patient was seen on 08/10/20. NOTE SUBJECTIVE: Has some abdominal pain this morning with dysuria, has hematuria also after hughes trial yesterday. Tried to catheterize failed with bleeding . Seems like there is a obstruction in the urethra. WBC remains elevated. No fever PHYSICAL EXAMINATION: VITAL SIGNS: Please see below. GEN: answers questions appropriately contracted left upper extremity, alert and oriented. HEENT: Normocephalic, atraumatic, moist mucous membranes, anicteric eyes. Neck : No JVD, no thyromegaly Chest: Bilateral anteriorly clear to auscultation, Bilateral basal crackles and diminished at the bases. CVS:: Normal S1, S2 , normal rate, irregular heart rate, No rub or murmur or gallop, No JVD. ABD: Soft, nontender, no organomegaly appreciated, normal bowel sounds. Ext: b/l AKA . Left LE bandaged., No edema. Suture line with jesus look nice and clean. There is a small blister which has popped on the medial aspect of the thigh. Small areas of redness next to the suture line. LABORATORY DATA, IMAGING STUDIES, MICROBIOLOGY: Radiology: CT abd and pelvis: 08/09 1. Moderate splenomegaly. 2. Bilateral intrarenal nephrolithiasis with multiple staghorn calculi bilaterally. There is a 1.6 cm proximal ureteral calculus on the right at the ureteropelvic junction. There is marked cortical atrophy of the right kidney. 3. Indwelling double pigtail right ureteral stent. 4. There is a 3.6 cm bladder calculus which incorporates the distal pigtail loop of the intravesical portion of the right ureteral stent. 5. 3.6 cm infrarenal abdominal aortic aneurysm 6. Small bilateral pleural effusions, right greater than left. ASSESSMENT AND PLAN: 80-year-old male with a history of CVA with left upper extremity contracture, A. 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 hospital course has been complicated by HCAP and acute metabolic encephalopathy due to medications. Leucocytosis Likely due to Lung abscesses. WBC remains at 21K CT chest showed Rul upper lobe multiple abscesses. Antibiotic changed to ceftaroline. CT of the stump Ok CT abd and pelvis showed right ureteral stent with the large bladder sone at evan tip of the stent end in the bladder. Also has screws at the left hip. We failed to catheterize him. there was obstruction and bleeding. Seen by ID by telemedicine on 08/09/20. Bilateral renal staghorn calculi/ right ureteral calculi / right double pigtail ureteric stent/ bladder calculi. Does not have any hydronephrosis or hydroureter. No unlikely these are the source of persistent leucocytosis will ask Dr Reese to review. Left foot/heel gangrene s/p left AKA s/p L AKA for ischemia and gangrene managed by vascular surgery on eliquis for A fib so will stop plavix. HCAP present on admission Right upper lobe airspace disease on CXR Sputum: MRSA Finished 7 days of vanco and zosyn, Now on ceftaroline. 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 Hypercholesterolemia statin Hypertension resolved. His Bp runs in low normal range which is probably normal for him at this time due to low muscle mass from b/l AKAs. Peripheral vascular disease with B/L AKA will start on Eliquis , plavix stopped. Atrial fibrillation rate controlled on Eliquis. COPD compensated prn nebs GERD ppi CKD at baseline Arthritis chronic Anxiety / Depression chronic On sertraline and trazodone Dementia complicating care VS,Fishbone, I+O VS, Fishbone, I+O Vital Signs Date Time Temp Pulse Resp B/P (MAP) Pulse Ox O2 Delivery O2 Flow Rate FiO2 08/10/20 06:00 98.8 82 18 130/80 (97) 97 Room Air 08/06/20 11:56 1.0 I&O- Last 24 Hours up to 6 AM 08/10/20 06:00 Intake Total 570 ml Output Total 250 ml Balance 320 ml RAMONA LAUGHLIN MD Aug 10, 2020 10:56
[2020-08-10 14:00] VITALS: BP 129/80
--- NOTE | 2020-08-10 14:37 | CR ---
INFECTIOUS DISEASE CONSULTATION DATE: 08/09/2020 REASON FOR CONSULTATION: Asked for consultation by Dr. Ramsey for evaluation of leukocytosis in a patient who just had an [id number]-utrh amputation by Dr. Leonardo. HISTORY OF PRESENT ILLNESS: Mr. Cavazos is a 80-year-old gentleman with a history of a right above knee amputation and severe bilateral peripheral vascular disease. Patient had failed bypass and angioplasty by Dr. Leonardo and therefore was admitted for left above knee amputation due to left foot and heel gangrene on July 31, 2020. He denied having any cough or shortness of breath on admission. He had no fever or chills. The patient was initially treated with cefazolin on the day of surgery, then he was switched to vancomycin and Zosyn, vancomycin at the dose currently of 1 gram every 24 hours. On admission, his chest x-ray had a large right upper lobe pneumonia. Sputum culture was positive for methicillin-resistant Staphylococcus aureus (MRSA). This was compared to a previous chest x-ray a couple of months ago, which had no acute disease. The patient complains of some dysuria. No hematuria. He has a history of stent and bladder stones. The stent has been there for a long time. Not really sure about the details of this history, but he does have some dysuria. A Chou catheter has been attempted at the bedside today to try and get a urine specimen, but patient had a stricture at the level of the urethra and you could not get a urinalysis. PAST MEDICAL HISTORY: Is significant for: 1. Cerebrovascular accident (CVA) with left upper extremity contracture. 2. Hypercholesterolemia. 3. Hypertension. 4. Peripheral vascular disease with bilateral above knee amputations. 5. Atrial fibrillation. 6. Gastroesophageal reflux disease. 7. Chronic kidney disease stage II. 8. Osteoarthritis. 9. Anxiety and depression. 10. Dementia. PAST SURGICAL HISTORY: 1. Hernia repair. 2. Ureteral stent for bladder stones. SOCIAL HISTORY: He resides at [facility]. He smoked two packs a day for over 30 years and quit over a year ago. FAMILY HISTORY: Nonrevealing. ALLERGIES: No known drug allergies. MEDICATIONS: - vancomycin 1 gram IV every 24 hours, currently day #8 - Zosyn 2.25 grams IV every 8 hours - Lipitor 10 mg by mouth daily - MiraLax one packet by mouth twice a day - Tylenol 650 mg every 4 hours as needed - Fleet enema as needed - Percocet one tablet every 4 hours as needed - Zofran 4 mg IV every 6 hours as needed - duloxetine 30 mg by mouth twice a day - sertraline 75 mg by mouth at bedtime - trazodone 50 mg by mouth at bedtime REVIEW OF SYSTEMS: Patient denies having any nausea, vomiting or diarrhea. There are no documented bowel movements in the record, but according to the charge nurse, the patient had a bowel movement a couple of days ago. He does have some dysuria. Now he has hematuria after catheter has been attempted. He has left upper extremity weakness from his CVA. He is not very talkative on the Zoom meeting. LABORATORY DATA: White count 22,000 and has been elevated since July 31, 2020, hemoglobin 12, hematocrit 37.1, platelets 483. Sodium 136, potassium 3.6, chloride 104, bicarbonate 24, BUN 11, creatinine 0.71, glucose 110, calcium 8.4. C-reactive protein (CRP) 1.82, compared to August 02, 2020, was 10.4. Procalcitonin on admission was 0.92. Blood culture no growth on August 01, 2020. Sputum culture was poor quality with many epithelial cells on August 02, 2020 and on August 04, 2020, sputum culture had MRSA sensitive to clindamycin, doxycycline. Vancomycin trough 20.6 on August 08, 2020. IMAGING STUDY: Chest x-ray on August 08, 2020: Persistent right upper lobe consolidation consistent with pneumonia with small bilateral pleural effusion. After I had seen the patient on Zoom meeting and discussed the case with Dr. Alka Ramsey, we ordered at CT abdomen, chest and pelvis as well as femur, where the above knee amputation (AKA) was done. Case was reviewed at length with Dr. Hernández from radiology. He has moderate splenomegaly, bilateral intrarenal nephrolithiasis with multiple staghorn calculi bilaterally, a 1.6 cm ureteral calculus on the right side at the ureteropelvic junction with marked right kidney atrophy. There is no hydronephrosis. There is an indwelling right ___ stent. There is a 3.6 cm bladder calculus that entails the pigtail loop of the intravesical portion of the right ureteral stent and a 3.[address] was also reviewed and it showed a large right upper lobe pneumonia with necrosis and air densities measuring 7.8 x 6.2 x 5.3 cm with mild bilateral effusion and femur CT does not show any evidence of stump infection or abscess. There is a left superficial femoral artery stent and stent graft occlusion on the left side. Small left inguinal hernia. PHYSICAL EXAMINATION: Temperature 97.5, pulse 89, respirations 18, blood pressure 129/79, oxygen saturation 96% on room air. He is a sick looking elderly gentleman in no acute distress. Respiratory rate 22, oxygen saturation 96%. Patient is not wearing oxygen. He does not look dyspneic. He is frail. ABDOMEN: Benign, according to Dr. Ramsey, who was present in the room when I did the telephone consultation. LUNGS: Normal. HEART: S1, S2. Irregular with no murmurs appreciated. EXTREMITIES: Bilateral above knee amputations. Both were examined. The right is completely healed. The left has sutures in place. There is mild erythema at the suture line, but no purulence, minimal tenderness. There are small blisters on the anterior aspect of the stump and medially at the side, but not suggestive of cellulitis. IMPRESSION: This is a 80-year-old gentleman with a history of left CVA, peripheral vascular disease who underwent left above knee amputation by Dr. Leonardo on July 31, 2020. Patient has been on vancomycin and Zosyn for eight days and has persistent leukocytosis. He was admitted with a large pneumonia in the right upper lobe and a followup chest CT shows worsening pneumonia with what seems like cavitation and necrosis. Even though the patient is not significantly symptomatic from a pulmonary standpoint, this is probably the site of infection. He does have dysuria and a catheter could not be obtained, so we will obtain a urine specimen by condom catheter. He has significant kidney stones, but at this point, I am not sure that these need to be addressed if he does not have hydronephrosis. PLAN: 1. Obtain condom catheter urinalysis, culture. 2. Discontinue IV vancomycin and Zosyn. He is currently day #8 without any improvement in white count. 3. Switch patient to ceftaroline at the dose of 600 mg every 12 hours for MRSA pneumonia. Linezolid would be contraindicated as he is taking three antidepressants including Cymbalta, Zoloft and trazodone. 4. Consult urology regarding large kidney stones and stent. This was a Telemedicine consultation with Zoom done with nurse in charge on 5 Winnie Olivares, at the bedside and Dr. Azevedo
--- NOTE | 2020-08-10 17:27 | SMCUROLCON ---
Urology Consultation General Date of Consultation 08/10/20 Reason For Consultation This patient is seen for Dysuria and difficulty inserting hughes cath. History of Present Illness The patient is a 80-year-old male with a past medical history for renal and bladder calculi, admitted for atherosclerosis of left leg. He had a left BKA about 10 days ago. A urine was needed and patient could not void so a straight cath was attempted, but the catheter could not be advanced into the bladder and had subsequent bleeding He is able to void, but says he has a burning sensation "all over down there" when he does void. CT scan shows a bladder calculus, right ureteral stent and a large right renal pelvis stone and smaller left renal calculi. Alex does not know when the stent was inserted or where it was done. Past Medical History Medical History CVA Hypercholesterolemia Hypertension PVD Atrial fibrillation COPD GERD CKD Arthritis Anxiety/depression Dementia Surgical Hstory Hernia repair Stent insertion Social History * Smoker: former Smoker Alcohol: Denies Drugs: denies Medications Current Medications Current Medications Medications (Trade) Dose Ordered Sig/Alyse Route PRN Reason Start Time Stop Time Status Last Admin Dose Admin Acetaminophen (Tylenol Tab) 650 mg Q4H PRN PO PAIN OR FEVER 08/01/20 00:00 08/05/20 20:27 Albuterol Sulfate (Proventil Neb) 2.5 mg Q4H PRN INH SHORTNESS OF BREATH 08/01/20 00:00 08/01/20 22:58 Apixaban (Eliquis) 5 mg BID PO 08/08/20 09:00 08/10/20 09:04 Atorvastatin Calcium (Lipitor) 10 mg DAILY PO 08/01/20 09:00 08/10/20 09:04 Ceftaroline Fosamil 600 mg/ Dextrose 50 ml @ 50 mls/hr Q12H IV 08/09/20 21:00 08/23/20 20:59 08/10/20 09:04 Clopidogrel Bisulfate (PLAVix) 75 mg DAILY PO 08/06/20 09:00 08/08/20 11:13 DC 08/08/20 08:19 Duloxetine HCl (Cymbalta) 30 mg BID PO 07/31/20 21:00 08/10/20 09:04 Fentanyl Citrate (Sublimaze) 25 mcg Q5MP PRN IV PAIN LEVEL 5-10 07/31/20 22:30 07/31/20 23:45 DC Hydromorphone HCl (Dilaudid) 1 mg Q4HP PRN PO BREAKTHROUGH PAIN 07/31/20 22:30 08/06/20 12:23 DC 08/04/20 18:15 Lactated Ringer's 1,000 ml @ 50 mls/hr Q20H IV 07/31/20 22:30 07/31/20 23:45 DC Linezolid (Zyvox) 600 mg BID PO 08/09/20 21:00 08/09/20 19:21 DC Metoclopramide HCl (REGLAN INJection) 10 mg Q6HP PRN IV NAUSEA OR VOMITING 07/31/20 22:30 07/31/20 23:45 DC Naloxone HCl (Narcan) 0.1 mg STAT STAT IV 08/01/20 22:26 08/01/20 22:30 DC 08/01/20 22:31 Naloxone HCl (Narcan) 0.1 mg STAT STAT IV 08/01/20 22:38 08/01/20 22:39 DC 08/01/20 22:44 Ondansetron HCl (ZOFRAN INJection) 4 mg Q4HP PRN IV NAUSEA OR VOMITING 07/31/20 22:30 07/31/20 23:45 DC Ondansetron HCl (ZOFRAN INJection) 4 mg Q6HP PRN IV NAUSEA OR VOMITING 07/31/20 22:30 08/02/20 23:08 Oxycodone HCl (Roxicodone, Oxyir) 15 mg TID PO 08/01/20 00:00 08/01/20 06:13 DC 08/01/20 00:36 Oxycodone/ Acetaminophen (Percocet 5mg/ 325mg Tablet) 1 tab ASDIRECTED PRN PO PAIN LEVEL 1-4 07/31/20 22:30 07/31/20 23:45 DC Oxycodone/ Acetaminophen (Percocet 5mg/ 325mg Tablet) 1 tab Q4HP PRN PO MODERATE PAIN (PS 5-7) 07/31/20 22:30 08/10/20 12:06 Oxycodone/ Acetaminophen (Percocet 5mg/ 325mg Tablet) 2 tab Q4HP PRN PO SEVERE PAIN (PS 8-10) 07/31/20 22:30 08/10/20 07:08 DC 08/10/20 02:53 Piperacillin Sod/ Tazobactam Sod 2.25 gm/Dextrose 50 ml @ 100 mls/hr Q8H IV 08/01/20 06:00 08/09/20 19:21 DC 08/09/20 05:53 Polyethylene Glycol (Miralax) 1 pkt BID PO 08/01/20 09:00 08/10/20 09:04 Sertraline HCl (Zoloft) 75 mg QHS PO 07/31/20 21:00 08/09/20 20:04 Sodium Biphosphate/ Sodium Phosphate (Fleet Enema) 1 ea DAILY PRN NV CONSTIPATION 08/01/20 00:00 Trazodone HCl (Desyrel) 50 mg QHS PO 07/31/20 21:00 08/09/20 20:03 Vancomycin HCl 500 mg/Dextrose 110 ml @ 110 mls/hr Q12H IV 08/02/20 04:00 08/02/20 07:26 DC 08/02/20 04:42 Vancomycin HCl 750 mg/IV Miscellaneous Supplies 1 each/ Dextrose 275 ml @ 275 mls/hr Q12H IV 08/03/20 21:00 08/05/20 09:36 DC 08/04/20 20:16 Vancomycin HCl 750 mg/IV Miscellaneous Supplies 1 each/ Dextrose 275 ml @ 275 mls/hr Q12H IV 08/05/20 12:00 08/06/20 11:55 DC 08/06/20 00:00 Vancomycin HCl 1000 mg/IV Miscellaneous Supplies 1 each/ Dextrose 270 ml @ 270 mls/hr Q24H IV 08/02/20 00:00 08/02/20 03:20 DC Vancomycin HCl 1000 mg/IV Miscellaneous Supplies 1 each/ Dextrose 270 ml @ 270 mls/hr Q24H IV 08/03/20 08:00 08/03/20 11:00 DC 08/03/20 08:05 Vancomycin HCl 1000 mg/IV Miscellaneous Supplies 1 each/ Dextrose 270 ml @ 270 mls/hr Q24H IV 08/06/20 21:00 08/09/20 19:02 DC 08/08/20 21:15 Allergies Allergies: Coded Allergies: No Known Allergies (Unverified , 07/31/20) Review of Systems General: Reports: ROS Unobtainable Physical Examination General Exam: Cooperative EYE EXAM: PERRLA, Conjunctiva & lids normal, EOMI; No: Sclera icteric ENT EXAM: Atraumatic, Mucous membr. moist/pink, Pharynx Normal Neck Exam: Supple; No: JVD, thyromegaly Abdomen Exam: Normal Bowel Sounds, Soft; No: Tenderness, Hepatospenomegaly Male Exam Circumcised, scrotum, testes and epididimi normal Vital Signs/I&O Vital Signs Date Time Temp Pulse Resp B/P (MAP) Pulse Ox O2 Delivery O2 Flow Rate FiO2 08/10/20 14:00 98.3 88 18 129/80 (96) 93 Room Air 08/06/20 11:56 1.0 I&O- Last 24 Hours up to 6 AM 08/10/20 06:00 Intake Total 570 ml Output Total 250 ml Balance 320 ml Laboratory Data 24H Labs Laboratory Tests 2 08/09/20 23:46: Urine Color YELLOW, Urine Appearance HAZY, Urine pH 6.0, Urine Specific [place] 1.048, Urine Protein 1+H, Urine Glucose (Auto)(UA) NEGATIVE, Urine Ketones (Auto) NEGATIVE, Urine Blood 3+H, Urine Nitrite NEGATIVE, Urine Bilirubin NEGATIVE, Urine Urobilinogen 0.2, Urine Leukocyte Esterase (Auto) 3+H, Urine WBC (Auto) 161H, Urine RBC (Auto) TNTCH, Urine Hyaline Casts (Auto) 0, Urine Bacteria (Auto) NEGATIVE, Urine Squamous Epithelial Cells 2, Urine Sperm (Auto) 08/10/20 07:40: Erythrocyte Sedimentation Rate 68H, Procalcitonin 0.24 Microbiology Microbiology 08/10/20 Blood Culture, Received Pending 08/09/20 Urine Culture, Received Pending 08/04/20 Gram Stain - Final, Complete 08/04/20 Sputum Culture - Final, Complete Staph.aureus Methicillin Resis 08/02/20 Gram Stain - Final, Complete 08/02/20 Sputum Culture - Final, Complete 08/01/20 Blood Culture - Final, Complete NO GROWTH AFTER 5 DAYS Assessment Bladder calculus bilateral renal calculi urethral trauma Plan At this time, the patient is able to void. He does have some discomfort but this is more likely from the bladdr stone and stent and not because of a urethral issue. His bladder is empty - a bladder scan showed only 20 cc volume, so I would not proceed any further at this time. If it does mecome neessary to catheterize the patient, this may have to be done in the OR. The urethral trauma and bleeding wll resolve by itself without intervention. I would recommend hydration and monitoring the patient for UTi. The renal and bladder stones will need some investigation to see when these were first identifies and when the stent was placed. This may need to be replaced unless the patient is on comfort care only, which is not presently the case. I will continue to follow the patient with you. Time Spent on Consult: Time Spent / Consult (Minutes): 90 IGOR MYLES MD Aug 10, 2020 17:13
[2020-08-10] MEDS: traZODone 50 MG TAB PO SCH (20:44)
[2020-08-10] MEDS: SERTRALINE HCL 25 MG TABLET PO SCH (20:44)
[2020-08-10] MEDS: ACETAMINOPHEN TAB 650MG DOSE (2X325MG) PO PRN (20:45)
[2020-08-10 22:00] VITALS: BP 112/71
[2020-08-11] MEDS: PERCOCET 5MG/325MG TAB PO PRN ×3 (01:17→14:01)
[2020-08-11 06:00] VITALS: BP 113/72
[2020-08-11] MEDS: ATORVASTATIN 10 MG TAB PO SCH (08:12)
[2020-08-11] MEDS: MIRALAX *UNIT DOSE* 17GM PACKET PO SCH ×2 (08:12→08:14)
[2020-08-11] MEDS: CEFTAROLINE FOSAMIL 600 MG in D5W MINI-BAG PLUS 50 ML IV SCH ×2 (08:12→20:25)
[2020-08-11] MEDS: APIXABAN 5 MG TAB (ELIQUIS) PO SCH ×2 (08:12→20:26)
[2020-08-11] MEDS: DULoxetine 30 MG CAP (CYMBALTA) PO SCH ×2 (08:12→20:26)
[2020-08-11 08:39] LABS: HEMATOCRIT 38.1 % (42.0-52.0); HEMOGLOBIN 11.7 g/dl (13.5-17.5); MEAN CORPUSCULAR HEMOGLOBIN 27.1 pg (27.0-33.0); MEAN CORPUSCULAR HGB CONC 30.7 g/dl (32.0-36.5); MEAN CORPUSCULAR VOLUME 88.4 fl (80.0-96.0); PLATELET COUNT, AUTOMATED 490 10^3/uL (150-450); RED BLOOD COUNT 4.31 10^6/uL (4.30-6.10); WHITE BLOOD COUNT 18.8 10^3/uL (4.0-10.0)
--- NOTE | 2020-08-11 08:43 | IPNPDOC ---
Text Note Date of Service The patient was seen on 08/11/20. NOTE SUBJECTIVE: complains of shoulder pain and pelvic pain. He also complains of dysuria when voiding. Did not complain of stump pain. No fever or chills. bloodcultures from 08/10 neg, labs pending. PHYSICAL EXAMINATION: VITAL SIGNS: Please see below. GEN: answers questions appropriately contracted left upper extremity, alert and oriented. HEENT: Normocephalic, atraumatic, moist mucous membranes, anicteric eyes. Neck : No JVD, no thyromegaly Chest: Bilateral anteriorly clear to auscultation, Bilateral basal crackles and diminished at the bases. CVS:: Normal S1, S2 , normal rate, irregular heart rate, No rub or murmur or gallop, No JVD. ABD: Soft, nontender, no organomegaly appreciated, normal bowel sounds. Ext: b/l AKA . Left LE bandaged., No edema. Suture line with jesus look nice and clean. There is a small blister which has popped on the medial aspect of the thigh. Small areas of redness next to the suture line. LABORATORY DATA, IMAGING STUDIES, MICROBIOLOGY: Reviewed. New labs pending. Radiology: CT abd and pelvis: 08/09 1. Moderate splenomegaly. 2. Bilateral intrarenal nephrolithiasis with multiple staghorn calculi bilaterally. There is a 1.6 cm proximal ureteral calculus on the right at the ureteropelvic junction. There is marked cortical atrophy of the right kidney. 3. Indwelling double pigtail right ureteral stent. 4. There is a 3.6 cm bladder calculus which incorporates the distal pigtail loop of the intravesical portion of the right ureteral stent. 5. 3.6 cm infrarenal abdominal aortic aneurysm 6. Small bilateral pleural effusions, right greater than left. ASSESSMENT AND PLAN: 80-year-old male with a history of CVA with left upper extremity contracture, A. 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 hospital course has been complicated by HCAP and acute metabolic encephalopathy due to medications. Lung Abscesses Leucocytosis Likely due to Lung abscesses. WBC remains at 21K CT chest showed RUL multiple abscesses. Antibiotic changed to ceftaroline. CT of the stump Ok CT abd and pelvis showed right ureteral stent with the large bladder sone at the tip of the stent end in the bladder. Also has screws at the left hip. We failed to catheterize him. there was obstruction and bleeding. Seen by ID by telemedicine on 08/09/20. Bilateral renal staghorn calculi/ right ureteral calculi / right double pigtail ureteric stent/ bladder calculi. Does not have any hydronephrosis or hydroureter. 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 I spoke with Daughter Adenike. She believes it was put it at least 7 years ago in [place]. At that time the doctors there said that he needed a tube though the back to get the stones out but he would not be able to tolerate it. So they put in the stent. 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 HCAP present on admission Right upper lobe airspace disease on CXR Sputum: MRSA Finished 7 days of vanco and zosyn, Now on ceftaroline. 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 Hypercholesterolemia statin Hypertension resolved. His Bp runs in low normal range which is probably normal for him at this time due to low muscle mass from b/l AKAs. Peripheral vascular disease with B/L AKA will start on Eliquis , plavix stopped. Atrial fibrillation rate controlled on Eliquis. COPD compensated prn nebs GERD ppi CKD at baseline Arthritis chronic Anxiety / Depression chronic On sertraline and trazodone Dementia complicating care CODE: DNR/DNI, HCP Daughter Adenike: [id number] VS,Fishbone, I+O VS, Fishbone, I+O Vital Signs Date Time Temp Pulse Resp B/P (MAP) Pulse Ox O2 Delivery O2 Flow Rate FiO2 08/11/20 06:00 98.2 75 18 113/72 (86) 95 Room Air 08/06/20 11:56 1.0 I&O- Last 24 Hours up to 6 AM 08/11/20 06:00 Intake Total 780 ml Output Total 0 ml Balance 780 ml RAMONA LAUGHLIN MD Aug 11, 2020 08:43
[2020-08-11 09:04] LABS: BLOOD UREA NITROGEN 12 MG/DL (7-18); CALCIUM LEVEL 8.2 MG/DL (8.8-10.2); CARBON DIOXIDE LEVEL 24 MEQ/L (21-32); CHLORIDE LEVEL 103 MEQ/L (98-107); CREATININE FOR GFR 0.74 MG/DL (0.70-1.30); GLOMERULAR FILTRATION RATE > 60.0 (>42); GLUCOSE, FASTING 102 MG/DL (70-100); POTASSIUM SERUM 3.6 MEQ/L (3.5-5.1); SODIUM LEVEL 137 MEQ/L (136-145)
[2020-08-11 09:17] LABS: ATYPICAL LYMPH 1 % (0-5); BASOPHILS 1 % (0-1); EOSINOPHILS 1 % (0-3); LYMPHOCYTES 7 % (16-44); METAMYELOCYTES 1 % (0-0); MONOCYTES 2 % (0-5); MYELOCYTES 1 % (0-0); NEUTROPHILS 85 % (28-66); PLATELET ESTIMATE INCREASED (NORMAL)
--- NOTE | 2020-08-11 12:46 | IPNPDOC ---
Subjective Review oF Systems Chief Complaint The patient is a 80-year-old male admitted with a reason for visit of Atherosclerosis [place] Vessels Lower Extremities. Events since Last Encounter Patient is continuing to void well without difficulty although he does complain of some burning. Constitutional: Denies: Fever, Chills, Sweats, Weakness, Malaise Eyes: Denies: Pain, Vision change ENT: Denies: Head Aches, Sore Throat, Epistaxis Skin: Denies: Rash, Lesions, Breakdown, Nail Changes Gastrointestinal: Denies: Nausea, Vomiting, Abdominal Pain Genitourinary: Denies: Dysuria, Frequency, Incontinence, Hematuria Objective Physical Examination General Exam: Alert, No Acute Distress Eye Exam: PERRLA, Conjunctiva & lids normal, EOMI; No: Sclera icteric ENT EXAM: Atraumatic, Mucous membr. moist/pink, Pharynx Normal ABDOMEN EXAM: Normal bowel sounds, Soft; No: Tenderness, Hepatospenomegaly Vital Signs/I&O Vital Signs Date Time Temp Pulse Resp B/P (MAP) Pulse Ox O2 Delivery O2 Flow Rate FiO2 08/11/20 06:00 98.2 75 18 113/72 (86) 95 Room Air 08/06/20 11:56 1.0 I&O- Last 24 Hours up to 6 AM 08/11/20 06:00 Intake Total 780 ml Output Total 0 ml Balance 780 ml Laboratory Data Labs 24H Laboratory Tests 2 08/11/20 07:58: Immature Granulocyte % (Auto) , Neutrophils (%) (Auto) , Nucleated Red Blood Cells % (auto) 0.0, Neutrophils 85H, Band Neutrophils 1, Lymphocytes (Manual) 7L, Monocytes (Manual) 2, Eosinophils (Manual) 1, Basophils (Manual) 1, Metamyelocytes 1H, Myelocytes 1H, Atypical Lymphocytes 1, Platelet Estimate INCREASED, Anion Gap 10, Glomerular Filtration Rate > 60.0, Calcium Level 8.2L CBC/BMP Laboratory Tests 08/11/20 07:58 Microbiology Microbiology 08/10/20 Blood Culture - Preliminary, Resulted No growth after 24 hours . All specim... 08/09/20 Urine Culture, Received Pending 08/04/20 Gram Stain - Final, Complete 08/04/20 Sputum Culture - Final, Complete Staph.aureus Methicillin Resis 08/02/20 Gram Stain - Final, Complete 08/02/20 Sputum Culture - Final, Complete 08/01/20 Blood Culture - Final, Complete NO GROWTH AFTER 5 DAYS Assessment/Plan Date Seen The patient was seen on 08/11/20. Patient Summary 1. Dysuria 2. Bilateral renal calculi 3. Right ureteral stent 4. Bladder calculus 5. Possible urethral stricture Plan/VTE VTE Prophylaxis Ordered?: No Plan Because patient is voiding on his own, I would not attempt Chou catheter insertion at this time. We'll need to find out where and when patient had his ureteral stent inserted. Based on the patient's current medical condition, I'm not sure that treating the renal or bladder calculi would be of any significant benefit for him, however patient will likely need to have the ureteral stent changed. He'll need to have the office research his past records to find out where this may have been originally inserted. IGOR MYLES MD Aug 11, 2020 12:46
[2020-08-11 14:00] VITALS: BP 118/73
[2020-08-11] MEDS: SERTRALINE HCL 25 MG TABLET PO SCH (20:26)
[2020-08-11] MEDS: traZODone 50 MG TAB PO SCH (20:26)
[2020-08-11] MEDS: ACETAMINOPHEN TAB 650MG DOSE (2X325MG) PO PRN (20:26)
[2020-08-11 22:00] VITALS: BP 121/74
[2020-08-12] MEDS: PERCOCET 5MG/325MG TAB PO PRN ×2 (02:59→09:16)
[2020-08-12 06:00] VITALS: BP 141/89
[2020-08-12 06:40] LABS: HEMATOCRIT 35.7 % (42.0-52.0); HEMOGLOBIN 11.1 g/dl (13.5-17.5); MEAN CORPUSCULAR HEMOGLOBIN 27.2 pg (27.0-33.0); MEAN CORPUSCULAR HGB CONC 31.1 g/dl (32.0-36.5); MEAN CORPUSCULAR VOLUME 87.5 fl (80.0-96.0); PLATELET COUNT, AUTOMATED 411 10^3/uL (150-450); RED BLOOD COUNT 4.08 10^6/uL (4.30-6.10); WHITE BLOOD COUNT 11.8 10^3/uL (4.0-10.0)
[2020-08-12 07:04] LABS: BLOOD UREA NITROGEN 13 MG/DL (7-18); CALCIUM LEVEL 8.2 MG/DL (8.8-10.2); CARBON DIOXIDE LEVEL 25 MEQ/L (21-32); CHLORIDE LEVEL 106 MEQ/L (98-107); CREATININE FOR GFR 0.66 MG/DL (0.70-1.30); GLOMERULAR FILTRATION RATE > 60.0 (>42); GLUCOSE, FASTING 83 MG/DL (70-100); POTASSIUM SERUM 3.9 MEQ/L (3.5-5.1); SODIUM LEVEL 137 MEQ/L (136-145)
[2020-08-12 07:54] LABS: ATYPICAL LYMPH 2 % (0-5); BASOPHILS 1 % (0-1); EOSINOPHILS 2 % (0-3); LYMPHOCYTES 17 % (16-44); MONOCYTES 5 % (0-5); NEUTROPHILS 72 % (28-66)
[2020-08-12 07:55] LABS: ANISOCYTOSIS 1+; PLATELET ESTIMATE NORMAL (NORMAL)
--- NOTE | 2020-08-12 07:58 | IPNPDOC ---
Text Note Date of Service The patient was seen on 08/12/20. NOTE SUBJECTIVE: Complains of shoulder pain and pelvic pain off and on. He also com plains of dysuria when voiding. Did not complain of stump pain. No fever or chills. Blood cultures from 08/10 neg, WBC improving after change of antibiotics. Spoke with daughter she would like to finish the course of antibiotics then take him home with home hospice in [facility]. She does not want any more interventions/ procedures but will finish the antibiotics. He will need a primary care for him to go into Hospice who will be prescribing the hospice meds. PHYSICAL EXAMINATION: VITAL SIGNS: Please see below. GEN: answers questions appropriately contracted left upper extremity, alert and oriented. HEENT: Normocephalic, atraumatic, moist mucous membranes, anicteric eyes. Neck : No JVD, no thyromegaly Chest: Bilateral anteriorly clear to auscultation, Bilateral basal crackles and diminished at the bases. CVS:: Normal S1, S2 , normal rate, irregular heart rate, No rub or murmur or gallop, No JVD. ABD: Soft, nontender, no organomegaly appreciated, normal bowel sounds. Ext: b/l AKA . Left LE bandaged., No edema. Suture line with jesus look nice and clean. There is a small blister which has popped on the medial aspect of the thigh. Small areas of redness next to the suture line. LABORATORY DATA, IMAGING STUDIES, MICROBIOLOGY: Reviewed. New labs pending. Radiology: CT abd and pelvis: 08/09 1. Moderate splenomegaly. 2. Bilateral intrarenal nephrolithiasis with multiple staghorn calculi bilaterally. There is a 1.6 cm proximal ureteral calculus on the right at the ureteropelvic junction. There is marked cortical atrophy of the right kidney. 3. Indwelling double pigtail right ureteral stent. 4. There is a 3.6 cm bladder calculus which incorporates the distal pigtail loop of the intravesical portion of the right ureteral stent. 5. 3.6 cm infrarenal abdominal aortic aneurysm 6. Small bilateral pleural effusions, right greater than left. ASSESSMENT AND PLAN: 80-year-old male with a history of CVA with left upper extremity contracture, A. 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 hospital course has been complicated by HCAP and acute metabolic encephalopathy due to medications. Lung Abscesses Leucocytosis Likely due to Lung abscesses. WBC remains at 21K CT chest showed RUL multiple abscesses. Antibiotic changed to ceftaroline. CT of the stump Ok CT abd and pelvis showed right ureteral stent with the large bladder sone at the tip of the stent end in the bladder. Also has screws at the left hip. We failed to catheterize him. there was obstruction and bleeding. Seen by ID by telemedicine on 08/09/20. Bilateral renal staghorn calculi/ right ureteral calculi / right double pigtail ureteric stent/ bladder calculi. Does not have any hydronephrosis or hydroureter. No unlikely these are the source of persistent leucocytosis Seen by Dr Freire he feels the stent needs to be changed unless he is HEALTH ACTUARY. I spoke with Daughter Adenike. She believes it was put it at least 7 years ago in [place]. At that time the doctors there said that he needed a tube though the back to get the stones out but he would not be able to tolerate it. So they put in the stent. After that he was HEALTH ACTUARY for a while but last year his Code status changed to DNR / DNI Left foot/heel gangrene s/p left AKA s/p L AKA for ischemia and gangrene managed by vascular surgery on eliquis for A fib so will stop plavix. HCAP present on admission Right upper lobe airspace disease on CXR Sputum: MRSA Finished 7 days of vanco and zosyn, Now on ceftaroline. 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 Hypercholesterolemia statin Hypertension resolved. His Bp runs in low normal range which is probably normal for him at this time due to low muscle mass from b/l AKAs. Peripheral vascular disease with B/L AKA will start on Eliquis , plavix stopped. Atrial fibrillation rate controlled on Eliquis. COPD compensated prn nebs GERD ppi CKD at baseline Arthritis chronic Anxiety / Depression chronic On sertraline and trazodone Dementia complicating care CODE: DNR/DNI then transition to HEALTH ACTUARY on discharge. HCP Daughter Adenike: [phone] VS,Fishbone, I+O VS, Fishbone, I+O Laboratory Tests 08/11/20 07:58 08/12/20 06:08 Vital Signs Date Time Temp Pulse Resp B/P (MAP) Pulse Ox O2 Delivery O2 Flow Rate FiO2 08/12/20 06:00 98.0 82 17 141/89 (106) 96 Room Air 08/06/20 11:56 1.0 I&O- Last 24 Hours up to 6 AM 08/12/20 07:00 Intake Total 480 ml Balance 480 ml RAMONA LAUGHLIN MD Aug 12, 2020 07:57
[2020-08-12] MEDS: ATORVASTATIN 10 MG TAB PO SCH (09:15)
[2020-08-12] MEDS: DULoxetine 30 MG CAP (CYMBALTA) PO SCH ×2 (09:15→21:35)
[2020-08-12] MEDS: APIXABAN 5 MG TAB (ELIQUIS) PO SCH ×2 (09:15→21:35)
[2020-08-12] MEDS: CEFTAROLINE FOSAMIL 600 MG in D5W MINI-BAG PLUS 50 ML IV SCH ×2 (09:15→21:33)
--- NOTE | 2020-08-12 13:18 | IPNPDOC ---
Subjective Review oF Systems Chief Complaint The patient is a 80-year-old male admitted with a reason for visit of Atherosclerosis [place] Vessels Lower Extremities. Events since Last Encounter No acute events. Objective Physical Examination General Exam: Alert, No Acute Distress ABDOMEN EXAM: Normal bowel sounds, Soft; No: Tenderness, Hepatospenomegaly Male Exam: Normal Genital Exam Psych Exam: Mental status NL, Mood NL Vital Signs/I&O Vital Signs Date Time Temp Pulse Resp B/P (MAP) Pulse Ox O2 Delivery O2 Flow Rate FiO2 08/12/20 09:46 17 08/12/20 06:00 98.0 82 141/89 (106) 96 Room Air 08/06/20 11:56 1.0 I&O- Last 24 Hours up to 6 AM 08/12/20 06:00 Intake Total 480 ml Balance 480 ml Laboratory Data Labs 24H Laboratory Tests 2 08/12/20 06:08: Immature Granulocyte % (Auto) , Neutrophils (%) (Auto) , Nucleated Red Blood Cells % (auto) 0.0, Neutrophils 72H, Band Neutrophils 1, Lymphocytes (Manual) 17, Monocytes (Manual) 5, Eosinophils (Manual) 2, Basophils (Manual) 1, Atypical Lymphocytes 2, Anisocytosis 1+, Platelet Estimate NORMAL, Anion Gap 6L, Glomerular Filtration Rate > 60.0, Calcium Level 8.2L CBC/BMP Laboratory Tests 08/12/20 06:08 Microbiology Microbiology 08/10/20 Blood Culture - Preliminary, Resulted No Growth after 48 hours. All Specime... 08/09/20 Urine Culture - Final, Complete 08/04/20 Gram Stain - Final, Complete 08/04/20 Sputum Culture - Final, Complete Staph.aureus Methicillin Resis 08/02/20 Gram Stain - Final, Complete 08/02/20 Sputum Culture - Final, Complete Assessment/Plan Date Seen The patient was seen on 08/12/20. Patient Summary This is a 80 y/o M w/ admitted for left AKA to manage left lower extremity ischemia and left foot and heel gangrene. We were consulted for difficulty w/ catheter placement and dysuria. The patient is voiding and emptying his bladder well. He therefore does not need a catheter placed. His dysuria is 2/2 the R ureteral stent. Per report, this is a retained stent and has been in for 7 years. The bladder stones and kidney stones seen are likely large calcifications on the distal and proximal ends of the stent. Since this stent has been in place for so long, it would be very difficult to remove. The right kidney appears atrophic and likely is not very functional. 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 Plan/VTE VTE Prophylaxis Ordered?: No Plan - no need for catheter placement as patient is emptying well - would require several surgeries to remove the patient's R ureteral stent and the stones attached to it - given this, the fact that the kidney appears to be atrophic, and the patient will likely be put on FLOW FLOOR ATTENDANT status, I do not recommend trying to remove the stent FATIMAH TURNER MD Aug 12, 2020 13:18
[2020-08-12 14:00] VITALS: BP 142/88
[2020-08-12] MEDS: SERTRALINE HCL 25 MG TABLET PO SCH (21:34)
[2020-08-12] MEDS: traZODone 50 MG TAB PO SCH (21:35)
[2020-08-12 21:39] VITALS: BP 136/86
[2020-08-13 05:58] VITALS: BP 134/72
[2020-08-13 06:44] LABS: BASO # 0.1 10^3/uL (0.0-0.2); BASO % 0.7 % (0.0-1.0); EOS # 0.1 10^3/uL (0.0-0.5); EOS % 0.9 % (0.0-3.0); HEMOGLOBIN 11.7 g/dl (13.5-17.5); LYMPH # 1.4 10^3/uL (1.5-5.0); LYMPH % 10.2 % (24.0-44.0); MEAN CORPUSCULAR HEMOGLOBIN 27.9 pg (27.0-33.0); MEAN CORPUSCULAR HGB CONC 31.6 g/dl (32.0-36.5); MEAN CORPUSCULAR VOLUME 88.3 fl (80.0-96.0); MONO # 1.1 10^3/uL (0.0-0.8); MONO % 7.5 % (0.0-5.0); NEUTROPHILS # 10.7 10^3/uL (1.5-8.5); NEUTROPHILS % 76.3 % (36.0-66.0); PLATELET COUNT, AUTOMATED 414 10^3/uL (150-450); RED BLOOD COUNT 4.19 10^6/uL (4.30-6.10)
[2020-08-13 07:07] LABS: BLOOD UREA NITROGEN 11 MG/DL (7-18); CALCIUM LEVEL 8.3 MG/DL (8.8-10.2); CARBON DIOXIDE LEVEL 22 MEQ/L (21-32); CHLORIDE LEVEL 107 MEQ/L (98-107); CREATININE FOR GFR 0.66 MG/DL (0.70-1.30); GLOMERULAR FILTRATION RATE > 60.0 (>42); GLUCOSE, FASTING 77 MG/DL (70-100); POTASSIUM SERUM 3.9 MEQ/L (3.5-5.1); SODIUM LEVEL 135 MEQ/L (136-145)
--- NOTE | 2020-08-13 08:57 | IPN ---
PROGRESS NOTE DATE: 08/13/2020 SUBJECTIVE: A long, complicated hospitalization, healthcare-associated pneumonia, ischemia, left foot and heel with gangrene, right upper lobe abscess. He is currently on ceftaroline. 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 [facility] apparently cannot take the patient until next week. They need a primary care physician (PCP) to do this and care rounds today we will discuss setting that up through my office. Unfortunately, we do not have any hospice that we have a relationship with. PHYSICAL EXAMINATION: He is alert, conversant, indicates no significant pain. He is afebrile. VITAL SIGNS: Stable. LUNGS: Clear. HEART: Regular rate and rhythm. ABDOMEN: Soft, nontender. Status post left above the knee (AKA) amputation, which is bandaged. IMPRESSION: 1. Leukocytosis, probably from lung abscess. He is currently on ceftaroline, which we will continue until his discharge. Seen by Telemedicine August 09, 2020. There was some discussion of switching him to Dalvance the day of discharge, but apparently hospice cannot take him until next week, so he will just stay on the same antibiotic regimen for now. 2. Staghorn calculi. He has been seen by urology. 3. Left foot/heel gangrene. 4. He is on Eliquis for atrial fibrillation.
[2020-08-13] MEDS: PERCOCET 5MG/325MG TAB PO PRN ×2 (09:05→14:44)
[2020-08-13] MEDS: DULoxetine 30 MG CAP (CYMBALTA) PO SCH ×2 (09:05→20:20)
[2020-08-13] MEDS: APIXABAN 5 MG TAB (ELIQUIS) PO SCH ×2 (09:05→20:20)
[2020-08-13] MEDS: ATORVASTATIN 10 MG TAB PO SCH (09:05)
[2020-08-13] MEDS: CEFTAROLINE FOSAMIL 600 MG in D5W MINI-BAG PLUS 50 ML IV SCH ×2 (09:06→20:20)
--- NOTE | 2020-08-13 09:18 | IPN ---
PROGRESS NOTE DATE: 08/12/2020 SUBJECTIVE: Alex is stable. He did complain of some joint pain and dysuria but otherwise nothing is new. He was seen in consultation by Urology who did not feel that any intervention is required at this time as he is able to urinate without any problem other than dysuria. He has very large stones that would surgically need to be removed, but the patient is going to go home on hospice. The case has been discussed with Dr. Ramsey about his anticipated discharge day. He is on day#4 of IV Ceftaroline with improvement in his white count. LABS: White count 11.8, hemoglobin 11.1, hematocrit 35.7, platelets 411, 72% neutrophils, 17% lymphocytes, 5% monocytes. Sodium 137, potassium 3.9, chloride 106, bicarb 25, BUN 13, creatinine 0.66, glucose 83, calcium 8.2, CRP 1.82. Blood culture from August 10 is negative. Urine culture from August 09 was no growth. IMPRESSION: MRSA pneumonia, doing much better on IV Ceftaroline with improvement in his white count. The patient is afebrile and not hypoxic. O2 saturation 95% on room air. Temperature is 96.1. RECOMMENDATIONS AND PLAN: 1. I would suggest as the patient is going home on hospice to give him one dose of IV Dalvance 1.5 gm. That should last him for ten days. He does not need to be on any oral medication upon discharge. 2. Status post above the knee amputation right side without any evidence of infection. 3. Large staghorn stones with dysuria. No surgical intervention at this time. ID signing off. I will place a consult to PFS to try to get a dose Dalvance upon discharge, hopefully tomorrow or the next day with a hospice consult. CASSANDRAD
[2020-08-13 10:00] VITALS: BP 160/80
[2020-08-13 14:00] VITALS: BP 140/80
[2020-08-13] MEDS: SERTRALINE HCL 25 MG TABLET PO SCH (20:19)
[2020-08-13] MEDS: traZODone 50 MG TAB PO SCH (20:20)
[2020-08-13 22:00] VITALS: BP 141/87
[2020-08-14 06:00] VITALS: BP 141/86
[2020-08-14 06:35] LABS: BASO # 0.1 10^3/uL (0.0-0.2); BASO % 0.8 % (0.0-1.0); EOS # 0.1 10^3/uL (0.0-0.5); EOS % 0.9 % (0.0-3.0); HEMATOCRIT 38.2 % (42.0-52.0); HEMOGLOBIN 11.9 g/dl (13.5-17.5); LYMPH # 1.4 10^3/uL (1.5-5.0); LYMPH % 12.2 % (24.0-44.0); MEAN CORPUSCULAR HEMOGLOBIN 27.5 pg (27.0-33.0); MEAN CORPUSCULAR HGB CONC 31.2 g/dl (32.0-36.5); MEAN CORPUSCULAR VOLUME 88.2 fl (80.0-96.0); MONO # 0.9 10^3/uL (0.0-0.8); MONO % 7.3 % (0.0-5.0); NEUTROPHILS # 8.8 10^3/uL (1.5-8.5); NEUTROPHILS % 74.9 % (36.0-66.0); PLATELET COUNT, AUTOMATED 443 10^3/uL (150-450); RED BLOOD COUNT 4.33 10^6/uL (4.30-6.10); WHITE BLOOD COUNT 11.7 10^3/uL (4.0-10.0)
[2020-08-14 06:55] LABS: BLOOD UREA NITROGEN 13 MG/DL (7-18); CALCIUM LEVEL 8.4 MG/DL (8.8-10.2); CARBON DIOXIDE LEVEL 25 MEQ/L (21-32); CHLORIDE LEVEL 106 MEQ/L (98-107); CREATININE FOR GFR 0.71 MG/DL (0.70-1.30); GLOMERULAR FILTRATION RATE > 60.0 (>42); GLUCOSE, FASTING 70 MG/DL (70-100); SODIUM LEVEL 137 MEQ/L (136-145)
[2020-08-14] MEDS: CEFTAROLINE FOSAMIL 600 MG in D5W MINI-BAG PLUS 50 ML IV SCH ×2 (09:05→20:13)
[2020-08-14] MEDS: APIXABAN 5 MG TAB (ELIQUIS) PO SCH ×2 (09:05→20:12)
[2020-08-14] MEDS: DULoxetine 30 MG CAP (CYMBALTA) PO SCH ×2 (09:05→20:11)
[2020-08-14] MEDS: ATORVASTATIN 10 MG TAB PO SCH (09:05)
[2020-08-14] MEDS: PERCOCET 5MG/325MG TAB PO PRN ×2 (09:05→20:13)
--- NOTE | 2020-08-14 10:02 | IPN ---
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 He was sleeping and easily arousable when I went in the room. His vital signs look stable. His lab work is unchanged. The exam is unchanged from yesterday. PLAN: Patient will go home on Hospice, apparently [facility] cannot take him until next Wednesday, that is the point in which his Ceftaroline will be discontinued anyway. Will give him one dose of IV Dalvance on discharge.
[2020-08-14 14:00] VITALS: BP 138/84
[2020-08-14] MEDS: traZODone 50 MG TAB PO SCH (20:11)
[2020-08-14] MEDS: SERTRALINE HCL 25 MG TABLET PO SCH (20:12)
[2020-08-14 22:00] VITALS: BP 113/66
[2020-08-15 06:00] VITALS: BP 120/71
[2020-08-15 06:34] LABS: BASO # 0.1 10^3/uL (0.0-0.2); BASO % 0.8 % (0.0-1.0); EOS # 0.2 10^3/uL (0.0-0.5); EOS % 1.3 % (0.0-3.0); HEMATOCRIT 37.9 % (42.0-52.0); HEMOGLOBIN 11.8 g/dl (13.5-17.5); LYMPH # 1.5 10^3/uL (1.5-5.0); LYMPH % 12.4 % (24.0-44.0); MEAN CORPUSCULAR HEMOGLOBIN 27.7 pg (27.0-33.0); MEAN CORPUSCULAR HGB CONC 31.1 g/dl (32.0-36.5); MONO # 1.1 10^3/uL (0.0-0.8); MONO % 8.8 % (0.0-5.0); NEUTROPHILS # 9.1 10^3/uL (1.5-8.5); NEUTROPHILS % 74.4 % (36.0-66.0); PLATELET COUNT, AUTOMATED 442 10^3/uL (150-450); RED BLOOD COUNT 4.26 10^6/uL (4.30-6.10)
[2020-08-15 06:54] LABS: WHITE BLOOD COUNT 12.3 10^3/uL (4.0-10.0)
[2020-08-15 06:58] LABS: BLOOD UREA NITROGEN 12 MG/DL (7-18); CALCIUM LEVEL 8.5 MG/DL (8.8-10.2); CARBON DIOXIDE LEVEL 25 MEQ/L (21-32); CHLORIDE LEVEL 106 MEQ/L (98-107); CREATININE FOR GFR 0.74 MG/DL (0.70-1.30); GLOMERULAR FILTRATION RATE > 60.0 (>42); GLUCOSE, FASTING 71 MG/DL (70-100); POTASSIUM SERUM 3.7 MEQ/L (3.5-5.1); SODIUM LEVEL 136 MEQ/L (136-145)
[2020-08-15] MEDS: DULoxetine 30 MG CAP (CYMBALTA) PO SCH ×2 (08:09→21:48)
[2020-08-15] MEDS: APIXABAN 5 MG TAB (ELIQUIS) PO SCH ×2 (08:09→21:48)
[2020-08-15] MEDS: PERCOCET 5MG/325MG TAB PO PRN ×2 (08:09→18:44)
[2020-08-15] MEDS: ATORVASTATIN 10 MG TAB PO SCH (08:09)
[2020-08-15] MEDS: CEFTAROLINE FOSAMIL 600 MG in D5W MINI-BAG PLUS 50 ML IV SCH ×2 (08:10→21:48)
--- NOTE | 2020-08-15 12:21 | IPN ---
PROGRESS NOTE DATE: 08/15/20 SUBJECTIVE: Alex is passing profuse clots. Case was discussed with Dr. Reese. 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 PHYSICAL EXAMINATION: Vital signs stable. General appearance: No change from yesterday, resting comfortably. LABORATORY DATA: White count 12.3, hemoglobin 11.8, platelets 442. Sodium 136, potassium 3.7, BUN 12, creatinine 0.7, glucose 71. PLAN: At this point he is PRODUCTION FOREMAN. We are looking for Hospice care per PFS, [facility] cannot accept him as they are at maximum service. We are looking into other Hospice options. I am stopping his daily labs as he is on PRODUCTION FOREMAN status and we are not doing any action based upon the results of these. He is still on ceftaroline which will continue until Wednesday of next week.
[2020-08-15 14:00] VITALS: BP 105/65
[2020-08-15] MEDS: traZODone 50 MG TAB PO SCH (21:48)
[2020-08-15] MEDS: SERTRALINE HCL 25 MG TABLET PO SCH (21:48)
[2020-08-15] MEDS: ACETAMINOPHEN TAB 650MG DOSE (2X325MG) PO PRN (21:49)
[2020-08-15 22:00] VITALS: BP 105/69
[2020-08-16] MEDS: PERCOCET 5MG/325MG TAB PO PRN ×5 (02:51→20:32)
[2020-08-16 06:00] VITALS: BP 94/61
[2020-08-16] MEDS: ACETAMINOPHEN TAB 650MG DOSE (2X325MG) PO PRN ×3 (07:42→20:32)
[2020-08-16] MEDS: ATORVASTATIN 10 MG TAB PO SCH (07:42)
[2020-08-16] MEDS: DULoxetine 30 MG CAP (CYMBALTA) PO SCH ×2 (07:43→20:32)
[2020-08-16] MEDS: CEFTAROLINE FOSAMIL 600 MG in D5W MINI-BAG PLUS 50 ML IV SCH ×2 (07:43→20:31)
[2020-08-16] MEDS: APIXABAN 5 MG TAB (ELIQUIS) PO SCH (07:43)
--- NOTE | 2020-08-16 08:23 | IPN ---
PROGRESS NOTE DATE: 08/16/2020 SUBJECTIVE: Alex is seen on [address] [facility], waiting for a disposition decisions, plans have been for him to go to [facility], apparently that is not an option. PHYSICAL EXAMINATION: VITAL SIGNS: Stable. Systolic blood pressure between 94 and 105. Afebrile. GENERAL APPEARANCE: He is lying in bed, he is resting comfortably. LUNGS: Clear. HEART: Regular rate and rhythm. ABDOMEN: Soft, nontender. EXTREMITIES: No peripheral edema. LABORATORY DATA: Labs are still pending. IMPRESSION: At this point we are waiting on disposition. I am hoping he can go to another hospice, perhaps [facility]. Will discuss this at care rounds today.
[2020-08-16 14:00] VITALS: BP 92/60
[2020-08-16] MEDS: traZODone 50 MG TAB PO SCH (20:31)
[2020-08-16] MEDS: SERTRALINE HCL 25 MG TABLET PO SCH (20:32)
[2020-08-16 22:00] VITALS: BP 97/64
[2020-08-17] MEDS: ACETAMINOPHEN TAB 650MG DOSE (2X325MG) PO PRN ×3 (00:16→20:11)
[2020-08-17] MEDS: PERCOCET 5MG/325MG TAB PO PRN ×4 (00:16→20:11)
[2020-08-17 05:25] VITALS: BP 101/67
[2020-08-17] MEDS: DULoxetine 30 MG CAP (CYMBALTA) PO SCH ×2 (08:20→20:10)
[2020-08-17] MEDS: ATORVASTATIN 10 MG TAB PO SCH (08:20)
[2020-08-17] MEDS: CEFTAROLINE FOSAMIL 600 MG in D5W MINI-BAG PLUS 50 ML IV SCH ×2 (08:21→20:10)
[2020-08-17 14:00] VITALS: BP 88/54
[2020-08-17] MEDS: SERTRALINE HCL 25 MG TABLET PO SCH (20:10)
[2020-08-17] MEDS: traZODone 50 MG TAB PO SCH (20:11)
[2020-08-17 22:00] VITALS: BP 98/58
[2020-08-18] MEDS: PERCOCET 5MG/325MG TAB PO PRN ×3 (05:33→20:39)
[2020-08-18] MEDS: ACETAMINOPHEN TAB 650MG DOSE (2X325MG) PO PRN ×2 (05:33→20:39)
[2020-08-18 06:00] VITALS: BP 93/56
[2020-08-18 06:50] LABS: HEMATOCRIT 22.6 % (42.0-52.0); MEAN CORPUSCULAR HEMOGLOBIN 28.2 pg (27.0-33.0); MEAN CORPUSCULAR VOLUME 91.1 fl (80.0-96.0); PLATELET COUNT, AUTOMATED 455 10^3/uL (150-450); RED BLOOD COUNT 2.48 10^6/uL (4.30-6.10)
[2020-08-18 07:16] LABS: CALCIUM LEVEL 7.9 MG/DL (8.8-10.2); CREATININE FOR GFR 1.81 MG/DL (0.70-1.30); GLOMERULAR FILTRATION RATE 38.8 (>42); POTASSIUM SERUM 4.2 MEQ/L (3.5-5.1)
[2020-08-18] MEDS: CEFTAROLINE FOSAMIL 600 MG in D5W MINI-BAG PLUS 50 ML IV SCH ×2 (07:45→20:39)
[2020-08-18] MEDS: DULoxetine 30 MG CAP (CYMBALTA) PO SCH ×2 (07:45→20:38)
[2020-08-18] MEDS: ATORVASTATIN 10 MG TAB PO SCH (07:45)
[2020-08-18 14:00] VITALS: BP 86/50
--- NOTE | 2020-08-18 18:36 | IPN ---
PROGRESS NOTE DATE: 08/18/2020 SUBJECTIVE: No change in Alex's status. Sleeping this morning, arousable, and follows commands. OBJECTIVE: VITAL SIGNS: Stable with blood pressure 93/56. GENERAL APPEARANCE: He was sleeping, but arousable. LUNGS: Clear. HEART: Regular rhythm. ABDOMEN: Soft and nontender with no peripheral edema. LABORATORY DATA: White count is 14,000, hemoglobin down to 7, platelets 455,000. Sodium 136, potassium 4.2, BUN 33, creatinine 1.8, glucose 67. IMPRESSION/PLAN: 1. Lung abscess on ceftaroline. His last dose is Wednesday. 2. Atrial fibrillation. He is on Eliquis. Need to keep an eye on his hemoglobin. 3. Staghorn calculi followed by urology. 4. Acute kidney injury. He looks dry. Will push oral fluids today. Recheck his labs tomorrow. 5. Acute anemia. Hemoglobin has dropped. This is in the context of what looks like some dehydration. There is no active bleeding seen. I will order another CBC tomorrow.
[2020-08-18] MEDS: traZODone 50 MG TAB PO SCH (20:38)
[2020-08-18] MEDS: SERTRALINE HCL 25 MG TABLET PO SCH (20:38)
[2020-08-18] MEDS ORDERED: NS 500 ML IV ONE (20:45)
[2020-08-18 22:00] VITALS: BP_SYST 88; BP_DIAS 44; BP_DIAS 50
[2020-08-19 02:00] VITALS: BP 98/56
[2020-08-19 06:00] VITALS: BP 110/62
[2020-08-19] MEDS: PERCOCET 5MG/325MG TAB PO PRN ×2 (06:44→20:24)
[2020-08-19 08:13] LABS: HEMATOCRIT 22.9 % (42.0-52.0); HEMOGLOBIN 7.1 g/dl (13.5-17.5); MEAN CORPUSCULAR HEMOGLOBIN 28.5 pg (27.0-33.0); PLATELET COUNT, AUTOMATED 400 10^3/uL (150-450); RED BLOOD COUNT 2.49 10^6/uL (4.30-6.10); WHITE BLOOD COUNT 11.1 10^3/uL (4.0-10.0)
[2020-08-19 08:42] LABS: BLOOD UREA NITROGEN 27 MG/DL (7-18); CARBON DIOXIDE LEVEL 22 MEQ/L (21-32); CHLORIDE LEVEL 105 MEQ/L (98-107); CREATININE FOR GFR 1.19 MG/DL (0.70-1.30); GLOMERULAR FILTRATION RATE > 60.0 (>42); GLUCOSE, FASTING 67 MG/DL (70-100); POTASSIUM SERUM 4.1 MEQ/L (3.5-5.1); SODIUM LEVEL 137 MEQ/L (136-145)
[2020-08-19] MEDS: DULoxetine 30 MG CAP (CYMBALTA) PO SCH ×2 (09:01→20:23)
[2020-08-19] MEDS: ATORVASTATIN 10 MG TAB PO SCH (09:01)
--- NOTE | 2020-08-19 09:38 | IPN ---
PROGRESS NOTE DATE: 08/19/2020 SUBJECTIVE: No change in Alex's clinical status. OBJECTIVE: VITAL SIGNS: 110/62, afebrile. GENERAL APPEARANCE: He was awake, indicated no pain. LUNGS: Clear. HEART: Regular rhythm. ABDOMEN: Soft and nontender. EXTREMITIES: Status post left above-knee amputation. IMPRESSION/PLAN: 1. Lung abscess, he is on Ceftaroline. He is on his last day of this today. Will give him a dose of Dalvance. Working with PFS as far as his discharge. Family was requesting Hospice care but [facility] has no capacity right now. 2. Atrial fibrillation, continue Eliquis. 3. Staghorn calculi followed by urology. 4. 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 5. History of depression, he is on Cymbalta, Zoloft and Trazodone which we will continue.
[2020-08-19 14:00] VITALS: BP 81/44
[2020-08-19] MEDS: SERTRALINE HCL 25 MG TABLET PO SCH (20:23)
[2020-08-19] MEDS: traZODone 50 MG TAB PO SCH (20:23)
[2020-08-19] MEDS: ACETAMINOPHEN TAB 650MG DOSE (2X325MG) PO PRN (20:24)
[2020-08-19 22:00] VITALS: BP 107/64
[2020-08-20] MEDS: ACETAMINOPHEN TAB 650MG DOSE (2X325MG) PO PRN ×2 (04:31→20:33)
[2020-08-20] MEDS: PERCOCET 5MG/325MG TAB PO PRN ×2 (04:32→20:33)
[2020-08-20 06:00] VITALS: BP 107/65
[2020-08-20] MEDS: DULoxetine 30 MG CAP (CYMBALTA) PO SCH ×2 (08:27→20:32)
[2020-08-20] MEDS: ATORVASTATIN 10 MG TAB PO SCH (08:27)
[2020-08-20 09:11] LABS: BASO # 0.1 10^3/uL (0.0-0.2); BASO % 1.1 % (0.0-1.0); EOS # 0.1 10^3/uL (0.0-0.5); EOS % 1.2 % (0.0-3.0); HEMATOCRIT 24.4 % (42.0-52.0); HEMOGLOBIN 7.4 g/dl (13.5-17.5); LYMPH % 22.7 % (24.0-44.0); MEAN CORPUSCULAR HEMOGLOBIN 28.5 pg (27.0-33.0); MEAN CORPUSCULAR HGB CONC 30.3 g/dl (32.0-36.5); MEAN CORPUSCULAR VOLUME 93.8 fl (80.0-96.0); MONO # 0.8 10^3/uL (0.0-0.8); MONO % 8.5 % (0.0-5.0); NEUTROPHILS # 5.7 10^3/uL (1.5-8.5); NEUTROPHILS % 65.1 % (36.0-66.0); PLATELET COUNT, AUTOMATED 408 10^3/uL (150-450); WHITE BLOOD COUNT 8.8 10^3/uL (4.0-10.0)
[2020-08-20 09:23] LABS: BLOOD UREA NITROGEN 24 MG/DL (7-18); CALCIUM LEVEL 7.9 MG/DL (8.8-10.2); CARBON DIOXIDE LEVEL 24 MEQ/L (21-32); CHLORIDE LEVEL 107 MEQ/L (98-107); CREATININE FOR GFR 1.08 MG/DL (0.70-1.30); GLOMERULAR FILTRATION RATE > 60.0 (>42); GLUCOSE, FASTING 83 MG/DL (70-100); POTASSIUM SERUM 4.2 MEQ/L (3.5-5.1); SODIUM LEVEL 138 MEQ/L (136-145)
[2020-08-20 14:00] VITALS: BP 104/64
--- NOTE | 2020-08-20 14:55 | IPNPDOC ---
Text Note Date of Service The patient was seen on 08/20/20. NOTE Subjective: Patient was seen and examined this morning at bedside. Arousable and follows commands. Discussion yesterday with Adenike history be live-in daughter concluded that she'll be living with him at home and he will go home with home hospice care. Objective: Constitutional: Awake in no apparent distress ENT: Sclera are clear Respiratory: Lungs CTA bilaterally. No respiratory distress. No use of accessory muscles. Cardiovascular: RRR S1 and S2 are normal Gastrointestinal: Abdomen is soft, non distended, non tender Musculoskeletal: Left above-knee amputation Assessment/plan: # Lung abscess: Completed Cefraoline. 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 Needs to be done after discharge. Dr. Spain following. Leukocytosis resolved. 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 Dr. Sullivan will be established as his PCP. Per new M[facility]ST filled today with Adenike, patient is PAVING PLANT OPERATOR, DNR/DNI, no IV fluids, no Abx. [facility] [place] [facility]ist Don LE, I+O VSDon I+O Laboratory Tests 08/20/20 08:40 Vital Signs Date Time Temp Pulse Resp B/P (MAP) Pulse Ox O2 Delivery O2 Flow Rate FiO2 08/20/20 06:00 98.3 91 18 107/65 (79) 95 Room Air 08/17/20 21:00 I&O- Last 24 Hours up to 6 AM 08/20/20 06:00 Intake Total 310 ml Balance 310 ml AAMIR VALE MD Aug 20, 2020 14:24
--- NOTE | 2020-08-20 15:02 | IPN ---
PROGRESS NOTE DATE: 08/19/2020 Alex seems to be doing fairly well. He is being discharged home with hospice care. No new complaints. Patient has finished 10 days of ceftaroline from August 09. Last date was August 19. Prior to that he was on intravenous (IV) vancomycin from August 02 to August 08. These were for his methicillin-resistant Staphylococcus aureus (MRSA) pneumonia and lung abscess. LABORATORY DATA: White count 11.1, hemoglobin 7.1, hematocrit 22.9, platelets 400. Sodium 137, potassium 4.1, chloride 105, bicarbonate 22, BUN 27, creatinine 1.19, glucose 67, and calcium 5. Sputum culture August 04 had MRSA. Blood culture August 10 was no growth after 5 days. Procalcitonin on August 10 was 0.24. IMPRESSION: 1. Lung abscess with methicillin-resistant Staphylococcus aureus (MRSA). Finished 10 days of IV ceftaroline and 7 days of IV vancomycin. The patient does not need Dalvance as an outpatient. He has finished his treatment with a normal procalcitonin. 2. Multiple calculi with staghorn, followed by urology as an outpatient. If symptomatic, will need to be addressed; otherwise, the patient is even considering hospice care. There is no need for Dalvance as an outpatient. The patient has finished his treatment for MRSA pneumonia. Case discussed with Dr. Sullivan and pharmacy, [facility].
[2020-08-20] MEDS: traZODone 50 MG TAB PO SCH (20:32)
[2020-08-20] MEDS: SERTRALINE HCL 25 MG TABLET PO SCH (20:32)
[2020-08-21] MEDS ORDERED: HYOS125TA PO (08:23)
[2020-08-21] MEDS ORDERED: MORP20SO3 PO (08:23)
[2020-08-21] MEDS ORDERED: ATIV1TAB10 PO (08:23)
--- NOTE | 2020-08-21 08:31 | DS.PDOC ---
Discharge Summary General Date of Admission Jul 31, 2020 at 13:38 Date of Discharge 08/21/20 Discharge Summary PROCEDURES PERFORMED DURING STAY: [None]. ADMITTING DIAGNOSES: 1. Sepsis from left foot gangrene DISCHARGE DIAGNOSES: 1. sepsis 2/2 lung abscess 2. LUZ COMPLICATIONS/CHIEF COMPLAINT: Atherosclerosis [place] Vessels Lower Extremities. HISTORY OF PRESENT ILLNESS: From admitting attendings H&P: This 80 old gentleman with a history of right AKA and severe bilateral PAD underwent left AKA to m anage left foot and heel gangrene this evening. At the time of my evaluation, the patient reported having a bit of pain,but otherwise denied any acute complaints. suspected sepsis from left foot gangrene HOSPITAL COURSE: # Lung abscess: Completed treatment with Cefraoline. 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 Leukocytosis resolved. # Acute anemia: In the context of possibly dehydration there is no active bleeding and hemoglobin has been coming back up # Sepsis from left foot gangrene: s/p L AKA for ischemia and gangrene # LUZ: Seemed to be likely secondary to dehydration resolved with IV fluids # History of depression: On Cymbalta and Zoloft and trazodone which can be continued even with IT COORDINATOR for comfort measures Patient transitioned to IT COORDINATOR status per daughter's wishes who is the healthcare proxy he will go home with home hospice. Dr. Sullivan will be established as his PCP. Per new [facility]ST filled with [facility] DISCHARGE MEDICATIONS: Please see below. ALLERGIES: Please see below. PHYSICAL EXAMINATION ON DISCHARGE: VITAL SIGNS: Please see below. Constitutional: Awake in no apparent distress ENT: Sclera are clear Respiratory: Lungs CTA bilaterally. No respiratory distress. No use of accessory muscles. Cardiovascular: RRR S1 and S2 are normal Gastrointestinal: Abdomen is soft, non distended, non tender Musculoskeletal: Left above-knee amputation LABORATORY DATA: Please see below. IMAGING: see chart ACTIVITY: [As tolerated]. DIET: comfort feeding as tolerated DISCHARGE PLAN: Home hospice DISCHARGE INSTRUCTIONS: 1. To establish care today with Dr Clarke as PCP. Patient to go home with [facility] for home hospice. ITEMS TO FOLLOWUP ON ON OUTPATIENT: 1. follow up with your new PCP who will refill and follow up with your IT COORDINATOR needs. DISCHARGE CONDITION: [Stable]. TIME SPENT ON DISCHARGE: 35 minutes. Vital Signs/I&Os Vital Signs Date Time Temp Pulse Resp B/P (MAP) Pulse Ox O2 Delivery O2 Flow Rate FiO2 08/20/20 14:00 96.3 81 18 104/64 (77) 97 Room Air 08/17/20 21:00 I&O- Last 24 Hours up to 6 AM 08/21/20 06:00 Intake Total 970 ml Balance 970 ml Laboratory Data Labs 24H Laboratory Tests 2 08/20/20 08:40: Immature Granulocyte % (Auto) 1.4, Neutrophils (%) (Auto) 65.1, Lymphocytes (%) (Auto) 22.7L, Monocytes (%) (Auto) 8.5H, Eosinophils (%) (Auto) 1.2, Basophils (%) (Auto) 1.1H, Neutrophils # (Auto) 5.7, Lymphocytes # (Auto) 2.0, Monocytes # (Auto) 0.8, Eosinophils # (Auto) 0.1, Basophils # (Auto) 0.1, Nucleated Red Blood Cells % (auto) 0.0, Anion Gap 7L, Glomerular Filtration Rate > 60.0, Calcium Level 7.9L CBC/BMP Laboratory Tests 08/20/20 08:40 Discharge Medications Scheduled Apixaban (Eliquis) 5 Mg Tablet, 5 MG PO BID Arginine/Glutamine/Calcium Bmb (Jacob Packet) 1 Each Powd.pack, 1 POW PO BID, (Reported) Clopidogrel Bisulfate (Plavix) 75 Mg Tablet, 75 MG PO QPM, (Reported) @ 1900 Diclofenac Sodium (Diclofenac Sodium) 1% 100GM Gel..gram., 4 GM TOP TID for right stump [id number], (Reported) Apply to area of pain Duloxetine Hcl (Cymbalta) 30 Mg Capsule.dr, 30 MG PO BID, (Reported) Ketotifen Fumarate (Ketotifen Fumarate) 5 Ml Drops, 1 DROP OU BID, (Reported) Lactose-Reduced Food (Ensure Enlive) 237 Ml Liquid, 240 ML PO BID, (Reported) Lanolin Alcohol/Mo/W.pet/[place]raham (Eucerin Creme) 454 Gm Cream..g., 1 APLCT TOP QPM, (Reported) Oxycodone Hcl (Oxycodone HCl) 15 Mg Tablet, 15 MG PO TID, (Reported) Polyethylene Glycol 3350 (Miralax) 17 Gm Powd.pack, 17 GM PO BID, (Reported) Sennosides/Docusate Sodium (Senna-S Tablet) 1 Each Tablet, 1 TAB PO BID, (Reported) Sertraline HCl (Sertraline HCl) 50 Mg Tablet, 75 MG PO QHS, (Reported) Trazodone HCl (Trazodone HCl) 50 Mg Tablet, 50 MG PO QHS, (Reported) Scheduled PRN Acetaminophen (Acetaminophen) 325 Mg Tablet, 650 MG PO Q4H PRN for PAIN OR FEVER, (Reported) Albuterol Sulf (Albuterol Sulfate) 2.5 Mg/3 Ml Vial.neb, 1 VIAL INH Q4H PRN for SHORTNESS OF BREATH, (Reported) Diclofenac Sodium (Voltaren) 100 Gm Gel..gram., 1 APPLIC TOP TID PRN for PAIN, (Reported) APPLY TO AFFECTED AREAS Hyoscyamine Sulfate (Hyoscyamine Sulfate) 0.125 Mg Tab.subl, 0.125 MG PO Q4HP PRN for TERMINAL SECRETIONS Use sublingually if unable to swallow Lorazepam (Ativan) 0.5 Mg Tablet, 0.5 MG PO Q4HP PRN for ANXIETY/AGITATION Use sublingually if unable to swallow Morphine Sulfate (Morphine Sulfate) 100 Mg/5 Ml Solution, 0.25-1 ML PO Q2H PRN for PAIN OR DYSPNEA Use sublingually if unable to swallow Sodium Phosphate,[place]-Dibasic (Enema) 133 Ml Enema, 1 LARRY [place] DAILY PRN for CONSTIPATION, (Reported) Allergies Coded Allergies: No Known Allergies (Unverified , 07/31/20) AAMIR VALE MD Aug 21, 2020 08:30
[2020-08-21] MEDS: PERCOCET 5MG/325MG TAB PO PRN (08:33)
[2020-08-21] MEDS: ATORVASTATIN 10 MG TAB PO SCH (08:33)
[2020-08-21] MEDS: DULoxetine 30 MG CAP (CYMBALTA) PO SCH (08:33)
[2020-08-21] MEDS ORDERED: ENEMENE PR (09:49)
[2020-08-21] MEDS ORDERED: ACET1TAB55 PO (09:49)
[2020-08-21] MEDS ORDERED: ENSU1LIQ36 PO (09:49)
[2020-08-21] MEDS ORDERED: DICL1GEL3 TOP (09:49)
[2020-08-21] MEDS ORDERED: SERT50TA29 PO (09:49)
[2020-08-21] MEDS ORDERED: EUCECRE8 TOP (09:49)
[2020-08-21] MEDS ORDERED: CYMB1CAP5 PO (09:49)
[2020-08-21] MEDS ORDERED: TRAZ-186 PO (09:49)
[2020-08-21] MEDS ORDERED: SENN1TAB41 PO (09:49)
[2020-08-21] MEDS ORDERED: KETO0.02 OU (09:49)
[2020-08-21] MEDS ORDERED: MIRA1POW3 PO (09:49)
[2020-08-21] MEDS ORDERED: VENTAER INH (09:50)
== END 2020-08-21 10:00 | disposition hospice, home (50) | DRG 239 ==
LOC: M OR 13:38 → EEVIPCON 13:38 → M MSPAV 23:25 → M PCU 08-02 01:20 → M MS5PR 08-06 16:58
PROVIDERS: ADMIT Surgery Vascular Surgery; ATTEND Family Medicine
PROC: 0Y6D0Z3 Detachment at Left Upper Leg, Low, Open Approach (ICD-10-PCS; principal; 2020-07-31 15:00)
DX: I70.262 Atherosclerosis of native arteries of extremities with gangrene, left leg (principal); G92 Toxic encephalopathy; E43 Unspecified severe protein-calorie malnutrition; J15.212 Pneumonia due to Methicillin resistant Staphylococcus aureus; J85.1 Abscess of lung with pneumonia; A41.9 Sepsis, unspecified organism; I48.19 Other persistent atrial fibrillation; R64 Cachexia; N20.2 Calculus of kidney with calculus of ureter; J90 Pleural effusion, not elsewhere classified; N17.9 Acute kidney failure, unspecified; I12.9 Hypertensive chronic kidney disease with stage 1 through stage 4 chronic kidney disease, or unspecified chronic kidney disease; J44.9 Chronic obstructive pulmonary disease, unspecified; R62.7 Adult failure to thrive; N36.8 Other specified disorders of urethra; R31.9 Hematuria, unspecified; N18.2 Chronic kidney disease, stage 2 (mild); F03.90 Unspecified dementia, unspecified severity, without behavioral disturbance, psychotic disturbance, mood disturbance, and anxiety; F32.9 Major depressive disorder, single episode, unspecified; Z51.5 Encounter for palliative care; Z79.899 Other long term (current) drug therapy; K21.9 Gastro-esophageal reflux disease without esophagitis; M19.90 Unspecified osteoarthritis, unspecified site; F41.9 Anxiety disorder, unspecified; Z87.891 Personal history of nicotine dependence; E78.5 Hyperlipidemia, unspecified; D64.9 Anemia, unspecified

== ENCOUNTER → 2020-07-31 | Outpatient (REF) | payer MEDICAID, MEDICARE | PROVIDERS: ATTEND Internal Medicine | DX: Z11.52 Encounter for screening for COVID-19 (principal) ==